=== PATIENT | male | born 1960 | race African-American/Black ===

== ENCOUNTER 2016-11-22 09:42 | Emergency (ER) | payer OTHER ==
[~2016-11-22 09:42] MED LIST: ATOR40TA49 PO; CARV6.25 PO; ECOT81TA2 PO; FURO20 PO; LISI10 PO; SPIR25 PO
[2016-11-22 09:46] VITALS: BP 168/97; PULSE 66; RESP 18; TEMP 98.5; O2SAT 100
[2016-11-22] MEDS ORDERED: CARV6.252 PO (11:33)
--- NOTE | 2016-11-22 12:28 | PD ---
HPI Chief Complaint: GI Complaint Time Seen by Provider: 12:28 Travel History International Travel<30 days: No Contact w/Intl Traveler<30days: No Traveled to known affect area: No History of Present Illness HPI 56-year-old male with a history of CHF presents to the emergency department for evaluation of abdominal pain, back pain and leg pain. The patient states that he has had epigastric abdominal pain for several weeks. States it is constant and describes it as a sharp pain. Aggravated with exertion. Denies any alleviating factors. States that when he exerts himself he also has bilateral lower back pain that radiates to his upper legs. Denies any injury or trauma to his back or legs. States that he has had similar symptoms in the past, does not remember what caused it or what helped the symptoms. Denies any fever , chills, nausea, vomiting, diarrhea, constipation, cough or cold symptoms, chest pain, shortness of breath. States that 2 nights ago he did have shortness of breath when lying flat in bed but otherwise has had no other episodes of shortness of breath or orthopnea. Denies any prior abdominal surgeries. No other complaints. PFSH Past Medical History Heart Rhythm Problems: No Cancer: No Cardiovascular Problems: Yes High Cholesterol: Yes Chemotherapy: No Chest Pain: No Congestive Heart Failure: Yes Cerebrovascular Accident: No Diminished Hearing: No Endocrine: No Gastrointestinal Disorders: No Genitourinary: No Hypertension: Yes Immune Disorder: No Musculoskeletal: No Neurologic: No Psychiatric: No Reproductive: No Respiratory: Yes Migraines: Yes Radiation Therapy: No Seizures: No Tetanus Vaccination: Unknown Influenza Vaccination: No Past Surgical History Abdominal Surgery: No Cardiac Surgery: No Ear Surgery: No Endocrine Surgery: No Eye Surgery: No Genitourinary Surgery: No Gynecologic Surgery: No Oral Surgery: Yes (wisdom teeth removed) Thoracic Surgery: No Other Surgery: Yes (right knee surgery) Social History Alcohol Use: No Tobacco Use: No Substance Use: No Allergies-Medications (Allergen,Severity, Reaction): Coded Allergies: No Known Allergies (Unverified , 11/22/16) Reported Meds & Prescriptions Reported Meds & Active Scripts Active Reported Carvedilol 6.25 Mg Tab 6.25 Mg PO BID Review of Systems Except as stated in HPI: all other systems reviewed are Neg Physical Exam Narrative GENERAL: Well-nourished and well-developed pleasant male patient in no acute distress who is nontoxic appearing. SKIN: Warm and dry. HEAD: Normocephalic and atraumatic. EYES: No injection, drainage, or hyphema noted. PERRLA. EOMI. ENT: No nasal drainage noted. Oropharynx is clear. NECK: Supple and the trachea is midline. CARDIOVASCULAR: Regular rate and rhythm. RESPIRATORY: Breath sounds are equal bilaterally with no accessory muscle use, wheezing, rhonchi, or crackles. GASTROINTESTINAL: Mild epigastric and right upper quadrant tenderness to palpation. Abdomen is soft and nondistended. No rebound tenderness. MUSCULOSKELETAL: No obvious deformities, swelling, cyanosis, or ecchymosis is present throughout the upper and lower extremities. Patient has full range of motion without any signs of neurovascular compromise. Strength 5/5 upper and lower extremities equal bilaterally. BACK: Nontender without any obvious deformities, bony point tenderness, or crepitus noted throughout the thoracic and lumbar vertebrae. NEUROLOGICAL: Awake, alert, and oriented. Normal speech and gait. Cranial nerves are grossly intact. Data Data Last Documented VS Vital Signs Date Time Temp Pulse Resp B/P Pulse Ox O2 Delivery O2 Flow Rate FiO2 11/22/16 14:13 65 18 154/88 99 11/22/16 09:46 98.5 Room Air Orders Complete Blood Count With Diff (11/22/16 12:26) Comprehensive Metabolic Panel (11/22/16 12:26) Lipase (11/22/16 12:26) Urinalysis - C+S If Indicated (11/22/16 12:26) Ct Abd/Pel W Iv Contrast(Rout) (11/22/16 12:26) Iv Access Insert/Monitor (11/22/16 12:26) Ecg Monitoring (11/22/16 12:26) Oximetry (11/22/16 12:26) Sodium Chloride 0.9% Flush (Ns Flush) (11/22/16 12:30) Electrocardiogram (11/22/16 12:26) B-Type Natriuretic Peptide (11/22/16 12:28) Chest, Single Ap (11/22/16 12:36) Us Abdomen Gallbladder (11/22/16 ) Iohexol 350 Inj (Omnipaque 350 Inj) (11/22/16 15:29) Labs Laboratory Tests Test 11/22/16 13:05 White Blood Count 4.2 TH/MM3 Red Blood Count 3.24 MIL/MM3 Hemoglobin 10.5 GM/DL Hematocrit 31.9 % Mean Corpuscular Volume 98.3 FL Mean Corpuscular Hemoglobin 32.5 PG Mean Corpuscular Hemoglobin 33.1 % Concent Red Cell Distribution Width 16.2 % Platelet Count 213 TH/MM3 Mean Platelet Volume 8.4 FL Neutrophils (%) (Auto) 51.3 % Lymphocytes (%) (Auto) 31.7 % Monocytes (%) (Auto) 11.3 % Eosinophils (%) (Auto) 5.2 % Basophils (%) (Auto) 0.5 % Neutrophils # (Auto) 2.2 TH/MM3 Lymphocytes # (Auto) 1.3 TH/MM3 Monocytes # (Auto) 0.5 TH/MM3 Eosinophils # (Auto) 0.2 TH/MM3 Basophils # (Auto) 0.0 TH/MM3 CBC Comment DIFF FINAL Differential Comment Urine Color YELLOW Urine Turbidity CLEAR Urine pH 5.5 Urine Specific Pala 1.025 Urine Protein 30 mg/dL Urine Glucose (UA) NEG mg/dL Urine Ketones NEG mg/dL Urine Occult Blood NEG Urine Nitrite NEG Urine Bilirubin NEG Urine Urobilinogen LESS THAN 2.0 MG/DL Urine Leukocyte Esterase NEG Urine RBC LESS THAN 1 /hpf Urine WBC 2 /hpf Urine Hyaline Casts 3 /lpf Microscopic Urinalysis Comment CULT NOT INDICATED Sodium Level 138 MEQ/L Potassium Level 3.8 MEQ/L Chloride Level 106 MEQ/L Carbon Dioxide Level 25.0 MEQ/L Anion Gap 7 MEQ/L Blood Urea Nitrogen 16 MG/DL Creatinine 1.31 MG/DL Estimat Glomerular Filtration 69 ML/MIN Rate Random Glucose 87 MG/DL Calcium Level 8.3 MG/DL Total Bilirubin 0.9 MG/DL Aspartate Amino Transf 35 U/L (AST/SGOT) Alanine Aminotransferase 37 U/L (ALT/SGPT) Alkaline Phosphatase 56 U/L B-Type Natriuretic Peptide 1681 PG/ML Total Protein 9.7 GM/DL Albumin 2.9 GM/DL Lipase 74 U/L [facility] Medical Decision Making Medical Screen Exam Complete: Yes Emergency Medical Condition: Yes Differential Diagnosis Gastritis versus GERD versus cholecystitis versus cholelithiasis versus anginal equivalent Narrative Course 56-year-old male presents to the emergency department for evaluation of epigastric abdominal pain, bilateral lower back pain radiating to legs. Patient is afebrile, vital signs are stable. The abdominal pain is constant over the back pain and leg pain is exertional. He has a history of CHF with an ejection fraction of 15-20% and was on a life vest, he no longer wears the LifeVest. He is a noncompliant patient, has not seen his primary care Dr. Bailey in almost a year and saw the [facility] for only one follow-up visit 2 weeks after his hospitalization August 2015. The only medication he is currently taking his carvedilol because "the pharmacy won't give me refills on the others until I see my doctor." IV access is obtained, labs have been drawn and sent. Patient is placed on cardiac telemetry and pulse oximetry monitoring. CT of the abdomen and pelvis with IV contrast and ultrasound of the gallbladder has been ordered and is pending. CBC shows mild anemia with hemoglobin of 10.5, hematocrit 31.9. CMP shows renal insufficiency with a creatinine of 1.31, GFR 69. Urinalysis shows 30 protein, otherwise unremarkable. Chest x-ray is negative. Gallbladder ultrasound is negative. CT of the abdomen and pelvis is read by radiology to show appearance of one loop of small bowel in the midportion questionable for partial intussusception and the appearance is nonspecific. Mild right lung base atelectasis and/or infiltrate is seen and tiny right pleural effusion. My attending physician Dr. Powers also reviewed the CT images and evaluated the patient and we agree this is not intussusception. Dr. Powers recommends giving patient refills of medications for CHF and outpatient follow-up with Dr. Bailey in 1 week. Patient verbalizes understanding and agreement with treatment plan. I discussed the case with my attending physician Dr. Powers who is aware of the patients history, physical examination findings, and treatment plan. Diagnosis Primary Impression: Abdominal pain Qualified Code: R10.10 - Pain of upper abdomen Additional Impression: CHF (congestive heart failure) Qualified Code: I50.9 - Chronic congestive heart failure, unspecified congestive heart failure type Referrals: Primary Care Physician 1 week Patient Instructions: General Instructions Additional Instructions: Take medications as prescribed. Follow-up with your Primary Care Physician in 1 week. Return to the ED for any acute worsening of symptoms. Med/Other Pt SpecificInfo: Prescription(s) given Scripts Spironolactone 25 Mg Tab25 Mg PO DAILY #30 TAB Ref 0 Prov:Donovan Powers MD 11/22/16 Lisinopril 10 Mg Tab10 Mg PO DAILY #30 TAB Ref 0 Prov:Donovan Powers MD 11/22/16 Furosemide 20 Mg Tab20 Mg PO BID #60 TAB Ref 0 Prov:Donovan Powers MD 11/22/16 Disposition: 01 DISCHARGE HOME Condition: Stable Opal Coates Nov 22, 2016 12:28
[2016-11-22] MEDS ORDERED: SODIUM CHLORIDE 0.9% FLUSH 10 ML FLUSH IV FLUSH PRN (12:30)
[2016-11-22 13:16] LABS: AUTOMATED NEUTROPHIL # 2.2 TH/MM3 (1.8-7.7); BASOPHIL % 0.5 % (0.0-2.0); EOSINOPHIL # 0.2 TH/MM3 (0-0.4); EOSINOPHIL % 5.2 % (0.0-4.0); HEMATOCRIT 31.9 % (39.0-51.0); HEMO FLAGS DIFF FINAL; LYMPH % 31.7 % (9.0-44.0); LYMPHOCYTE # 1.3 TH/MM3 (1.0-4.8); MEAN CELL VOLUME 98.3 FL (80.0-100.0); MEAN CORPUSCULAR HEMOGLOBIN 32.5 PG (27.0-34.0); MEAN CORPUSCULAR HGB CONC 33.1 % (32.0-36.0); MONO % 11.3 % (0.0-8.0); NEUT % 51.3 % (16.0-70.0); PLATELET COUNT 213 TH/MM3 (150-450); RED BLOOD COUNT 3.24 MIL/MM3 (4.50-5.90); RED CELL DISTRIBUTION WIDTH 16.2 % (11.6-17.2); WHITE BLOOD COUNT 4.2 TH/MM3 (4.0-11.0)
[2016-11-22 13:27] LABS: BLOOD, URINE NEG (NEG); COMMENT (UR) CULT NOT INDICATED; CULTURE IF INDICATED CULT NOT INDICATED; GLUCOSE,URINE NEG (NEG); HYALINE CAST, URINE 3 /lpf (RARE); KETONE, URINE NEG (NEG); NITRITE,URINE NEG (NEG); PH, URINE 5.5 (5.0-8.5); URINE COLOR YELLOW (YELLW/STRAW)
--- NOTE | 2016-11-22 13:33 | RADRPT ---
EXAM DATE/TIME: 11/22/2016 12:43 [facility] COMPARISON: CHEST PA & LAT, August 31, 2015, 12:07. INDICATIONS : Body pain, tightness ins chest. Low abdomen pains radiating into legs. MEDICAL HISTORY : None. SURGICAL HISTORY : None. ENCOUNTER: Initial ACUITY: 3 days PAIN SCORE: 10/10 LOCATION: Bilateral chest FINDINGS: The lungs are clear without infiltrate, nodule, or mass. There is no appreciable pleural effusion fo r technique. Slight cardiomegaly has not changed. CONCLUSION: No acute cardiopulmonary disease. Jose Lombardo MD on November 22, 2016 at 13:30 Board Certified Radiologist. This report was verified electronically.
--- NOTE | 2016-11-22 13:56 | RADRPT ---
EXAM DATE/TIME: 11/22/2016 13:04 [facility] COMPARISON: US LEG RIGHT VENOUS DOPPLER, September 11, 2013, 20:23. INDICATIONS : Right upper quadrant pain. MEDICAL HISTORY : Hypertension. Hypercholesterolemia. Congestive heart failure. Dyspnea. Dizziness. SURGICAL HISTORY : [place] teeth removed. Right knee surgery. ENCOUNTER: Initial ACUITY: 4-6 days PAIN SCORE: 8/10 LOCATION: Right upper quadrant MEASUREMENTS: LIVER: 16.3 cm length COMMON DUCT: 4 mm RIGHT KIDNEY: 9.9 x 5.0 x 4.0 cm FINDINGS: LIVER: Normal echotexture without focal lesion or ductal dilatation. COMMON DUCT: No intraluminal mass or stone visualized. GALLBLADDER: Contains no stones, demonstrates no wall thickening or pericholecystic fluid. PANCREAS: The visualized portions are within normal limits. RIGHT KIDNEY: No evidence of hydronephrosis, stone, or mass. CONCLUSION: 1. Negative examination. Mono Feldman MD on November 22, 2016 at 13:51 Board Certified Radiologist. This report was verified electronically.
[2016-11-22 13:58] LABS: ANION GAP 7 MEQ/L (5-15); BLOOD UREA NITROGEN 16 MG/DL (7-18); CHLORIDE 106 MEQ/L (98-107); GLOMERULAR FILTRATION RATE 69 ML/MIN (>89); POTASSIUM 3.8 MEQ/L (3.5-5.1); SODIUM (NA) 138 MEQ/L (136-145)
[2016-11-22 14:00] LABS: ALT (GPT) 37 U/L (12-78); AST (GOT) 35 U/L (15-37)
[2016-11-22 14:02] LABS: ALKALINE PHOSPHATASE 56 U/L (45-117); TOTAL BILIRUBIN ADULT 0.9 MG/DL (0.2-1.0)
[2016-11-22 14:13] VITALS: BP 154/88; PULSE 65; RESP 18; O2SAT 99
[2016-11-22] MEDS ORDERED: IOHEXOL 350 MG/ML 10 ML VIAL (for RAD DIAG) IV ONE (15:29)
--- NOTE | 2016-11-22 16:14 | RADRPT ---
EXAM DATE/TIME: 11/22/2016 15:20 [facility] COMPARISON: No previous studies available for comparison. INDICATIONS : Abdomen pain. IV CONTRAST: 70 cc Omnipaque 350 (iohexol) IV ORAL CONTRAST: No oral contrast ingested. RADIATION DOSE: 5.71 CTDIvol (mGy) MEDICAL HISTORY : Hypertension. Cardiovascular disease Congestive heart failure. SURGICAL HISTORY : None. ENCOUNTER: Initial ACUITY: 1 day PAIN SCALE: 5/10 LOCATION: Bilateral abdomen. TECHNIQUE: Volumetric scanning of the abdomen and pelvis was performed. Using automated exposure control and ad justment of the mA and/or kV according to patient size, radiation dose was kept as low as reasonably achievable to obtain optimal diagnostic quality images. DICOM format image data is available electro nically for review and comparison. FINDINGS: CT Abdomen: The liver, spleen, pancreas, kidneys, adrenals are unremarkable. There is no evidence for any appreciable pathological adenopathy, free fluid. Mild right lung base atelectasis and/or infilt rate is seen. Slight degree of somewhat linear irregular opacity is seen in the left lung base mostly consistent with scarring. There is one loop of small bowel in the midportion of the abdomen with max imum diameter of 3 cm. It demonstrates thickening of the bowel wall the exact etiology is not certain and could be localized ileus. On some of the coronal and axial projections there may be some fatty m esentery protruding in the middle of this loop and questionable for partial intussusception. There is a tiny right pleural effusion. CT pelvis: There is no evidence for mass, abscess formation, or any significant adenopathy within the pelvis. CONCLUSION: 1. Abdomen appearance to one loop of small bowel in the midportion questionable for partial intussusc eption and the appearance is nonspecific. 2. Mild right lung base atelectasis and/or infiltrate is seen and a tiny right pleural effusion. Jose Lombardo MD on November 22, 2016 at 16:00 Board Certified Radiologist. This report was verified electronically.
[2016-11-22] MEDS ORDERED: LISI10TA3 PO (16:58)
[2016-11-22] MEDS ORDERED: SPIR25TA PO (16:58)
[2016-11-22] MEDS ORDERED: FURO20TA PO (16:58)
[2016-11-22 17:10] VITALS: BP 145/84
== END 2016-11-22 17:11 | disposition home or self-care (01) ==
LOC: NEPD 09:42
DX: R10.13 Epigastric pain (principal); M54.5 Low back pain; M79.604 Pain in right leg; M79.605 Pain in left leg; I11.0 Hypertensive heart disease with heart failure; I50.9 Heart failure, unspecified; D64.9 Anemia, unspecified; N28.9 Disorder of kidney and ureter, unspecified; E78.00 Pure hypercholesterolemia, unspecified
CPT/HCPCS: 71010; 74177; 76705; 80053; 81001; 83690; 83880; 85025; 99285; Q9967

== ENCOUNTER 2017-04-22 15:17 | Inpatient (IN) | payer OTHER ==
[~2017-04-22] VITALS: Ht 172.7 cm; Wt 74.4 kg
[2017-04-22] VITALS (8 sets, daily range): BP systolic 124–142; BP diastolic 67–73; PULSE 53–63; RESP 16–18; TEMP 97.1–97.9; O2SAT 97–100
[~2017-04-22 15:17] MED LIST changes: -ATOR40TA49 PO; -CARV6.25 PO; +CARV6.252 PO; -ECOT81TA2 PO; -FURO20 PO; +FURO20TA PO; -LISI10 PO; +LISI10TA3 PO; -SPIR25 PO; +SPIR25TA PO
--- NOTE | 2017-04-22 15:46 | PD ---
HPI Chief Complaint: CHEST PAIN Time Seen by Provider: 15:46 Travel History International Travel<30 days: No Contact w/Intl Traveler<30days: No Traveled to known affect area: No History of Present Illness HPI 56-year-old male with history of CAD, CHF, hypertension, presents emergency department for evaluation of acute onset right sided chest pain that began approximately 1 hour ago while moving tables. Patient has persisted and is sharp, stabbing. 8 out of 10. It does not radiate anywhere. It has associated brief shortness of breath. Patient has been nauseous. Denies any diaphoresis or lightheadedness sensation. Patient denies any recent fever or chills however states he has been having upper respiratory symptoms of cough and chest congestion for the last month. Denies any abdominal pain. Denies any focal deficits weakness. Patient has no other symptoms to report at this time. PFSH Past Medical History Heart Rhythm Problems: No Cancer: No Cardiovascular Problems: Yes High Cholesterol: Yes Chemotherapy: No Chest Pain: No Congestive Heart Failure: Yes Cerebrovascular Accident: No Diminished Hearing: No Endocrine: No Gastrointestinal Disorders: No Genitourinary: No Hypertension: Yes Immune Disorder: No Musculoskeletal: No Neurologic: No Psychiatric: No Reproductive: No Respiratory: Yes Migraines: Yes Radiation Therapy: No Seizures: No Past Surgical History Abdominal Surgery: No Cardiac Surgery: No Ear Surgery: No Endocrine Surgery: No Eye Surgery: No Genitourinary Surgery: No Gynecologic Surgery: No Oral Surgery: Yes (wisdom teeth removed) Thoracic Surgery: No Other Surgery: Yes (right knee surgery) Social History Alcohol Use: No Tobacco Use: No Substance Use: No Allergies-Medications (Allergen,Severity, Reaction): Coded Allergies: No Known Allergies (Unverified Adverse Reaction, Unknown, 04/22/17) Reported Meds & Prescriptions Reported Meds & Active Scripts Active Spironolactone 25 Mg Tab 25 Mg PO DAILY Lisinopril 10 Mg Tab 10 Mg PO DAILY Furosemide 20 Mg Tab 20 Mg PO BID Reported Aspirin Low Dose (Aspirin) 81 Mg Chew 162 Mg CHEW DAILY Atorvastatin (Atorvastatin Calcium) 40 Mg Tab 40 Mg PO HS Carvedilol 6.25 Mg Tab 6.25 Mg PO BID Review of Systems Except as stated in HPI: all other systems reviewed are Neg Physical Exam Narrative GENERAL: Well-nourished male patient, in no acute distress. SKIN: Focused skin assessment warm/dry. HEAD: Atraumatic. Normocephalic. EYES: Pupils equal and round. No scleral icterus. No injection or drainage. ENT: No nasal bleeding or discharge. Mucous membranes pink and moist. NECK: Trachea midline. No JVD. CARDIOVASCULAR: Regular rate and rhythm. No murmur appreciated. RESPIRATORY: No accessory muscle use. Clear to auscultation. Breath sounds equal bilaterally. No tenderness elicited palpation over the right anterior chest. No crepitus. Even respirations. GASTROINTESTINAL: Abdomen soft, non-tender, nondistended. Hepatic and splenic margins not palpable. MUSCULOSKELETAL: No obvious deformities. No clubbing. No cyanosis. No edema. NEUROLOGICAL: Awake and alert. No obvious cranial nerve deficits. Motor grossly within normal limits. Normal speech. PSYCHIATRIC: Appropriate mood and affect; insight and judgment normal. Data Data Last Documented VS Vital Signs Date Time Temp Pulse Resp B/P (MAP) Pulse Ox O2 Delivery O2 Flow Rate FiO2 04/22/17 19:23 61 18 137/69 (91) 99 Room Air 04/22/17 18:38 97.8 Orders Orders Electrocardiogram (04/22/17 15:46) Basic Metabolic Panel (Bmp) (04/22/17 15:46) Ckmb (Isoenzyme) Profile (04/22/17 15:46) Complete Blood Count With Diff (04/22/17 15:46) Magnesium (Mg) (04/22/17 15:46) Prothrombin Time / Inr (Pt) (04/22/17 15:46) Act Partial Throm Time (Ptt) (04/22/17 15:46) Troponin I (04/22/17 15:46) Lipase (04/22/17 15:46) Chest, Single Ap (04/22/17 15:46) Ecg Monitoring (04/22/17 15:46) Bilateral Bp Monitoring (04/22/17 15:46) Iv Access Insert/Monitor (04/22/17 15:46) Oximetry (04/22/17 15:46) Oxygen Administration (04/22/17 15:46) Aspirin Chew (Aspirin Chew) (04/22/17 16:00) Sodium Chloride 0.9% Flush (Ns Flush) (04/22/17 16:00) Nitroglycerin Sl (Nitrostat Sl) (04/22/17 16:00) Sodium Chlorid 0.9% 500 Ml Inj (Ns 500 M (04/22/17 16:00) Sodium Chlor 0.9% 1000 Ml Inj (Ns 1000 M (04/22/17 17:00) Morphine Inj (Morphine Inj) (04/22/17 17:00) Ondansetron Inj (Zofran Inj) (04/22/17 17:00) Ondansetron Inj (Zofran Inj) (04/22/17 17:30) Chest, Pa & Lat (04/22/17 ) Morphine Inj (Morphine Inj) (04/22/17 18:15) Ketorolac Inj (Toradol Inj) (04/22/17 18:15) Troponin I (04/22/17 18:33) Place In Observation (04/22/17 18:33) Activity Bed Rest With Brp (04/22/17 18:33) Vital Signs (Adult) Q4H (04/22/17 18:33) Cardiac Rhythm .As Directed (04/22/17 18:33) Notify Dr: Other .PRN (04/22/17 18:33) Notify Dr. Parameters (04/22/17 18:33) Resp Oxygen Nasal Cannula (04/22/17 ) Diet Heart Healthy (04/22/17 Dinner) Ckmb (Isoenzyme) Profile (04/22/17 21:33) Electrocardiogram (04/22/17 18:33) Electrocardiogram (04/22/17 21:33) ^ Obtain (04/22/17 18:33) Sodium Chloride 0.9% Flush (Ns Flush) (04/22/17 18:45) Sodium Chloride 0.9% Flush (Ns Flush) (04/22/17 21:00) Acetaminophen (Tylenol) (04/22/17 18:45) Ondansetron Inj (Zofran Inj) (04/22/17 18:45) Nitroglycerin Sl (Nitrostat Sl) (04/22/17 18:45) Program Manager / Telemetry [id number] (04/22/17 18:33) Azithromycin Inj (Zithromax Inj) (04/22/17 19:15) Ceftriaxone Inj (Rocephin Inj) (04/22/17 19:15) Albuterol-Ipratropium Neb (Duoneb Neb) (04/22/17 19:15) Methylprednisolone So Succ Inj (Solumedr (04/22/17 19:15) Ckmb (Isoenzyme) Profile (04/22/17 18:45) Admit Order (Ed Use Only) (04/22/17 20:01) Labs Laboratory Tests Test 04/22/17 15:55 04/22/17 18:45 White Blood Count 9.9 TH/MM3 Red Blood Count 2.34 MIL/MM3 Hemoglobin 7.8 GM/DL Hematocrit 23.2 % Mean Corpuscular Volume 99.0 FL Mean Corpuscular Hemoglobin 33.2 PG Mean Corpuscular Hemoglobin Concent 33.5 % Red Cell Distribution Width 16.0 % Platelet Count 206 TH/MM3 Mean Platelet Volume 8.6 FL Neutrophils (%) (Auto) 72.3 % Lymphocytes (%) (Auto) 10.1 % Monocytes (%) (Auto) 16.6 % Eosinophils (%) (Auto) 0.8 % Basophils (%) (Auto) 0.2 % Neutrophils # (Auto) 7.2 TH/MM3 Lymphocytes # (Auto) 1.0 TH/MM3 Monocytes # (Auto) 1.7 TH/MM3 Eosinophils # (Auto) 0.1 TH/MM3 Basophils # (Auto) 0.0 TH/MM3 CBC Comment DIFF FINAL Differential Comment Prothrombin Time 11.5 SEC Prothromb Time International Ratio 1.1 RATIO Activated Partial Thromboplast Time 30.2 SEC Blood Urea Nitrogen 26 MG/DL Creatinine 1.80 MG/DL Random Glucose 97 MG/DL Calcium Level 7.7 MG/DL Magnesium Level 2.0 MG/DL Sodium Level 134 MEQ/L Potassium Level 3.4 MEQ/L Chloride Level 101 MEQ/L Carbon Dioxide Level 28.5 MEQ/L Anion Gap 5 MEQ/L Estimat Glomerular Filtration Rate 48 ML/MIN Total Creatine Kinase 87 U/L 53 U/L Troponin I LESS THAN 0.02 NG/ML 0.02 NG/ML Lipase 96 U/L [facility] Medical Decision Making Medical Screen Exam Complete: Yes Emergency Medical Condition: Yes Medical Record Reviewed: Yes Differential Diagnosis Chest wall pain versus pleuritic pain versus ACS versus pneumonia versus influenza versus costochondritis Narrative Course 56-year-old male presents to emergency department for evaluation of right-sided chest pain, acute onset while moving tables today. Patient appears without distress. Pain is nonreproducible. Patient is treated for pain. Laboratory Tests Test 04/22/17 15:55 04/22/17 18:45 White Blood Count 9.9 TH/MM3 Red Blood Count 2.34 MIL/MM3 Hemoglobin 7.8 GM/DL Hematocrit 23.2 % Mean Corpuscular Volume 99.0 FL Mean Corpuscular Hemoglobin 33.2 PG Mean Corpuscular Hemoglobin Concent 33.5 % Red Cell Distribution Width 16.0 % Platelet Count 206 TH/MM3 Mean Platelet Volume 8.6 FL Neutrophils (%) (Auto) 72.3 % Lymphocytes (%) (Auto) 10.1 % Monocytes (%) (Auto) 16.6 % Eosinophils (%) (Auto) 0.8 % Basophils (%) (Auto) 0.2 % Neutrophils # (Auto) 7.2 TH/MM3 Lymphocytes # (Auto) 1.0 TH/MM3 Monocytes # (Auto) 1.7 TH/MM3 Eosinophils # (Auto) 0.1 TH/MM3 Basophils # (Auto) 0.0 TH/MM3 CBC Comment DIFF FINAL Differential Comment Prothrombin Time 11.5 SEC Prothromb Time International Ratio 1.1 RATIO Activated Partial Thromboplast Time 30.2 SEC Blood Urea Nitrogen 26 MG/DL Creatinine 1.80 MG/DL Random Glucose 97 MG/DL Calcium Level 7.7 MG/DL Magnesium Level 2.0 MG/DL Sodium Level 134 MEQ/L Potassium Level 3.4 MEQ/L Chloride Level 101 MEQ/L Carbon Dioxide Level 28.5 MEQ/L Anion Gap 5 MEQ/L Estimat Glomerular Filtration Rate 48 ML/MIN Lipase 96 U/L Total Creatine Kinase 53 U/L Troponin I 0.02 NG/ML Last Impressions Chest X-Ray 04/22/17 1546 Signed Impressions: Service Date/Time: Saturday, April 22, 2017 15:58 - CONCLUSION: Density in the right midlung could be related to fluid in the fissure. PA and lateral views recommended. There is cardiomegaly. Raj Winston MD Chest X-Ray 04/22/17 0000 Signed Impressions: Service Date/Time: Saturday, April 22, 2017 18:13 - CONCLUSION: 1. Dense consolidation right middle lobe most characteristic of pneumonia. Trace pleural fluid. Cardiomegaly. Sean Chawla MD Patient continues to have the pain. He states it continues to be sharp and stabbing. He is treated again for this. Patient's hemoglobin is 7.8. This is a significant decrease from our most recent lab work which was in November. After seeInG this result, Hemoccult is positive. He denies any abdominal pain. No known GI bleed. No black tarry stool. Patient also has a decrease in renal function. I discussed the patient with my attending physician who has also reviewed the labs and x-ray findings. Patient continues to be in pain. She recommends admission for further evaluation and serial hemoglobins to ensure the patient is not actively bleeding. Plan as discussed with the patient and his family at bedside. They agree with this plan of care. Diagnosis Primary Impression: Atypical chest pain Additional Impressions: Pneumonia Qualified Codes: J18.1 - Lobar pneumonia, unspecified organism Anemia Qualified Codes: D64.9 - Anemia, unspecified Positive occult stool blood test Admitting Information Admitting Physician Requests: Observation Condition: Stable Wilma Shannon Apr 22, 2017 15:46
[2017-04-22] MEDS ORDERED: ATOR40TA16 PO (15:55)
[2017-04-22] MEDS ORDERED: ASPI81CH6 CHEW (15:55)
[2017-04-22] MEDS ORDERED: ASPIRIN 81 MG CHEW TAB PO ONE (16:00)
[2017-04-22] MEDS ORDERED: SODIUM CHLORID 0.9% 500 ML INJ 500 ML IV ONE (16:00)
[2017-04-22] MEDS ORDERED: SODIUM CHLORIDE 0.9% FLUSH 10 ML FLUSH IVF PRN (16:00)
--- NOTE | 2017-04-22 16:09 | RADRPT ---
EXAM DATE/TIME: 04/22/2017 15:58 [facility] COMPARISON: CHEST SINGLE AP, November 22, 2016, 12:43. INDICATIONS : Chest pain. MEDICAL HISTORY : Congestive heart failure. SURGICAL HISTORY : None. ENCOUNTER: Initial ACUITY: 1 day PAIN SCORE: 10/10 LOCATION: Bilateral chest FINDINGS: A single view of the chest demonstrates density in the right midlung may be related to fluid in the f issure. Left lung clear. Moderate enlargement of the cardiac silhouette. Left lung clear. Pulmonary m ass clarity normal. The cardiomediastinal contours are unremarkable. Osseous structures are intact. CONCLUSION: Density in the right midlung could be related to fluid in the fissure. PA and lateral views recommend ed. There is cardiomegaly. Raj Winston MD on April 22, 2017 at 16:06 Board Certified Radiologist. This report was verified electronically.
[2017-04-22] MEDS: NITROGLYCERIN 0.4 MG SL 25 TABS/BTL SL SCH ×3 (16:10→16:52)
[2017-04-22 16:18] LABS: AUTOMATED NEUTROPHIL # 7.2 TH/MM3 (1.8-7.7); BASOPHIL % 0.2 % (0.0-2.0); EOSINOPHIL # 0.1 TH/MM3 (0-0.4); EOSINOPHIL % 0.8 % (0.0-4.0); HEMATOCRIT 23.2 % (39.0-51.0); HEMO FLAGS DIFF FINAL; LYMPH % 10.1 % (9.0-44.0); MEAN CORPUSCULAR HEMOGLOBIN 33.2 PG (27.0-34.0); MEAN CORPUSCULAR HGB CONC 33.5 % (32.0-36.0); MONO % 16.6 % (0.0-8.0); NEUT % 72.3 % (16.0-70.0); PLATELET COUNT 206 TH/MM3 (150-450); RED BLOOD COUNT 2.34 MIL/MM3 (4.50-5.90); WHITE BLOOD COUNT 9.9 TH/MM3 (4.0-11.0)
[2017-04-22 16:29] LABS: APTT (PATIENT) 30.2 SEC (24.3-30.1); INTERNATIONAL NORMALIZED RATIO 1.1 RATIO; PROTHROMBIN TIME - PATIENT 11.5 SEC (9.8-11.6)
[2017-04-22 16:44] LABS: ANION GAP 5 MEQ/L (5-15); BICARBONATE 28.5 MEQ/L (21.0-32.0); BLOOD UREA NITROGEN 26 MG/DL (7-18); CHLORIDE 101 MEQ/L (98-107); GLOMERULAR FILTRATION RATE 48 ML/MIN (>89); SODIUM (NA) 134 MEQ/L (136-145)
[2017-04-22 16:46] LABS: POTASSIUM 3.4 MEQ/L (3.5-5.1)
[2017-04-22] MEDS ORDERED: MORPHINE SULFATE 2 MG/ML INJ IV PUSH ONE ×2 (17:00→18:15)
[2017-04-22] MEDS ORDERED: SODIUM CHLOR 0.9% 1000 ML INJ 1,000 ML IV ONE (17:00)
[2017-04-22] MEDS ORDERED: ONDANSETRON HCL 4 MG/2 ML VIAL IV PUSH ONE ×2 (17:00→17:30)
[2017-04-22 17:01] LABS: CREATINE KINASE 87 U/L (39-308)
[2017-04-22] MEDS ORDERED: KETOROLAC TROMETHAMINE 30 MG/ML (IVP) VIAL IV PUSH ONE (18:15)
--- NOTE | 2017-04-22 18:35 | RADRPT ---
EXAM DATE/TIME: 04/22/2017 18:13 [place] COMPARISON: No previous studies available for comparison. INDICATIONS : Short of breath and chest pain. MEDICAL HISTORY : Congestive heart failure. SURGICAL HISTORY : None. ENCOUNTER: Initial ACUITY: 1 day PAIN SCORE: 10/10 LOCATION: Right chest FINDINGS: There is dense consolidation in the right middle lobe with some atelectasis as well. Trace pleural fl uid. Cardiomegaly. Minimal left basilar atelectasis. CONCLUSION: 1. Dense consolidation right middle lobe most characteristic of pneumonia. Trace pleural fluid. Cardi omegaly. Sean Chawla MD on April 22, 2017 at 18:32 Board Certified Radiologist. This report was verified electronically.
[2017-04-22] MEDS ORDERED: ACETAMINOPHEN 500 MG CPLT PO PRN (18:45)
[2017-04-22] MEDS ORDERED: SODIUM CHLORIDE 0.9% FLUSH 10 ML FLUSH IV FLUSH PRN ×2 (18:45→20:15)
[2017-04-22] MEDS ORDERED: ONDANSETRON HCL 4 MG/2 ML VIAL IV PUSH PRN (18:45)
[2017-04-22] MEDS ORDERED: NITROGLYCERIN 0.4 MG SL 25 TABS/BTL SL PRN (18:45)
[2017-04-22] MEDS ORDERED: AZITHROMYCIN INJ 500 MG in SODIUM CHLOR 0.9% 250 ML INJ 250 ML IV ONE (19:15)
[2017-04-22] MEDS ORDERED: methylPREDNISolone SOD SUCC 125 MG/2 ML VIAL IV PUSH ONE (19:15)
[2017-04-22] MEDS ORDERED: RESP: ALBUTEROL 2.5 MG/IPRATROPIUM 0.5 MG NEB (SCH) NEB ONE (19:15)
[2017-04-22] MEDS ORDERED: cefTRIAXone INJ 1,000 MG in SODIUM CHLORIDE 0.9% INJ 100 ML IV ONE (19:15)
[2017-04-22] MEDS ORDERED: ACETAMINOPHEN 325 MG TAB PO PRN (20:15)
[2017-04-22] MEDS ORDERED: FUROSEMIDE 20 MG/2 ML VIAL IV PUSH ONE (20:15)
[2017-04-22] MEDS ORDERED: RESP: ALBUTEROL 2.5 MG/IPRATROPIUM 0.5 MG NEB (PRN) NEB (20:15)
[2017-04-22] MEDS ORDERED: ONDANSETRON HCL 4 MG/2 ML VIAL IVP PRN (20:15)
[2017-04-22] MEDS ORDERED: SODIUM CHLOR 0.9% 250 ML INJ 250 ML IV ONE (20:45)
[2017-04-22] MEDS: SODIUM CHLORIDE 0.9% FLUSH 10 ML FLUSH IV FLUSH SCH (21:00)
[2017-04-22] MEDS ORDERED: SODIUM CHLORIDE 0.9% FLUSH 10 ML FLUSH IV FLUSH SCH (21:00)
[2017-04-22] MEDS ORDERED: POTASSIUM CHLORIDE 20 MEQ CONTROLLED RELEASE TAB PO ONE (22:30)
--- NOTE | 2017-04-22 22:32 | HHI.HP ---
[facility] Kevin Shultz M.D. Admission Diagnosis ATYPICAL CHEST PAIN; PNA; ANEMIA; +STOOL HEMOCCULT Diagnoses: Travel History International Travel<30 Days: No Contact w/Intl Traveler <30 Da: No Traveled to Known Affected Are: No History of Present Illness 86-year-old male with a past medical history significant for hypertension and congestive heart failure (last echo 09/01/15 showed an EF of 10-20%) presents to the emergency department with right-sided chest pain. Patient states the pain started when he was lifting a cafeteria table. He describes the pain as sharp and reproducible on the left side of his chest. He denies shortness of breath/ chest pressure. The patient reports multiple episodes of diaphoresis throughout the weekend. Chest x-ray significant for dense consolidation of the right middle lobe. Afebrile, no leukocytosis. Troponin negative 2. EKG shows sinus bradycardia with first-degree AV block. No ST segment elevations or depressions. Inverted T waves in leads V5 and V6. Review of Systems Denies fever or chills Denies blurry vision, otorrhea, rhinorrhea Denies sore throat and cough Positive chest pain, No palpitations, shortness of breath No abdominal pain Denies constipation/diarrhea/nausea/vomiting Denies muscle pain/weakness No rashes Past Family Social History Past Medical History Hypertension CHF (last echo 09/01/15 showed an EF of 10-20%) Past Surgical History Right knee surgery Reported Medications Reported Meds & Active Scripts Active Spironolactone 25 Mg Tab 25 Mg PO DAILY Lisinopril 10 Mg Tab 10 Mg PO DAILY Furosemide 20 Mg Tab 20 Mg PO BID Reported Aspirin Low Dose (Aspirin) 81 Mg Chew 162 Mg CHEW DAILY Atorvastatin (Atorvastatin Calcium) 40 Mg Tab 40 Mg PO HS Carvedilol 6.25 Mg Tab 6.25 Mg PO BID Allergies: Coded Allergies: No Known Allergies (Unverified Allergy, Unknown, 04/22/17) Family History Denies family history of CAD/DM Social History Denies tobacco, alcohol and illicit drugs. Physical Exam Vital Signs Vital Signs Date Time Temp Pulse Resp B/P (MAP) Pulse Ox O2 Delivery O2 Flow Rate FiO2 04/22/17 21:14 04/22/17 19:23 61 18 137/69 (91) 99 Room Air 04/22/17 19:17 99 Room Air 04/22/17 19:17 99 Room Air 04/22/17 18:38 97.8 58 18 142/73 (96) 98 Room Air 04/22/17 16:50 63 18 137/69 (91) 97 Room Air 04/22/17 15:48 58 18 100 Room Air 04/22/17 15:45 97.9 63 18 137/69 (91) 100 Physical Exam GENERAL: Diaphoretic male lying in bed SKIN: No rashes, ecchymoses or lesions. Cool and dry. HEAD: Atraumatic. Normocephalic. No temporal or scalp tenderness. EYES: Pupils equal round and reactive. Extraocular motions intact. No scleral icterus. No injection or drainage. ENT: Nose without bleeding, purulent drainage or septal hematoma. Throat without erythema, tonsillar hypertrophy or exudate. Uvula midline. Airway patent. NECK: Trachea midline. No JVD or lymphadenopathy. Supple, nontender, no meningeal signs. CARDIOVASCULAR: Regular rate and rhythm without murmurs, gallops, or rubs. RESPIRATORY: Clear to auscultation. Breath sounds equal bilaterally. No wheezes , rales, or rhonchi. GASTROINTESTINAL: Abdomen soft, non-tender, nondistended. No hepato-splenomegaly , or palpable masses. No guarding. MUSCULOSKELETAL: Extremities without clubbing, cyanosis, or edema. No joint tenderness, effusion, or edema noted. No calf tenderness. NEUROLOGICAL: Awake and alert. Cranial nerves II through XII intact. Motor and sensory grossly within normal limits. Normal speech. Laboratory Laboratory Tests Test 04/22/17 15:55 04/22/17 18:45 04/22/17 20:50 White Blood Count 9.9 Red Blood Count 2.34 Hemoglobin 7.8 Hematocrit 23.2 Mean Corpuscular Volume 99.0 Mean Corpuscular Hemoglobin 33.2 Mean Corpuscular Hemoglobin Concent 33.5 Red Cell Distribution Width 16.0 Platelet Count 206 Mean Platelet Volume 8.6 Neutrophils (%) (Auto) 72.3 Lymphocytes (%) (Auto) 10.1 Monocytes (%) (Auto) 16.6 Eosinophils (%) (Auto) 0.8 Basophils (%) (Auto) 0.2 Neutrophils # (Auto) 7.2 Lymphocytes # (Auto) 1.0 Monocytes # (Auto) 1.7 Eosinophils # (Auto) 0.1 Basophils # (Auto) 0.0 CBC Comment DIFF FINAL Differential Comment Prothrombin Time 11.5 Prothromb Time International Ratio 1.1 Activated Partial Thromboplast Time 30.2 Blood Urea Nitrogen 26 Creatinine 1.80 Random Glucose 97 Calcium Level 7.7 Magnesium Level 2.0 Sodium Level 134 Potassium Level 3.4 Chloride Level 101 Carbon Dioxide Level 28.5 Anion Gap 5 Estimat Glomerular Filtration Rate 48 Total Creatine Kinase 87 53 Troponin I LESS THAN 0.02 0.02 Lipase 96 Result Diagram: 04/22/17 15504/22/171554 Abiliorinemili VTE Risk Assessment Abiliorinemili VTE Risk Assessment: No/Low Risk (score <= 1) Caprini Risk Assessment Model Point Value = 1 Point Value = 2 Point Value = 3 Point Value = 5 Age 41-60 Minor surgery BMI > 25 kg/m2 Swollen legs Varicose veins or History of unexplained or recurrent spontaneous Oral contraceptives or hormone replacement Sepsis (< 1 month) Serious lung disease, including pneumonia (< 1 month) Abnormal pulmonary function Acute myocardial infarction Congestive heart failure (< 1 month) History of inflammatory bowel disease Medical patient at bed rest Age 61-74 Arthroscopic surgery Major open surgery (> 45 min) Laparoscopic surgery (> 45 min) Malignancy Confined to bed (> 72 hours) Immobilizing plaster cast Central venous access Age >= 75 History of VTE Family history of VTE Factor V Leiden Prothrombin [id number] Lupus anticoagulant Anticardiolipin antibodies Elevated serum homocysteine Heparin-induced thrombocytopenia Other congenital or acquired thrombophilia Stroke (< 1 month) Elective arthroplasty Hip, pelvis, or leg fracture Acute spinal cord injury (< 1 month) Prophylaxis Regimen Total Risk Factor Score Risk Level Prophylaxis Regimen 0-1 Low Early ambulation 2 Moderate Order ONE of the following: *Sequential Compression Device (SCD) *Heparin 5000 units SQ BID 3-4 Higher Order ONE of the following medications: *Heparin 5000 units SQ TID *Enoxaparin/Lovenox 40 mg SQ daily (WT < 150 kg, CrCl > 30 mL/min) *Enoxaparin/Lovenox 30 mg SQ daily (WT < 150 kg, CrCl > 10-29 mL/min) *Enoxaparin/Lovenox 30 mg SQ BID (WT < 150 kg, CrCl > 30 mL/min) AND/OR *Sequential Compression Device (SCD) 5 or more Highest Order ONE of the following medications: *Heparin 5000 units SQ TID (Preferred with Epidurals) *Enoxaparin/Lovenox 40 mg SQ daily (WT < 150 kg, CrCl > 30 mL/min) *Enoxaparin/Lovenox 30 mg SQ daily (WT < 150 kg, CrCl > 10-29 mL/min) *Enoxaparin/Lovenox 30 mg SQ BID (WT < 150 kg, CrCl > 30 mL/min) AND *Sequential Compression Device (SCD) Assessment and Plan Assessment and Plan Assessment/plan: 1. Pneumonia Chest x-ray significant for dense consolidation of the right middle lobe, image is reviewed by me Sander/Steph huang 2. Chest pain Occurred following exertion, suspect musculoskeletal in origin ACS rule out pending, initial troponins negative EKG shows sinus bradycardia with first-degree AV block and T-wave inversion in V5 and V6, reviewed by me Follow up final EKG/troponin 3. CHF Last echo 09/01/15 showed an EF of 10-20% BNP pending Continue home spironolactone, carvedilol 4. Hypertension Continue medications as above 5. Hyperlipidemia Continue home statin 6. PAULINE Cr 1.8, Baseline 1.2 Encourage PO hydration, holding IVFs for low EF Holding home lisinopril Avoid nephrotoxic agents Monitor renal function 7. Hypokalemia Supplemented PO Follow BMP FEN Heart healthy diet Electrolytes: as above SCDs Case discussed with ER physician at length Physician Certification 2 Midnight Certification Type: Admission for Inpatient Services Order for Inpatient Services The services are ordered in accordance with Medicare regulations or non- Medicare payer requirements, as applicable. In the case of services not specified as inpatient-only, they are appropriately provided as inpatient services in accordance with the 2-midnight benchmark. Estimated LOS (days): 2 2 days is the estimated time the patient will need to remain in the hospital, assuming treatment plan goals are met and no additional complications. Post-Hospital Plan: Not yet determined Tara Carmona MD Apr 22, 2017 22:32
[2017-04-22 22:41] LABS: CREATINE KINASE 48 U/L (39-308)
[2017-04-23] VITALS (14 sets, daily range): BP systolic 119–146; BP diastolic 59–84; PULSE 48–67; RESP 16–20; TEMP 95.4–98.1; O2SAT 95–98
[2017-04-23] MEDS: RESP: ALBUTEROL 2.5 MG/IPRATROPIUM 0.5 MG NEB (SCH) NEB ×4 (03:29→22:16)
[2017-04-23 07:07] LABS: AUTOMATED NEUTROPHIL # 6.7 TH/MM3 (1.8-7.7); BASOPHIL % 0.1 % (0.0-2.0); HEMATOCRIT 31.1 % (39.0-51.0); HEMO FLAGS DIFF FINAL; LYMPH % 6.3 % (9.0-44.0); LYMPHOCYTE # 0.5 TH/MM3 (1.0-4.8); MEAN CELL VOLUME 100.5 FL (80.0-100.0); MEAN CORPUSCULAR HEMOGLOBIN 33.2 PG (27.0-34.0); MEAN CORPUSCULAR HGB CONC 33.1 % (32.0-36.0); MONO % 3.8 % (0.0-8.0); NEUT % 89.8 % (16.0-70.0); PLATELET COUNT 223 TH/MM3 (150-450); RED CELL DISTRIBUTION WIDTH 16.3 % (11.6-17.2); WHITE BLOOD COUNT 7.5 TH/MM3 (4.0-11.0)
[2017-04-23 07:32] LABS: ANION GAP 3 MEQ/L (5-15); BICARBONATE 27.2 MEQ/L (21.0-32.0); BLOOD UREA NITROGEN 25 MG/DL (7-18); CHLORIDE 106 MEQ/L (98-107); GLOMERULAR FILTRATION RATE 59 ML/MIN (>89); POTASSIUM 4.8 MEQ/L (3.5-5.1); SODIUM (NA) 136 MEQ/L (136-145)
[2017-04-23 07:34] LABS: CREATINE KINASE 43 U/L (39-308)
[2017-04-23] MEDS: SPIRONOLACTONE 25 MG TAB PO SCH (09:12)
[2017-04-23] MEDS: ASPIRIN 81 MG CHEW TAB CHEW SCH (09:12)
[2017-04-23] MEDS: FUROSEMIDE 20 MG TAB PO SCH ×2 (09:12→21:07)
[2017-04-23] MEDS: CARVEDILOL 6.25 MG TAB PO SCH ×2 (09:12→21:08)
[2017-04-23] MEDS: SODIUM CHLORIDE 0.9% FLUSH 10 ML FLUSH IV FLUSH SCH ×2 (09:15→21:08)
--- NOTE | 2017-04-23 09:28 | HHI.PR ---
Subjective Remarks Follow-up chest pain, pneumonia, GI bleed. The patient states that his chest pain has resolved. Denies shortness of breath or cough. Has noted some blood on the tissue after wiping, but no other bleeding. Objective Vitals Vital Signs Date Time Temp Pulse Resp B/P (MAP) Pulse Ox O2 Delivery O2 Flow Rate FiO2 04/23/17 08:54 95 21 04/23/17 07:15 Room Air 04/23/17 04:17 56 04/23/17 04:00 97.1 49 16 132/76 (94) 96 04/23/17 04:00 Room Air 04/23/17 03:31 97 21 04/23/17 02:48 97.0 49 16 129/69 (89) 98 04/23/17 00:39 97.2 53 18 120/64 96 04/23/17 00:21 97.3 54 18 119/59 96 04/23/17 00:18 52 04/23/17 00:00 Room Air 04/22/17 23:55 97.4 54 18 132/67 98 04/22/17 22:05 62 04/22/17 21:14 04/22/17 21:05 97.1 53 16 124/67 (86) 98 04/22/17 19:23 61 18 137/69 (91) 99 Room Air 04/22/17 19:17 99 Room Air 04/22/17 19:17 99 Room Air 04/22/17 18:38 97.8 58 18 142/73 (96) 98 Room Air 04/22/17 16:50 63 18 137/69 (91) 97 Room Air 04/22/17 15:48 58 18 100 Room Air 04/22/17 15:45 97.9 63 18 137/69 (91) 100 I/O 04/22/17 04/22/17 04/22/17 04/23/17 04/23/17 04/23/17 07:00 15:00 23:00 07:00 15:00 23:00 Intake Total 1970 ml 470 ml Output Total 600 ml Balance 1970 ml -130 ml Intake Oral 120 ml IV Total 1850 ml 60 ml Packed Cells 350 ml Blood Product IV Normal Saline Flush 60 ml Output Urine Total 600 ml # Voids 1 # Bowel Movements 0 Result Diagram: 04/23/17 0644 04/23/17 0644 Imaging Last Impressions Chest X-Ray 04/22/17 1546 Signed Impressions: Service Date/Time: Saturday, April 22, 2017 15:58 - CONCLUSION: Density in the right midlung could be related to fluid in the fissure. PA and lateral views recommended. There is cardiomegaly. Raj Winston MD Objective Remarks General: No acute distress. Heart: Regular rate and rhythm. No murmur. Lungs: Clear to auscultation bilaterally. No wheezes, rales, or rhonchi. Breathing is nonlabored. Abdomen: Soft, nontender, nondistended. Extremities: No lower extremity edema. Psych: Alert and oriented. Procedures None Urinary Catheter: No Vascular Central Line Catheter: No A/P Assessment and Plan 1. Pneumonia: Right middle lobe consolidation on CXR. Continue Rocephin, Azithromycin. Duonebs, oxygen. 2. Chest pain, atypical: Occurred after moving tables. Resolved. Serial cardiac enzymes are negative. 3. Chronic systolic congestive heart failure: Last echocardiogram available in electronic record was done 09/01/15 and showed ejection fraction of 10-20%. Continue spironolactone, carvedilol. DAMIAN inhibitor on hold secondary to acute kidney injury. 4. Hypertension: Continue beta anahi, diuretic. 5. Hyperlipidemia: Continue statin. 6. Acute kidney injury: Improving. IV fluids on hold secondary to CHF. Lisinopril on hold. 7. Hypokalemia: Improved. 8. GI bleed: Stool Hemoccult positive in the ER. Consult gastroenterology. Monitor H&H. 9. DVT prophylaxis: SCDs. Tino De Souza MD Apr 23, 2017 09:28
--- NOTE | 2017-04-23 12:11 | EKG ---
Date Performed: 04/22/2017 Time Performed: 15:41:32 PTAGE: 56 years EKG: Sinus rhythm WITH FIRST DEGREE AV BLOCK LEFT ATRIAL ENLARGEMENT LEFT VENTRICULAR HYPERTROPHY AND ST-T CHANGE ABNO RMAL ECG Since PREVIOUS TRACING , no significant change noted PREVIOUS TRACIN09/03/2015 07.44 DOCTOR: Tito Cervantes Interpretating Date/Time 04/23/2017 12:09:04
--- NOTE | 2017-04-23 12:11 | EKG ---
Date Performed: 04/22/2017 Time Performed: 19:19:32 PTAGE: 56 years EKG: SINUS BRADYCARDIA WITH FIRST DEGREE AV BLOCK POSSIBLE LEFT ATRIAL ENLARGEMENT POSSIBLE ANTE RIOR MYOCARDIAL INFARCTION ABNORMAL ECG Since PREVIOUS TRACING , no significant change noted PREVIOUS TRACIN04/22/2017 15.41 DOCTOR: Tito Cervantes Interpretating Date/Time 04/23/2017 12:09:22
--- NOTE | 2017-04-23 12:11 | EKG ---
Date Performed: 04/22/2017 Time Performed: 22:26:52 PTAGE: 56 years EKG: Sinus rhythm WITH FIRST DEGREE AV BLOCK LEFT ATRIAL ENLARGEMENT LEFT VENTRICULAY HYPERTROPHY WITH ST-T WAVE LUNA ES ABNORMAL ECG Since PREVIOUS TRACING , no significant change noted PREVIOUS TRACIN04/22/2017 19.19 DOCTOR: Tito Cervantes Interpretating Date/Time 04/23/2017 12:10:09
--- NOTE | 2017-04-23 12:11 | EKG ---
Date Performed: 04/23/2017 Time Performed: 03:51:46 PTAGE: 56 years EKG: Sinus bradycardia with 1st degree A-V block Left ventricular hypertrophy with repolarizatio n changes Poor R-wave progression, more prominent than prior tracing, suspect due to lead placment Cl inical correlation is needed. Abnormal ECG PREVIOUS TRACING : 04/22/2017 22.26 DOCTOR: Tito Cervantes Interpretating Date/Time 04/23/2017 12:11:12
--- NOTE | 2017-04-23 15:37 | PD.CONS ---
HPI History of Present Illness This is a 56 year old male with HTN, CHF ef 10-20% who presented with right sdied chest pain that started yesterday after he tried to move a table. THe pain has since resolved. GI has been consulted for poss GIB. He was anemic on admission with hgb 7.8, improved to 10.3 after 1 x PRBC. no prior hx GIB but just yesterday he began noticing scant bright red blood on wipe. he deneis n/v , diarrhea, constipation, weight loss, black tarry stool. Never had colonoscopy or EGD. Takes daily baby ASA, no other blood thinners (Magdalena Ordaz) PFSH Past Medical History Hypertension CHF (last echo 09/01/15 showed an EF of 10-20%) Past Surgical History Right knee surgery (Magdalena Ordaz) Coded Allergies: No Known Allergies (Unverified Allergy, Unknown, 04/22/17) Family History Denies family history of CAD/DM Social History Denies tobacco, alcohol and illicit drugs. (Magdalena Ordaz) Review of Systems Constitutional: DENIES: Fever Eyes: DENIES: Blurred vision Ears, nose, mouth, throat: DENIES: Hearing loss Respiratory: DENIES: Cough Cardiovascular: DENIES: Chest pain Gastrointestinal: COMPLAINS OF: Bloody stools, DENIES: Abdominal pain, Black stools, Constipation, Diarrhea, Nausea, Vomiting, Hematemesis Genitourinary: DENIES: Hematuria Musculoskeletal: DENIES: Joint Swelling Hematologic/lymphatic: DENIES: Bruising Neurologic: DENIES: Abnormal gait Psychiatric: DENIES: Confusion (Magdalena Ordaz) GI Exam Vitals I&O Vital Signs Date Time Temp Pulse Resp B/P (MAP) Pulse Ox O2 Delivery O2 Flow Rate FiO2 04/23/17 12:00 50 04/23/17 12:00 97.4 53 20 130/78 (95) 97 04/23/17 08:54 95 21 04/23/17 08:05 59 04/23/17 08:00 95.4 48 20 139/79 (99) 98 04/23/17 07:15 Room Air 04/23/17 04:17 56 04/23/17 04:00 97.1 49 16 132/76 (94) 96 04/23/17 04:00 Room Air 04/23/17 03:31 97 21 04/23/17 02:48 97.0 49 16 129/69 (89) 98 04/23/17 00:39 97.2 53 18 120/64 96 04/23/17 00:21 97.3 54 18 119/59 96 04/23/17 00:18 52 04/23/17 00:00 Room Air 04/22/17 23:55 97.4 54 18 132/67 98 04/22/17 22:05 62 04/22/17 21:14 04/22/17 21:05 97.1 53 16 124/67 (86) 98 04/22/17 19:23 61 18 137/69 (91) 99 Room Air 04/22/17 19:17 99 Room Air 04/22/17 19:17 99 Room Air 04/22/17 18:38 97.8 58 18 142/73 (96) 98 Room Air 04/22/17 16:50 63 18 137/69 (91) 97 Room Air 04/22/17 15:48 58 18 100 Room Air 04/22/17 15:45 97.9 63 18 137/69 (91) 100 I/O 04/22/17 04/22/17 04/22/17 04/23/17 04/23/17 04/23/17 06:59 14:59 22:59 06:59 14:59 22:59 Intake Total 1970 ml 470 ml Output Total 600 ml Balance 1970 ml -130 ml Intake Oral 120 ml IV Total 1850 ml 60 ml Packed Cells 350 ml Blood Product IV Normal Saline Flush 60 ml Output Urine Total 600 ml # Voids 1 # Bowel Movements 0 Imaging Last Impressions Chest X-Ray 04/22/17 1546 Signed Impressions: Service Date/Time: Saturday, April 22, 2017 15:58 - CONCLUSION: Density in the right midlung could be related to fluid in the fissure. PA and lateral views recommended. There is cardiomegaly. Raj Winston MD Laboratory Test 04/22/17 15:55 04/22/17 18:45 04/22/17 20:50 04/23/17 06:44 White Blood Count 9.9 TH/MM3 7.5 TH/MM3 Red Blood Count 2.34 MIL/MM3 3.10 MIL/MM3 Hemoglobin 7.8 GM/DL 10.3 GM/DL Hematocrit 23.2 % 31.1 % Mean Corpuscular Volume 99.0 FL 100.5 FL Mean Corpuscular Hemoglobin 33.2 PG 33.2 PG Mean Corpuscular Hemoglobin Concent 33.5 % 33.1 % Red Cell Distribution Width 16.0 % 16.3 % Platelet Count 206 TH/MM3 223 TH/MM3 Mean Platelet Volume 8.6 FL 8.7 FL Neutrophils (%) (Auto) 72.3 % 89.8 % Lymphocytes (%) (Auto) 10.1 % 6.3 % Monocytes (%) (Auto) 16.6 % 3.8 % Eosinophils (%) (Auto) 0.8 % 0.0 % Basophils (%) (Auto) 0.2 % 0.1 % Neutrophils # (Auto) 7.2 TH/MM3 6.7 TH/MM3 Lymphocytes # (Auto) 1.0 TH/MM3 0.5 TH/MM3 Monocytes # (Auto) 1.7 TH/MM3 0.3 TH/MM3 Eosinophils # (Auto) 0.1 TH/MM3 0.0 TH/MM3 Basophils # (Auto) 0.0 TH/MM3 0.0 TH/MM3 CBC Comment DIFF FINAL DIFF FINAL Differential Comment Prothrombin Time 11.5 SEC Prothromb Time International Ratio 1.1 RATIO Activated Partial Thromboplast Time 30.2 SEC Blood Urea Nitrogen 26 MG/DL 25 MG/DL Creatinine 1.80 MG/DL 1.51 MG/DL Random Glucose 97 MG/DL 196 MG/DL Calcium Level 7.7 MG/DL 7.8 MG/DL Magnesium Level 2.0 MG/DL Sodium Level 134 MEQ/L 136 MEQ/L Potassium Level 3.4 MEQ/L 4.8 MEQ/L Chloride Level 101 MEQ/L 106 MEQ/L Carbon Dioxide Level 28.5 MEQ/L 27.2 MEQ/L Anion Gap 5 MEQ/L 3 MEQ/L Estimat Glomerular Filtration Rate 48 ML/MIN 59 ML/MIN Total Creatine Kinase 87 U/L 53 U/L 48 U/L 43 U/L Troponin I LESS THAN 0.02 NG/ML 0.02 NG/ML LESS THAN 0.02 NG/ML LESS THAN 0.02 NG/ML Lipase 96 U/L B-Type Natriuretic Peptide 929 PG/ML Physical Examination HEENT: PERRL; normocephalic; atraumatic; no jaundice. CHEST: CTA CARDIAC: RRR ABDOMEN: Soft, nondistended, nontender; no hepatosplenomegaly; bowel sounds are present in all four quadrants. EXTREMITIES: No clubbing, cyanosis, or edema. SKIN: Normal; no rash; no jaundice. INTERVENTIONAL NURSE: No focal deficits; alert and oriented times three. (Magdalena Ordaz) Assessment and Plan Plan ASSESSMENT - anemia - hgb 7.8 on admission, improved after 1 x PRBC. reviewing old labs his baseline hgb is 11-12 and on 11/2016 his hgb was 10.5. - BRBPR, heme pos stool - could be hemorrhoids. Never had before. never had EGD or colonoscopy and refuses them. discussed with him at length concern that he had drop in hgb, recommendation for colorectal ca screening after 50. he had financial concerns and discussed that screening usually covered by insurance if he wants to do outpatient but he does not want to. PLAN - recommended EGD and colonoscopy - pt refused - recommended f/u with GI as outpt - pt says he will probably not do this - monitor HH - transfuse as needed This pt seen by myself and Dr Cr and this note is written on his behalf. (Magdalena Ordaz) Physician Comments Patient seen and examined Agree with above Continue with current supportive care Monitor labs and transfuse if needed Patient declining endoscopy at this point Not much to add from a GI perspective we will sign off Please reconsult as needed (Austin Cr MD) Magdalena Ordaz Apr 23, 2017 15:37 Austin rC MD Apr 23, 2017 23:46
[2017-04-23 16:20] LABS: HEMATOCRIT 30.7 % (39.0-51.0); REVIEW FLAG FINAL
[2017-04-23] MEDS ORDERED: cefTRIAXone INJ 1,000 MG in SODIUM CHLORIDE 0.9% INJ 100 ML IV SCH (20:00)
[2017-04-23] MEDS ORDERED: ATORVASTATIN 40 MG TAB PO SCH (21:00)
[2017-04-23] MEDS ORDERED: AZITHROMYCIN INJ 500 MG in SODIUM CHLOR 0.9% 250 ML INJ 250 ML IV SCH (21:00)
[2017-04-24] VITALS (8 sets, daily range): BP systolic 116–142; BP diastolic 66–77; PULSE 52–64; RESP 16–18; TEMP 97.3–97.5; O2SAT 94–98
[2017-04-24 00:15] LABS: HEMATOCRIT 29.2 % (39.0-51.0); REVIEW FLAG FINAL
[2017-04-24] MEDS: RESP: ALBUTEROL 2.5 MG/IPRATROPIUM 0.5 MG NEB (SCH) NEB ×2 (04:18→09:42)
[2017-04-24] MEDS: CARVEDILOL 6.25 MG TAB PO SCH (09:29)
[2017-04-24] MEDS: SPIRONOLACTONE 25 MG TAB PO SCH (09:29)
[2017-04-24] MEDS: FUROSEMIDE 20 MG TAB PO SCH (09:29)
[2017-04-24] MEDS: ASPIRIN 81 MG CHEW TAB CHEW SCH (09:29)
[2017-04-24] MEDS: SODIUM CHLORIDE 0.9% FLUSH 10 ML FLUSH IV FLUSH SCH (09:30)
[2017-04-24 09:41] LABS: BASOPHIL % 0.1 % (0.0-2.0); EOSINOPHIL % 0.2 % (0.0-4.0); HEMATOCRIT 30.4 % (39.0-51.0); HEMO FLAGS DIFF FINAL; LYMPH % 7.6 % (9.0-44.0); LYMPHOCYTE # 0.9 TH/MM3 (1.0-4.8); MEAN CELL VOLUME 98.2 FL (80.0-100.0); MEAN CORPUSCULAR HEMOGLOBIN 32.5 PG (27.0-34.0); MEAN CORPUSCULAR HGB CONC 33.1 % (32.0-36.0); MONO % 10.8 % (0.0-8.0); NEUT % 81.3 % (16.0-70.0); PLATELET COUNT 241 TH/MM3 (150-450); RED CELL DISTRIBUTION WIDTH 15.9 % (11.6-17.2); WHITE BLOOD COUNT 12.3 TH/MM3 (4.0-11.0)
--- NOTE | 2017-04-24 10:25 | HHI.PR ---
Subjective Remarks Follow-up pneumonia, anemia. The patient states that he feels much better today. He wants to go home. Denies chest pain, dyspnea, cough. No nausea, vomiting, diarrhea, constipation. No bleeding reported. Objective Vitals Vital Signs Date Time Temp Pulse Resp B/P (MAP) Pulse Ox O2 Delivery O2 Flow Rate FiO2 04/24/17 09:43 98 04/24/17 08:11 97.5 64 18 142/66 (91) 97 04/24/17 04:19 95 04/24/17 04:00 97.3 54 18 116/66 (83) 98 04/24/17 00:04 57 04/24/17 00:00 97.4 52 16 124/70 (88) 97 04/23/17 22:18 97 21 04/23/17 20:00 97.6 53 18 146/84 (104) 98 04/23/17 20:00 Room Air 04/23/17 20:00 51 04/23/17 16:00 67 04/23/17 16:00 98.1 60 20 142/81 (101) 98 04/23/17 12:00 50 04/23/17 12:00 97.4 53 20 130/78 (95) 97 I/O 04/23/17 04/23/17 04/23/17 04/24/17 04/24/17 04/24/17 07:00 15:00 23:00 07:00 15:00 23:00 Intake Total 470 ml 100 ml 490 ml Output Total 600 ml Balance -130 ml 100 ml 490 ml Intake Oral 240 ml IV Total 60 ml 100 ml 250 ml Packed Cells 350 ml Blood Product IV Normal Saline Flush 60 ml Output Urine Total 600 ml # Voids 1 3 # Bowel Movements 0 1 Result Diagram: 04/24/17 0850 04/23/17 0644 Imaging Last Impressions Chest X-Ray 04/22/17 1546 Signed Impressions: Service Date/Time: Saturday, April 22, 2017 15:58 - CONCLUSION: Density in the right midlung could be related to fluid in the fissure. PA and lateral views recommended. There is cardiomegaly. Raj Winston MD Objective Remarks General: No acute distress. Sitting up in a chair. Heart: Regular rate and rhythm. No murmur. Lungs: Clear to auscultation bilaterally. No wheezes, rales, or rhonchi. Breathing is nonlabored. Abdomen: Soft, nontender, nondistended. Extremities: No lower extremity edema. Psych: Alert and oriented. Procedures None Urinary Catheter: No Vascular Central Line Catheter: No A/P Assessment and Plan 1. Pneumonia: Right middle lobe consolidation on CXR. Continue antibiotics, Duonebs, oxygen. 2. Chest pain, atypical: Occurred after moving tables. Resolved. Serial cardiac enzymes are negative. 3. Chronic systolic congestive heart failure: Last echocardiogram available in electronic record was done 09/01/15 and showed ejection fraction of 10-20%. Continue spironolactone, carvedilol. DAMIAN inhibitor on hold secondary to acute kidney injury. 4. Hypertension: Continue beta anahi, diuretic. 5. Hyperlipidemia: Continue statin. 6. Acute kidney injury: Improving. IV fluids on hold secondary to CHF. Lisinopril on hold. 7. Hypokalemia: Improved. 8. GI bleed: Stool Hemoccult positive in the ER. Repeat stool Hemoccult negative. Appreciate GI recommendations. Patient refusing endoscopy. 9. Anemia: Possibly GI source. Patient refusing endoscopy. Hemoglobin improved following transfusion of 1 unit PRBCs. 10. DVT prophylaxis: SCDs. Discharge Planning Plan for discharge home today pending lab results. Tino De Souza MD Apr 24, 2017 10:25
[2017-04-24] MEDS ORDERED: AZIT500T2 PO (10:27)
[2017-04-24] MEDS ORDERED: CEFU1TAB18 PO (10:27)
--- NOTE | 2017-04-24 10:29 | HHI.DCPOC ---
Discharge Care Plan Diagnosis: (1) Atypical chest pain (2) Positive occult stool blood test (3) Pneumonia (4) Anemia (5) Acute kidney injury Goals to Promote Your Health * To prevent worsening of your condition and complications * To maintain your health at the optimal level Directions to Meet Your Goals Take your medications as prescribed Follow your dietary instruction Follow activity as directed Keep your appointments as scheduled Take your immunizations and boosters as scheduled If your symptoms worsen call your PCP, if no PCP go to Urgent Care Center or Emergency Room Smoking is Dangerous to Your Health. Avoid second hand smoke Call the 24-hour hour crisis hotline for domestic abuse at Tino De Souza MD Apr 24, 2017 10:29
[2017-04-24 10:42] LABS: BICARBONATE 26.2 MEQ/L (21.0-32.0); POTASSIUM 3.7 MEQ/L (3.5-5.1)
== END 2017-04-24 13:42 | disposition home or self-care (01) | DRG 194 ==
LOC: NEPE 15:17 → NEDA 20:03 → OBSVTOIN 20:13 → N04A 21:06
PROVIDERS: ADMIT Family Medicine; ATTEND Family Medicine
PROC: 30233N1 Transfusion of Nonautologous Red Blood Cells into Peripheral Vein, Percutaneous Approach (ICD-10-PCS; principal; 2017-04-22)
DX: J18.9 Pneumonia, unspecified organism (principal); I50.22 Chronic systolic (congestive) heart failure; N17.9 Acute kidney failure, unspecified; I11.0 Hypertensive heart disease with heart failure; K92.1 Melena; D64.9 Anemia, unspecified; R07.89 Other chest pain; E78.5 Hyperlipidemia, unspecified; E87.6 Hypokalemia
CPT/HCPCS: 36430; 71010; 71020; 80048; 82272; 82550; 83690; 83735; 83880; 84484; 85014; 85018; 85025; 85610; 85730; 86850; 86900; 86901; 86920; 93005; 94150; 94640; 94664; J0456; J0696; J1885; J1940; J2270; J2405; J2930; J7030; J7040; J7050; P9016

== ENCOUNTER 2017-05-25 22:36 | Emergency (ER) | payer OTHER ==
[~2017-05-25] VITALS: Ht 172.7 cm; Wt 80.0 kg
[~2017-05-25 22:36] MED LIST changes: +ASPI81CH6 CHEW; +ATOR40TA16 PO; +AZIT500T2 PO; +CEFU1TAB18 PO
[2017-05-25 22:38] VITALS: BP 173/82; PULSE 73; RESP 16; TEMP 97.9; O2SAT 99
--- NOTE | 2017-05-25 23:57 | RADRPT ---
EXAM DATE/TIME: 05/25/2017 23:35 [facility] COMPARISON: No previous studies available for comparison. INDICATIONS : Nontraumatic right buttock pain. MEDICAL HISTORY : Congestive heart failure. SURGICAL HISTORY : None. ENCOUNTER: Initial ACUITY: 1 day PAIN SCORE: 9/10 LOCATION: Right buttock FINDINGS: Two view examination was performed. There are five non-rib bearing vertebral bodies. The vertebral bodies are in normal alignment without evidence of subluxation or scoliosis. The disc spaces are shiela ntained. The pedicles are intact. Bony mineralization is normal. No fracture is identified. CONCLUSION: Normal examination for a patient of this age. Van Wilkins MD on May 25, 2017 at 23:54 Board Certified Radiologist. This report was verified electronically.
[2017-05-26] MEDS ORDERED: predniSONE 50 MG TAB PO ONE (00:30)
[2017-05-26] MEDS ORDERED: ORPHENADRINE INJ 60 MG/2 ML AMP IM ONE (00:30)
[2017-05-26] MEDS ORDERED: ROBA750T PO (00:35)
[2017-05-26] MEDS ORDERED: MEDR4PAK PO (00:35)
--- NOTE | 2017-05-26 00:35 | PD ---
HPI Chief Complaint: Pain: Acute or Chronic Time Seen by Provider: 23:23 Travel History International Travel<30 days: No Contact w/Intl Traveler<30days: No Traveled to known affect area: No History of Present Illness HPI 56-year-old male presents to the emergency department for complaint of right buttock and lower extremity pain since March earlier. Patient denies any known injury or fall. Patient denies any heavy lifting or twisting. Patient denies any previous imaging of his lumbar spine. Patient denies any lower extremity numbness tingling or weakness. Patient denies any saddle anesthesia. Patient denies any bladder or bowel dysfunction. Patient's had no abdominal pain flank pain dysuria frequency urgency hematuria or penile discharge. Patient was recently hospitalized in April for GI bleed and hypertension and CHF. Patient only takes a low-dose aspirin and is not able to take nonsteroidal anti-inflammatory medications. Patient states symptoms are present during his hospitalization but he did not mention them. Patient's noted some mild increase in symptomatology. Patient states periodically pain as 10 over 10 in intensity. Patient is unable to identify exacerbating or alleviating factors. Tylenol provides relief. PFSH Past Medical History Narrative Medical Hypertension CHF EF 10-20% migraine anemia GI bleed;04/28 refused endoscopy; nursing notes reviewed Hx Anticoagulant Therapy: Yes (ASA) Heart Rhythm Problems: No Cancer: No Cardiovascular Problems: Yes High Cholesterol: Yes Chemotherapy: No Chest Pain: No Congestive Heart Failure: Yes Cerebrovascular Accident: No Diabetes: No Diminished Hearing: No Endocrine: No Gastrointestinal Disorders: No Genitourinary: No Hypertension: Yes Immune Disorder: No Musculoskeletal: No Neurologic: No Psychiatric: No Reproductive: No Respiratory: Yes Migraines: Yes Radiation Therapy: No Seizures: No Tetanus Vaccination: Unknown Influenza Vaccination: No Past Surgical History Abdominal Surgery: No Cardiac Surgery: No Ear Surgery: No Endocrine Surgery: No Eye Surgery: No Genitourinary Surgery: No Gynecologic Surgery: No Oral Surgery: Yes (wisdom teeth removed) Thoracic Surgery: No Other Surgery: Yes (right knee surgery) Social History Alcohol Use: No Tobacco Use: No Substance Use: No Allergies-Medications (Allergen,Severity, Reaction): Coded Allergies: No Known Allergies (Unverified Allergy, Unknown, 05/25/17) Reported Meds & Prescriptions Reported Meds & Active Scripts Active Medrol Dosepak (Methylprednisolone) 4 Mg Dspk 4 Mg PO DIRECTED Per Pharmacist direction Robaxin (Methocarbamol) 750 Mg Tab 750 Mg PO Q6HR Ceftin (Cefuroxime Axetil) 250 Mg Tab 250 Mg PO BID Azithromycin 500 Mg Tab 500 Mg PO DAILY Spironolactone 25 Mg Tab 25 Mg PO DAILY Lisinopril 10 Mg Tab 10 Mg PO DAILY Furosemide 20 Mg Tab 20 Mg PO BID Reported Aspirin Low Dose (Aspirin) 81 Mg Chew 162 Mg CHEW DAILY Atorvastatin (Atorvastatin Calcium) 40 Mg Tab 40 Mg PO HS Carvedilol 6.25 Mg Tab 6.25 Mg PO BID Review of Systems Except as stated in HPI: all other systems reviewed are Neg General / Constitutional: No: Fever, Chills HENT: No: Congestion Cardiovascular: No: Chest Pain or Discomfort Respiratory: No: Shortness of Breath Gastrointestinal: No: Nausea, Vomiting, Abdominal Pain, Hematochezia, Constipation Genitourinary: No: Flank Pain Musculoskeletal: Positive: Myalgias, Arthralgias, Pain, No: Limited ROM Skin: No Rash Neurologic: No: Weakness (right buttock pain), Dizziness Psychiatric: No: Anxiety Hematologic/Lymphatic: No: Lymph Node Enlargement Physical Exam Narrative GENERAL: Well-developed well-nourished male in no acute distress no respiratory distress SKIN: Warm and dry. HEAD: Normocephalic. EYES: No scleral icterus. No injection or drainage. NECK: Supple, trachea midline. No JVD or lymphadenopathy. CARDIOVASCULAR: Regular rate and rhythm without murmurs, gallops, or rubs. RESPIRATORY: Breath sounds equal bilaterally. No accessory muscle use. GASTROINTESTINAL: Abdomen soft, non-tender, nondistended. MUSCULOSKELETAL: No cyanosis, or edema. BACK: Nontender without obvious deformity except for mild tenderness along the lower lumbar spine to direct palpation without bony step-off tenderness over the SI joints and buttock to direct palpation; no soft tissue swelling redness no induration intact flexion extension and internal/external rotation abduction and abduction range of motion of the right hip distally extremity is neurovascular tendon intact without edema. Negative straight-leg raising. No CVA tenderness. Data Data Last Documented VS Orders Orders Spine, Lumbar - Ltd (Ap & Lat) (05/25/17 ) Orphenadrine Inj (Norflex Inj) (05/26/17 00:30) Prednisone (Deltasone) (05/26/17 00:30) Ed Discharge Order (05/26/17 00:49) [facility] Medical Decision Making Medical Screen Exam Complete: Yes Emergency Medical Condition: Yes Medical Record Reviewed: Yes Interpretation(s) Vital Signs Date Time Temp Pulse Resp B/P (MAP) Pulse Ox O2 Delivery O2 Flow Rate FiO2 05/25/17 22:38 97.9 73 16 173/82 (112) 99 Room Air L/S spine: CONCLUSION: 1. Diffuse primary bony degenerative changes, disc degeneration and disc space narrowing involving the mid to lower cervical spine. Van Wilkins MD on May 25, 2017 at 23:27 Board Certified Radiologist. This report was verified electronically. Differential Diagnosis Sciatica, lumbar radiculopathy, piriformis syndrome, degenerative disc disease, malignancy Narrative Course Imaging study ordered Patient given injection of Norflex for muscle spasm and oral dose of prednisone as recently hospitalized and had anemia of unclear etiology and encouraged not to take NSAIDs Imaging study reveals no acute abnormality Patient stable for outpatient management. Diagnosis Primary Impression: Lumbar radiculopathy, right Referrals: Primary Care Physician 3 days Patient Instructions: General Instructions Additional Instructions: Take medications as prescribed Follow-up with your primary care provider May apply moist heat to low back and buttock area for comfort as needed intermittently Return to the emergency for free concerns or change in condition Avoid use of nonsteroidal anti-inflammatory medications Med/Other Pt SpecificInfo: Prescription(s) given Scripts Methylprednisolone Dosepak (Medrol Dosepak) 4 Mg Dspk 4 MG PO DIRECTED, #1 DSPK 0 Refills Per Pharmacist direction Prov: Moraima Jang MD 05/26/17 Methocarbamol (Robaxin) 750 Mg Tab 750 MG PO Q6HR for Muscle Spasm, #15 TAB 0 Refills Prov: Moraima Jang MD 05/26/17 Disposition: 01 DISCHARGE HOME Condition: Stable Moraima Jang MD May 26, 2017 00:35
== END 2017-05-26 01:02 | disposition home or self-care (01) ==
LOC: NEPC 22:36
DX: M54.10 Radiculopathy, site unspecified (principal); M50.30 Other cervical disc degeneration, unspecified cervical region; I11.0 Hypertensive heart disease with heart failure; I50.9 Heart failure, unspecified; D63.8 Anemia in other chronic diseases classified elsewhere; E78.00 Pure hypercholesterolemia, unspecified; Z79.82 Long term (current) use of aspirin; Z79.899 Other long term (current) drug therapy
CPT/HCPCS: 72100; 96372; 99284; J2360; J7512

== ENCOUNTER 2017-07-09 16:09 | Inpatient (IN) | payer OTHER ==
[~2017-07-09 16:09] MED LIST changes: +MEDR4PAK PO; +ROBA750T PO
[2017-07-09 16:11] VITALS: BP 161/83; PULSE 77; RESP 14; TEMP 97.4; O2SAT 100
--- NOTE | 2017-07-09 16:54 | RADRPT ---
EXAM DATE/TIME: 07/09/2017 16:37 [facility] COMPARISON: CHEST PA & LAT, April 22, 2017, 18:13. INDICATIONS : Chest pain. MEDICAL HISTORY : Congestive heart failure. SURGICAL HISTORY : None. ENCOUNTER: Initial ACUITY: 4 - 6 days PAIN SCORE: 4/10 LOCATION: Bilateral chest FINDINGS: Frontal and lateral views of the chest demonstrate stable enlargement of the cardiac silhouette with enlarged pulmonary artery contour. There is a linear opacity in the right middle lobe. No pleural eff usion, airspace consolidation, or pneumothorax is identified. Bones and soft tissues demonstrate no a cute finding. CONCLUSION: 1. There is now a linear opacity in the right middle lobe which may represent parenchymal scar follow ing resolution of the previously documented right middle lobe pneumonia. Suggest a longer term follow up chest x-ray to confirm stability. 3-6 month followup chest x-ray would be reasonable. 2. Stable enlargement of the cardiac silhouette. Bharath Head MD on July 09, 2017 at 16:51 Board Certified Radiologist. This report was verified electronically.
[2017-07-09] MEDS ORDERED: PANTOPRAZOLE SODIUM 40 MG VIAL IVP ONE (17:30)
[2017-07-09] MEDS ORDERED: LIDOCAINE VISCOUS 2% SOLN 15 ML UDC PO ONE (17:30)
[2017-07-09] MEDS ORDERED: ONDANSETRON HCL 4 MG/2 ML VIAL IVP ONE (17:30)
[2017-07-09] MEDS ORDERED: ALUMINUM/MAGNESIUM/SIMETH 30 ML CUP PO ONE (17:30)
--- NOTE | 2017-07-09 17:34 | PD ---
HPI Chief Complaint: Abdominal Pain Time Seen by Provider: 17:23 Travel History International Travel<30 days: No Contact w/Intl Traveler<30days: No Traveled to known affect area: No History of Present Illness HPI 56-year-old male with history of CHF, hypertension, presents for evaluation of abdominal pain. Symptoms started 1 week ago. He describes it as a sharp pain in the periumbilical region which is constant and radiates into the back. Pain is worse when walking or lifting. He reports that he has had similar pain in the past with no specific diagnosis. He denies chest pain, shortness of breath , cough or congestion. He reports that he had some nausea earlier today. Denies vomiting, diarrhea, constipation, dysuria, hematuria. He has no other complaints at this time. PFSH Past Medical History Hx Anticoagulant Therapy: Yes (ASA) Heart Rhythm Problems: No Cancer: No Cardiovascular Problems: Yes High Cholesterol: Yes Chemotherapy: No Chest Pain: No Congestive Heart Failure: Yes Cerebrovascular Accident: No Diabetes: No Diminished Hearing: No Endocrine: No Gastrointestinal Disorders: No Genitourinary: No Hypertension: Yes Immune Disorder: No Musculoskeletal: No Neurologic: No Psychiatric: No Reproductive: No Respiratory: Yes Migraines: Yes Radiation Therapy: No Seizures: No Past Surgical History Abdominal Surgery: No Cardiac Surgery: No Ear Surgery: No Endocrine Surgery: No Eye Surgery: No Genitourinary Surgery: No Gynecologic Surgery: No Oral Surgery: Yes (wisdom teeth removed) Thoracic Surgery: No Other Surgery: Yes (right knee surgery) Social History Alcohol Use: No Tobacco Use: No Substance Use: No Allergies-Medications (Allergen,Severity, Reaction): Coded Allergies: No Known Allergies (Unverified Allergy, Unknown, 07/09/17) Reported Meds & Prescriptions Reported Meds & Active Scripts Active Spironolactone 25 Mg Tab 25 Mg PO DAILY Lisinopril 10 Mg Tab 10 Mg PO DAILY Furosemide 20 Mg Tab 20 Mg PO BID Reported Aspirin Low Dose (Aspirin) 81 Mg Chew 162 Mg CHEW DAILY Atorvastatin (Atorvastatin Calcium) 40 Mg Tab 40 Mg PO HS Carvedilol 6.25 Mg Tab 6.25 Mg PO BID Review of Systems Except as stated in HPI: all other systems reviewed are Neg Physical Exam Narrative GENERAL: Well-developed well-nourished male in no acute distress SKIN: Warm and dry. HEAD: Atraumatic. Normocephalic. EYES: Pupils equal and round. No scleral icterus. No injection or drainage. ENT: No nasal bleeding or discharge. Mucous membranes pink and moist. NECK: Trachea midline. No JVD. CARDIOVASCULAR: Regular rate and rhythm. No murmur appreciated. RESPIRATORY: No accessory muscle use. Clear to auscultation. Breath sounds equal bilaterally. GASTROINTESTINAL: Abdomen soft, tender to palpation in the periumbilical, epigastric and right upper quadrant region without guarding. No CVA tenderness. MUSCULOSKELETAL: No obvious deformities. No clubbing. No cyanosis. No edema. NEUROLOGICAL: Awake and alert. No obvious cranial nerve deficits. Motor grossly within normal limits. Normal speech. PSYCHIATRIC: Appropriate mood and affect; insight and judgment normal. Data Data Last Documented VS Vital Signs Date Time Temp Pulse Resp B/P (MAP) Pulse Ox O2 Delivery O2 Flow Rate FiO2 07/09/17 19:08 72 15 163/90 (114) 96 Room Air 07/09/17 16:11 97.4 Orders Orders Complete Blood Count With Diff (07/09/17 16:14) Comprehensive Metabolic Panel (07/09/17 16:14) Lipase (07/09/17 16:14) Prothrombin Time / Inr (Pt) (07/09/17 16:14) Act Partial Throm Time (Ptt) (07/09/17 16:14) Urinalysis - C+S If Indicated (07/09/17 16:14) Electrocardiogram (07/09/17 16:14) Chest, Pa & Lat (07/09/17 ) Ct Abd/Pel W Iv Contrast(Rout) (07/09/17 17:30) Ondansetron Inj (Zofran Inj) (07/09/17 17:30) Pantoprazole Inj (Protonix Inj) (07/09/17 17:30) Al-Mag Hy-Si 40-40-4 Mg/Ml Liq (Mag-Al P (07/09/17 17:30) Lidocaine 2% Viscous (Xylocaine 2% Visco (07/09/17 17:30) Type And Screen (07/09/17 18:18) Iohexol 350 Inj (Omnipaque 350 Inj) (07/09/17 19:20) Us Abdomen Gallbladder (07/09/17 ) Piperacil-Tazo 3.375 Gm Premix (Zosyn 3. (07/09/17 20:00) Admit Order (Ed Use Only) (07/09/17 19:59) Labs Laboratory Tests Test 07/09/17 17:16 07/09/17 18:30 White Blood Count 4.5 TH/MM3 Red Blood Count 2.63 MIL/MM3 Hemoglobin 8.8 GM/DL Hematocrit 26.2 % Mean Corpuscular Volume 99.8 FL Mean Corpuscular Hemoglobin 33.5 PG Mean Corpuscular Hemoglobin Concent 33.6 % Red Cell Distribution Width 16.3 % Platelet Count 286 TH/MM3 Mean Platelet Volume 7.7 FL Neutrophils (%) (Auto) 57.2 % Lymphocytes (%) (Auto) 26.6 % Monocytes (%) (Auto) 11.8 % Eosinophils (%) (Auto) 3.8 % Basophils (%) (Auto) 0.6 % Neutrophils # (Auto) 2.6 TH/MM3 Lymphocytes # (Auto) 1.2 TH/MM3 Monocytes # (Auto) 0.5 TH/MM3 Eosinophils # (Auto) 0.2 TH/MM3 Basophils # (Auto) 0.0 TH/MM3 CBC Comment DIFF FINAL Differential Comment Prothrombin Time 14.5 SEC Prothromb Time International Ratio 1.4 RATIO Activated Partial Thromboplast Time 30.3 SEC Blood Urea Nitrogen 25 MG/DL Creatinine 1.54 MG/DL Random Glucose 80 MG/DL Total Protein 11.2 GM/DL Albumin 2.4 GM/DL Calcium Level 7.7 MG/DL Alkaline Phosphatase 76 U/L Aspartate Amino Transf (AST/SGOT) 53 U/L Alanine Aminotransferase (ALT/SGPT) 52 U/L Total Bilirubin 0.6 MG/DL Sodium Level 135 MEQ/L Potassium Level 3.8 MEQ/L Chloride Level 104 MEQ/L Carbon Dioxide Level 27.9 MEQ/L Anion Gap 3 MEQ/L Estimat Glomerular Filtration Rate 57 ML/MIN Lipase 49 U/L Urine Color YELLOW Urine Turbidity CLEAR Urine pH 5.5 Urine Specific [place] 1.021 Urine Protein 30 mg/dL Urine Glucose (UA) NEG mg/dL Urine Ketones NEG mg/dL Urine Occult Blood NEG Urine Nitrite NEG Urine Bilirubin NEG Urine Urobilinogen LESS THAN 2.0 MG/DL Urine Leukocyte Esterase NEG Urine RBC 1 /hpf Microscopic Urinalysis Comment CULT NOT INDICATED MDM Medical Decision Making Medical Screen Exam Complete: Yes Emergency Medical Condition: Yes Medical Record Reviewed: Yes Interpretation(s) Chest x-ray CONCLUSION: 1. There is now a linear opacity in the right middle lobe which may represent parenchymal scar following resolution of the previously documented right middle lobe pneumonia. Suggest a longer term followup chest x-ray to confirm stability. 3-6 month followup chest x-ray would be reasonable. 2. Stable enlargement of the cardiac silhouette. Differential Diagnosis Pancreatitis, colitis, diverticulitis, gastritis, gastroenteritis Narrative Course The patient's hemoglobin is 8.8 which is decreased from his baseline. He has Hemoccult positive brown stool. It appears that the patient was admitted in April 2017 with anemia. At that time according to GI notes he was refusing endoscopy and colonoscopy. The patient's CT abdomen and pelvis reveals pericholecystic fluid with no evidence of gallstones. IV Zosyn has been ordered. Right upper quadrant Quadrant ultrasound has been ordered. This will be discussed with the on-call general surgeon. Discussed with Dr. Archer who will see the patient in consultation. The patient will be admitted to the hospitalist team. [facility] Point of Care Internal Pos. & Neg. Controls: Passed Fecal Specimen Occult Blood: Positive Diagnosis Primary Impression: GI bleed Additional Impression: Cholecystitis Admitting Information Admitting Physician Requests: Admit Alex Soto Jul 09, 2017 17:34
[2017-07-09 17:50] LABS: AUTOMATED NEUTROPHIL # 2.6 TH/MM3 (1.8-7.7); BASOPHIL % 0.6 % (0.0-2.0); EOSINOPHIL # 0.2 TH/MM3 (0-0.4); EOSINOPHIL % 3.8 % (0.0-4.0); HEMATOCRIT 26.2 % (39.0-51.0); HEMOGLOBIN 8.8 GM/DL (13.0-17.0); LYMPH % 26.6 % (9.0-44.0); LYMPHOCYTE # 1.2 TH/MM3 (1.0-4.8); MEAN CELL VOLUME 99.8 FL (80.0-100.0); MEAN CORPUSCULAR HEMOGLOBIN 33.5 PG (27.0-34.0); MEAN CORPUSCULAR HGB CONC 33.6 % (32.0-36.0); MEAN PLATELET VOLUME 7.7 FL (7.0-11.0); MONO % 11.8 % (0.0-8.0); MONOCYTE # 0.5 TH/MM3 (0-0.9); NEUT % 57.2 % (16.0-70.0); PLATELET COUNT 286 TH/MM3 (150-450); RED BLOOD COUNT 2.63 MIL/MM3 (4.50-5.90); RED CELL DISTRIBUTION WIDTH 16.3 % (11.6-17.2); WHITE BLOOD COUNT 4.5 TH/MM3 (4.0-11.0)
[2017-07-09 18:05] LABS: INTERNATIONAL NORMALIZED RATIO 1.4 RATIO; PROTHROMBIN TIME - PATIENT 14.5 SEC (9.8-11.6)
[2017-07-09 18:06] LABS: ALBUMIN 2.4 GM/DL (3.4-5.0); ALT (GPT) 52 U/L (12-78); AST (GOT) 53 U/L (15-37); BICARBONATE 27.9 MEQ/L (21.0-32.0); BLOOD UREA NITROGEN 25 MG/DL (7-18); CALCIUM 7.7 MG/DL (8.5-10.1); CHLORIDE 104 MEQ/L (98-107); CREATININE 1.54 MG/DL (0.60-1.30); GLOMERULAR FILTRATION RATE 57 ML/MIN (>89); GLUCOSE,RANDOM 80 MG/DL (74-106); SODIUM (NA) 135 MEQ/L (136-145)
[2017-07-09 18:08] LABS: ALKALINE PHOSPHATASE 76 U/L (45-117); TOTAL BILIRUBIN ADULT 0.6 MG/DL (0.2-1.0); TOTAL PROTEIN 11.2 GM/DL (6.4-8.2)
[2017-07-09 19:08] VITALS: BP 163/90; PULSE 72; RESP 15; O2SAT 96
[2017-07-09 19:16] LABS: BILIRUBIN, URINE NEG (NEG); BLOOD, URINE NEG (NEG); GLUCOSE,URINE NEG (NEG); KETONE, URINE NEG (NEG); NITRITE,URINE NEG (NEG); PH, URINE 5.5 (5.0-8.5); URINE COLOR YELLOW (YELLW/STRAW); URINE LEUKOCYTE ESTERASE NEG (NEG)
[2017-07-09] MEDS ORDERED: IOHEXOL 350 MG/ML 10 ML VIAL (for RAD DIAG) IVCONTRAST ONE (19:20)
--- NOTE | 2017-07-09 19:44 | RADRPT ---
EXAM DATE/TIME: 07/09/2017 19:14 [facility] COMPARISON: CT ABDOMEN & PELVIS W CONTRAST, November 22, 2016, 15:20. INDICATIONS : Bilateral upper quadrant pain with nausea. IV CONTRAST: 100 cc Omnipaque 350 (iohexol) IV ORAL CONTRAST: No oral contrast ingested. RADIATION DOSE: 6.64 CTDIvol (mGy) MEDICAL HISTORY : Hypertension. Congestive heart failure. SURGICAL HISTORY : None. ENCOUNTER: Initial ACUITY: 1 week PAIN SCALE: 8/10 LOCATION: Bilateral upper quadrant TECHNIQUE: Volumetric scanning of the abdomen and pelvis was performed. Using automated exposure control and ad justment of the mA and/or kV according to patient size, radiation dose was kept as low as reasonably achievable to obtain optimal diagnostic quality images. DICOM format image data is available electro nically for review and comparison. FINDINGS: There is stable pleural thickening posterior to the descending aorta in the left lung sulcus unchange d from the prior study. There is atelectasis in the right middle lobe. No pleural effusions are ident ified. The gallbladder is surrounded by fluid but no stones are seen. Cholecystitis is not excluded. The pancreas demonstrates no evidence of mass and there is no dilatation of the pancreatic duct. The adrenal glands and kidneys appear normal bilaterally. No hydronephrosis or mass lesions are identifie d. Examination of the pelvis demonstrates no evidence of free fluid or pelvic mass. No abnormally enlarg ed inguinal or retroperitoneal lymph nodes are present. The bladder is unremarkable. Bone [place] is u nchanged the left iliac wing. CONCLUSION: 1. Pericholecystic fluid without evidence of stones. Cholecystitis is not excluded. Radionuclide imag ing is recommended for further evaluation if clinically indicated. Yovany Ruano MD on July 09, 2017 at 19:38 Board Certified Radiologist. This report was verified electronically.
[2017-07-09] MEDS ORDERED: PIPERACIL-TAZO 3.375 GM PREMIX 50 ML IV ONE (20:00)
--- NOTE | 2017-07-09 20:29 | RADRPT ---
EXAM DATE/TIME: 07/09/2017 19:59 [facility] COMPARISON: US ABDOMEN - GALLBLADDER, November 22, 2016, 13:04. INDICATIONS : Right upper quadrant pain. MEDICAL HISTORY : Hypertension. Hypercholesterolemia. Congestive heart failure. Dyspnea. Dizziness. SURGICAL HISTORY : [place] teeth removed. Right knee surgery. ENCOUNTER: Initial ACUITY: 1 week PAIN SCORE: 3/10 LOCATION: Right upper quadrant MEASUREMENTS: LIVER: 17.1 cm length COMMON DUCT: 5 mm RIGHT KIDNEY: 9.7 x 4.9 x 3.9 cm FINDINGS: Ultrasound of the upper abdomen demonstrates normal echogenicity of the liver. No intrahepatic or ext ra hepatic ductal dilatation is seen. There is hepatopedal flow through the portal vein. The gallbla dder wall is thickened to 5 mm without fluid. Cholecystitis is not excluded. Radionuclide imaging is recommended for further evaluation if clinically indicated. The right kidney is unremarkable. No free fluid is identified. Common duct is normal in size. CONCLUSION: Gall bladder wall thickening without stones. Cholecystitis is not excluded. Radionuclide imaging is r ecommended for further evaluation if clinically indicated. Yovany Ruano MD on July 09, 2017 at 20:26 Board Certified Radiologist. This report was verified electronically.
[2017-07-09] MEDS: FUROSEMIDE 20 MG TAB PO SCH (21:00)
[2017-07-09] MEDS: CARVEDILOL 6.25 MG TAB PO SCH (21:00)
[2017-07-09] MEDS ORDERED: SODIUM CHLOR 0.45% 1000 ML INJ 1,000 ML IV SCH (21:24)
[2017-07-09] MEDS ORDERED: ACETAMINOPHEN 325 MG TAB PO PRN (21:30)
[2017-07-09] MEDS ORDERED: SODIUM CHLORIDE 0.9% FLUSH 10 ML FLUSH IV FLUSH PRN (21:30)
[2017-07-09] MEDS ORDERED: ONDANSETRON HCL 4 MG/2 ML VIAL IVP PRN (21:30)
[2017-07-09] MEDS ORDERED: MAGNESIUM HYDROXIDE SUSP 30 ML CUP PO PRN (21:30)
[2017-07-09] MEDS ORDERED: SENNOSIDES 8.6 MG TAB PO PRN (21:30)
[2017-07-09] MEDS ORDERED: NALOXONE HCL 0.4 MG/ML AMP IV PUSH PRN (21:30)
[2017-07-09] MEDS ORDERED: BISACODYL 10 MG SUPP RECTAL PRN (21:30)
[2017-07-09] MEDS ORDERED: LACTULOSE SYRUP 20 GM/30 ML CUP PO PRN (21:30)
--- NOTE | 2017-07-09 21:34 | HHI.HP ---
[facility] Kevin Shultz M.D. Admission Diagnosis GI bleed, abdominal pain, possible cholecystitis Diagnoses: Chief Complaint: abdominal pain Travel History International Travel<30 Days: No Contact w/Intl Traveler <30 Da: No Traveled to Known Affected Are: No History of Present Illness 56 year old male with a history of CHF (EF 10-20% in 2016), HTN, and HLD presented to the ED with complaints of abdominal pain for 1 week. He states the pain is a stabbing 10/10 mid abdominal, intermittent with radiation to his back and worse with movement with associated nausea, better with rest. He denies any chest pain, sob, fever or chills. He was admitted one month ago and found to have anemia at this time, he refused endoscopy at this time. At discharge hgb 10.1, today is 8.8. He states he does not want a colonoscopy or endoscopy. He denies any blood in his stool. Review of Systems Except as stated in HPI: all other systems reviewed are Neg Past Family Social History Past Medical History CHF (last echo 09/01/15 showed an EF of 10-20%) HTN HLD Past Surgical History Right knee surgery Reported Medications Reported Meds & Active Scripts Active Spironolactone 25 Mg Tab 25 Mg PO DAILY Lisinopril 10 Mg Tab 10 Mg PO DAILY Furosemide 20 Mg Tab 20 Mg PO BID Reported Aspirin Low Dose (Aspirin) 81 Mg Chew 162 Mg CHEW DAILY Atorvastatin (Atorvastatin Calcium) 40 Mg Tab 40 Mg PO HS Carvedilol 6.25 Mg Tab 6.25 Mg PO BID Allergies: Coded Allergies: No Known Allergies (Unverified Allergy, Unknown, 07/09/17) Active Ordered Medications Current Medications Medications (Trade) Dose Ordered Sig/Padma Route Start Time Stop Time Status Last Admin (Lipitor) 40 mg HS PO 07/09/17 21:00 (Coreg) 6.25 mg BID PO 07/09/17 21:00 (Lasix) 20 mg BID PO 07/09/17 21:00 (Prinivil) 10 mg DAILY PO 07/10/17 09:00 (Aldactone) 25 mg DAILY PO 07/10/17 09:00 Piperacillin Sod/ Tazobactam Sod 50 ml @ 100 mls/hr Q6H IV 07/10/17 02:00 Family History Denies family history, no CAD or DM Social History Patient denies any tobacco, alcohol or illicit drug use. Physical Exam Vital Signs Vital Signs Date Time Temp Pulse Resp B/P (MAP) Pulse Ox O2 Delivery O2 Flow Rate FiO2 07/09/17 19:08 72 15 163/90 (114) 96 Room Air 07/09/17 16:11 97.4 77 14 161/83 (109) 100 Physical Exam GENERAL: This is a well-nourished, well-developed patient, in no apparent distress. SKIN: No rashes, ecchymoses or lesions. Cool and dry. HEAD: Atraumatic. Normocephalic. EYES: Pupils equal round and reactive. ENT: Nose without bleeding, purulent drainage or septal hematoma. NECK: Trachea midline. No JVD or lymphadenopathy. CARDIOVASCULAR: Regular rate and rhythm without murmurs, gallops, or rubs. RESPIRATORY: Clear to auscultation. Breath sounds equal bilaterally. No wheezes , rales, or rhonchi. GASTROINTESTINAL: Abdomen soft, mid abdominal tenderness, nondistended. No hepato-splenomegaly, or palpable masses. No guarding. MUSCULOSKELETAL: Extremities without clubbing, cyanosis, or edema. No calf tenderness. NEUROLOGICAL: Awake and alert. Motor and sensory grossly within normal limits. Normal speech. Laboratory Laboratory Tests Test 07/09/17 17:16 07/09/17 18:30 White Blood Count 4.5 Red Blood Count 2.63 Hemoglobin 8.8 Hematocrit 26.2 Mean Corpuscular Volume 99.8 Mean Corpuscular Hemoglobin 33.5 Mean Corpuscular Hemoglobin Concent 33.6 Red Cell Distribution Width 16.3 Platelet Count 286 Mean Platelet Volume 7.7 Neutrophils (%) (Auto) 57.2 Lymphocytes (%) (Auto) 26.6 Monocytes (%) (Auto) 11.8 Eosinophils (%) (Auto) 3.8 Basophils (%) (Auto) 0.6 Neutrophils # (Auto) 2.6 Lymphocytes # (Auto) 1.2 Monocytes # (Auto) 0.5 Eosinophils # (Auto) 0.2 Basophils # (Auto) 0.0 CBC Comment DIFF FINAL Differential Comment Prothrombin Time 14.5 Prothromb Time International Ratio 1.4 Activated Partial Thromboplast Time 30.3 Blood Urea Nitrogen 25 Creatinine 1.54 Random Glucose 80 Total Protein 11.2 Albumin 2.4 Calcium Level 7.7 Alkaline Phosphatase 76 Aspartate Amino Transf (AST/SGOT) 53 Alanine Aminotransferase (ALT/SGPT) 52 Total Bilirubin 0.6 Sodium Level 135 Potassium Level 3.8 Chloride Level 104 Carbon Dioxide Level 27.9 Anion Gap 3 Estimat Glomerular Filtration Rate 57 Lipase 49 Urine Color YELLOW Urine Turbidity CLEAR Urine pH 5.5 Urine Specific [place] 1.021 Urine Protein 30 Urine Glucose (UA) NEG Urine Ketones NEG Urine Occult Blood NEG Urine Nitrite NEG Urine Bilirubin NEG Urine Urobilinogen LESS THAN 2.0 Urine Leukocyte Esterase NEG Urine RBC 1 Microscopic Urinalysis Comment CULT NOT INDICATED Result Diagram: 07/09/17 1716 07/09/17 1716 Imaging Last Impressions Chest X-Ray 07/09/17 0000 Signed Impressions: Service Date/Time: Sunday, July 09, 2017 16:37 - CONCLUSION: 1. There is now a linear opacity in the right middle lobe which may represent parenchymal scar following resolution of the previously documented right middle lobe pneumonia. Suggest a longer term followup chest x-ray to confirm stability. 3- 6 month followup chest x-ray would be reasonable. 2. Stable enlargement of the cardiac silhouette. MD Riley Gironi VTE Risk Assessment Caprini VTE Risk Assessment: No/Low Risk (score <= 1) Caprini Risk Assessment Model Point Value = 1 Point Value = 2 Point Value = 3 Point Value = 5 Age 41-60 Minor surgery BMI > 25 kg/m2 Swollen legs Varicose veins or History of unexplained or recurrent spontaneous Oral contraceptives or hormone replacement Sepsis (< 1 month) Serious lung disease, including pneumonia (< 1 month) Abnormal pulmonary function Acute myocardial infarction Congestive heart failure (< 1 month) History of inflammatory bowel disease Medical patient at bed rest Age 61-74 Arthroscopic surgery Major open surgery (> 45 min) Laparoscopic surgery (> 45 min) Malignancy Confined to bed (> 72 hours) Immobilizing plaster cast Central venous access Age >= 75 History of VTE Family history of VTE Factor V Leiden Prothrombin [id number] Lupus anticoagulant Anticardiolipin antibodies Elevated serum homocysteine Heparin-induced thrombocytopenia Other congenital or acquired thrombophilia Stroke (< 1 month) Elective arthroplasty Hip, pelvis, or leg fracture Acute spinal cord injury (< 1 month) Prophylaxis Regimen Total Risk Factor Score Risk Level Prophylaxis Regimen 0-1 Low Early ambulation 2 Moderate Order ONE of the following: *Sequential Compression Device (SCD) *Heparin 5000 units SQ BID 3-4 Higher Order ONE of the following medications: *Heparin 5000 units SQ TID *Enoxaparin/Lovenox 40 mg SQ daily (WT < 150 kg, CrCl > 30 mL/min) *Enoxaparin/Lovenox 30 mg SQ daily (WT < 150 kg, CrCl > 10-29 mL/min) *Enoxaparin/Lovenox 30 mg SQ BID (WT < 150 kg, CrCl > 30 mL/min) AND/OR *Sequential Compression Device (SCD) 5 or more Highest Order ONE of the following medications: *Heparin 5000 units SQ TID (Preferred with Epidurals) *Enoxaparin/Lovenox 40 mg SQ daily (WT < 150 kg, CrCl > 30 mL/min) *Enoxaparin/Lovenox 30 mg SQ daily (WT < 150 kg, CrCl > 10-29 mL/min) *Enoxaparin/Lovenox 30 mg SQ BID (WT < 150 kg, CrCl > 30 mL/min) AND *Sequential Compression Device (SCD) Assessment and Plan Problem List: (1) Cholecystitis ICD Code: K81.9 - Cholecystitis, unspecified Status: Acute (2) CHF (congestive heart failure), NYHA class II ICD Code: I50.9 - Heart failure, unspecified Status: Chronic (3) Abdominal pain ICD Code: R10.9 - Unspecified abdominal pain Status: Acute (4) Hypertension, benign ICD Code: I10 - Hypertension, benign Status: Chronic Assessment and Plan Abdominal pain, possible cholecystitis Gallbladder US reveiwed and shows pericholecystic fluid without evidence of stones. Cholecystitis is not excluded. Radionuclide imaging is recommended for further evaluation if clinically indicated. 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 In the case of services not specified as inpatient-only, they are appropriately provided as inpatient services in accordance with the 2-midnight benchmark. Estimated LOS (days): 2 days is the estimated time the patient will need to remain in the hospital, assuming treatment plan goals are met and no additional complications. Post-Hospital Plan: Not yet determined Problem Qualifiers (1) CHF (congestive heart failure), NYHA class II: Qualified Codes: I50.22 - Chronic systolic (congestive) heart failure (2) Abdominal pain: Qualified Codes: R10.13 - Epigastric pain Xochilt Coats Jul 09, 2017 21:34
[2017-07-09] MEDS: ATORVASTATIN 40 MG TAB PO SCH (21:37)
[2017-07-09 22:16] LABS: % SATURATION IRON PROFILE 23.6 % (20-50); IRON (FE) 46 MCG/DL (65-175); TOTAL IRON BINDING CAPACITY 195 MCG/DL (250-450)
[2017-07-09] MEDS ORDERED: SINCALIDE 5 MCG/5 ML VIAL IV ONE (23:54)
--- NOTE | 2017-07-10 00:51 | RADRPT ---
EXAM DATE/TIME: 07/09/2017 22:18 [place] COMPARISON: No previous studies available for comparison. INDICATIONS : Abdomen pain for 1 week. Cholecystitis. DOSE: 4.2 mCi Tc99m Mebrofenin IV MEDICATION: 1.39 mcg Cholecystokinin IV; No symptomatic response. Cholecystokinin was administered by slow infusion over 8 minutes beginning at 68 minutes. MEDICAL HISTORY : Hypertension. Congestive heart failure. SURGICAL HISTORY : Total knee replacement, right. ENCOUNTER: Subsequent ACUITY: 1 week PAIN SCALE: 5/10 LOCATION: Bilateral upper quadrant TECHNIQUE: Following the intravenous administration of radiotracer, dynamic sequential image were performed with continuous acquisition. Time-activity curves were generated. FINDINGS: HEPATIC KINETICS: There is prompt uptake of radiotracer in the liver. No focal defects are seen. There is normal rate of washout from the hepatic parenchyma. BILIARY CLEARANCE: Activity is first seen in the extrahepatic biliary system at the 5 minutes. There is normal excretio n into the small bowel. GALLBLADDER: Activity is first seen in the gallbladder at 20 minutes. POST CHOLECYSTOKININ: After Cholecystokinin administration, there is prompt emptying of the gallbladder with a 52% ejection fraction. Common bile duct kinetics are normal and there is no evidence of biliary obstruction. BILIARY ENTERIC REFLUX: None observed. CLINICAL: The patient was asymptomatic after Cholecystokinin administration. CONCLUSION: 1. Activity demonstrated in the gallbladder verifying cystic duct patency. This makes diagnosis of ac guanaco cholecystitis highly unlikely. 2. Normal range gallbladder EF of 52%. Patient was asymptomatic during the CCK administration. Christo Mcallister MD on July 10, 2017 at 0:47 Board Certified Radiologist. This report was verified electronically.
[2017-07-10 00:57] VITALS: BP 132/75; PULSE 61; RESP 16; TEMP 97.6; O2SAT 97
[2017-07-10 02:15] LABS: AUTOMATED NEUTROPHIL # 2.2 TH/MM3 (1.8-7.7); BASOPHIL % 0.6 % (0.0-2.0); EOSINOPHIL # 0.2 TH/MM3 (0-0.4); EOSINOPHIL % 4.3 % (0.0-4.0); HEMATOCRIT 25.2 % (39.0-51.0); HEMOGLOBIN 8.7 GM/DL (13.0-17.0); LYMPH % 27.9 % (9.0-44.0); LYMPHOCYTE # 1.2 TH/MM3 (1.0-4.8); MEAN CELL VOLUME 98.9 FL (80.0-100.0); MEAN CORPUSCULAR HGB CONC 34.4 % (32.0-36.0); MONO % 14.7 % (0.0-8.0); MONOCYTE # 0.6 TH/MM3 (0-0.9); NEUT % 52.5 % (16.0-70.0); PLATELET COUNT 257 TH/MM3 (150-450); RED BLOOD COUNT 2.54 MIL/MM3 (4.50-5.90); RED CELL DISTRIBUTION WIDTH 16.4 % (11.6-17.2); WHITE BLOOD COUNT 4.2 TH/MM3 (4.0-11.0)
[2017-07-10 02:37] LABS: BICARBONATE 27.5 MEQ/L (21.0-32.0); CALCIUM 7.5 MG/DL (8.5-10.1); CREATININE 1.34 MG/DL (0.60-1.30)
[2017-07-10] MEDS: PIPERACIL-TAZO 3.375 GM PREMIX 50 ML IV SCH ×4 (03:41→20:00)
[2017-07-10 03:45] VITALS: BP 136/94; PULSE 60; RESP 18; TEMP 98.3; O2SAT 93
[2017-07-10 07:37] VITALS: BP 147/79; PULSE 57; RESP 20; TEMP 97.6; O2SAT 99
[2017-07-10] MEDS ORDERED: POTASSIUM CHLORIDE 20 MEQ CONTROLLED RELEASE TAB PO ONE (08:00)
[2017-07-10] MEDS: SODIUM CHLORIDE 0.9% FLUSH 10 ML FLUSH IV FLUSH SCH ×2 (09:00→21:00)
--- NOTE | 2017-07-10 09:32 | HHI.PR ---
Subjective Remarks 56 year old male with a history of CHF (EF 10-20% in 2016), HTN, and HLD presented to the ED with complaints of abdominal pain for 1 week. He states the pain is a stabbing 10/10 mid abdominal, intermittent with radiation to his back and worse with movement with associated nausea, better with rest. He denies any chest pain, sob, fever or chills. He was admitted one month ago and found to have anemia at this time, he refused endoscopy at this time. At discharge hgb 10.1, today is 8.8. He states he does not want a colonoscopy or endoscopy. He denies any blood in his stool. 07-10 PATIENT HAD HIDA SCAN AWAIT SURGERY INPUT DW RN AND PT STATES LESS ABDOMINAL PAIN HAS NOT HAD BM YESTERDAY OR TODAY YET AKIL RN AND PT FOR EGD AND COLONOSCOPY TOMORROW Objective Vitals Vital Signs Date Time Temp Pulse Resp B/P (MAP) Pulse Ox O2 Delivery O2 Flow Rate FiO2 07/10/17 07:37 97.6 57 20 147/79 (101) 99 07/10/17 03:45 98.3 60 18 136/94 (108) 93 07/10/17 00:57 97.6 61 16 132/75 (94) 97 07/09/17 22:24 07/09/17 19:08 72 15 163/90 (114) 96 Room Air 07/09/17 16:11 97.4 77 14 161/83 (109) 100 I/O 07/09/17 07/09/17 07/09/17 07/10/17 07/10/17 07/10/17 07:00 15:00 23:00 07:00 15:00 23:00 Intake Total 50 ml Balance 50 ml Intake IV Total 50 ml Result Diagram: 07/10/17 0207 07/10/17 020 Other Results Laboratory Tests Test 07/09/17 17:16 07/09/17 18:30 07/10/17 02:07 White Blood Count 4.5 TH/MM3 4.2 TH/MM3 Red Blood Count 2.63 MIL/MM3 2.54 MIL/MM3 Hemoglobin 8.8 GM/DL 8.7 GM/DL Hematocrit 26.2 % 25.2 % Mean Corpuscular Volume 99.8 FL 98.9 FL Mean Corpuscular Hemoglobin 33.5 PG 34.0 PG Mean Corpuscular Hemoglobin Concent 33.6 % 34.4 % Red Cell Distribution Width 16.3 % 16.4 % Platelet Count 286 TH/MM3 257 TH/MM3 Mean Platelet Volume 7.7 FL 7.0 FL Neutrophils (%) (Auto) 57.2 % 52.5 % Lymphocytes (%) (Auto) 26.6 % 27.9 % Monocytes (%) (Auto) 11.8 % 14.7 % Eosinophils (%) (Auto) 3.8 % 4.3 % Basophils (%) (Auto) 0.6 % 0.6 % Neutrophils # (Auto) 2.6 TH/MM3 2.2 TH/MM3 Lymphocytes # (Auto) 1.2 TH/MM3 1.2 TH/MM3 Monocytes # (Auto) 0.5 TH/MM3 0.6 TH/MM3 Eosinophils # (Auto) 0.2 TH/MM3 0.2 TH/MM3 Basophils # (Auto) 0.0 TH/MM3 0.0 TH/MM3 CBC Comment DIFF FINAL DIFF FINAL Differential Comment Prothrombin Time 14.5 SEC Prothromb Time International Ratio 1.4 RATIO Activated Partial Thromboplast Time 30.3 SEC Blood Urea Nitrogen 25 MG/DL 24 MG/DL Creatinine 1.54 MG/DL 1.34 MG/DL Random Glucose 80 MG/DL 71 MG/DL Total Protein 11.2 GM/DL Albumin 2.4 GM/DL Calcium Level 7.7 MG/DL 7.5 MG/DL Alkaline Phosphatase 76 U/L Aspartate Amino Transf (AST/SGOT) 53 U/L Alanine Aminotransferase (ALT/SGPT) 52 U/L Total Bilirubin 0.6 MG/DL Sodium Level 135 MEQ/L 138 MEQ/L Potassium Level 3.8 MEQ/L 3.3 MEQ/L Chloride Level 104 MEQ/L 105 MEQ/L Carbon Dioxide Level 27.9 MEQ/L 27.5 MEQ/L Anion Gap 3 MEQ/L 6 MEQ/L Estimat Glomerular Filtration Rate 57 ML/MIN 67 ML/MIN Iron Level 46 MCG/DL Total Iron Binding Capacity 195 MCG/DL Percent Iron Saturation 23.6 % Lipase 49 U/L Urine Color YELLOW Urine Turbidity CLEAR Urine pH 5.5 Urine Specific [place] 1.021 Urine Protein 30 mg/dL Urine Glucose (UA) NEG mg/dL Urine Ketones NEG mg/dL Urine Occult Blood NEG Urine Nitrite NEG Urine Bilirubin NEG Urine Urobilinogen LESS THAN 2.0 MG/DL Urine Leukocyte Esterase NEG Urine RBC 1 /hpf Microscopic Urinalysis Comment CULT NOT INDICATED Magnesium Level 1.8 MG/DL Ferritin 263 NG/ML Imaging Last Impressions Abdomen/Pelvis CT 07/09/17 1730 Signed Impressions: Service Date/Time: Sunday, July 09, 2017 19:14 - CONCLUSION: 1. Pericholecystic fluid without evidence of stones. Cholecystitis is not excluded. Radionuclide imaging is recommended for further evaluation if clinically indicated. Yovany Ruano MD Hepatobiliary Scan Nuclear Medicine 07/09/17 0000 Signed Impressions: Service Date/Time: Sunday, July 09, 2017 22:18 - CONCLUSION: 1. Activity demonstrated in the gallbladder verifying cystic duct patency. This makes diagnosis of acute cholecystitis highly unlikely. 2. Normal range gallbladder EF of 52%%. Patient was asymptomatic during the CCK administration. Christo Mcallister MD Gall Bladder Ultrasound 07/09/17 0000 Signed Impressions: Service Date/Time: Sunday, July 09, 2017 19:59 - CONCLUSION: Gall bladder wall thickening without stones. Cholecystitis is not excluded. Radionuclide imaging is recommended for further evaluation if clinically indicated. Yovany Ruano MD Chest X-Ray 07/09/17 0000 Signed Impressions: Service Date/Time: Sunday, July 09, 2017 16:37 - CONCLUSION: 1. There is now a linear opacity in the right middle lobe which may represent parenchymal scar following resolution of the previously documented right middle lobe pneumonia. Suggest a longer term followup chest x-ray to confirm stability. 3- 6 month followup chest x-ray would be reasonable. 2. Stable enlargement of the cardiac silhouette. Bharath Head MD Objective Remarks GENERAL: AWAKE alert and oriented 3 talkative and cooperative does not appear to be in any major distress SKIN: Warm and dry. HEAD: Atraumatic. Normocephalic. EYES: Pupils equal and round. No scleral icterus. No injection or drainage. Extraocular muscles intact wearing glasses ENT: No nasal bleeding or discharge. Mucous membranes pink and moist. Tongue is midline NECK: Trachea midline. No JVD. Supple CARDIOVASCULAR: Regular rate and rhythm. S1 and S2 no S3 or S4 RESPIRATORY: No accessory muscle use. Clear to auscultation. Breath sounds equal bilaterally. GASTROINTESTINAL: Abdomen soft, non-tender, nondistended. Hepatic and splenic margins not palpable. MUSCULOSKELETAL: Extremities without clubbing, cyanosis, or edema. No obvious deformities. NEUROLOGICAL: Awake and alert. No obvious cranial nerve deficits. Motor grossly within normal limits. Five out of 5 muscle strength in the arms and legs. Normal speech. PSYCHIATRIC: Appropriate mood and affect; insight and judgment normal. Medications and IVs Current Medications Ondansetron HCl (Zofran Inj) 4 mg ONCE ONCE IVP Last administered on 18:22; Start 07/09/17 at 17:30; Stop 07/09/17 at 17:31; Status DC Pantoprazole Sodium (Protonix Inj) 40 mg ONCE ONCE IVP Last administered on 18:22; Start 07/09/17 at 17:30; Stop 07/09/17 at 17:31; Status DC Al Hydrox/Mg Hydrox/Simethicone (Mag-Al Plus Susp Liq) 30 ml ONCE ONCE PO Last administered on 07/09/17at 18:23; Start 07/09/17 at 17:30; Stop 07/09/17 at 17:31; Status DC Lidocaine HCl (Xylocaine 2% Viscous) 15 ml ONCE ONCE PO Last administered on at 18:23; Start 07/09/17 at 17:30; Stop 07/09/17 at 17:31; Status DC Iohexol (Omnipaque 350 Inj) 100 ml STK-MED ONCE IVCONTRAST Last administered on 07/09/17at 19:20; Start 07/09/17 at 19:20; Stop 07/09/17 at 19:25; Status DC Piperacillin Sod/ Tazobactam Sod 50 ml @ 100 mls/hr ONCE ONCE IV Last administered on 07/09/17at 20:03; Start 07/09/17 at 20:00; Stop 07/09/17 at 20:29 ; Status DC Atorvastatin Calcium (Lipitor) 40 mg HS PO Last administered on 07/09/17at 21:37 ; Start 07/09/17 at 21:00 Carvedilol (Coreg) 6.25 mg BID PO ; Start 07/09/17 at 21:00 Furosemide (Lasix) 20 mg BID PO ; Start 07/09/17 at 21:00 Lisinopril (Prinivil) 10 mg DAILY PO ; Start 07/10/17 at 09:00 Spironolactone (Aldactone) 25 mg DAILY PO ; Start 07/10/17 at 09:00 Piperacillin Sod/ Tazobactam Sod 50 ml @ 100 mls/hr Q6H IV Last administered on 07/10/17at 03:41; Start 07/10/17 at 02:00 Sodium Chloride 1,000 ml @ 75 mls/hr [id number] IV Last administered on at 21:53; Start 07/09/17 at 21:24; Stop 07/10/17 at 10:43 Sodium Chloride (NS Flush) 2 ml UNSCH PRN IV FLUSH FLUSH AFTER USING IV ACCESS ; Start 07/09/17 at 21:30 Sodium Chloride (NS Flush) 2 ml BID IV FLUSH ; Start 07/10/17 at 09:00 Acetaminophen (Tylenol) 650 mg Q4H PRN PO TEMP > 100.4; Start 07/09/17 at 21:30 Ondansetron HCl (Zofran Inj) 4 mg Q6H PRN IVP NAUSEA OR VOMITING; Start at 21:30 Naloxone HCl (Narcan Inj) 0.4 mg UNSCH PRN IV PUSH SEE LABEL COMMENTS; Start at 21:30 Magnesium Hydroxide (Milk Of Magnesia Liq) 30 ml Q12H PRN PO Mild constipation ; Start 07/09/17 at 21:30 Sennosides (Senokot) 17.2 mg Q12H PRN PO Moderate constipation; Start 07/09/17 at 21:30 Bisacodyl (Dulcolax Supp) 10 mg DAILY PRN RECTAL SEVERE CONSITIPATION; Start at 21:30 Lactulose (Lactulose Liq) 30 ml DAILY PRN PO SEVERE CONSITIPATION; Start at 21:30 Sincalide (Kinevac Inj) 1.39 mcg STK-MED ONCE IV Last administered on at 23:54; Start 07/09/17 at 23:54; Stop 07/09/17 at 23:55; Status DC Potassium Chloride (KCl) 20 meq ONCE ONCE PO ; Start 07/10/17 at 08:00; Stop at 08:01; Status DC A/P Problem List: (1) Cholecystitis ICD Code: K81.9 - Cholecystitis, unspecified Status: Acute (2) CHF (congestive heart failure), NYHA class II ICD Code: I50.9 - Heart failure, unspecified Status: Chronic (3) Abdominal pain ICD Code: R10.9 - Unspecified abdominal pain Status: Acute (4) Hypertension, benign ICD Code: I10 - Hypertension, benign Status: Chronic Assessment and Plan Abdominal pain, possible cholecystitis Gallbladder US reveiwed and shows pericholecystic fluid without evidence of stones. Cholecystitis is not excluded. Radionuclide imaging is recommended for further evaluation if clinically indicated. 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
--- NOTE | 2017-07-10 10:28 | MB ---
cc: Sky Ramos MD, Evan DATE OF CONSULT: 07/10/2017 The patient is a 56-year-old black gentleman I was asked to see for further evaluation and management of abdominal pain and anemia. He is admitted with his third episode of abdominal pain in 3 years. Episodes tend to come on with no particular pattern. He describes as sharp epigastric pain with radiation to the back and to the legs when he walks or works. There is no relation to eating. Food intake does not increase or worsen the discomfort. No early satiety or reflux symptoms or dysphagia. He had refused endoscopic evaluations previously but agrees to endoscopic studies now. In addition to this, he has had anemia with Hemoccult-positive stool found on several occasions. Again, he agrees to proceed with endoscopic studies this admission. He has been taking baby aspirin daily and over the past month, has been taking other non-steroidal antiinflammatory drugs because of sciatic pain, which has now improved. MEDICAL HISTORY: Significant for heart disease with a 10% to 20% ejection fraction about a year to two ago. He has hypertension, hyperlipidemia, congestive heart failure. SURGICAL HISTORY: Only knee surgery for an insect bite and infection. MEDICATIONS ON ADMISSION: Spironolactone 25 mg daily, lisinopril 10 mg daily, furosemide 20 mg b.i.d., baby aspirin daily, atorvastatin 40 mg at bedtime and carvedilol 6.25 mg b.i.d. ALLERGIES: NONE KNOWN TO MEDICATIONS. TOBACCO USE: None. ALCOHOL USE: None. FAMILY HISTORY: His mother only has 1 kidney. A sister of heart disease. He does not know about his father or brother. He knows of no family history of gastrointestinal disorders. REVIEW OF SYSTEMS: He has had no headaches, no vision difficulties, no history of seizure or strokes. No dysphagia or odynophagia and no chest pains, no palpitations, no respiratory difficulties, no urinary symptoms, no unexplained weight loss, no melena or hematochezia. He has had no unexplained weight loss. He denies dermatologic problems and had sciatic nerve problem about a month ago. PHYSICAL EXAMINATION: His weight is 69.55 kg. Temperature 97.4, pulse 77, respiratory rate 14, blood pressure 161/83. He is alert. He is oriented x 3. He is anicteric. Extraocular motions are intact. I appreciate no submandibular, cervical, supraclavicular, axillary or epitrochlear adenopathy. LUNGS: Clear to auscultation. HEART: Regular rate and rhythm with a II/ murmur. ABDOMEN: With good bowel sounds and suggestion of a bruit, though this could be a transmitted heart sound. The abdomen is soft. There is no tenderness, no masses or hepatosplenomegaly noted. There is no chest wall tenderness. No rashes are appreciated on the abdominal wall. No pedal edema, Dupuytren's contractures or palmar erythema. LABORATORY STUDIES: Yesterday, white count 4.5, hemoglobin 8.8, platelets 286, MCV 99.8. Today, white count 4.2, hemoglobin 8.7, MCV 98.9 and platelets 257. INR was 1.4 yesterday with a sodium of 135, potassium 3.8, iron 46, TIBC 195, saturation 23%. AST 53, ALT 52, alkaline phosphatase 76. Total protein elevated at 11.2, albumin low at 2.4, lipase 49. Today's BUN is 24 with a creatinine of 1.34. I reviewed the CT scan that was performed yesterday with Dr. Azam Feldman this morning. There is pericholecystic fluid with no gallstones. Atelectasis is noted in the right middle lobe. Pleural thickening noted in the posterior descending aorta, unchanged from prior study. No pleural effusions. Pancreas appeared unremarkable. The adrenal glands and kidneys appeared normal, no hydronephrosis noted. No free fluid in the abdomen or pelvis. No abnormally enlarged lymphadenopathy. Bladder appeared unremarkable. Hepatobiliary scan revealed normal gallbladder ejection fraction of 57%. IMPRESSION: Abdominal pain of unclear etiology. He has been taking baby aspirin and other NSAIDs, though his description is not typical of peptic ulcer disease. There is no tenderness today, or at least at this moment, on exam. He says exertion brings on the discomfort within 2 steps of walking. This suggests the possibility of a musculoskeletal process. Given the anemia with Hemoccult-positive stool, plus the long-term aspirin use and the fact that he has never undergone colonoscopy, I do recommend panendoscopy and colonoscopy. We discussed the procedures, including potential risks of medication reaction, bleeding, perforation and the small chance of missing a lesion. He agrees to proceed with this plan. Separately, his elevated total protein level is of concern, especially with the elevated creatinine. This needs to be further evaluated. The mild liver enzyme elevation may be related to just passive congestion of the liver. MD GIN Puckett/PARAG , 09:57 AM , 10:27 AM
--- NOTE | 2017-07-10 10:36 | PD.CONS ---
cc: Sean Archer MD [facility] Service CONSULTATION NOTE FOR SURGICAL ATTENDING, DR. SEAN ARCHER General Surgery Consult Requested By Xochilt KIRBY Reason for Consult Cholecystitis Primary Care Physician Kevin Shultz M.D. History of Present Illness This is a 56 year old male with a past medical history of CHF, hypertension, EF of 10-20% and dyslipidemia who comes in to the ED with complaints of mid- abdomen pain that radiates to his back. He was admitted last month with anemia but refused EGD and colonoscopy at that time. He is agreeable to having EGD and colonoscopy on this admission. A CT abdomen and pelvis was obtained which shows pericholecystic fluid without evidence of stones. A gallbladder ultrasound was obtained which shows gallbladder wall thickening without stones. And HIDA scan was obtained which shows activity demonstrated a gallbladder verifying cystic duct patency and a diagnosis of acute cholecystitis is highly unlikely. His hemoglobin is 8.7. He also has complaints of a large mass on the superior portion of his scalp. A General Surgery consultation was requested for cholecystitis. Review of Systems Constitutional: DENIES: Fatigue, Change in appetite Endocrine: DENIES: Polydipsia, Polyuria Eyes: DENIES: Diplopia, Eye inflammation Ears, nose, mouth, throat: DENIES: Hearing loss Respiratory: DENIES: Apneas, Cough Cardiovascular: DENIES: Chest pain Gastrointestinal: COMPLAINS OF: Abdominal pain, DENIES: Bloody stools, Nausea, Vomiting Genitourinary: DENIES: Urinary frequency Musculoskeletal: DENIES: Joint pain Integumentary: DENIES: Abnormal pigmentation Hematologic/lymphatic: DENIES: Bruising Immunologic/allergic: DENIES: Eczema Neurologic: DENIES: Abnormal gait, Headache Psychiatric: DENIES: Confusion, Mood changes, Depression Other Patient complains of a mass on the top of his scalp that has been growing and becoming more tender Past Family Social History Past Medical History CHF EF of 10-20% Hypertension Dyslipidemia Past Surgical History Right knee surgery Reported Medications Spironolactone Lisinopril Furosemide Aspirin Atorvastatin Carvedilol Allergies: Coded Allergies: No Known Allergies (Unverified Allergy, Unknown, 07/09/17) Active Ordered Medications Current Medications Medications (Trade) Dose Ordered Sig/Padma Route Start Time Stop Time Status Last Admin (Lipitor) 40 mg HS PO 07/09/17 21:00 07/09/17 21:37 (Coreg) 6.25 mg BID PO 07/09/17 21:00 (Lasix) 20 mg BID PO 07/09/17 21:00 (Prinivil) 10 mg DAILY PO 07/10/17 09:00 (Aldactone) 25 mg DAILY PO 07/10/17 09:00 Piperacillin Sod/ Tazobactam Sod 50 ml @ 100 mls/hr Q6H IV 07/10/17 02:00 07/10/17 03:41 Sodium Chloride 1,000 ml @ 75 mls/hr [id number] IV 07/09/17 21:24 07/10/17 10:43 07/09/17 21:53 (NS Flush) 2 ml UNSCH PRN IV FLUSH 07/09/17 21:30 (NS Flush) 2 ml BID IV FLUSH 07/10/17 09:00 (Tylenol) 650 mg Q4H PRN PO 07/09/17 21:30 (Zofran Inj) 4 mg Q6H PRN IVP 07/09/17 21:30 (Narcan Inj) 0.4 mg UNSCH PRN IV PUSH 07/09/17 21:30 (Milk Of Magnesia Liq) 30 ml Q12H PRN PO 07/09/17 21:30 (Senokot) 17.2 mg Q12H PRN PO 07/09/17 21:30 (Dulcolax Supp) 10 mg DAILY PRN RECTAL 07/09/17 21:30 (Lactulose Liq) 30 ml DAILY PRN PO 07/09/17 21:30 Potassium Chloride 100 ml @ 50 mls/hr Q2H IV 07/10/17 10:00 07/10/17 13:59 Family History Noncontributory Social History Denies tobacco use Denies EtOH use Denies illicit drug use Physical Exam Vital Signs Vital Signs Date Time Temp Pulse Resp B/P (MAP) Pulse Ox O2 Delivery O2 Flow Rate FiO2 07/10/17 07:37 97.6 57 20 147/79 (101) 99 07/10/17 03:45 98.3 60 18 136/94 (108) 93 07/10/17 00:57 97.6 61 16 132/75 (94) 97 07/09/17 22:24 07/09/17 19:08 72 15 163/90 (114) 96 Room Air 07/09/17 16:11 97.4 77 14 161/83 (109) 100 Physical Exam GENERAL: Very pleasant 56-year-old male resting in bed in no acute distress. SKIN: Warm and dry. HEAD: Atraumatic. Normocephalic. EYES: Pupils equal and round. No scleral icterus. No injection or drainage. ENT: No nasal bleeding or discharge. Mucous membranes pink and moist. NECK: Trachea midline. CARDIOVASCULAR: Regular rate and rhythm. RESPIRATORY: No accessory muscle use. Clear to auscultation. Breath sounds equal bilaterally. GASTROINTESTINAL: Abdomen soft, nondistended. Epigastric tenderness with palpation. No visible scars of hernias. MUSCULOSKELETAL: Extremities without clubbing, cyanosis, or edema. No obvious deformities. NEUROLOGICAL: Awake and alert. No obvious cranial nerve deficits. Motor grossly within normal limits. Five out of 5 muscle strength in the arms and legs. Normal speech. PSYCHIATRIC: Appropriate mood and affect; insight and judgment normal. Laboratory Laboratory Tests Test 07/09/17 17:16 07/09/17 18:30 07/10/17 02:07 White Blood Count 4.5 4.2 Red Blood Count 2.63 2.54 Hemoglobin 8.8 8.7 Hematocrit 26.2 25.2 Mean Corpuscular Volume 99.8 98.9 Mean Corpuscular Hemoglobin 33.5 34.0 Mean Corpuscular Hemoglobin Concent 33.6 34.4 Red Cell Distribution Width 16.3 16.4 Platelet Count 286 257 Mean Platelet Volume 7.7 7.0 Neutrophils (%) (Auto) 57.2 52.5 Lymphocytes (%) (Auto) 26.6 27.9 Monocytes (%) (Auto) 11.8 14.7 Eosinophils (%) (Auto) 3.8 4.3 Basophils (%) (Auto) 0.6 0.6 Neutrophils # (Auto) 2.6 2.2 Lymphocytes # (Auto) 1.2 1.2 Monocytes # (Auto) 0.5 0.6 Eosinophils # (Auto) 0.2 0.2 Basophils # (Auto) 0.0 0.0 CBC Comment DIFF FINAL DIFF FINAL Differential Comment Prothrombin Time 14.5 Prothromb Time International Ratio 1.4 Activated Partial Thromboplast Time 30.3 Blood Urea Nitrogen 25 24 Creatinine 1.54 1.34 Random Glucose 80 71 Total Protein 11.2 Albumin 2.4 Calcium Level 7.7 7.5 Alkaline Phosphatase 76 Aspartate Amino Transf (AST/SGOT) 53 Alanine Aminotransferase (ALT/SGPT) 52 Total Bilirubin 0.6 Sodium Level 135 138 Potassium Level 3.8 3.3 Chloride Level 104 105 Carbon Dioxide Level 27.9 27.5 Anion Gap 3 6 Estimat Glomerular Filtration Rate 57 67 Iron Level 46 Total Iron Binding Capacity 195 Percent Iron Saturation 23.6 Lipase 49 Urine Color YELLOW Urine Turbidity CLEAR Urine pH 5.5 Urine Specific Katy 1.021 Urine Protein 30 Urine Glucose (UA) NEG Urine Ketones NEG Urine Occult Blood NEG Urine Nitrite NEG Urine Bilirubin NEG Urine Urobilinogen LESS THAN 2.0 Urine Leukocyte Esterase NEG Urine RBC 1 Microscopic Urinalysis Comment CULT NOT INDICATED Magnesium Level 1.8 Ferritin 263 Result Diagram: 2/28/18 0207 2/28/18 0207 Imaging Last 48 hours Impressions Abdomen/Pelvis CT 07/09/17 1730 Signed Impressions: Service Date/Time: Sunday, July 09, 2017 19:14 - CONCLUSION: 1. Pericholecystic fluid without evidence of stones. Cholecystitis is not excluded. Radionuclide imaging is recommended for further evaluation if clinically indicated. Yovany Ruano MD Hepatobiliary Scan Nuclear Medicine 07/09/17 0000 Signed Impressions: Service Date/Time: Sunday, July 09, 2017 22:18 - CONCLUSION: 1. Activity demonstrated in the gallbladder verifying cystic duct patency. This makes diagnosis of acute cholecystitis highly unlikely. 2. Normal range gallbladder EF of 52%%. Patient was asymptomatic during the CCK administration. Christo Mcallister MD Gall Bladder Ultrasound 07/09/17 0000 Signed Impressions: Service Date/Time: Sunday, July 09, 2017 19:59 - CONCLUSION: Gall bladder wall thickening without stones. Cholecystitis is not excluded. Radionuclide imaging is recommended for further evaluation if clinically indicated. Yovany Ruano MD Chest X-Ray 07/09/17 0000 Signed Impressions: Service Date/Time: Sunday, July 09, 2017 16:37 - CONCLUSION: 1. There is now a linear opacity in the right middle lobe which may represent parenchymal scar following resolution of the previously documented right middle lobe pneumonia. Suggest a longer term followup chest x-ray to confirm stability. 3- 6 month followup chest x-ray would be reasonable. 2. Stable enlargement of the cardiac silhouette. Bharath Head MD Assessment and Plan Problem List: (1) Chronic anemia ICD Codes: D64.9 - Anemia, unspecified Status: Chronic (2) Dilated cardiomyopathy ICD Codes: I42.0 - Dilated cardiomyopathy Status: Chronic (3) Paroxysmal VT ICD Codes: I47.2 - Ventricular tachycardia Status: Chronic (4) CHF (congestive heart failure) ICD Codes: I50.9 - Heart failure, unspecified Status: Chronic (5) Acute kidney injury ICD Codes: N17.9 - Acute kidney failure, unspecified Status: Chronic (6) GI bleed ICD Codes: K92.2 - Gastrointestinal hemorrhage, unspecified Status: Chronic (7) Abdominal pain ICD Codes: R10.9 - Unspecified abdominal pain Status: Acute (8) CHF (congestive heart failure), NYHA class II ICD Codes: I50.9 - Heart failure, unspecified Status: Chronic Assessment and Plan 56 year old male with abdominal pain -Unlikely cholecystitis and recommended GI workup -Recommend EGD/Colonoscopy---patient agrees--Consult Dr. Ramos -NPO; Diet per GI -Thank you for this consult Discussed Condition With Dr. Suzi Charles Attending Statement NOTE FOR SURGICAL ATTENDING, DR. SEAN ARCHER Patient seen and examined I had a long discussion with the patient about what exactly an EGD and colonoscopy would provide. He has some questions about exactly what it EGD and colonoscopy is. After I explained to him the technical aspects in very simple language, he felt that it was a good idea for him to get an EGD and colonoscopy. His other major complaint is this lesion on the top of his head will evaluate with CT scan We'll follow closely along I agree with above assessment and plan. The exam, history, and the medical decision-making described in the above note were completed with the assistance of the mid-level provider. I reviewed and agree with the findings presented. I attest that I had a [id number] encounter with the patient on the same day, and personally performed and documented my assessment and findings in the medical record. The following services were provided during this hospital visit: Chart data review, vital sign assessments/reviewing monitor data Review of consultations notes if present. Medication orders/review and/or management Ordering and/or reviewing lab tests Ordering and/or interpreting/reviewing x-rays and/or diagnostic studies Care of the patient and discussion of the patient with the care team Documentation time To help prompt me to consider important information that might be impacting today's encounter and assessment, information from prior notes written by myself or my colleagues may have been "brought forward/copy and pasted" into today's note. Problem Qualifiers (1) GI bleed: Qualified Codes: K92.2 - Gastrointestinal hemorrhage, unspecified (2) Abdominal pain: Qualified Codes: R10.13 - Epigastric pain (3) CHF (congestive heart failure), NYHA class II: Qualified Codes: I50.22 - Chronic systolic (congestive) heart failure Helen Valentine/New Accounts Representative MIRTA Jul 10, 2017 10:36 Sean Archer MD Jul 10, 2017 18:15
[2017-07-10] MEDS: FUROSEMIDE 20 MG TAB PO SCH ×2 (10:48→22:25)
[2017-07-10] MEDS: CARVEDILOL 6.25 MG TAB PO SCH ×2 (10:48→22:26)
[2017-07-10] MEDS: SPIRONOLACTONE 25 MG TAB PO SCH (10:48)
[2017-07-10] MEDS: LISINOPRIL 10 MG TAB PO SCH (10:48)
[2017-07-10] MEDS: POTASSIUM CHLOR 20 MEQ PREMIX 100 ML IV SCH ×2 (11:39→13:22)
[2017-07-10 12:06] VITALS: BP 142/83; PULSE 57; RESP 20; TEMP 97.4; O2SAT 98
--- NOTE | 2017-07-10 12:31 | EKG ---
Date Performed: 07/09/2017 Time Performed: 18:03:44 PTAGE: 56 years EKG: Sinus rhythm WITH FIRST DEGREE AV BLOCK LEFT ATRIAL ENLARGEMENT MODERATE INTRAVENTRICULAR CONDUCTION DELAY NONSPE CIFIC T-WAVE ABNORMALITY PROLONGED QT INTERVAL ABNORMAL ECG PREVIOUS TRACING : 04/23/2017 03.51 Since the prior tracing, there has been no significant ross DOCTOR: Yovany Toro Interpretating Date/Time 07/10/2017 12:29:34
[2017-07-10 15:59] VITALS: BP 146/78; PULSE 54; RESP 20; TEMP 98.2; O2SAT 98
[2017-07-10 19:11] VITALS: BP 158/68; PULSE 53; RESP 16; TEMP 98.3; O2SAT 99
--- NOTE | 2017-07-10 20:06 | RADRPT ---
EXAM DATE/TIME: 07/10/2017 19:14 [facility] COMPARISON: No previous studies available for comparison. INDICATIONS : Evaluate growth on skull RADIATION DOSE: 66.34 CTDIvol (mGy) MEDICAL HISTORY : Congestive heart failure. Hypertension. SURGICAL HISTORY : None. ENCOUNTER: Initial ACUITY: 1 day PAIN SCALE: 0/10 LOCATION: cranial TECHNIQUE: Multiple contiguous axial images were obtained of the head. Using automated exposure control and adj ustment of the mA and/or kV according to patient size, radiation dose was kept as low as reasonably a chievable to obtain optimal diagnostic quality images. DICOM format image data is available electro nically for review and comparison. FINDINGS: CEREBRUM: The ventricles are normal for age. No evidence of midline shift, mass lesion, hemorrhage or acute in farction. No extra-axial fluid collections are seen. POSTERIOR FOSSA: The cerebellum and brainstem are intact. The 4th ventricle is midline. The cerebellopontine angle i s unremarkable. EXTRACRANIAL: The visualized portion of the orbits is intact. Mucous retention cyst is noted within the right sphen oid sinus. Mild mucosal thickening is noted within the maxillary sinuses bilaterally. 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 This raises the possibility of primary or metastatic neoplasm until proven otherwise . CONCLUSION: 1. 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 This raises the possibility of primary or metastatic neoplasm until proven otherwise. 2. No acute intracranial abnormality. 3. Mucous retention cyst within the right sphenoid sinus and mild mucosal thickening involving the ma xillary sinuses bilaterally. Skyler Dubois MD on July 10, 2017 at 20:00 Board Certified Radiologist. This report was verified electronically.
[2017-07-10] MEDS: ATORVASTATIN 40 MG TAB PO SCH (22:25)
[2017-07-11] VITALS (9 sets, daily range): BP systolic 128–154; BP diastolic 72–94; PULSE 50–61; RESP 14–18; TEMP 96.5–97.9; O2SAT 96–100
[2017-07-11] MEDS: PIPERACIL-TAZO 3.375 GM PREMIX 50 ML IV SCH ×4 (02:13→20:13)
[2017-07-11 05:51] LABS: AUTOMATED NEUTROPHIL # 2.1 TH/MM3 (1.8-7.7); BASOPHIL % 0.5 % (0.0-2.0); EOSINOPHIL # 0.2 TH/MM3 (0-0.4); EOSINOPHIL % 5.7 % (0.0-4.0); HEMATOCRIT 28.1 % (39.0-51.0); HEMOGLOBIN 9.5 GM/DL (13.0-17.0); LYMPH % 24.5 % (9.0-44.0); MEAN CELL VOLUME 98.4 FL (80.0-100.0); MEAN CORPUSCULAR HEMOGLOBIN 33.4 PG (27.0-34.0); MEAN CORPUSCULAR HGB CONC 33.9 % (32.0-36.0); MEAN PLATELET VOLUME 7.1 FL (7.0-11.0); MONO % 19.9 % (0.0-8.0); MONOCYTE # 0.8 TH/MM3 (0-0.9); NEUT % 49.4 % (16.0-70.0); PLATELET COUNT 271 TH/MM3 (150-450); RED BLOOD COUNT 2.86 MIL/MM3 (4.50-5.90); RED CELL DISTRIBUTION WIDTH 16.4 % (11.6-17.2); WHITE BLOOD COUNT 4.2 TH/MM3 (4.0-11.0)
[2017-07-11 06:08] LABS: ALBUMIN 1.8 GM/DL (3.4-5.0); ALT (GPT) 35 U/L (12-78); AST (GOT) 28 U/L (15-37); BICARBONATE 28.3 MEQ/L (21.0-32.0); BLOOD UREA NITROGEN 20 MG/DL (7-18); CALCIUM 7.6 MG/DL (8.5-10.1); CHLORIDE 104 MEQ/L (98-107); CREATININE 1.49 MG/DL (0.60-1.30); GLOMERULAR FILTRATION RATE 60 ML/MIN (>89); GLUCOSE,RANDOM 79 MG/DL (74-106); PHOSPHORUS 4.1 MG/DL (2.5-4.9); SODIUM (NA) 137 MEQ/L (136-145)
[2017-07-11 06:16] LABS: ALKALINE PHOSPHATASE 48 U/L (45-117); FREE T4 1.27 NG/DL (0.76-1.46); TOTAL BILIRUBIN ADULT 0.8 MG/DL (0.2-1.0); TOTAL PROTEIN 9.6 GM/DL (6.4-8.2)
--- NOTE | 2017-07-11 06:41 | HHI.GIFU ---
GI Follow-up Note Consult Follow-up Subjective: Patient laying in bed comfortably, no new complaints except back pain with getting out of bed. Objective: PHYSICAL EXAMINATION: Vitals signs stable No fever HEENT: EOMI ABDOMEN: Soft, nondistended, nontender SKIN: no jaundice. [employer]: alert and oriented times three. Available Data (labs, X- Rays, Procedues) : Labs reviewed: Hgb up a little. CT head reviewed: suspected lytic lesion ASSESSMENT/PLAN:Anemia with Hemoccult positive stool; schedled for EGD and colonoscopy tomorrow am. Abd/back pain with walking. I don't believe this is related to the GI bleeding. With the lytic cranial lesion, we need to consider a lesion of the spine, especially with the hyperproteinemia; I've ordered a serum SPEP. It was a pleasure seeing Pradeep Charles. Entered by: Sky Kim MD Jul 11, 2017 06:41
[2017-07-11] MEDS ORDERED: PEG (High)/E-LYTE SOLN 4000 ML BTL PO ONE ×2 (06:45→16:00)
[2017-07-11] MEDS ORDERED: MORPHINE SULFATE 4 MG/ML INJ SQ ONE (08:45)
[2017-07-11] MEDS ORDERED: LORazepam 1 MG TAB PO ONE (08:45)
[2017-07-11] MEDS: FUROSEMIDE 20 MG TAB PO SCH ×2 (09:14→20:13)
[2017-07-11] MEDS: SPIRONOLACTONE 25 MG TAB PO SCH (09:14)
[2017-07-11] MEDS: LISINOPRIL 10 MG TAB PO SCH (09:14)
[2017-07-11] MEDS: SODIUM CHLORIDE 0.9% FLUSH 10 ML FLUSH IV FLUSH SCH ×2 (09:14→20:13)
--- NOTE | 2017-07-11 09:33 | HHI.PR ---
Subjective Remarks 56 year old male with a history of CHF (EF 10-20% in 2016), HTN, and HLD presented to the ED with complaints of abdominal pain for 1 week. He states the pain is a stabbing 10/10 mid abdominal, intermittent with radiation to his back and worse with movement with associated nausea, better with rest. He denies any chest pain, sob, fever or chills. He was admitted one month ago and found to have anemia at this time, he refused endoscopy at this time. At discharge hgb 10.1, today is 8.8. He states he does not want a colonoscopy or endoscopy. He denies any blood in his stool. 07-10 PATIENT HAD HIDA SCAN AWAIT SURGERY INPUT DW RN AND PT STATES LESS ABDOMINAL PAIN HAS NOT HAD BM YESTERDAY OR TODAY YET DW RN AND PT 3-1 has lesion on skull scalp. Will undergo biopsy of this area as well as bone marrow biopsy today with interventional radiology Have discussed with GI Dr. Ulloa will undergo EGD and colonoscopy tomorrow We will consult hematology oncology regarding his lytic lesions. Objective Vitals Vital Signs Date Time Temp Pulse Resp B/P (MAP) Pulse Ox O2 Delivery O2 Flow Rate FiO2 07/11/17 07:15 97.5 54 18 138/76 (96) 98 07/11/17 01:47 97.9 55 14 128/72 (90) 96 07/10/17 19:11 98.3 53 16 158/68 (98) 99 07/10/17 15:59 98.2 54 20 146/78 (100) 98 07/10/17 12:06 97.4 57 20 142/83 (102) 98 I/O 07/10/17 07/10/17 07/10/17 07/11/17 07/11/17 07/11/17 07:00 15:00 23:00 07:00 15:00 23:00 Intake Total 200 ml Balance 200 ml Intake Oral 200 ml Result Diagram: 07/11/17 0525 07/11/17 0525 Other Results Laboratory Tests Test 07/09/17 17:16 07/09/17 18:30 07/10/17 02:07 07/11/17 05:25 White Blood Count 4.5 TH/MM3 4.2 TH/MM3 4.2 TH/MM3 Red Blood Count 2.63 MIL/MM3 2.54 MIL/MM3 2.86 MIL/MM3 Hemoglobin 8.8 GM/DL 8.7 GM/DL 9.5 GM/DL Hematocrit 26.2 % 25.2 % 28.1 % Mean Corpuscular Volume 99.8 FL 98.9 FL 98.4 FL Mean Corpuscular Hemoglobin 33.5 PG 34.0 PG 33.4 PG Mean Corpuscular Hemoglobin Concent 33.6 % 34.4 % 33.9 % Red Cell Distribution Width 16.3 % 16.4 % 16.4 % Platelet Count 286 TH/MM3 257 TH/MM3 271 TH/MM3 Mean Platelet Volume 7.7 FL 7.0 FL 7.1 FL Neutrophils (%) (Auto) 57.2 % 52.5 % 49.4 % Lymphocytes (%) (Auto) 26.6 % 27.9 % 24.5 % Monocytes (%) (Auto) 11.8 % 14.7 % 19.9 % Eosinophils (%) (Auto) 3.8 % 4.3 % 5.7 % Basophils (%) (Auto) 0.6 % 0.6 % 0.5 % Neutrophils # (Auto) 2.6 TH/MM3 2.2 TH/MM3 2.1 TH/MM3 Lymphocytes # (Auto) 1.2 TH/MM3 1.2 TH/MM3 1.0 TH/MM3 Monocytes # (Auto) 0.5 TH/MM3 0.6 TH/MM3 0.8 TH/MM3 Eosinophils # (Auto) 0.2 TH/MM3 0.2 TH/MM3 0.2 TH/MM3 Basophils # (Auto) 0.0 TH/MM3 0.0 TH/MM3 0.0 TH/MM3 CBC Comment DIFF FINAL DIFF FINAL DIFF FINAL Differential Comment Prothrombin Time 14.5 SEC Prothromb Time International Ratio 1.4 RATIO Activated Partial Thromboplast Time 30.3 SEC Blood Urea Nitrogen 25 MG/DL 24 MG/DL 20 MG/DL Creatinine 1.54 MG/DL 1.34 MG/DL 1.49 MG/DL Random Glucose 80 MG/DL 71 MG/DL 79 MG/DL Total Protein 11.2 GM/DL 9.6 GM/DL Albumin 2.4 GM/DL 1.8 GM/DL Calcium Level 7.7 MG/DL 7.5 MG/DL 7.6 MG/DL Alkaline Phosphatase 76 U/L 48 U/L Aspartate Amino Transf (AST/SGOT) 53 U/L 28 U/L Alanine Aminotransferase (ALT/SGPT) 52 U/L 35 U/L Total Bilirubin 0.6 MG/DL 0.8 MG/DL Sodium Level 135 MEQ/L 138 MEQ/L 137 MEQ/L Potassium Level 3.8 MEQ/L 3.3 MEQ/L 3.6 MEQ/L Chloride Level 104 MEQ/L 105 MEQ/L 104 MEQ/L Carbon Dioxide Level 27.9 MEQ/L 27.5 MEQ/L 28.3 MEQ/L Anion Gap 3 MEQ/L 6 MEQ/L 5 MEQ/L Estimat Glomerular Filtration Rate 57 ML/MIN 67 ML/MIN 60 ML/MIN Iron Level 46 MCG/DL Total Iron Binding Capacity 195 MCG/DL Percent Iron Saturation 23.6 % Lipase 49 U/L Urine Color YELLOW Urine Turbidity CLEAR Urine pH 5.5 Urine Specific [place] 1.021 Urine Protein 30 mg/dL Urine Glucose (UA) NEG mg/dL Urine Ketones NEG mg/dL Urine Occult Blood NEG Urine Nitrite NEG Urine Bilirubin NEG Urine Urobilinogen LESS THAN 2.0 MG/DL Urine Leukocyte Esterase NEG Urine RBC 1 /hpf Microscopic Urinalysis Comment CULT NOT INDICATED Magnesium Level 1.8 MG/DL 2.0 MG/DL Ferritin 263 NG/ML Phosphorus Level 4.1 MG/DL Free Thyroxine 1.27 NG/DL Thyroid Stimulating Hormone 3rd Gen 0.540 uIU/ML Test 07/11/17 07:35 Total Protein 10.9 GM/DL Imaging Last Impressions Head CT 07/10/17 0000 Signed Impressions: Service Date/Time: Monday, July 10, 2017 19:14 - CONCLUSION: 1. 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 This raises the possibility of primary or metastatic neoplasm until proven otherwise. 2. No acute intracranial abnormality. 3. Mucous retention cyst within the right sphenoid sinus and mild mucosal thickening involving the maxillary sinuses bilaterally. Skyler Dubois MD Abdomen/Pelvis CT 07/09/17 1730 Signed Impressions: Service Date/Time: Sunday, July 09, 2017 19:14 - CONCLUSION: 1. Pericholecystic fluid without evidence of stones. Cholecystitis is not excluded. Radionuclide imaging is recommended for further evaluation if clinically indicated. Yovany Ruano MD Hepatobiliary Scan Nuclear Medicine 07/09/17 0000 Signed Impressions: Service Date/Time: Sunday, July 09, 2017 22:18 - CONCLUSION: 1. Activity demonstrated in the gallbladder verifying cystic duct patency. This makes diagnosis of acute cholecystitis highly unlikely. 2. Normal range gallbladder EF of 52%%. Patient was asymptomatic during the CCK administration. Christo Mcallister MD Gall Bladder Ultrasound 07/09/17 0000 Signed Impressions: Service Date/Time: Sunday, July 09, 2017 19:59 - CONCLUSION: Gall bladder wall thickening without stones. Cholecystitis is not excluded. Radionuclide imaging is recommended for further evaluation if clinically indicated. Yovany Ruano MD Chest X-Ray 07/09/17 0000 Signed Impressions: Service Date/Time: Sunday, July 09, 2017 16:37 - CONCLUSION: 1. There is now a linear opacity in the right middle lobe which may represent parenchymal scar following resolution of the previously documented right middle lobe pneumonia. Suggest a longer term followup chest x-ray to confirm stability. 3- 6 month followup chest x-ray would be reasonable. 2. Stable enlargement of the cardiac silhouette. Bharath Head MD Objective Remarks GENERAL: AWAKE alert and oriented 3 talkative and cooperative does not appear to be in any major distress SKIN: Warm and dry. HEAD: Atraumatic. Normocephalic. EYES: Pupils equal and round. No scleral icterus. No injection or drainage. Extraocular muscles intact wearing glasses ENT: No nasal bleeding or discharge. Mucous membranes pink and moist. Tongue is midline NECK: Trachea midline. No JVD. Supple CARDIOVASCULAR: Regular rate and rhythm. S1 and S2 no S3 or S4 RESPIRATORY: No accessory muscle use. Clear to auscultation. Breath sounds equal bilaterally. GASTROINTESTINAL: Abdomen soft, non-tender, nondistended. Hepatic and splenic margins not palpable. MUSCULOSKELETAL: Extremities without clubbing, cyanosis, or edema. No obvious deformities. NEUROLOGICAL: Awake and alert. No obvious cranial nerve deficits. Motor grossly within normal limits. Five out of 5 muscle strength in the arms and legs. Normal speech. PSYCHIATRIC: Appropriate mood and affect; insight and judgment normal. Medications and IVs Current Medications Ondansetron HCl (Zofran Inj) 4 mg ONCE ONCE IVP Last administered on at 18:22; Start 07/09/17 at 17:30; Stop 07/09/17 at 17:31; Status DC Pantoprazole Sodium (Protonix Inj) 40 mg ONCE ONCE IVP Last administered on at 18:22; Start 07/09/17 at 17:30; Stop 07/09/17 at 17:31; Status DC Al Hydrox/Mg Hydrox/Simethicone (Mag-Al Plus Susp Liq) 30 ml ONCE ONCE PO Last administered on 07/09/17at 18:23; Start 07/09/17 at 17:30; Stop 07/09/17 at 17:31; Status DC Lidocaine HCl (Xylocaine 2% Viscous) 15 ml ONCE ONCE PO Last administered on at 18:23; Start 07/09/17 at 17:30; Stop 07/09/17 at 17:31; Status DC Iohexol (Omnipaque 350 Inj) 100 ml STK-MED ONCE IVCONTRAST Last administered on 07/09/17at 19:20; Start 07/09/17 at 19:20; Stop 07/09/17 at 19:25; Status DC Piperacillin Sod/ Tazobactam Sod 50 ml @ 100 mls/hr ONCE ONCE IV Last administered on 07/09/17at 20:03; Start 07/09/17 at 20:00; Stop 07/09/17 at 20:29 ; Status DC Atorvastatin Calcium (Lipitor) 40 mg HS PO Last administered on 07/10/17at 22:25 ; Start 07/09/17 at 21:00 Carvedilol (Coreg) 6.25 mg BID PO Last administered on 07/10/17at 22:26; Start 07/09/17 at 21:00 Furosemide (Lasix) 20 mg BID PO Last administered on 07/11/17 09:14; Start at 21:00 Lisinopril (Prinivil) 10 mg DAILY PO Last administered on 07/11/17 09:14; Start 07/10/17 at 09:00 Spironolactone (Aldactone) 25 mg DAILY PO Last administered on 07/11/17 09:14; Start 07/10/17 at 09:00 Piperacillin Sod/ Tazobactam Sod 50 ml @ 100 mls/hr Q6H IV Last administered on 3/1/18at 09:15; Start 07/10/17 at 02:00 Sodium Chloride 1,000 ml @ 75 mls/hr [id number] IV Last administered on at 21:53; Start 07/09/17 at 21:24; Stop 07/10/17 at 10:43; Status DC Sodium Chloride (NS Flush) 2 ml UNSCH PRN IV FLUSH FLUSH AFTER USING IV ACCESS ; Start 07/09/17 at 21:30 Sodium Chloride (NS Flush) 2 ml BID IV FLUSH Last administered on 07/11/17at 09: 14; Start 07/10/17 at 09:00 Acetaminophen (Tylenol) 650 mg Q4H PRN PO TEMP > 100.4; Start 07/09/17 at 21:30 Ondansetron HCl (Zofran Inj) 4 mg Q6H PRN IVP NAUSEA OR VOMITING; Start at 21:30 Naloxone HCl (Narcan Inj) 0.4 mg UNSCH PRN IV PUSH SEE LABEL COMMENTS; Start at 21:30 Magnesium Hydroxide (Milk Of Magnesia Liq) 30 ml Q12H PRN PO Mild constipation ; Start 07/09/17 at 21:30 Sennosides (Senokot) 17.2 mg Q12H PRN PO Moderate constipation; Start 07/09/17 at 21:30 Bisacodyl (Dulcolax Supp) 10 mg DAILY PRN RECTAL SEVERE CONSITIPATION; Start at 21:30 Lactulose (Lactulose Liq) 30 ml DAILY PRN PO SEVERE CONSITIPATION; Start at 21:30 Sincalide (Kinevac Inj) 1.39 mcg STK-MED ONCE IV Last administered on at 23:54; Start 07/09/17 at 23:54; Stop 07/09/17 at 23:55; Status DC Potassium Chloride (KCl) 20 meq ONCE ONCE PO Last administered on 07/10/17at 10 :48; Start 07/10/17 at 08:00; Stop 07/10/17 at 08:01; Status DC Potassium Chloride 100 ml @ 50 mls/hr Q2H IV Last administered on 07/10/17at 13 :22; Start 07/10/17 at 10:00; Stop 07/10/17 at 13:59; Status DC Polyethylene Glycol/ Electrolytes (Colyte Liq) 4,000 ml ONCE ONCE PO ; Start at 06:45; Stop 07/11/17 at 06:59; Status DC Polyethylene Glycol/ Electrolytes (Colyte Liq) 4,000 ml ONCE ONCE PO ; Start at 16:00; Stop 07/11/17 at 16:01 Lorazepam (Ativan) 1 mg ONCE ONCE PO ; Start 07/11/17 at 08:45; Stop 07/11/17 at 08:48; Status DC Morphine Sulfate (Morphine Inj) 2 mg ONCE ONCE SQ ; Start 07/11/17 at 08:45; Stop 07/11/17 at 08:48; Status DC A/P Problem List: (1) Cholecystitis ICD Code: K81.9 - Cholecystitis, unspecified Status: Acute (2) CHF (congestive heart failure), NYHA class II ICD Code: I50.9 - Heart failure, unspecified Status: Chronic (3) Abdominal pain ICD Code: R10.9 - Unspecified abdominal pain Status: Acute (4) Hypertension, benign ICD Code: I10 - Hypertension, benign Status: Chronic Assessment and Plan Abdominal pain, possible cholecystitis Gallbladder US reveiwed and shows pericholecystic fluid without evidence of stones. Cholecystitis is not excluded. Radionuclide imaging is recommended for further evaluation if clinically indicated. 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 -Resume home medications spironolactone, and carvedilol, watch for fluid overload Lytic lesions on spine and skull We will get biopsies of the area on the skull as well as a bone marrow biopsy We will consult oncology DVT prophylaxis: SCDs Discharge Planning EGD AND COLONOSCOPY TOMORROW Bone marrow biopsy and skull biopsy today by interventional radiology if able to be done Problem Qualifiers (1) CHF (congestive heart failure), NYHA class II: Qualified Codes: I50.22 - Chronic systolic (congestive) heart failure (2) Abdominal pain: Qualified Codes: R10.13 - Epigastric pain Azam Angeles DO Jul 11, 2017 09:33
[2017-07-11 10:38] LABS: HEMOGLOBIN A1C 5.7 % (4.3-6.0)
[2017-07-11] MEDS ORDERED: LIDOCAINE HCL 1% 20 ML VIAL ONE (11:24)
[2017-07-11] MEDS ORDERED: fentaNYL CITRATE 250 MCG/5 ML AMP ONE (11:44)
[2017-07-11] MEDS ORDERED: MIDAZOLAM HCL 5 MG/5 ML VIAL ONE (11:44)
--- NOTE | 2017-07-11 12:39 | PD.RAD ---
Post CT Procedure Prog Note Pre Procedure Diagnosis: (1) lytic calvarial lesion Post Procedure Diagnosis: (1) lytic calvarial lesion Procedure Date: Jul 11, 2017 Supervising Radiologist: Raj Winston Proceduralist/Assist: gaby lay Estimated blood loss: none Anesthesia: Conscious Sedation Plan of Activity Patient to Unit: ROP[facility] Patient Condition: Good See PACS Report for procedural detail/treatment Raj Winston MD Jul 11, 2017 12:39
--- NOTE | 2017-07-11 13:16 | HHI.PR ---
cc: Sean Archer MD Subjective Subjective Notes Resting in bed States he is getting biopsy of scalp today Objective Vitals/I&O Vital Signs Date Time Temp Pulse Resp B/P (MAP) Pulse Ox O2 Delivery O2 Flow Rate FiO2 07/11/17 11:08 97.7 53 18 149/76 (100) 96 07/09/17 19:08 Room Air Labs Laboratory Tests Test 07/11/17 05:25 07/11/17 07:35 White Blood Count 4.2 Red Blood Count 2.86 Hemoglobin 9.5 Hematocrit 28.1 Mean Corpuscular Volume 98.4 Mean Corpuscular Hemoglobin 33.4 Mean Corpuscular Hemoglobin Concent 33.9 Red Cell Distribution Width 16.4 Platelet Count 271 Mean Platelet Volume 7.1 Neutrophils (%) (Auto) 49.4 Lymphocytes (%) (Auto) 24.5 Monocytes (%) (Auto) 19.9 Eosinophils (%) (Auto) 5.7 Basophils (%) (Auto) 0.5 Neutrophils # (Auto) 2.1 Lymphocytes # (Auto) 1.0 Monocytes # (Auto) 0.8 Eosinophils # (Auto) 0.2 Basophils # (Auto) 0.0 CBC Comment DIFF FINAL Differential Comment Blood Urea Nitrogen 20 Creatinine 1.49 Random Glucose 79 Total Protein 9.6 10.9 Albumin 1.8 Calcium Level 7.6 Phosphorus Level 4.1 Magnesium Level 2.0 Alkaline Phosphatase 48 Aspartate Amino Transf (AST/SGOT) 28 Alanine Aminotransferase (ALT/SGPT) 35 Total Bilirubin 0.8 Sodium Level 137 Potassium Level 3.6 Chloride Level 104 Carbon Dioxide Level 28.3 Anion Gap 5 Estimat Glomerular Filtration Rate 60 Hemoglobin A1c 5.7 Free Thyroxine 1.27 Thyroid Stimulating Hormone 3rd Gen 0.540 Radiology Last 48 hours Impressions Abdomen/Pelvis CT 07/09/17 1730 Signed Impressions: Service Date/Time: Sunday, July 09, 2017 19:14 - CONCLUSION: 1. Pericholecystic fluid without evidence of stones. Cholecystitis is not excluded. Radionuclide imaging is recommended for further evaluation if clinically indicated. Yovany Ruano MD Hepatobiliary Scan Nuclear Medicine 07/09/17 Signed Impressions: Service Date/Time: Sunday, July 09, 2017 22:18 - CONCLUSION: 1. Activity demonstrated in the gallbladder verifying cystic duct patency. This makes diagnosis of acute cholecystitis highly unlikely. 2. Normal range gallbladder EF of 52%%. Patient was asymptomatic during the CCK administration. Christo Mcallister MD Gall Bladder Ultrasound 07/09/17 Signed Impressions: Service Date/Time: Sunday, July 09, 2017 19:59 - CONCLUSION: Gall bladder wall thickening without stones. Cholecystitis is not excluded. Radionuclide imaging is recommended for further evaluation if clinically indicated. Yovany Ruano MD Chest X-Ray 07/09/17 Signed Impressions: Service Date/Time: Sunday, July 09, 2017 16:37 - CONCLUSION: 1. There is now a linear opacity in the right middle lobe which may represent parenchymal scar following resolution of the previously documented right middle lobe pneumonia. Suggest a longer term followup chest x-ray to confirm stability. 3- 6 month followup chest x-ray would be reasonable. 2. Stable enlargement of the cardiac silhouette. Bharath Head MD Cardiovascular: Regular Lungs: Clear Abdomen: Non-distended, Non-tender Extremities: No edema A/P Problem List: (1) Chronic anemia ICD Codes: D64.9 - Anemia, unspecified Status: Chronic (2) Dilated cardiomyopathy ICD Codes: I42.0 - Dilated cardiomyopathy Status: Chronic (3) Paroxysmal VT ICD Codes: I47.2 - Ventricular tachycardia Status: Chronic (4) CHF (congestive heart failure) ICD Codes: I50.9 - Heart failure, unspecified Status: Chronic (5) Acute kidney injury ICD Codes: N17.9 - Acute kidney failure, unspecified Status: Chronic (6) GI bleed ICD Codes: K92.2 - Gastrointestinal hemorrhage, unspecified Status: Chronic (7) Abdominal pain ICD Codes: R10.9 - Unspecified abdominal pain Status: Acute (8) CHF (congestive heart failure), NYHA class II ICD Codes: I50.9 - Heart failure, unspecified Status: Chronic Assessment and Plan 56 year old male with abdominal pain; rule out cholecystitis -NPO for scalp biopsy -Plan for EGD/colonoscopy tomorrow -Low suspicion for acute cholecystitis Problem Qualifiers (1) GI bleed: Qualified Codes: K92.2 - Gastrointestinal hemorrhage, unspecified (2) Abdominal pain: Qualified Codes: R10.13 - Epigastric pain (3) CHF (congestive heart failure), NYHA class II: Qualified Codes: I50.22 - Chronic systolic (congestive) heart failure Helen Valentine/First Stephanie KIRBY Jul 11, 2017 13:16
--- NOTE | 2017-07-11 15:59 | MB ---
cc: Carlene Alston MD, Steven M DO DATE OF CONSULT: 07/11/2017 REFERRING PHYSICIAN: Dr. Azam Angeles CHIEF COMPLAINT: Dr. Angeles requested consultation for Mr. Charles with suspected multiple myeloma. HISTORY OF PRESENT ILLNESS: Mr. Charles is a 56-year-old man with history of hypercholesterolemia, congestive heart failure, hypertension, migraines. He describes sharp pain in the periumbilical region, constant, radiates to the back. Because of his abdominal pain, GI was evaluated. Workup revealed a heme-positive stool. He had evidence of normocytic anemia. His hemoglobin was 8.8 on admission. Chemistry significant for renal insufficiency with a creatinine of 1.5. His comprehensive metabolic panel is concerning for total protein 11.2 on admission. This caught the attention of Dr. Ramos and sent off a serum protein electrophoresis. He had other symptoms including a painful growth on his scalp. He had noticed it 2 months ago. During this admission, he made sure that he let someone know about it. A CT scan of the head was performed. There is a large lytic expansile mass involving the high parietal skull measuring 5.5 x 5.2 cm. It was raises the possibility of primary or metastatic neoplasm. A CT-guided biopsy was performed of this. A CT-guided bone marrow biopsy was also performed. Hematology/oncology is consulted for the suspicion of multiple myeloma. Biopsy results are still pending. Mr. Charles's main complaint is his abdominal pain. Radiates from his back. Denies any urinary complaints. No changes in bowel habits. 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 He is , but lives with his ex-. They have a good relationship. He names her as his healthcare surrogate. He denies any fevers, chills, or night sweats. He has had no problems with blood previously. PAST MEDICAL HISTORY: Congestive heart failure, hypertension, EF 10-20%, dyslipidemia, chronic anemia, chronic renal insufficiency. PAST SURGICAL HISTORY: CT-guided scalp biopsy, CT-guided bone marrow biopsy, right knee surgery. FAMILY HISTORY: No family history of cancer. Mother has 1 kidney. Father in his 60s of unknown cause. He denies any family history of cancer. SOCIAL HISTORY: He denies any tobacco, alcohol, or illicit drug use. 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 ALLERGIES: NO KNOWN DRUG ALLERGIES. CURRENT MEDICATIONS: Lisinopril, Aldactone, piperacillin/tazobactam, Lipitor, Coreg, Lasix. PHYSICAL EXAMINATION: VITAL SIGNS: Temperature 96.5, heart rate 52, respiratory rate 18, blood pressure 149/94. GENERAL: Mr. Charles is a well-developed, well-nourished man who looks his stated age. HEENT: There is a protruding cranial mass that is evident on the top of his head. His pupils are round, reactive to light and accommodation. Oropharynx is clear. NECK: Supple. LUNGS: Clear to auscultation. CARDIOVASCULAR: Reveals normal rate, rhythm. ABDOMEN: Benign. EXTREMITIES: Lower extremity with dry skin, good pulses, no edema. LABORATORIES: Hemoglobin 9.5. BUN 25, creatinine 1.54. Total protein 11.2 from 07/09. ASSESSMENT AND PLAN: Mr. Charles is a 56-year-old man with multiple medical problems described above. He came in actually for abdominal pain radiating to his back. He pointed out that he had a scalp lesion growing over the last 2 months. He has elevated total protein. His scalp biopsy and bone marrow biopsy is pending. A lengthy discussion with Mr. Charles a suspicion for plasma cell dyscrasia or multiple myeloma. It appears he may have a plasma cytoma at the top of his head. He has abdominal pain periumbilically, but may be coming from the back. In light of his multiple myeloma, I recommend imaging his back to rule out any other lesions. He has no neurologic deficits. We discuss diagnosis of multiple myeloma. He has evidence of total protein and renal insufficiency. I await serum protein electrophoresis to identify the type of myeloma and the bone marrow biopsy to confirm. Radiation oncology is consulted to treat the scalp lesion. CT scan of the thoracic and lumbar spine will be coordinated because of the back pain. He is pending endoscopy and colonoscopy tomorrow because of heme-positive stools. This is good to exclude the etiology of anemia. I recommend followup as an outpatient. I expect that his bone marrow biopsy and scalp biopsy will be available next week. We can meet at [facility] to go over these results. His questions were answered to his satisfaction. Further recommendation pending on the results of the biopsy and confirmation of diagnosis of a plasma cell disorder plus or minus a plasma cytoma of the scalp. MD Alee Chandler , 03:26 PM , 03:58 PM
--- NOTE | 2017-07-11 16:32 | RADRPT ---
EXAM DATE/TIME: 07/11/2017 12:01 [facility] COMPARISON: No previous studies available for comparison. INDICATIONS : Anemia,multiple myloma SEDATION TIME: 30 minutes BIOPSY SITE: Left ilium MEDICATION(S): 1.) 2.5 midazolam (Versed) IV 2.) 125 fentanyl (Sublimaze) IV DEVICE(S): 1.) 11 gauge On-Control needle MEDICAL HISTORY : Congestive heart failure. Hypertension. Cardiovascular disease. SURGICAL HISTORY : Orthopedic ENCOUNTER: Initial ACUITY: 1 day PAIN SCORE: 0/10 LOCATION: Left Ilium A total of one core specimen(s) were obtained and sent to the laboratory for pathologic evaluation. PROCEDURE: 1. CT guided Left ilium biopsy. 2. Conscious sedation with continuous EKG and oximetry monitoring. Prior to the procedure informed consent was obtained. Any appropriate prior imaging studies were rev iewed. Using automated exposure control and adjustment of the mA and/or kV according to patient size , radiation dose was kept as low as reasonably achievable to obtain optimal diagnostic quality images . DICOM format image data is available electronically for review and comparison. The site was prepped in a sterile fashion. Full sterile technique was used, including cap, mask, chet rile gloves and gown and a large sterile sheet. Hand hygiene and 2% chlorhexidine and/or betadine/al cohol prep was utilized per protocol for cutaneous antisepsis. The skin and subcutaneous tissues wer e infiltrated with local anesthetic solution. With CT guidance the previously identified target was localized. Biopsy was performed using the presc ribed needle as above. Following biopsy marrow aspiration was performed with repeat puncture. Adequa te hemostasis was obtained with compression at the puncture site. Follow-up CT scan reveals no hemorrhage. Conscious sedation was performed with the prescribed dosages and duration as above in the presence of an independent trained radiology nurse to assist in the monitoring of the patient. EKG and oximetry remained stable throughout the procedure. The patient tolerated the procedure well and there were no complications. The patient was sent to Radiology Outpatient Unit in stable condition. CONCLUSION: 1. Uncomplicated CT guided bone marrow aspirate. 2. Uncomplicated CT guided bone marrow biopsy. Raj Winston MD on July 11, 2017 at 16:31 Board Certified Radiologist. This report was verified electronically.
--- NOTE | 2017-07-11 16:33 | RADRPT ---
EXAM DATE/TIME: 07/11/2017 12:01 [facility] COMPARISON: No previous studies available for comparison. INDICATIONS : Calvarium lesion SEDATION TIME: 30 minutes BIOPSY SITE: calvarium,scalp MEDICATION(S): 1.) 2.5 mg midazolam (Versed) IV 2.) 125 mcg fentanyl (Sublimaze) IV DEVICE(S): 1.) 18 gauge Temno core biopsy needle MEDICAL HISTORY : Congestive heart failure. Hypertension. Cardiovascular disease. SURGICAL HISTORY : Orthopedic ENCOUNTER: Initial ACUITY: 1 day PAIN SCORE: 0/10 LOCATION: calvarium A total of two core specimen(s) were obtained and sent to the laboratory for pathologic evaluation. PROCEDURE: 1. CT guided Calvarium biopsy. Prior to the procedure informed consent was obtained. Any appropriate prior imaging studies were rev iewed. Using automated exposure control and adjustment of the mA and/or kV according to patient size, radiat ion dose was kept as low as reasonably achievable to obtain optimal diagnostic quality images. DICOM format image data is available electronically for review and comparison. The site was prepped in a sterile fashion. Full sterile technique was used, including cap, mask, chet rile gloves and gown and a large sterile sheet. Hand hygiene and 2% chlorhexidine and/or betadine/al cohol prep was utilized per protocol for cutaneous antisepsis. The skin and subcutaneous tissues wer e infiltrated with local anesthetic solution. With CT guidance the previously identified target was localized. Biopsy was performed using the presc ribed needle as above. Adequate hemostasis was obtained with compression at the puncture site. Follow-up CT scan reveals no hemorrhage. The patient tolerated the procedure well and there were no complications. The patient was returned to the Radiology Outpatient Unit in stable condition. CONCLUSION: Uncomplicated CT guided biopsy of the lytic lesion along the frontal calvarium. Raj Winston MD on July 11, 2017 at 16:31 Board Certified Radiologist. This report was verified electronically.
[2017-07-11] MEDS: CARVEDILOL 6.25 MG TAB PO SCH ×2 (16:50→20:14)
[2017-07-11] MEDS: ATORVASTATIN 40 MG TAB PO SCH (20:14)
--- NOTE | 2017-07-11 23:03 | RADRPT ---
EXAM DATE/TIME: 07/11/2017 18:24 [facility] COMPARISON: No previous studies available for comparison. INDICATIONS : Back pain radiating periumbical. Suspect multiple myeloma. RADIATION DOSE: 20.55 CTDIvol (mGy) MEDICAL HISTORY : Cardiovascular disease. Hypertension. SURGICAL HISTORY : None. ENCOUNTER: Initial ACUITY: 1 day PAIN SCALE: 8/10 LOCATION: [facility] TECHNIQUE: Volumetric scanning of the thoracic spine was performed. Multiplanar reconstructions in the sagittal , coronal and oblique axial planes were performed. Using automated exposure control and adjustment o f the mA and/or kV according to patient size, radiation dose was kept as low as reasonably achievable to obtain optimal diagnostic quality images. DICOM format image data is available electronically f or review and comparison. FINDINGS: There is evidence of lytic lesions involving the left posterior aspect of the T9 vertebral body and t he left posterior elements of T9 consistent with multiple myeloma or metastatic disease. The vertebra l bodies of the thoracic spine are in normal alignment without evidence of subluxation. Vertebral brenda dy height is maintained. No fractures are seen. T1-T2: Normal. T2-T3: The thecal sac has a normal diameter. No evidence of disc bulge or protrusion. T3-T4: The thecal sac has a normal diameter. No evidence of disc bulge or protrusion. T4-T5: The thecal sac has a normal diameter. No evidence of disc bulge or protrusion. T5-T6: The thecal sac has a normal diameter. No evidence of disc bulge or protrusion. T6-T7: The thecal sac has a normal diameter. No evidence of disc bulge or protrusion. T7-T8: The thecal sac has a normal diameter. No evidence of disc bulge or protrusion. T8-T9: The thecal sac has a normal diameter. No evidence of disc bulge or protrusion. T9-T10: The thecal sac has a normal diameter. No evidence of disc bulge or protrusion. T10-T11: The thecal sac has a normal diameter. No evidence of disc bulge or protrusion. T11-T12: The thecal sac has a normal diameter. No evidence of disc bulge or protrusion. T12-L1: The thecal sac has a normal diameter. No evidence of disc bulge or protrusion. CONCLUSION: Evidence of lytic lesions involving the left posterior aspect of the T9 vertebral body and the left p osterior elements of T9 consistent with multiple myeloma or metastatic disease. Skyler Dubois MD on July 11, 2017 at 22:57 Board Certified Radiologist. This report was verified electronically.
[2017-07-12] MEDS: PIPERACIL-TAZO 3.375 GM PREMIX 50 ML IV SCH ×2 (02:00→12:07)
[2017-07-12 03:06] VITALS: BP 126/74; PULSE 81; RESP 17; TEMP 98.3; O2SAT 97
[2017-07-12] MEDS ORDERED: SODIUM CHLORID 0.9% 500 ML IV PRN (03:15)
[2017-07-12] MEDS ORDERED: POVIDONE IODINE 5% (ANTISEPSIS KIT) 4 APPLICATIONS EACH NARE PRN (03:15)
[2017-07-12] MEDS ORDERED: LACTATED RINGER'S 1000 ML IV PRN (03:15)
[2017-07-12] MEDS ORDERED: CHLORHEXIDINE GLUCONATE 2 % 1 PACK (2 CLOTHS) TOPICAL PRN (03:15)
[2017-07-12 04:17] VITALS: BP 135/78; PULSE 56; RESP 16; TEMP 98.1; O2SAT 99
[2017-07-12 07:46] LABS: RETIC # 64.1 MIL/L (20.0-150.0); RETIC % 2.4 % (0.4-3.0)
[2017-07-12 07:48] LABS: AUTOMATED NEUTROPHIL # 2.3 TH/MM3 (1.8-7.7); BASOPHIL % 0.5 % (0.0-2.0); EOSINOPHIL # 0.3 TH/MM3 (0-0.4); EOSINOPHIL % 5.2 % (0.0-4.0); HEMATOCRIT 27.3 % (39.0-51.0); HEMOGLOBIN 9.3 GM/DL (13.0-17.0); LYMPH % 26.9 % (9.0-44.0); LYMPHOCYTE # 1.3 TH/MM3 (1.0-4.8); MEAN CELL VOLUME 99.5 FL (80.0-100.0); MEAN CORPUSCULAR HEMOGLOBIN 33.9 PG (27.0-34.0); MEAN CORPUSCULAR HGB CONC 34.1 % (32.0-36.0); MEAN PLATELET VOLUME 7.7 FL (7.0-11.0); MONO % 19.9 % (0.0-8.0); NEUT % 47.5 % (16.0-70.0); PLATELET COUNT 300 TH/MM3 (150-450); RED BLOOD COUNT 2.74 MIL/MM3 (4.50-5.90); RED CELL DISTRIBUTION WIDTH 16.8 % (11.6-17.2); WHITE BLOOD COUNT 4.8 TH/MM3 (4.0-11.0)
[2017-07-12 08:00] VITALS: BP 135/81; PULSE 58; RESP 16; TEMP 98.7; O2SAT 99
[2017-07-12 08:06] LABS: AST (GOT) 17 U/L (15-37); BICARBONATE 27.4 MEQ/L (21.0-32.0); BLOOD UREA NITROGEN 16 MG/DL (7-18); CALCIUM 7.8 MG/DL (8.5-10.1); CHLORIDE 101 MEQ/L (98-107); CREATININE 1.37 MG/DL (0.60-1.30); GLOMERULAR FILTRATION RATE 66 ML/MIN (>89); GLUCOSE,RANDOM 118 MG/DL (74-106); SODIUM (NA) 134 MEQ/L (136-145)
[2017-07-12 08:08] LABS: ALT (GPT) 31 U/L (12-78); PHOSPHORUS 3.1 MG/DL (2.5-4.9)
[2017-07-12 08:10] LABS: ALKALINE PHOSPHATASE 59 U/L (45-117); TOTAL BILIRUBIN ADULT 0.5 MG/DL (0.2-1.0); TOTAL PROTEIN 10.6 GM/DL (6.4-8.2)
--- NOTE | 2017-07-12 10:20 | GIPROC ---
[facility] [address] [facility]. [facility], [id number] EGD PROCEDURE REPORT EXAM DATE: 07/12/2017 PATIENT NAME: Pradeep Charles MR #: [id number] BIRTHDATE: 1960 ATTENDING: Sky Ramos MD ORDER #: [id number] [facility] OPERATOR: Alyssa Jimenez and Brenda Bergman STATUS: inpatient INDICATIONS: The patient is a 56 yr old male here for an EGD due to anemia with hemoccult positive stool; he's been taking aspirin and other NSAIDs. PROCEDURE PERFORMED: EGD, diagnostic MEDICATIONS: Per Anesthesia and None. TOPICAL ANESTHETIC: CONSENT: The patient understands the risks and benefits of the procedure and understands that these risks include, but are not limited to: sedation, allergic reaction, infection, perforation and/or bleeding. Alternative means of evaluation and treatment include, among others: physical exam, x-rays, and/or surgical intervention. The patient elects to proceed with this endoscopic procedure. medical equipment was checked for proper function. Hand hygiene and appropriate measures for infection prevention was taken. After the risks, benefits and alternatives of the procedure were thoroughly explained, Informed consent was verified, confirmed and timeout was successfully executed by the treatment team. The patient was anesthetized with topical anesthesia and the Pentax EG-[id number] endoscope was introduced through the mouth and advanced to the . Retroflexion was performed and was normal The gastroscope was then slowly withdrawn and removed. The endoscopy was normal. ADVERSE EVENTS: There were no complications. IMPRESSIONS: 1. Normal endoscopy otherwise 2. Retroflexion was performed and was normal RECOMMENDATIONS: His colonoscopy prep was incomplete: thick, muddy fecal matter was present in the rectal vault; I did not attempt performance of the colonoscopy. We can schedule this as an out patient after the neoplastic process is addressed. PATIENT CONDITION: DISPOSITION: REPEAT EXAM: Sky Ramos MD eSigned: Sky Ramos MD 07/12/2017 10:20 AM cc: Carlene Alston M.D. PATIENT NAME: Pradeep Charles MR#: [id number]
[2017-07-12 12:00] VITALS: BP 139/86; PULSE 69; RESP 16; TEMP 97.6; O2SAT 99
[2017-07-12] MEDS ORDERED: PROPOFOL 200 MG/20 ML AMP IV ONE (12:00)
[2017-07-12] MEDS ORDERED: LIDOCAINE HCL 1% PF 5 ML SYRINGE OTHER ONE (12:00)
[2017-07-12] MEDS: CARVEDILOL 6.25 MG TAB PO SCH (12:06)
[2017-07-12] MEDS: SPIRONOLACTONE 25 MG TAB PO SCH (12:06)
[2017-07-12] MEDS: LISINOPRIL 10 MG TAB PO SCH (12:06)
[2017-07-12] MEDS: FUROSEMIDE 20 MG TAB PO SCH (12:06)
[2017-07-12] MEDS: SODIUM CHLORIDE 0.9% FLUSH 10 ML FLUSH IV FLUSH SCH (12:07)
--- NOTE | 2017-07-12 12:23 | HHI.PR ---
Subjective Remarks 56 year old male with a history of CHF (EF 10-20% in 2016), HTN, and HLD presented to the ED with complaints of abdominal pain for 1 week. He states the pain is a stabbing 10/10 mid abdominal, intermittent with radiation to his back and worse with movement with associated nausea, better with rest. He denies any chest pain, sob, fever or chills. He was admitted one month ago and found to have anemia at this time, he refused endoscopy at this time. At discharge hgb 10.1, today is 8.8. He states he does not want a colonoscopy or endoscopy. He denies any blood in his stool. 07-10 PATIENT HAD HIDA SCAN AWAIT SURGERY INPUT DW RN AND PT STATES LESS ABDOMINAL PAIN HAS NOT HAD BM YESTERDAY OR TODAY YET DW RN AND PT 3-1 has lesion on skull scalp. Will undergo biopsy of this area as well as bone marrow biopsy today with interventional radiology Have discussed with GI Dr. Ulloa will undergo EGD and colonoscopy tomorrow We will consult hematology oncology regarding his lytic lesions. 3-2 HAD EGD TODAY- DID NOT PREP WELL FOR COLONOSCOPY NOT DONE FOLLOW UP WITH GI, FOLLOW UP WITH ONCOLOGY, FOLLOW UP WITH PCP HAD BONE MARROW BIOPSY AND HEAD BIOPSY YESTERDAY WITH INTERVENTIONAL RADIOLOGY SEEN BY ONCOLOGY BIOPSY RESULTS PENDING WANTS TO GO HOME AND RETURN TO WORK ON SATURDAY Objective Vitals Vital Signs Date Time Temp Pulse Resp B/P (MAP) Pulse Ox O2 Delivery O2 Flow Rate FiO2 07/12/17 12:00 97.6 69 16 139/86 (103) 99 07/12/17 10:33 97.2 63 18 126/84 (98) 98 07/12/17 08:00 98.7 58 16 135/81 (99) 99 07/12/17 04:17 98.1 56 16 135/78 (97) 99 07/12/17 03:06 98.3 81 17 126/74 (91) 97 07/11/17 23:56 97.8 55 16 128/81 (97) 99 07/11/17 20:19 97.7 61 15 154/84 (107) 97 07/11/17 16:21 97.6 58 18 133/74 (93) 97 07/11/17 13:40 52 18 149/94 (112) 98 07/11/17 13:10 50 16 152/86 (108) 100 07/11/17 12:55 96.5 52 18 142/88 (106) 96 I/O 07/11/17 07/11/17 07/11/17 07/12/17 07/12/17 07/12/17 06:59 14:59 22:59 06:59 14:59 22:59 Intake Total 200 ml 500 ml 400 ml Balance 200 ml 500 ml 400 ml Intake Oral 200 ml 500 ml Other 400 ml Result Diagram: 07/12/17 0720 07/12/17 0720 Other Results Laboratory Tests Test 07/09/17 17:16 07/09/17 18:30 07/10/17 02:07 07/11/17 05:25 White Blood Count 4.5 TH/MM3 4.2 TH/MM3 4.2 TH/MM3 Red Blood Count 2.63 MIL/MM3 2.54 MIL/MM3 2.86 MIL/MM3 Hemoglobin 8.8 GM/DL 8.7 GM/DL 9.5 GM/DL Hematocrit 26.2 % 25.2 % 28.1 % Mean Corpuscular Volume 99.8 FL 98.9 FL 98.4 FL Mean Corpuscular Hemoglobin 33.5 PG 34.0 PG 33.4 PG Mean Corpuscular Hemoglobin Concent 33.6 % 34.4 % 33.9 % Red Cell Distribution Width 16.3 % 16.4 % 16.4 % Platelet Count 286 TH/MM3 257 TH/MM3 271 TH/MM3 Mean Platelet Volume 7.7 FL 7.0 FL 7.1 FL Neutrophils (%) (Auto) 57.2 % 52.5 % 49.4 % Lymphocytes (%) (Auto) 26.6 % 27.9 % 24.5 % Monocytes (%) (Auto) 11.8 % 14.7 % 19.9 % Eosinophils (%) (Auto) 3.8 % 4.3 % 5.7 % Basophils (%) (Auto) 0.6 % 0.6 % 0.5 % Neutrophils # (Auto) 2.6 TH/MM3 2.2 TH/MM3 2.1 TH/MM3 Lymphocytes # (Auto) 1.2 TH/MM3 1.2 TH/MM3 1.0 TH/MM3 Monocytes # (Auto) 0.5 TH/MM3 0.6 TH/MM3 0.8 TH/MM3 Eosinophils # (Auto) 0.2 TH/MM3 0.2 TH/MM3 0.2 TH/MM3 Basophils # (Auto) 0.0 TH/MM3 0.0 TH/MM3 0.0 TH/MM3 CBC Comment DIFF FINAL DIFF FINAL DIFF FINAL Differential Comment Prothrombin Time 14.5 SEC Prothromb Time International Ratio 1.4 RATIO Activated Partial Thromboplast Time 30.3 SEC Blood Urea Nitrogen 25 MG/DL 24 MG/DL 20 MG/DL Creatinine 1.54 MG/DL 1.34 MG/DL 1.49 MG/DL Random Glucose 80 MG/DL 71 MG/DL 79 MG/DL Total Protein 11.2 GM/DL 9.6 GM/DL Albumin 2.4 GM/DL 1.8 GM/DL Calcium Level 7.7 MG/DL 7.5 MG/DL 7.6 MG/DL Alkaline Phosphatase 76 U/L 48 U/L Aspartate Amino Transf (AST/SGOT) 53 U/L 28 U/L Alanine Aminotransferase (ALT/SGPT) 52 U/L 35 U/L Total Bilirubin 0.6 MG/DL 0.8 MG/DL Sodium Level 135 MEQ/L 138 MEQ/L 137 MEQ/L Potassium Level 3.8 MEQ/L 3.3 MEQ/L 3.6 MEQ/L Chloride Level 104 MEQ/L 105 MEQ/L 104 MEQ/L Carbon Dioxide Level 27.9 MEQ/L 27.5 MEQ/L 28.3 MEQ/L Anion Gap 3 MEQ/L 6 MEQ/L 5 MEQ/L Estimat Glomerular Filtration Rate 57 ML/MIN 67 ML/MIN 60 ML/MIN Iron Level 46 MCG/DL Total Iron Binding Capacity 195 MCG/DL Percent Iron Saturation 23.6 % Lipase 49 U/L Urine Color YELLOW Urine Turbidity CLEAR Urine pH 5.5 Urine Specific [place] 1.021 Urine Protein 30 mg/dL Urine Glucose (UA) NEG mg/dL Urine Ketones NEG mg/dL Urine Occult Blood NEG Urine Nitrite NEG Urine Bilirubin NEG Urine Urobilinogen LESS THAN 2.0 MG/DL Urine Leukocyte Esterase NEG Urine RBC 1 /hpf Microscopic Urinalysis Comment CULT NOT INDICATED Magnesium Level 1.8 MG/DL 2.0 MG/DL Ferritin 263 NG/ML Phosphorus Level 4.1 MG/DL Hemoglobin A1c 5.7 % Free Thyroxine 1.27 NG/DL Thyroid Stimulating Hormone 3rd Gen 0.540 uIU/ML Test 07/11/17 07:35 07/11/17 12:00 07/12/17 07:20 Total Protein 10.9 GM/DL 10.6 GM/DL White Blood Count 4.8 TH/MM3 Red Blood Count 2.74 MIL/MM3 Hemoglobin 9.3 GM/DL Hematocrit 27.3 % Mean Corpuscular Volume 99.5 FL Mean Corpuscular Hemoglobin 33.9 PG Mean Corpuscular Hemoglobin Concent 34.1 % Red Cell Distribution Width 16.8 % Platelet Count 300 TH/MM3 Mean Platelet Volume 7.7 FL Neutrophils (%) (Auto) 47.5 % Lymphocytes (%) (Auto) 26.9 % Monocytes (%) (Auto) 19.9 % Eosinophils (%) (Auto) 5.2 % Basophils (%) (Auto) 0.5 % Neutrophils # (Auto) 2.3 TH/MM3 Lymphocytes # (Auto) 1.3 TH/MM3 Monocytes # (Auto) 1.0 TH/MM3 Eosinophils # (Auto) 0.3 TH/MM3 Basophils # (Auto) 0.0 TH/MM3 CBC Comment DIFF FINAL Differential Comment Reticulocyte Count 2.4 % Absolute Reticulocyte Count 64.1 MIL/L Blood Urea Nitrogen 16 MG/DL Creatinine 1.37 MG/DL Random Glucose 118 MG/DL Albumin 2.0 GM/DL Calcium Level 7.8 MG/DL Phosphorus Level 3.1 MG/DL Magnesium Level 2.0 MG/DL Alkaline Phosphatase 59 U/L Aspartate Amino Transf (AST/SGOT) 17 U/L Alanine Aminotransferase (ALT/SGPT) 31 U/L Lactate Dehydrogenase 161 U/L Total Bilirubin 0.5 MG/DL Sodium Level 134 MEQ/L Potassium Level 3.4 MEQ/L Chloride Level 101 MEQ/L Carbon Dioxide Level 27.4 MEQ/L Anion Gap 6 MEQ/L Estimat Glomerular Filtration Rate 66 ML/MIN Imaging Last Impressions Thoracic Spine CT 07/11/17 0000 Signed Impressions: Service Date/Time: July 18:24 - CONCLUSION: Evidence of lytic lesions involving the left posterior aspect of the T9 vertebral body and the left posterior elements of T9 consistent with multiple myeloma or metastatic disease. Skyler Dubois MD Bone Biopsy CT 07/11/17 0000 Signed Impressions: Service Date/Time: July 12:01 - CONCLUSION: Uncomplicated CT guided biopsy of the lytic lesion along the frontal calvarium. Raj Winston MD Head CT 07/10/17 0000 Signed Impressions: Service Date/Time: Monday, July 10, 2017 19:14 - CONCLUSION: 1. 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 This raises the possibility of primary or metastatic neoplasm until proven otherwise. 2. No acute intracranial abnormality. 3. Mucous retention cyst within the right sphenoid sinus and mild mucosal thickening involving the maxillary sinuses bilaterally. Skyler Dubois MD Abdomen/Pelvis CT 07/09/170 Signed Impressions: Service Date/Time: Sunday, July 09, 2017 19:14 - CONCLUSION: 1. Pericholecystic fluid without evidence of stones. Cholecystitis is not excluded. Radionuclide imaging is recommended for further evaluation if clinically indicated. Yovany Ruano MD Hepatobiliary Scan Nuclear Medicine 07/09/17 0000 Signed Impressions: Service Date/Time: Sunday, July 09, 2017 22:18 - CONCLUSION: 1. Activity demonstrated in the gallbladder verifying cystic duct patency. This makes diagnosis of acute cholecystitis highly unlikely. 2. Normal range gallbladder EF of 52%%. Patient was asymptomatic during the CCK administration. Christo Mcallister MD Gall Bladder Ultrasound 07/09/17 0000 Signed Impressions: Service Date/Time: Sunday, July 09, 2017 19:59 - CONCLUSION: Gall bladder wall thickening without stones. Cholecystitis is not excluded. Radionuclide imaging is recommended for further evaluation if clinically indicated. Yovany Ruano MD Chest X-Ray 07/09/17 0000 Signed Impressions: Service Date/Time: Sunday, July 09, 2017 16:37 - CONCLUSION: 1. There is now a linear opacity in the right middle lobe which may represent parenchymal scar following resolution of the previously documented right middle lobe pneumonia. Suggest a longer term followup chest x-ray to confirm stability. 3- 6 month followup chest x-ray would be reasonable. 2. Stable enlargement of the cardiac silhouette. Bharath Head MD Objective Remarks GENERAL: AWAKE alert and oriented 3 talkative and cooperative does not appear to be in any major distress SKIN: Warm and dry. HEAD DRESSED FROM BIOPSY HEAD: Atraumatic. Normocephalic. EYES: Pupils equal and round. No scleral icterus. No injection or drainage. Extraocular muscles intact wearing glasses ENT: No nasal bleeding or discharge. Mucous membranes pink and moist. Tongue is midline NECK: Trachea midline. No JVD. Supple CARDIOVASCULAR: Regular rate and rhythm. S1 and S2 no S3 or S4 RESPIRATORY: No accessory muscle use. Clear to auscultation. Breath sounds equal bilaterally. GASTROINTESTINAL: Abdomen soft, non-tender, nondistended. Hepatic and splenic margins not palpable. MUSCULOSKELETAL: Extremities without clubbing, cyanosis, or edema. No obvious deformities. NEUROLOGICAL: Awake and alert. No obvious cranial nerve deficits. Motor grossly within normal limits. Five out of 5 muscle strength in the arms and legs. Normal speech. PSYCHIATRIC: Appropriate mood and affect; insight and judgment normal. Procedures Pre Procedure Diagnosis: (1) lytic calvarial lesion Post Procedure Diagnosis: (1) lytic calvarial lesion Procedure Date: Jul 11, 2017 Supervising Radiologist: Raj Winston Proceduralist/Assist: gaby lay Estimated blood loss: none Anesthesia: Conscious Sedation Plan of Activity Patient to Unit: ROPU Patient Condition: Good See PACS Report for procedural detail/treatment INDICATIONS: The patient is a 56 yr old male here for an EGD due to anemia with hemoccult positive stool; he's been taking aspirin and other NSAIDs. PROCEDURE PERFORMED: EGD, diagnostic MEDICATIONS: Per Anesthesia and None. TOPICAL ANESTHETIC: CONSENT: The patient understands the risks and benefits of the procedure and understands that these risks include, but are not limited to: sedation, allergic reaction, infection, perforation and/or bleeding. Alternative means of evaluation and treatment include, among others: physical exam, x-rays, and/or surgical intervention. The patient elects to proceed with this endoscopic procedure. medical equipment was checked for proper function. Hand hygiene and appropriate measures for infection prevention was taken. After the risks, benefits and alternatives of the procedure were thoroughly explained, Informed consent was verified, confirmed and timeout was successfully executed by the treatment team. The patient was anesthetized with topical anesthesia and the Pentax [id number] endoscope was introduced through the mouth and advanced to the . Retroflexion was performed and was normal The gastroscope was then slowly withdrawn and removed. The endoscopy was normal. ADVERSE EVENTS: There were no complications. IMPRESSIONS: 1. Normal endoscopy otherwise 2. Retroflexion was performed and was normal RECOMMENDATIONS: His colonoscopy prep was incomplete: thick, muddy fecal matter was present in the rectal vault; I did not attempt performance of the colonoscopy. We can schedule this as an out patient after the neoplastic process is addressed. PATIENT CONDITION: DISPOSITION: REPEAT EXAM: Sky Ramos MD eSigned: Sky Ramos MD 07/12/2017 10:20 AM Medications and IVs Current Medications Ondansetron HCl (Zofran Inj) 4 mg ONCE ONCE IVP Last administered on 18:22; Start 07/09/17 at 17:30; Stop 07/09/17 at 17:31; Status DC Pantoprazole Sodium (Protonix Inj) 40 mg ONCE ONCE IVP Last administered on 18:22; Start 07/09/17 at 17:30; Stop 07/09/17 at 17:31; Status DC Al Hydrox/Mg Hydrox/Simethicone (Mag-Al Plus Susp Liq) 30 ml ONCE ONCE PO Last administered on 07/09/17at 18:23; Start 07/09/17 at 17:30; Stop 07/09/17 at 17:31; Status DC Lidocaine HCl (Xylocaine 2% Viscous) 15 ml ONCE ONCE PO Last administered on 18:23; Start 07/09/17 at 17:30; Stop 07/09/17 at 17:31; Status DC Iohexol (Omnipaque 350 Inj) 100 ml STK-MED ONCE IVCONTRAST Last administered on 07/09/17at 19:20; Start 07/09/17 at 19:20; Stop 07/09/17 at 19:25; Status DC Piperacillin Sod/ Tazobactam Sod 50 ml @ 100 mls/hr ONCE ONCE IV Last administered on 07/09/17 20:03; Start 07/09/17 at 20:00; Stop 07/09/17 at 20:29 ; Status DC Atorvastatin Calcium (Lipitor) 40 mg HS PO Last administered on 07/11/17at 20:14 ; Start 07/09/17 at 21:00 Carvedilol (Coreg) 6.25 mg BID PO Last administered on 07/12/17 12:06; Start at 21:00 Furosemide (Lasix) 20 mg BID PO Last administered on 07/12/17 12:06; Start at 21:00 Lisinopril (Prinivil) 10 mg DAILY PO Last administered on 07/12/17 12:06; Start 07/10/17 at 09:00 Spironolactone (Aldactone) 25 mg DAILY PO Last administered on 07/12/17 12:06; Start 07/10/17 at 09:00 Piperacillin Sod/ Tazobactam Sod 50 ml @ 100 mls/hr Q6H IV Last administered on 07/12/17 02:00; Start 07/10/17 at 02:00 Sodium Chloride 1,000 ml @ 75 mls/hr [id number] IV Last administered on at 21:53; Start 07/09/17 at 21:24; Stop 07/10/17 at 10:43; Status DC Sodium Chloride (NS Flush) 2 ml UNSCH PRN IV FLUSH FLUSH AFTER USING IV ACCESS ; Start 07/09/17 at 21:30 Sodium Chloride (NS Flush) 2 ml BID IV FLUSH Last administered on 07/12/17at 12: 07; Start 07/10/17 at 09:00 Acetaminophen (Tylenol) 650 mg Q4H PRN PO TEMP > 100.4; Start 07/09/17 at 21:30 Ondansetron HCl (Zofran Inj) 4 mg Q6H PRN IVP NAUSEA OR VOMITING; Start at 21:30 Naloxone HCl (Narcan Inj) 0.4 mg UNSCH PRN IV PUSH SEE LABEL COMMENTS; Start at 21:30 Magnesium Hydroxide (Milk Of Magnesia Liq) 30 ml Q12H PRN PO Mild constipation ; Start 07/09/17 at 21:30 Sennosides (Senokot) 17.2 mg Q12H PRN PO Moderate constipation; Start 07/09/17 at 21:30 Bisacodyl (Dulcolax Supp) 10 mg DAILY PRN RECTAL SEVERE CONSITIPATION; Start at 21:30 Lactulose (Lactulose Liq) 30 ml DAILY PRN PO SEVERE CONSITIPATION; Start at 21:30 Sincalide (Kinevac Inj) 1.39 mcg STK-MED ONCE IV Last administered on at 23:54; Start 07/09/17 at 23:54; Stop 07/09/17 at 23:55; Status DC Potassium Chloride (KCl) 20 meq ONCE ONCE PO Last administered on 07/10/17at 10 :48; Start 07/10/17 at 08:00; Stop 07/10/17 at 08:01; Status DC Potassium Chloride 100 ml @ 50 mls/hr Q2H IV Last administered on 07/10/17at 13 :22; Start 07/10/17 at 10:00; Stop 07/10/17 at 13:59; Status DC Polyethylene Glycol/ Electrolytes (Colyte Liq) 4,000 ml ONCE ONCE PO ; Start at 06:45; Stop 07/11/17 at 06:59; Status DC Polyethylene Glycol/ Electrolytes (Colyte Liq) 4,000 ml ONCE ONCE PO Last administered on 07/11/17at 16:45; Start 07/11/17 at 16:00; Stop 07/11/17 at 16:01; Status DC Lorazepam (Ativan) 1 mg ONCE ONCE PO ; Start 07/11/17 at 08:45; Stop 07/11/17 at 08:48; Status DC Morphine Sulfate (Morphine Inj) 2 mg ONCE ONCE SQ ; Start 07/11/17 at 08:45; Stop 07/11/17 at 08:48; Status DC Lidocaine HCl (Xylocaine 1% Inj) 20 ml STK-MED ONCE .ROUTE Last administered on 07/11/17at 11:24; Start 07/11/17 at 11:24; Stop 07/11/17 at 11:25; Status DC Midazolam HCl (Versed Inj) 5 mg STK-MED ONCE .ROUTE Last administered on at 11:44; Start 07/11/17 at 11:44; Stop 07/11/17 at 11:45; Status DC Fentanyl Citrate (fentaNYL INJ) 250 mcg STK-MED ONCE .ROUTE Last administered on 07/11/17at 11:44; Start 07/11/17 at 11:44; Stop 07/11/17 at 11:45; Status DC Lactated Ringer's 1,000 ml @ 30 mls/hr Q24H PRN IV SEE LABEL COMMENTS; Start at 03:15; Stop 07/15/17 at 03:14 Sodium Chloride 500 ml @ 30 mls/hr [id number] PRN IV SEE LABEL COMMENTS; Start 07/12/17 at 03:15; Stop 07/15/17 at 03:14 Povidone Iodine (Betadine 5% Antisepsis Kit) 1 applic [employer] PRN EACH NARE SEE LABEL COMMENTS; Start 07/12/17 at 03:15; Stop 07/15/17 at 03:14 Chlorhexidine Gluconate (Chlorhexidine 2% Cloth) 3 pack [employer] PRN TOPICAL SEE LABEL COMMENTS; Start 07/12/17 at 03:15; Stop 07/15/17 at 03:14 A/P Problem List: (1) Cholecystitis ICD Code: K81.9 - Cholecystitis, unspecified Status: Acute (2) CHF (congestive heart failure), NYHA class II ICD Code: I50.9 - Heart failure, unspecified Status: Chronic (3) Abdominal pain ICD Code: R10.9 - Unspecified abdominal pain Status: Acute (4) Hypertension, benign ICD Code: I10 - Hypertension, benign Status: Chronic Assessment and Plan Abdominal pain, possible cholecystitis Gallbladder US reveiwed and shows pericholecystic fluid without evidence of stones. Cholecystitis is not excluded. Radionuclide imaging is recommended for further evaluation if clinically indicated. -HIDA scan ordered-reviewed -Consult general surgery for recommendations-await their input -IV antibiotics: Zosyn FOR EGD AND COLONOSCOPY on July 11 Anemia, likely gi bleed, AGREES TO EGD FOR 3-1--COLONOSCOPY NOT ABLE TO BE DONE DUE TO REFUSING TO PREP HGB 8.8, 04/2017 10.1 -Iron studies ordered -Monitor H&H HTN, chronic -Resume home medications, and monitor vitals Hyperlipidemia, chronic -Continue home statin Hypokalemia we'll replace potassium Renal insufficiency suspect secondary to chronic diuretic CHF, chronic 2016 EF 10-20%, patient does not follow with a visualization developer -Resume home medications spironolactone, and carvedilol, watch for fluid overload Lytic lesions on spine and skull We will get biopsies of the area on the skull as well as a bone marrow biopsy SUSPECTED PLASMACYTOMA VS MULTIPLE MYELOMA- TO FOLLOW WITH ONCOLOGY FOR PATHOLOGY FOLLOW UPS We will consult oncology DVT prophylaxis: SCDs DC TO HOME TODAY FOLLOW UP WITH PCP, GI AND ONCOLOGY Discharge Planning EGD DONE--COLONOSCOPY NOT DONE DID NOT PREP Bone marrow biopsy and skull biopsy DONE BY interventional radiology Problem Qualifiers (1) CHF (congestive heart failure), NYHA class II: Qualified Codes: I50.22 - Chronic systolic (congestive) heart failure (2) Abdominal pain: Qualified Codes: R10.13 - Epigastric pain Azam Angeles DO Jul 12, 2017 12:22
[2017-07-12] MEDS ORDERED: LISI10TA3 PO (12:32)
[2017-07-12] MEDS ORDERED: CARV6.252 PO (12:32)
[2017-07-12] MEDS ORDERED: FURO20TA PO (12:32)
[2017-07-12] MEDS ORDERED: SPIR25TA PO (12:33)
[2017-07-12] MEDS ORDERED: ATOR40TA16 PO (12:33)
[2017-07-12] MEDS ORDERED: ASPI81CH6 CHEW (12:33)
[2017-07-12] MEDS ORDERED: [UNRECOGNIZED DRUG - CODE] PO (12:33)
[2017-07-12] MEDS ORDERED: COLA100C5 PO (12:33)
--- NOTE | 2017-07-12 12:35 | HHI.DS ---
Discharge Summary Admission Date Jul 09, 2017 at 20:01 Discharge Date: Jul 12, 2017 Admitting Diagnosis GI bleed, abdominal pain, possible cholecystitis (1) Cholecystitis ICD Code: K81.9 - Cholecystitis, unspecified Diagnosis: Secondary Status: Acute (2) CHF (congestive heart failure), NYHA class II ICD Code: I50.9 - Heart failure, unspecified Diagnosis: Secondary Status: Chronic (3) Abdominal pain ICD Code: R10.9 - Unspecified abdominal pain Diagnosis: Secondary Status: Acute (4) Hypertension, benign ICD Code: I10 - Hypertension, benign Diagnosis: Secondary Status: Chronic (5) lytic calvarial lesion Diagnosis: Principal (6) Acute kidney injury ICD Code: N17.9 - Acute kidney failure, unspecified Diagnosis: Secondary Status: Chronic (7) Chronic anemia ICD Code: D64.9 - Anemia, unspecified Diagnosis: Secondary Status: Chronic (8) GI bleed ICD Code: K92.2 - Gastrointestinal hemorrhage, unspecified Diagnosis: Secondary Status: Chronic (9) Dilated cardiomyopathy ICD Code: I42.0 - Dilated cardiomyopathy Diagnosis: Secondary Status: Chronic Procedures Pre Procedure Diagnosis: (1) lytic calvarial lesion Post Procedure Diagnosis: (1) lytic calvarial lesion Procedure Date: Jul 11, 2017 Supervising Radiologist: Raj Winston Proceduralist/Assist: gaby lay Estimated blood loss: none Anesthesia: Conscious Sedation Plan of Activity Patient to Unit: [facility] Patient Condition: Good See PACS Report for procedural detail/treatment INDICATIONS: The patient is a 56 yr old male here for an EGD due to anemia with hemoccult positive stool; he's been taking aspirin and other NSAIDs. PROCEDURE PERFORMED: EGD, diagnostic MEDICATIONS: Per Anesthesia and None. TOPICAL ANESTHETIC: CONSENT: The patient understands the risks and benefits of the procedure and understands that these risks include, but are not limited to: sedation, allergic reaction, infection, perforation and/or bleeding. Alternative means of evaluation and treatment include, among others: physical exam, x-rays, and/or surgical intervention. The patient elects to proceed with this endoscopic procedure. medical equipment was checked for proper function. Hand hygiene and appropriate measures for infection prevention was taken. After the risks, benefits and alternatives of the procedure were thoroughly explained, Informed consent was verified, confirmed and timeout was successfully executed by the treatment team. The patient was anesthetized with topical anesthesia and the Pentax [id number] endoscope was introduced through the mouth and advanced to the . Retroflexion was performed and was normal The gastroscope was then slowly withdrawn and removed. The endoscopy was normal. ADVERSE EVENTS: There were no complications. IMPRESSIONS: 1. Normal endoscopy otherwise 2. Retroflexion was performed and was normal RECOMMENDATIONS: His colonoscopy prep was incomplete: thick, muddy fecal matter was present in the rectal vault; I did not attempt performance of the colonoscopy. We can schedule this as an out patient after the neoplastic process is addressed. PATIENT CONDITION: DISPOSITION: REPEAT EXAM: Sky Ramos MD eSigned: Sky Ramos MD 07/12/2017 10:20 AM Brief History - From Admission 56 year old male with a history of CHF (EF 10-20% in 2016), HTN, and HLD presented to the ED with complaints of abdominal pain for 1 week. He states the pain is a stabbing 10/10 mid abdominal, intermittent with radiation to his back and worse with movement with associated nausea, better with rest. He denies any chest pain, sob, fever or chills. He was admitted one month ago and found to have anemia at this time, he refused endoscopy at this time. At discharge hgb 10.1, today is 8.8. He states he does not want a colonoscopy or endoscopy. He denies any blood in his stool. CBC/BMP: 07/12/17 0720 07/12/17 0720 Significant Findings Laboratory Tests Test 07/09/17 17:16 07/09/17 18:30 07/10/17 02:07 07/11/17 05:25 Red Blood Count 2.63 MIL/MM3 (4.50-5.90) 2.54 MIL/MM3 (4.50-5.90) 2.86 MIL/MM3 (4.50-5.90) Hemoglobin 8.8 GM/DL (13.0-17.0) 8.7 GM/DL (13.0-17.0) 9.5 GM/DL (13.0-17.0) Hematocrit 26.2 % (39.0-51.0) 25.2 % (39.0-51.0) 28.1 % (39.0-51.0) Monocytes (%) (Auto) 11.8 % (0.0-8.0) 14.7 % (0.0-8.0) 19.9 % (0.0-8.0) Prothrombin Time 14.5 SEC (9.8-11.6) Activated Partial Thromboplast Time 30.3 SEC (24.3-30.1) Blood Urea Nitrogen 25 MG/DL (7-18) 24 MG/DL (7-18) 20 MG/DL (7-18) Creatinine 1.54 MG/DL (0.60-1.30) 1.34 MG/DL (0.60-1.30) 1.49 MG/DL (0.60-1.30) Total Protein 11.2 GM/DL (6.4-8.2) 9.6 GM/DL (6.4-8.2) Albumin 2.4 GM/DL (3.4-5.0) 1.8 GM/DL (3.4-5.0) Calcium Level 7.7 MG/DL (8.5-10.1) 7.5 MG/DL (8.5-10.1) 7.6 MG/DL (8.5-10.1) Aspartate Amino Transf (AST/SGOT) 53 U/L (15-37) Sodium Level 135 MEQ/L (136-145) Anion Gap 3 MEQ/L (5-15) Estimat Glomerular Filtration Rate 57 ML/MIN (>89) 67 ML/MIN (>89) 60 ML/MIN (>89) Iron Level 46 MCG/DL (65-175) Total Iron Binding Capacity 195 MCG/DL (250-450) Lipase 49 U/L (73-393) Urine Protein 30 mg/dL (NEG-TRACE) Eosinophils (%) (Auto) 4.3 % (0.0-4.0) 5.7 % (0.0-4.0) Random Glucose 71 MG/DL (74-106) Potassium Level 3.3 MEQ/L (3.5-5.1) Test 07/11/17 07:35 07/11/17 12:00 07/12/17 07:20 Total Protein 10.9 GM/DL (6.0-7.6) 10.6 GM/DL (6.4-8.2) Red Blood Count 2.74 MIL/MM3 (4.50-5.90) Hemoglobin 9.3 GM/DL (13.0-17.0) Hematocrit 27.3 % (39.0-51.0) Monocytes (%) (Auto) 19.9 % (0.0-8.0) Eosinophils (%) (Auto) 5.2 % (0.0-4.0) Monocytes # (Auto) 1.0 TH/MM3 (0-0.9) Creatinine 1.37 MG/DL (0.60-1.30) Random Glucose 118 MG/DL (74-106) Albumin 2.0 GM/DL (3.4-5.0) Calcium Level 7.8 MG/DL (8.5-10.1) Sodium Level 134 MEQ/L (136-145) Potassium Level 3.4 MEQ/L (3.5-5.1) Estimat Glomerular Filtration Rate 66 ML/MIN (>89) Imaging Last Impressions Thoracic Spine CT 07/11/17 0000 Signed Impressions: Service Date/Time: July 18:24 - CONCLUSION: Evidence of lytic lesions involving the left posterior aspect of the T9 vertebral body and the left posterior elements of T9 consistent with multiple myeloma or metastatic disease. Skyler Dubois MD Bone Biopsy CT 07/11/17 0000 Signed Impressions: Service Date/Time: July 12:01 - CONCLUSION: Uncomplicated CT guided biopsy of the lytic lesion along the frontal calvarium. Raj Winston MD Head CT 07/10/17 0000 Signed Impressions: Service Date/Time: Monday, July 10, 2017 19:14 - CONCLUSION: 1. 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 This raises the possibility of primary or metastatic neoplasm until proven otherwise. 2. No acute intracranial abnormality. 3. Mucous retention cyst within the right sphenoid sinus and mild mucosal thickening involving the maxillary sinuses bilaterally. Skyler Dubois MD Abdomen/Pelvis CT 07/09/17 1730 Signed Impressions: Service Date/Time: Sunday, July 09, 2017 19:14 - CONCLUSION: 1. Pericholecystic fluid without evidence of stones. Cholecystitis is not excluded. Radionuclide imaging is recommended for further evaluation if clinically indicated. Yovany Ruano MD Hepatobiliary Scan Nuclear Medicine 07/09/17 0000 Signed Impressions: Service Date/Time: Sunday, July 09, 2017 22:18 - CONCLUSION: 1. Activity demonstrated in the gallbladder verifying cystic duct patency. This makes diagnosis of acute cholecystitis highly unlikely. 2. Normal range gallbladder EF of 52%%. Patient was asymptomatic during the CCK administration. Christo Mcallister MD Gall Bladder Ultrasound 07/09/17 0000 Signed Impressions: Service Date/Time: Sunday, July 09, 2017 19:59 - CONCLUSION: Gall bladder wall thickening without stones. Cholecystitis is not excluded. Radionuclide imaging is recommended for further evaluation if clinically indicated. Yovany Ruano MD Chest X-Ray 07/09/17 0000 Signed Impressions: Service Date/Time: Sunday, July 09, 2017 16:37 - CONCLUSION: 1. There is now a linear opacity in the right middle lobe which may represent parenchymal scar following resolution of the previously documented right middle lobe pneumonia. Suggest a longer term followup chest x-ray to confirm stability. 3- 6 month followup chest x-ray would be reasonable. 2. Stable enlargement of the cardiac silhouette. Bharath Head MD PE at Discharge GENERAL: AWAKE alert and oriented 3 talkative and cooperative does not appear to be in any major distress SKIN: Warm and dry. HEAD DRESSED FROM BIOPSY HEAD: Atraumatic. Normocephalic. EYES: Pupils equal and round. No scleral icterus. No injection or drainage. Extraocular muscles intact wearing glasses ENT: No nasal bleeding or discharge. Mucous membranes pink and moist. Tongue is midline NECK: Trachea midline. No JVD. Supple CARDIOVASCULAR: Regular rate and rhythm. S1 and S2 no S3 or S4 RESPIRATORY: No accessory muscle use. Clear to auscultation. Breath sounds equal bilaterally. GASTROINTESTINAL: Abdomen soft, non-tender, nondistended. Hepatic and splenic margins not palpable. MUSCULOSKELETAL: Extremities without clubbing, cyanosis, or edema. No obvious deformities. NEUROLOGICAL: Awake and alert. No obvious cranial nerve deficits. Motor grossly within normal limits. Five out of 5 muscle strength in the arms and legs. Normal speech. PSYCHIATRIC: Appropriate mood and affect; insight and judgment normal. Hospital Course 56 year old male with a history of CHF (EF 10-20% in 2016), HTN, and HLD presented to the ED with complaints of abdominal pain for 1 week. He states the pain is a stabbing 10/10 mid abdominal, intermittent with radiation to his back and worse with movement with associated nausea, better with rest. He denies any chest pain, sob, fever or chills. He was admitted one month ago and found to have anemia at this time, he refused endoscopy at this time. At discharge hgb 10.1, today is 8.8. He states he does not want a colonoscopy or endoscopy. He denies any blood in his stool. 07-10 PATIENT HAD HIDA SCAN AWAIT SURGERY INPUT AKIL RN AND PT STATES LESS ABDOMINAL PAIN HAS NOT HAD BM YESTERDAY OR TODAY YET DW RN AND PT 3-1 has lesion on skull scalp. Will undergo biopsy of this area as well as bone marrow biopsy today with interventional radiology Have discussed with GI Dr. Ulloa will undergo EGD and colonoscopy tomorrow We will consult hematology oncology regarding his lytic lesions. 3-2 HAD EGD TODAY- DID NOT PREP WELL FOR COLONOSCOPY NOT DONE FOLLOW UP WITH GI, FOLLOW UP WITH ONCOLOGY, FOLLOW UP WITH PCP HAD BONE MARROW BIOPSY AND HEAD BIOPSY YESTERDAY WITH INTERVENTIONAL RADIOLOGY SEEN BY ONCOLOGY BIOPSY RESULTS PENDING WANTS TO GO HOME AND RETURN TO WORK ON SATURDAY Abdominal pain, possible cholecystitis Gallbladder US reveiwed and shows pericholecystic fluid without evidence of stones. Cholecystitis is not excluded. Radionuclide imaging is recommended for further evaluation if clinically indicated. 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 -Resume home medications spironolactone, and carvedilol, watch for fluid overload Lytic lesions on spine and skull We will get biopsies of the area on the skull as well as a bone marrow biopsy SUSPECTED PLASMACYTOMA VS MULTIPLE MYELOMA- TO FOLLOW WITH ONCOLOGY FOR PATHOLOGY FOLLOW UPS We will consult oncology DVT prophylaxis: SCDs DC TO HOME TODAY FOLLOW UP WITH PCP, GI AND ONCOLOGY Pt Condition on Discharge: Good Discharge Disposition: Discharge Home Discharge Time: > 30 minutes Discharge Instructions DIET: Follow Instructions for: Heart Healthy Diet, Diabetic Diet Speech Therapy-Diet Recommends: Regular Activities you can perform: Regular-No Restrictions Follow up Referrals: Gastroenterology - 2 Weeks with Sky Ramos MD Oncology - 1 Week with Carlene Alston MD PCP Follow-up - 1 Week with Kevin Shultz M.d. New Medications: Docusate Sodium (Colace) 100 Mg Capsule 100 MG PO BID for Prevent Constipation, #60 CAP 0 Refills Hydrocodone-Acetaminophen (Verdrocet 2.5-325 mg) 2.5 Mg-325 Mg Tab 1 TAB PO Q6HR for Pain Management, #20 TAB Continued Medications: Aspirin (Aspirin Low Dose) 81 Mg Chew 162 MG CHEW DAILY for Blood Clot Prevention, #30 TAB 0 Refills (This prescription has been renewed) Atorvastatin (Atorvastatin) 40 Mg Tab 40 MG PO HS for Cholesterol Management, #30 TAB 0 Refills (This prescription has been renewed) Carvedilol (Carvedilol) 6.25 Mg Tab 6.25 MG PO BID for Blood Pressure Management, #60 TAB 0 Refills (This prescription has been renewed) Furosemide (Furosemide) 20 Mg Tab 20 MG PO BID for Blood Pressure Management, #60 TAB 0 Refills (This prescription has been renewed) Lisinopril (Lisinopril) 10 Mg Tab 10 MG PO DAILY for Blood Pressure Management, #30 TAB 0 Refills (This prescription has been renewed) Spironolactone (Spironolactone) 25 Mg Tab 25 MG PO DAILY for Blood Pressure Management, #30 TAB 0 Refills (This prescription has been renewed) Azam Angeles DO Jul 12, 2017 12:35
[2017-07-12 13:56] LABS: IMMUNOGLOBULIN A 55 MG/DL (93-514)
[2017-07-12 14:25] LABS: IMMUNOGLOBULIN G 7580 MG/DL (660-1640); IMMUNOGLOBULIN M 16 MG/DL (40-247)
[2017-07-12 19:33] LABS: ALB/GLOB RATIO (SPE) 0.35 (1.39-2.23)
[2017-07-13] MEDS ORDERED: PERC5TAB12 PO (10:17)
[2017-07-14 03:51] LABS: KAPPA/LAMBDA FREE 2.95 (0.26-1.65)
[2017-07-14 14:20] LABS: BETA-2-MICROGLOBULIN 4.53 mcg/mL (1.21 - 2.70)
--- NOTE | 2017-07-16 14:55 | RC ---
cc: Ramon Cuadra MD,Sean Ramos,Sky Lamas MD DATE OF SERVICE: 07/12/2017 REFERRING PHYSICIAN: Carlene Alston MD DIAGNOSIS: Possible multiple myeloma versus plasmacytoma. CHIEF COMPLAINT: Abdominal pain, mass on the right frontal scalp. REASON FOR VISIT: Patient being evaluated for radiotherapy options. HISTORY OF PRESENT ILLNESS: A 56-year-old male who came into the hospital for the complaints of abdominal pain and discomfort. During the workup, the patient stated that he had a mass on his right frontal scalp. He had a CT scan, which detected a bony invasion lesion. Due to the race of the patient as well as elevated protein felt out of proportion, the patient probably had a multiple myeloma versus plasmacytoma, and Dr. Alston was consulted, and she evaluated the patient and requested a consult for radiation therapy for possible radiotherapy treatment options upon diagnosis. PAST MEDICAL HISTORY: As above, also history of CHF, hypertension, hyperlipidemia, right knee surgery. MEDICATIONS: Acetaminophen, Lipitor, Dulcolax, Coreg, Lasix, prinivil , milk of magnesia, Narcan, Zofran, Senokot, Aldactone. ALLERGIES: NO KNOWN DRUG ALLERGIES. FAMILY HISTORY: No history of carcinoma in the family. SOCIAL HISTORY: Patient denies any smoking history or major ETOH intake. REVIEW OF SYSTEMS: CONSTITUTIONAL: Patient denies any decrease or loss of weight in the recent months. ALLERGIES: Has not had an allergic rash recently. EYES: Wears glasses. ENT: Unremarkable. NECK: Unremarkable. INTEGUMENTARY: Unremarkable. CARDIOVASCULAR: Denies any chest pain. No clinical signs of CO. RESPIRATORY: Unremarkable. INTESTINAL: Abdominal pain. No rectal bleeding, hematuria. GENITOURINARY: Unremarkable. MUSCULOSKELETAL: Admits to a lesion on the right frontal scalp which causes discomfort but no actual pain. NEUROLOGIC: Denies any neurological deficits, no decrease in cognitive functions. PSYCHIATRIC: Unremarkable. ENDOCRINE: Unremarkable. HEMATOLOGIC: Unremarkable. DERMATOLOGIC: Unremarkable. PHYSICAL EXAMINATION: Patient oriented x 3, in no acute distress, is calm at the present time. Pain rating scale 1/10. VITAL SIGNS: Temp 97.6, pulse 69, respiratory rate 16, blood pressure 139/86, pulse 99% on room air. BACK: To deep palpation and percussion of posterior back, no pain was elicited within the joints or muscles. LUNGS: Clear to auscultation with appropriate ventilatory and respiratory effort. HEART: Regular in rate and rhythm without murmurs. NECK: Palpation of the neck and bilateral supraclavicular areas without lymph nodes. SCALP: Palpation and examination of scalp area has mass within the right frontal scalp measuring about 5.5 x 4.5 cm in diameter. It is not tender to palpation, regular in consistency and appears to be fixed. There are no skin reactions noted on top of the lesion. No other scalp lesions detected. ABDOMEN: Palpation to abdominal cavity reveals no hepatosplenomegaly, no pain elicited, no periumbilical lymph nodes. EXTREMITIES: No lower extremity edema detected. NEUROLOGIC: No neurological deficit detected. Cognitive function preserved. Motor function preserved. SKIN: No rash. SURGICAL PATHOLOGY: Pending. RADIOLOGY: Abdominal pelvic CT scan, 07/09/2017: Reviewed. Head CT, 07/10/2017: Impression: Large lytic explansile mass involving the high parietal skull, which measures at least 5.5 x 5.2 cm in size. It raises the possibility of primary or metastatic neoplasm until proven otherwise. No acute intracranial abnormality. Mucuos retention cyst in the right sphenoid sinus and mild mucosal thickening involving the maxillary sinus bilaterally. This CT of the head has been independently reviewed by me. CT of thoracic spine, 07/11/2017: Conclusion: There is a lytic lesion involving the left posterior aspect of T9 vertebral body and the left posterior elements of T9 consistent with multiple myeloma or metastatic disease. ASSESSMENT: A 56-year-old male with diagnosis of possible multiple myeloma. Patient being evaluated for possible radiotherapy treatment options. PLAN: Extensive discussion with the patient in regards to his present state and condition. I discussed the fact that he may need some radiation therapy after looking at the CT scan. He has a large lesion, which is impressive in the way that it looks in the brain area as opposed to the surface. He appears also to have lesions within the T-spine, which will merit further workup. Patient advised of the merits of radiation therapy, as well as side effects and complications of treatment to include but not limited to weakness and fatigue, decreased blood counts, erythema of the skin, necrosis of the skin, loss of hair which could be permanent, bone damage, brain damage, brain encephalopath, ____ short-term or long-term memory, headache, nausea and vomiting, decreased hearing, loss of hearing, decreased vision, loss of vision. Patient advised ____ sites that I need to treat, that should be known with the workup. I am going to have the patient come back in about 10 days for discussion of treatment options. He was advised if I could be of any further assistance, to please let me know. I have also contacted child protective services social worker to help him with transportation. Dr. Alston, thank you very much for requesting this consult and allowing me to participate in the care of your patient. Should you have any further questions or concerns, please do not hesitate to contact me. MD SUNSHINE Solorzano/PARAG , 12:18 PM , 03:12 PM
== END 2017-07-12 14:09 | disposition home or self-care (01) | DRG 824 ==
LOC: NEPE 16:09 → NEDA 20:01 → NEPFCDU 22:18
PROVIDERS: ADMIT Hospitalist; ATTEND Hospitalist
PROC: 0NB Head and Facial Bones, Excision (ICD-10-PCS; principal; 2017-07-11)
PROC: 07DR3ZX Extraction of Iliac Bone Marrow, Percutaneous Approach, Diagnostic (ICD-10-PCS; 2017-07-11)
PROC: 0DJ08ZZ Inspection of Upper Intestinal Tract, Via Natural or Artificial Opening Endoscopic (ICD-10-PCS; 2017-07-12 09:50)
DX: C90.00 Multiple myeloma not having achieved remission (principal); K92.2 Gastrointestinal hemorrhage, unspecified; I47.2 Ventricular tachycardia; N17.9 Acute kidney failure, unspecified; I42.0 Dilated cardiomyopathy; I13.0 Hypertensive heart and chronic kidney disease with heart failure and stage 1 through stage 4 chronic kidney disease, or unspecified chronic kidney disease; I50.22 Chronic systolic (congestive) heart failure; E88.09 Other disorders of plasma-protein metabolism, not elsewhere classified; D63.1 Anemia in chronic kidney disease; D63.0 Anemia in neoplastic disease; N18.9 Chronic kidney disease, unspecified; E78.5 Hyperlipidemia, unspecified; E87.6 Hypokalemia
CPT/HCPCS: 20220; 38222; 70450; 71046; 72128; 74177; 76705; 77012; 78227; 80048; 80053; 81001; 82232; 82728; 82784; 83036; 83540; 83550; 83615; 83690; 83735; 83883; 84100; 84165; 84439; 84443; 85025; 85044; 85097; 85610; 85730; 86850; 86900; 86901; 88305; 88311; 88313; 88341; 88342; 93005; 96374; 96375; 99152; 99153; A9537; C1830; C9113; J2250; J2405; J2543; J2805; J3010; J3480; Q9967

== ENCOUNTER 2017-08-16 12:34 | Inpatient (IN) | payer OTHER ==
[2017-08-16] VITALS (8 sets, daily range): BP systolic 125–157; BP diastolic 66–97; PULSE 65–76; RESP 16–18; TEMP 98–98.3; O2SAT 98–100
[~2017-08-16] VITALS: Ht 172.7 cm; Wt 73.9 kg
[~2017-08-16 12:34] MED LIST changes: -AZIT500T2 PO; -CEFU1TAB18 PO; +COLA100C5 PO; -MEDR4PAK PO; +PERC5TAB12 PO; -ROBA750T PO; +[UNRECOGNIZED DRUG - CODE] PO
[2017-08-16] MEDS ORDERED: ONDANSETRON HCL 4 MG/2 ML VIAL IV PUSH ONE ×2 (13:30→15:45)
[2017-08-16] MEDS ORDERED: HYDROmorphone HCL PF 1 MG/ML VIAL IV PUSH ONE (13:30)
[2017-08-16] MEDS ORDERED: HYDROmorphone HCL PF 2 MG/ML VIAL IV PUSH ONE (13:30)
[2017-08-16 13:47] LABS: AUTOMATED NEUTROPHIL # 1.7 TH/MM3 (1.8-7.7); BASOPHIL % 0.7 % (0.0-2.0); EOSINOPHIL # 0.1 TH/MM3 (0-0.4); EOSINOPHIL % 3.9 % (0.0-4.0); HEMATOCRIT 23.5 % (39.0-51.0); HEMOGLOBIN 8.1 GM/DL (13.0-17.0); LYMPH % 32.1 % (9.0-44.0); LYMPHOCYTE # 1.1 TH/MM3 (1.0-4.8); MEAN CELL VOLUME 99.4 FL (80.0-100.0); MEAN CORPUSCULAR HGB CONC 34.2 % (32.0-36.0); MEAN PLATELET VOLUME 7.5 FL (7.0-11.0); MONO % 14.2 % (0.0-8.0); MONOCYTE # 0.5 TH/MM3 (0-0.9); NEUT % 49.1 % (16.0-70.0); PLATELET COUNT 223 TH/MM3 (150-450); RED BLOOD COUNT 2.37 MIL/MM3 (4.50-5.90); RED CELL DISTRIBUTION WIDTH 16.1 % (11.6-17.2); WHITE BLOOD COUNT 3.5 TH/MM3 (4.0-11.0)
[2017-08-16 13:54] LABS: INTERNATIONAL NORMALIZED RATIO 1.4 RATIO
[2017-08-16 14:08] LABS: ALBUMIN 2.3 GM/DL (3.4-5.0); AST (GOT) 36 U/L (15-37); BICARBONATE 26.6 MEQ/L (21.0-32.0); BLOOD UREA NITROGEN 21 MG/DL (7-18); CALCIUM 7.8 MG/DL (8.5-10.1); CHLORIDE 101 MEQ/L (98-107); CREATININE 1.48 MG/DL (0.60-1.30); GLOMERULAR FILTRATION RATE 60 ML/MIN (>89); GLUCOSE,RANDOM 85 MG/DL (74-106); MAGNESIUM 1.9 MG/DL (1.5-2.5); SODIUM (NA) 132 MEQ/L (136-145)
[2017-08-16 14:09] LABS: ALT (GPT) 42 U/L (12-78)
--- NOTE | 2017-08-16 14:14 | PD ---
HPI Chief Complaint: Abdominal Pain Time Seen by Provider: 13:07 Travel History International Travel<30 days: No Contact w/Intl Traveler<30days: No Traveled to known affect area: No History of Present Illness HPI 56-year-old male that presents to the ED for evaluation of abdominal pain and back pain. Patient has a significant history of multiple myeloma that was recently diagnosed. He follows with Dr. Alston as well as Dr. Verdin for this and is currently not undergoing any chemotherapy or radiation but is in the process of starting this next week. Per patient he has been having some back and abdominal pain before and this is how they found that he had the multiple myeloma. Per patient he has multiple lesions on his skull as well as on his spine. Patient had recent MRIs last week for evaluation of the lesions to see how to treat the patient. Per patient he already chronically takes pain medication but this is not helping. Per patient the pain is actually not bad if he is laying. Per patient only if he walks or moves that she get the pain. Per patient he starts on his abdomen and goes to his back and then goes down the legs. Per patient he feels like a sharp pain that is 8 out of 10. He denies any bowel movement or urinary issues. Patient last time he was admitted that he thought that it may be his gallbladder but they found that he had the bone lesions. He still has his gallbladder. He denies any other medical issues. No fevers chills or sweats. He states feeling nauseous but not vomiting. No allergies to medication. No other medical issues at this time. PFSH Past Medical History Hx Anticoagulant Therapy: Yes (ASA) Blood Disorders: No Heart Rhythm Problems: No Cancer: Yes (multiple myeloma havent started tx yet) Cardiovascular Problems: Yes High Cholesterol: Yes Chemotherapy: No Chest Pain: No Congestive Heart Failure: Yes Cerebrovascular Accident: No Diabetes: No Diminished Hearing: No Endocrine: No Gastrointestinal Disorders: No Genitourinary: No Headaches: No Hypertension: Yes Immune Disorder: No Implanted Vascular Access Dvce: No Musculoskeletal: No Neurologic: No Psychiatric: No Reproductive: No Respiratory: Yes Migraines: Yes Radiation Therapy: No Seizures: No Past Surgical History Abdominal Surgery: No Cardiac Surgery: No Ear Surgery: No Endocrine Surgery: No Eye Surgery: No Genitourinary Surgery: No Gynecologic Surgery: No Joint Replacement: Yes (R KNEE SURGERY ) Neurologic Surgery: No Oral Surgery: Yes (wisdom teeth removed) Thoracic Surgery: No Other Surgery: Yes (right knee surgery) Social History Alcohol Use: No Tobacco Use: No Substance Use: No Allergies-Medications (Allergen,Severity, Reaction): Coded Allergies: No Known Allergies (Unverified Allergy, Unknown, 07/09/17) Reported Meds & Prescriptions Reported Meds & Active Scripts Active Zofran Odt (Ondansetron Odt) 4 Mg Tab 4 Mg SL Q6HR PRN Bentyl (Dicyclomine HCl) 10 Mg Cap 10 Mg PO QID Percocet (Oxycodone-Acetaminophen) 5-325 mg Tab 1 Tab PO Q4H PRN Verdrocet 2.5-325 mg (Hydrocodone-Acetaminophen) 2.5 Mg-325 Mg Tab 1 Tab PO Q6HR Aspirin Low Dose (Aspirin) 81 Mg Chew 162 Mg CHEW DAILY Atorvastatin (Atorvastatin Calcium) 40 Mg Tab 40 Mg PO HS Spironolactone 25 Mg Tab 25 Mg PO DAILY Lisinopril 10 Mg Tab 10 Mg PO DAILY Furosemide 20 Mg Tab 20 Mg PO BID Carvedilol 6.25 Mg Tab 6.25 Mg PO BID Review of Systems Except as stated in HPI: all other systems reviewed are Neg Physical Exam Narrative GENERAL: SKIN: Warm and dry. HEAD: Atraumatic. Normocephalic. EYES: Pupils equal and round. No scleral icterus. No injection or drainage. ENT: No nasal bleeding or discharge. Mucous membranes pink and moist. Tongue is midline. No uvula deviation. NECK: Trachea midline. No JVD. CARDIOVASCULAR: Regular rate and rhythm. No murmurs, S3, S4. RESPIRATORY: No accessory muscle use. Clear to auscultation. Breath sounds equal bilaterally. GASTROINTESTINAL: Abdomen soft, tender to palpation in the right upper quadrant , nondistended. Hepatic and splenic margins not palpable. MUSCULOSKELETAL: Extremities without clubbing, cyanosis, or edema. No obvious deformities. Full range of motion of the upper and lower extremities bilaterally. 2+ pulses bilaterally. Pain with range of motion of the back. NEUROLOGICAL: Awake and alert. No obvious cranial nerve deficits. Motor grossly within normal limits. Five out of 5 muscle strength in the arms and legs. Normal speech. PSYCHIATRIC: Appropriate mood and affect; insight and judgment normal. Data Data Last Documented VS Vital Signs Date Time Temp Pulse Resp B/P (MAP) Pulse Ox O2 Delivery O2 Flow Rate FiO2 08/16/17 13:13 18 08/16/17 13:09 76 147/90 (109) 100 Room Air 08/16/17 12:48 98.3 Orders Orders Complete Blood Count With Diff (08/16/17 13:14) Comprehensive Metabolic Panel (08/16/17 13:14) Prothrombin Time / Inr (Pt) (08/16/17 13:14) Act Partial Throm Time (Ptt) (08/16/17 13:14) Urinalysis - C+S If Indicated (08/16/17 13:14) Magnesium (Mg) (08/16/17 13:14) Thyroid Stimulating Hormone (08/16/17 13:14) Ct Abd/Pel W Iv Contrast(Rout) (08/16/17 ) Hydromorphone Pf Inj (Dilaudid Pf Inj) (08/16/17 13:30) Ondansetron Inj (Zofran Inj) (08/16/17 13:30) Hydromorphone Pf Inj (Dilaudid Pf Inj) (08/16/17 13:30) Iohexol 350 Inj (Omnipaque 350 Inj) (08/16/17 14:46) Sodium Chlor 0.9% 1000 Ml Inj (Ns 1000 M (08/16/17 15:00) Ondansetron Inj (Zofran Inj) (08/16/17 15:45) Ed Discharge Order (08/16/17 15:57) Metoclopramide Inj (Reglan Inj) (08/16/17 16:15) Diphenhydramine Inj (Benadryl Inj) (08/16/17 16:15) Morphine Inj (Morphine Inj) (08/16/17 16:15) Sodium Chlor 0.9% 1000 Ml Inj (Ns 1000 M (08/16/17 16:30) Dexamethasone Inj (Decadron Inj) (08/16/17 16:30) Admit Order (Ed Use Only) (08/16/17 16:50) Labs Laboratory Tests Test 08/16/17 13:25 08/16/17 16:05 White Blood Count 3.5 TH/MM3 Red Blood Count 2.37 MIL/MM3 Hemoglobin 8.1 GM/DL Hematocrit 23.5 % Mean Corpuscular Volume 99.4 FL Mean Corpuscular Hemoglobin 34.0 PG Mean Corpuscular Hemoglobin Concent 34.2 % Red Cell Distribution Width 16.1 % Platelet Count 223 TH/MM3 Mean Platelet Volume 7.5 FL Neutrophils (%) (Auto) 49.1 % Lymphocytes (%) (Auto) 32.1 % Monocytes (%) (Auto) 14.2 % Eosinophils (%) (Auto) 3.9 % Basophils (%) (Auto) 0.7 % Neutrophils # (Auto) 1.7 TH/MM3 Lymphocytes # (Auto) 1.1 TH/MM3 Monocytes # (Auto) 0.5 TH/MM3 Eosinophils # (Auto) 0.1 TH/MM3 Basophils # (Auto) 0.0 TH/MM3 CBC Comment DIFF FINAL Differential Comment Prothrombin Time 14.0 SEC Prothromb Time International Ratio 1.4 RATIO Activated Partial Thromboplast Time 30.8 SEC Blood Urea Nitrogen 21 MG/DL Creatinine 1.48 MG/DL Random Glucose 85 MG/DL Total Protein 12.6 GM/DL Albumin 2.3 GM/DL Calcium Level 7.8 MG/DL Magnesium Level 1.9 MG/DL Alkaline Phosphatase 74 U/L Aspartate Amino Transf (AST/SGOT) 36 U/L Alanine Aminotransferase (ALT/SGPT) 42 U/L Total Bilirubin 0.6 MG/DL Sodium Level 132 MEQ/L Potassium Level 4.0 MEQ/L Chloride Level 101 MEQ/L Carbon Dioxide Level 26.6 MEQ/L Anion Gap 4 MEQ/L Estimat Glomerular Filtration Rate 60 ML/MIN Thyroid Stimulating Hormone 3rd Gen 2.020 uIU/ML Urine Color LIGHT-YELLOW Urine Turbidity CLEAR Urine pH 6.5 Urine Specific [place] 1.039 Urine Protein TRACE mg/dL Urine Glucose (UA) NEG mg/dL Urine Ketones NEG mg/dL Urine Occult Blood NEG Urine Nitrite NEG Urine Bilirubin NEG Urine Urobilinogen LESS THAN 2.0 MG/DL Urine Leukocyte Esterase NEG Urine RBC LESS THAN 1 /hpf Microscopic Urinalysis Comment CULT NOT INDICATED MDM Medical Decision Making Medical Screen Exam Complete: Yes Emergency Medical Condition: Yes Medical Record Reviewed: Yes Interpretation(s) CBC & BMP Diagram 08/16/17 13:25 Total Protein 12.6 H, Albumin 2.3 L, Calcium Level 7.8 L, Magnesium Level 1.9, Alkaline Phosphatase 74, Aspartate Amino Transf (AST/SGOT) 36, Alanine Aminotransferase (ALT/SGPT) 42, Total Bilirubin 0.6 Last Impressions Abdomen/Pelvis CT 08/16/17 0000 Signed Impressions: Service Date/Time: Wednesday, August 16, 2017 14:37 - CONCLUSION: 1. Mild pericholecystic fluid or mural thickening. This actually show some interval improvement compared to prior. 2. A few low density para-aortic lymph nodes are identified just below the takeoff of the renal vessels. These are not abnormal by size criteria. 3. Stable bone island in the left ilium. Bridging spur anteriorly in the right SI joint. 4. Mild atelectasis or scarring in the right middle and left lower lobes Husam Mccurdy MD Differential Diagnosis Gallbladder disease versus abdominal pain versus back pain versus cancer pain versus obstruction versus acute on chronic pain Narrative Course 56-year-old male presents to the ED for evaluation of abdominal pain and back pain. Patient was properly examined and was found to have signs and symptoms consistent appears to be likely cancer pain. Was able to get the reports from his MRIs done last week. MRI of the lumbar, thoracic and cervical spine show multiple infiltrates consistent with metastatic disease or multiple myeloma. Some of the lesions appear to be also on his ribs. The largest tumor in the thoracic area is 4.3 x 2.8 x 5.6 cm on the left posterior eighth rib, patient has extensive marrow infiltration noted through the entire lumbar spine per the report as well as in the sacrum and iliac bones. Lastly CT of the cervical spine show similar to thoracic and lumbar but also showed a large mass of 2.5 x 5.3 cm involving the clivus. This was discussed with my attending Dr. Powers who recommends labs and imaging and pain management Labs and imaging order. Patient was given IV pain medications. Labs and imaging WNL. Patients pain improved with pain meds given. Nausea improved. My attending Dr. Powers went into the room with me and talked with patient. He recommends at this time trial of bentyl and zofran to help the patient. He recommends that patient contact his doctor for further pain management. Before patient was given another dose of antiemetics. Patient started having more nausea and more pain. At this time patient is not really improved. Recommend admission for intractable pain. Case discussed with Dr. Alston who recommended that we start dexamethasone to help with the symptoms. Case discussed with Dr. Yusuf who agrees to admission. Diagnosis Primary Impression: Intractable abdominal pain Additional Impressions: Intractable nausea and vomiting Qualified Codes: R11.2 - Nausea with vomiting, unspecified Multiple myeloma Qualified Codes: C90.00 - Multiple myeloma not having achieved remission Admitting Information Admitting Physician Requests: Observation Scripts Ondansetron Odt (Zofran Odt) 4 Mg Tab 4 MG SL Q6HR Y for Nausea/Vomiting, #30 TAB 0 Refills Prov: Donovan Powers MD 08/16/17 Dicyclomine (Bentyl) 10 Mg Cap 10 MG PO QID for Bowel Management, #20 CAP 0 Refills Prov: Donovan Powers MD 08/16/17 Bruno Spivey Aug 16, 2017 14:14
[2017-08-16 14:20] LABS: ALKALINE PHOSPHATASE 74 U/L (45-117); TOTAL BILIRUBIN ADULT 0.6 MG/DL (0.2-1.0); TOTAL PROTEIN 12.6 GM/DL (6.4-8.2)
[2017-08-16] MEDS ORDERED: IOHEXOL 350 MG/ML 10 ML VIAL (for RAD DIAG) IVCONTRAST ONE (14:46)
[2017-08-16] MEDS ORDERED: SODIUM CHLOR 0.9% 1000 ML INJ 1,000 ML IV ONE ×2 (15:00→16:30)
--- NOTE | 2017-08-16 15:31 | RADRPT ---
EXAM DATE/TIME: 08/16/2017 14:37 [facility] COMPARISON: CT ABDOMEN & PELVIS W CONTRAST, July 09, 2017, 19:14. INDICATIONS : Abdominal pain with history of multiple myeloma with spine lesions. IV CONTRAST: 91 cc Omnipaque 350 (iohexol) IV ORAL CONTRAST: No oral contrast ingested. RADIATION DOSE: 6.64 CTDIvol (mGy) MEDICAL HISTORY : Cardiovascular disease. Congestive heart failure. Hypertension.Multiple myeloma SURGICAL HISTORY : None. ENCOUNTER: Initial ACUITY: 1 day PAIN SCALE: 4/10 LOCATION: Bilateral anterior TECHNIQUE: Volumetric scanning of the abdomen and pelvis was performed. Using automated exposure control and ad justment of the mA and/or kV according to patient size, radiation dose was kept as low as reasonably achievable to obtain optimal diagnostic quality images. DICOM format image data is available electro nically for review and comparison. FINDINGS: LOWER LUNGS: Mild atelectasis/scarring in the right middle lobe and left lower. LIVER: Homogeneous density without lesion. There is no dilation of the biliary tree. No calcified gallston es. There is some pericholecystic fluid or gallbladder wall thickening which actually looks somewhat improved when compared to the prior. SPLEEN: Normal size without lesion. PANCREAS: Within normal limits. KIDNEYS: Normal in size and shape. There is no mass, stone or hydronephrosis. ADRENAL GLANDS: Within normal limits. VASCULAR: There is no aortic aneurysm. BOWEL/MESENTERY: The stomach, small bowel, and colon demonstrate no acute abnormality. There is no free intraperitone al air or fluid. ABDOMINAL WALL: Within normal limits. RETROPERITONEUM: A few small, hypodense para-aortic lymph nodes are identified just below the takeoff of the renal ves sels. These are not abnormal by size criteria, however. BLADDER: No wall thickening or mass. REPRODUCTIVE: Within normal limits. INGUINAL: There is no lymphadenopathy or hernia. MUSCULOSKELETAL: Within normal limits for patient age. Small bone island in the left ilium CONCLUSION: 1. Mild pericholecystic fluid or mural thickening. This actually show some interval improvement shamar red to prior. 2. A few low density para-aortic lymph nodes are identified just below the takeoff of the renal vesse ls. These are not abnormal by size criteria. 3. Stable bone island in the left ilium. Bridging spur anteriorly in the right SI joint. 4. Mild atelectasis or scarring in the right middle and left lower lobes Husam D. Klioze, MD on August 16, 2017 at 15:18 Board Certified Radiologist. This report was verified electronically.
[2017-08-16] MEDS ORDERED: DICY10 PO (15:52)
[2017-08-16] MEDS ORDERED: ZOFR4TAB3 SL (15:52)
[2017-08-16] MEDS ORDERED: MORPHINE SULFATE 2 MG/ML SYRINGE IV PUSH ONE (16:15)
[2017-08-16] MEDS ORDERED: diphenhydrAMINE HCL 50 MG/ML VIAL IV PUSH ONE (16:15)
[2017-08-16] MEDS ORDERED: METOCLOPRAMIDE HCL 10 MG/2 ML VIAL IV PUSH ONE (16:15)
[2017-08-16] MEDS ORDERED: DEXAMETHASONE SOD PHOS 20 MG/5 ML VIAL IV PUSH ONE (16:30)
[2017-08-16 16:40] LABS: BILIRUBIN, URINE NEG (NEG); BLOOD, URINE NEG (NEG); GLUCOSE,URINE NEG (NEG); KETONE, URINE NEG (NEG); NITRITE,URINE NEG (NEG); PH, URINE 6.5 (5.0-8.5); URINE COLOR LIGHT-YELLOW (YELLW/STRAW); URINE LEUKOCYTE ESTERASE NEG (NEG)
[2017-08-16] MEDS ORDERED: SODIUM CHLOR 0.9% 1000 ML INJ 1,000 ML IV SCH (16:46)
--- NOTE | 2017-08-16 16:53 | HHI.HP ---
HPI Service [facility] Physician Kevin Shultz M.D. Admission Diagnosis Diagnoses: Chief Complaint: Abdominal pain Travel History International Travel<30 Days: No Contact w/Intl Traveler <30 Da: No Traveled to Known Affected Are: No History of Present Illness This is a pleasant 56 y/o male who came to Emergency Room secondary to abdominal pain and back pain, multiple Myeloma recently diagnosed He follows with Dr. Alston as well as Dr. Verdin for this and is currently not undergoing any chemotherapy or radiation but is in the process of starting this next week. Per patient he has been having some back and abdominal pain before and this is how they found that he had the multiple myeloma. Per patient he has multiple lesions on his skull as well as on his spine. Patient had recent MRIs last week for evaluation of the lesions to see how to treat the patient. Per patient he already chronically takes pain medication but this is not helping. Per patient the pain is actually not bad if he is laying. Per patient only if he walks or moves that she get the pain. Per patient he starts on his abdomen and goes to his back and then goes down the legs. Per patient he feels like a sharp pain that is 8 out of 10. He denies any bowel movement or urinary issues. Patient last time he was admitted that he thought that it may be his gallbladder but they found that he had the bone lesions. He still has his gallbladder. He denies any other medical issues. No fevers chills or sweats. He states feeling nauseous but not vomiting.He was just recently discharged from this hospital with diagnosis of Cholecystitis, CHF II, Abdominal pain, Hypertension, PAULINE, GI bleed, Dilated Cardiomyopathy, EGD on this admission he left July 12 2017, Normal endoscopy, His Primary park services specialist doctor Carlene Alston, Seen in Emergency room he feels exhausted. does not want to eat. but no nausea or vomit at this time. Review of Systems Constitutional: DENIES: Fever, Chills, Change in appetite Endocrine: DENIES: Heat/cold intolerance Eyes: DENIES: Blurred vision, Eye pain Except as stated in HPI: all other systems reviewed are Neg Past Family Social History Past Medical History Multiple Myeloma CAD Hyperlipidemia CHF Hypertension Past Surgical History right knee surgery Reported Medications Reported Meds & Active Scripts Active Zofran Odt (Ondansetron Odt) 4 Mg Tab 4 Mg SL Q6HR PRN Bentyl (Dicyclomine HCl) 10 Mg Cap 10 Mg PO QID Percocet (Oxycodone-Acetaminophen) 5-325 mg Tab 1 Tab PO Q4H PRN Verdrocet 2.5-325 mg (Hydrocodone-Acetaminophen) 2.5 Mg-325 Mg Tab 1 Tab PO Q6HR Aspirin Low Dose (Aspirin) 81 Mg Chew 162 Mg CHEW DAILY Atorvastatin (Atorvastatin Calcium) 40 Mg Tab 40 Mg PO HS Spironolactone 25 Mg Tab 25 Mg PO DAILY Lisinopril 10 Mg Tab 10 Mg PO DAILY Furosemide 20 Mg Tab 20 Mg PO BID Carvedilol 6.25 Mg Tab 6.25 Mg PO BID Allergies: Coded Allergies: No Known Allergies (Unverified Allergy, Unknown, 07/09/17) Active Ordered Medications Current Medications Medications (Trade) Dose Ordered Sig/Padma Route Start Time Stop Time Status Last Admin Sodium Chloride 1,000 ml @ 999 mls/hr BOLUS ONCE IV 08/16/17 16:30 08/16/17 17:30 08/16/17 16:55 Sodium Chloride 1,000 ml @ 100 mls/hr Q10H IV 08/16/17 16:46 08/16/17 16:56 (NS Flush) 2 ml UNSCH PRN IV FLUSH 08/16/17 17:00 (NS Flush) 2 ml BID IV FLUSH 08/16/17 21:00 (Tylenol) 650 mg Q4H PRN PO 08/16/17 17:00 (Zofran Inj) 4 mg Q6H PRN IVP 08/16/17 17:00 (Narcan Inj) 0.4 mg UNSCH PRN IV PUSH 08/16/17 17:00 (Senokot) 17.2 mg Q12H PRN PO 08/16/17 17:00 (Dulcolax Supp) 10 mg DAILY PRN RECTAL 08/16/17 17:00 (Lactulose Liq) 30 ml DAILY PRN PO 08/16/17 17:00 Family History Asked and denied. Social History Denies any toxic habits. Physical Exam Vital Signs Vital Signs Date Time Temp Pulse Resp B/P (MAP) Pulse Ox O2 Delivery O2 Flow Rate FiO2 08/16/17 13:13 18 08/16/17 13:09 76 18 147/90 (109) 100 Room Air 08/16/17 12:48 98.3 65 18 125/66 (85) 100 Physical Exam GENERAL: No acute distress SKIN: Warm and dry. HEAD: Atraumatic. Normocephalic. EYES: Pupils equal and round. No scleral icterus. No injection or drainage. ENT: No nasal bleeding or discharge. Mucous membranes pink and moist. Tongue is midline. No uvula deviation. NECK: Trachea midline. No JVD. CARDIOVASCULAR: Regular rate and rhythm. No murmurs, S3, S4. RESPIRATORY: No accessory muscle use. Clear to auscultation. Breath sounds equal bilaterally. GASTROINTESTINAL: Abdomen soft, tender to palpation in the right upper quadrant , nondistended. Hepatic and splenic margins not palpable. MUSCULOSKELETAL: Extremities without clubbing, cyanosis, or edema. No obvious deformities. NEUROLOGICAL: Awake and alert. No obvious cranial nerve deficits. PSYCHIATRIC: Appropriate mood and affect; insight and judgment normal. Laboratory Laboratory Tests Test 08/16/17 13:25 08/16/17 16:05 White Blood Count 3.5 Red Blood Count 2.37 Hemoglobin 8.1 Hematocrit 23.5 Mean Corpuscular Volume 99.4 Mean Corpuscular Hemoglobin 34.0 Mean Corpuscular Hemoglobin Concent 34.2 Red Cell Distribution Width 16.1 Platelet Count 223 Mean Platelet Volume 7.5 Neutrophils (%) (Auto) 49.1 Lymphocytes (%) (Auto) 32.1 Monocytes (%) (Auto) 14.2 Eosinophils (%) (Auto) 3.9 Basophils (%) (Auto) 0.7 Neutrophils # (Auto) 1.7 Lymphocytes # (Auto) 1.1 Monocytes # (Auto) 0.5 Eosinophils # (Auto) 0.1 Basophils # (Auto) 0.0 CBC Comment DIFF FINAL Differential Comment Prothrombin Time 14.0 Prothromb Time International Ratio 1.4 Activated Partial Thromboplast Time 30.8 Blood Urea Nitrogen 21 Creatinine 1.48 Random Glucose 85 Total Protein 12.6 Albumin 2.3 Calcium Level 7.8 Magnesium Level 1.9 Alkaline Phosphatase 74 Aspartate Amino Transf (AST/SGOT) 36 Alanine Aminotransferase (ALT/SGPT) 42 Total Bilirubin 0.6 Sodium Level 132 Potassium Level 4.0 Chloride Level 101 Carbon Dioxide Level 26.6 Anion Gap 4 Estimat Glomerular Filtration Rate 60 Thyroid Stimulating Hormone 3rd Gen 2.020 Result Diagram: 08/16/17 1325 08/16/17 1325 Imaging Last Impressions Abdomen/Pelvis CT 08/16/17 0000 Signed Impressions: Service Date/Time: Wednesday, August 16, 2017 14:37 - CONCLUSION: 1. Mild pericholecystic fluid or mural thickening. This actually show some interval improvement compared to prior. 2. A few low density para-aortic lymph nodes are identified just below the takeoff of the renal vessels. These are not abnormal by size criteria. 3. Stable bone island in the left ilium. Bridging spur anteriorly in the right SI joint. 4. Mild atelectasis or scarring in the right middle and left lower lobes MD Moon Dunne VTE Risk Assessment Caprini VTE Risk Assessment: Mod/High Risk (score >= 2) Caprini Risk Assessment Model Point Value = 1 Point Value = 2 Point Value = 3 Point Value = 5 Age 41-60 Minor surgery BMI > 25 kg/m2 Swollen legs Varicose veins or History of unexplained or recurrent spontaneous Oral contraceptives or hormone replacement Sepsis (< 1 month) Serious lung disease, including pneumonia (< 1 month) Abnormal pulmonary function Acute myocardial infarction Congestive heart failure (< 1 month) History of inflammatory bowel disease Medical patient at bed rest Age 61-74 Arthroscopic surgery Major open surgery (> 45 min) Laparoscopic surgery (> 45 min) Malignancy Confined to bed (> 72 hours) Immobilizing plaster cast Central venous access Age >= 75 History of VTE Family history of VTE Factor V Leiden Prothrombin [id number] Lupus anticoagulant Anticardiolipin antibodies Elevated serum homocysteine Heparin-induced thrombocytopenia Other congenital or acquired thrombophilia Stroke (< 1 month) Elective arthroplasty Hip, pelvis, or leg fracture Acute spinal cord injury (< 1 month) Prophylaxis Regimen Total Risk Factor Score Risk Level Prophylaxis Regimen 0-1 Low Early ambulation 2 Moderate Order ONE of the following: *Sequential Compression Device (SCD) *Heparin 5000 units SQ BID 3-4 Higher Order ONE of the following medications: *Heparin 5000 units SQ TID *Enoxaparin/Lovenox 40 mg SQ daily (WT < 150 kg, CrCl > 30 mL/min) *Enoxaparin/Lovenox 30 mg SQ daily (WT < 150 kg, CrCl > 10-29 mL/min) *Enoxaparin/Lovenox 30 mg SQ BID (WT < 150 kg, CrCl > 30 mL/min) AND/OR *Sequential Compression Device (SCD) 5 or more Highest Order ONE of the following medications: *Heparin 5000 units SQ TID (Preferred with Epidurals) *Enoxaparin/Lovenox 40 mg SQ daily (WT < 150 kg, CrCl > 30 mL/min) *Enoxaparin/Lovenox 30 mg SQ daily (WT < 150 kg, CrCl > 10-29 mL/min) *Enoxaparin/Lovenox 30 mg SQ BID (WT < 150 kg, CrCl > 30 mL/min) AND *Sequential Compression Device (SCD) Assessment and Plan Assessment and Plan 1. Multiple Myeloma with secondary abdominal pain, he had some MRI performed MRI of the lumbar, thoracic and cervical spine show multiple infiltrates consistent with metastatic disease or multiple myeloma. Some of the lesions appear to be also on his ribs. The largest tumor in the thoracic area is 4.3 x 2.8 x 5.6 cm on the left posterior eighth rib, patient has extensive marrow infiltration noted through the entire lumbar spine per the report as well as in the sacrum and iliac bones. Lastly CT of the cervical spine show similar to thoracic and lumbar but also showed a large mass of 2.5 x 5.3 cm involving the clivus. patient was discussed by ER physician with park services specialist doctor Gamaliel recommended for admission and pain medication. 2. Cardiomyopathy/CHF II at this time non exacerbated, giving gentle hydration and following for sings of overload 3. Hypertension controlled continue Home medicines 4. Dilated Cardiomyopathy by history. 5. CKD III at baseline 6. Hyperlipidemia continue Home medicines. DVT prophylaxis with Heparin . Quality Assurance for discharge Code Status Full Code. Discussed Condition With Bruno Spivey Physician Certification 2 Midnight Certification Type: Admission for Inpatient Services Order for Inpatient Services The services are ordered in accordance with Medicare regulations or non- Medicare payer requirements, as applicable. In the case of services not specified as inpatient-only, they are appropriately provided as inpatient services in accordance with the 2-midnight benchmark. Estimated LOS (days): 3 days is the estimated time the patient will need to remain in the hospital, assuming treatment plan goals are met and no additional complications. Post-Hospital Plan: Not yet determined Cachorro Elam MD Aug 16, 2017 16:53
[2017-08-16] MEDS ORDERED: ACETAMINOPHEN 325 MG TAB PO PRN (17:00)
[2017-08-16] MEDS ORDERED: LACTULOSE SYRUP 20 GM/30 ML CUP PO PRN (17:00)
[2017-08-16] MEDS ORDERED: NALOXONE HCL 0.4 MG/ML AMP IV PUSH PRN (17:00)
[2017-08-16] MEDS ORDERED: SENNOSIDES 8.6 MG TAB PO PRN (17:00)
[2017-08-16] MEDS ORDERED: ONDANSETRON HCL 4 MG/2 ML VIAL IVP PRN (17:00)
[2017-08-16] MEDS ORDERED: BISACODYL 10 MG SUPP RECTAL PRN (17:00)
[2017-08-16] MEDS ORDERED: SODIUM CHLORIDE 0.9% FLUSH 10 ML FLUSH IV FLUSH PRN (17:00)
[2017-08-16] MEDS ORDERED: oxyCODONE/ACETAMINOPHEN 5 MG/325 MG TAB PO PRN (17:30)
[2017-08-16] MEDS: DICYCLOMINE HCL 10 MG CAP PO SCH ×2 (18:25→22:56)
[2017-08-16] MEDS: SODIUM CHLORIDE 0.9% FLUSH 10 ML FLUSH IV FLUSH SCH (20:12)
[2017-08-16] MEDS: CARVEDILOL 6.25 MG TAB PO SCH (21:00)
[2017-08-16] MEDS ORDERED: ATORVASTATIN 40 MG TAB PO SCH (21:00)
[2017-08-16 21:03] LABS: TROPONIN I LESS THAN 0.02 NG/ML (0.02-0.05)
[2017-08-16 21:29] LABS: TROPONIN I LESS THAN 0.02 NG/ML (0.02-0.05)
[2017-08-16] MEDS: FUROSEMIDE 20 MG TAB PO SCH (21:42)
[2017-08-16] MEDS: HEPARIN SODIUM - SQ 10,000 UNITS/ML VIAL SQ SCH (21:43)
[2017-08-16] MEDS: PANTOPRAZOLE SOD 20 MG DELAYED RELEASE TAB PO SCH (21:46)
--- NOTE | 2017-08-16 21:49 | MB ---
cc: Carlene Alston MD, Ricardo PA DATE: 08/16/2017 REFERRING PROVIDER: EULALIA Hernandez CHIEF COMPLAINT: Bruno Spivey requested consultation for Mr. Charles with diagnosed multiple myeloma presenting with abdominal pain. HISTORY OF PRESENT ILLNESS: Mr. Charles is a 56-year-old man well known patient from a previous hospitalization in consultation back 07/11/2017. He has a history of hypercholesterolemia, congestive heart failure, hypertension and migraines. He had presentation of periumbilical pain that radiates to the back. 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 He has a bone marrow biopsy consistent with multiple myeloma. It appears to be an IgG kappa myeloma. After his discharge, Mr. Charles was offered a prompt appointment at a hematology/oncology clinic which he canceled. He canceled due to insurance reasons, mainly his deductible has not been met. This has been remedied by our financial services assistant. For this reason, he was able to keep an appointment with Dr. Verdin. He was seen by Dr. Verdin. The case was discussed with Dr. Verdin. 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 Because of his cancellation it was not clear that Mr. Charles was interested in treatment for his multiple myeloma. He admits to being torn about his job, what to do in terms of needing to follow up with workup and treatment for his multiple myeloma. He presented to the emergency room with complaints of nausea, vomiting, abdominal pain. He denies any changes in bowel habits or urinary complaints. He was nauseous and had questions about acute cholecystitis. He was leukopenic with hemoglobin 8.1. He had elevated BUN and creatinine. The case was discussed with Bruno Spivey. Ultimately, he was admitted to the hospital for supportive treatment. Hematology/oncology is consulted for the diagnosis of multiple myeloma. REVIEW OF SYSTEMS: He denies any fevers, chills or night sweats. He has had progressive symptoms of nausea. He has eaten while in the emergency room. His symptoms resolved with antiemetic therapy. He was treated with a pulse dose of Decadron of 10 mg. We discussed this treatment. The rest of his review of systems is negative. PAST MEDICAL HISTORY: Congestive heart failure, hypertension, cardiomyopathy, ejection fraction of 10% to 20%, dyslipidemia, chronic anemia, chronic renal insufficiency. PAST SURGICAL HISTORY: CT-guided scalp biopsy, CT-guided bone marrow biopsy, right knee surgery. FAMILY HISTORY: No family history of cancer. Father of unknown cause in his 60s. 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 He denies any tobacco, alcohol or illicit drug use. ALLERGIES: NO KNOWN DRUG ALLERGIES. CURRENT MEDICATIONS: 1. Aspirin. 2. Lisinopril. 3. Aldactone. 4. Lipitor. 5. Coreg. 6. Lasix. 7. Unfractionated heparin. 8. Bentyl. 9. Oxycodone/acetaminophen p.r.n. 10. Narcan. 11. Senokot. 12. Lactulose p.r.n. PHYSICAL EXAMINATION: VITAL SIGNS: Temperature 98.3, heart rate 74, respiratory rate 18, blood pressure 151/96, saturation 100%. GENERAL: Mr. Charles is a well-developed, well-nourished man. HEENT: His pupils are round, reactive to light and accommodation. Oropharynx is clear. NECK: Supple. LUNGS: Clear anteriorly. CARDIOVASCULAR: Reveals a normal rate and rhythm. ABDOMEN: Benign. MUSCULOSKELETAL: Lower extremities with no edema. NEUROLOGIC: Nonfocal. SKIN: He has a large mass at the top of the scalp, which looks more prominent than previous consultation a month ago. LABORATORY DATA: White blood cell count 3.5, hemoglobin 8.1, platelet count is normal. BUN of 21, creatinine 1.4, total protein 12.6, which is higher than on 07/11. Bone marrow biopsy consistent with plasma cell neoplasm. Quantitative immunoglobulin shows an elevated IgG. IgA, and IgM are suppressed. Free light chain analysis shows elevation in free kappa lambda ratio. Lambda is normal. [place] light chains are elevated. Initial serum protein electrophoresis could not detect a monoclonal protein. ASSESSMENT AND PLAN: Mr. Charles is a 56-year-old man with multiple myeloma. He has symptoms associated with multiple myeloma. He has a 20% to 30% plasma cells in the bone marrow. A serum protein electrophoresis was not conclusive, but appears to have an IgG kappa multiple myeloma from quantitative immunoglobulin free light chain analysis. He has a FISH analysis. His cytogenetics were normal; however, he was positive for a 4;14 fusion. This translocation is found in plasma cell myeloma and it is associated with shorter survival rates and aggressive disease. A lengthy discussion with Mr. Charles. Decision to proceed with definitive treatment for his multiple myeloma. Typical therapy would include a triple regimen of Velcade, Revlimid and Decadron. We discussed that these regimens are available oral for the Revlimid and subcutaneously for the Velcade. We would need to be able to administer this in our outpatient clinic and thus the reason for the appointment in hematology. It is not clear if Mr. Charles would be ultimately a transplant candidate. If indeed considered a transplant candidate, we would avoid radiation to his spine. It was discussed earlier with Dr. Vedrin about radiation of some lesions in his spine that appeared to be critical. We hope that in starting his triple regimen for multiple myeloma, we may be able to avoid the radiation and keep the option of transplant available. I concur with Dr. Verdin for treatment of the scalp lesion for which Mr. Charles is undergoing evaluation. Supportive treatment for his nausea continues. Recommend a pulse dose of Decadron with help in terms of his treatment for now. In the meantime, he will need followup in the hematology clinic after discharge, hopefully this week. His questions were answered to his satisfaction. MD LESTER Chandler/rt , 08:55 PM , 09:48 PM [email or web address]
[2017-08-16] MEDS: DEXAMETHASONE 4 MG TAB PO SCH (22:56)
[2017-08-17] VITALS (12 sets, daily range): BP systolic 129–135; BP diastolic 78–85; PULSE 60–65; RESP 16–18; TEMP 97.9–98.3; O2SAT 94–100
[2017-08-17 06:51] LABS: AUTOMATED NEUTROPHIL # 2.8 TH/MM3 (1.8-7.7); BASOPHIL % 0.1 % (0.0-2.0); HEMATOCRIT 25.3 % (39.0-51.0); HEMOGLOBIN 8.4 GM/DL (13.0-17.0); LYMPH % 16.3 % (9.0-44.0); LYMPHOCYTE # 0.6 TH/MM3 (1.0-4.8); MEAN CELL VOLUME 100.1 FL (80.0-100.0); MEAN CORPUSCULAR HEMOGLOBIN 33.3 PG (27.0-34.0); MEAN CORPUSCULAR HGB CONC 33.2 % (32.0-36.0); MEAN PLATELET VOLUME 7.5 FL (7.0-11.0); MONO % 2.5 % (0.0-8.0); MONOCYTE # 0.1 TH/MM3 (0-0.9); NEUT % 81.1 % (16.0-70.0); PLATELET COUNT 193 TH/MM3 (150-450); RED BLOOD COUNT 2.53 MIL/MM3 (4.50-5.90); RED CELL DISTRIBUTION WIDTH 15.8 % (11.6-17.2); WHITE BLOOD COUNT 3.4 TH/MM3 (4.0-11.0)
[2017-08-17 07:10] LABS: BICARBONATE 24.2 MEQ/L (21.0-32.0); CALCIUM 7.3 MG/DL (8.5-10.1); CREATININE 1.53 MG/DL (0.60-1.30)
[2017-08-17 07:19] LABS: TOTAL PROTEIN 10.8 GM/DL (6.4-8.2)
[2017-08-17 08:18] LABS: CALCIUM 7.3 MG/DL (8.5-10.1)
[2017-08-17] MEDS ORDERED: ASPIRIN 81 MG CHEW TAB CHEW SCH (09:00)
[2017-08-17] MEDS ORDERED: LISINOPRIL 10 MG TAB PO SCH (09:00)
[2017-08-17] MEDS ORDERED: SPIRONOLACTONE 25 MG TAB PO SCH (09:00)
[2017-08-17] MEDS: DEXAMETHASONE 4 MG TAB PO SCH (09:27)
[2017-08-17] MEDS: PANTOPRAZOLE SOD 20 MG DELAYED RELEASE TAB PO SCH (09:27)
[2017-08-17] MEDS: SODIUM CHLORIDE 0.9% FLUSH 10 ML FLUSH IV FLUSH SCH (09:28)
[2017-08-17] MEDS: FUROSEMIDE 20 MG TAB PO SCH (09:28)
[2017-08-17] MEDS: CARVEDILOL 6.25 MG TAB PO SCH (09:28)
[2017-08-17] MEDS: DICYCLOMINE HCL 10 MG CAP PO SCH ×2 (09:28→13:41)
[2017-08-17] MEDS: HEPARIN SODIUM - SQ 10,000 UNITS/ML VIAL SQ SCH (09:28)
--- NOTE | 2017-08-17 10:28 | PD.ONC.PN ---
Subjective Subjective Remarks Afebrile overnight Patient reports he is feeling much improved-no more pain or nausea Looking forward to see how his symptoms do outside the hospital Objective Data Date Time Temp Pulse Resp B/P (MAP) Pulse Ox O2 Delivery O2 Flow Rate FiO2 08/17/17 08:01 97.9 62 16 133/85 (101) 100 08/17/17 06:00 64 08/17/17 05:03 98.2 62 16 129/83 (98) 97 08/17/17 05:00 64 08/17/17 04:00 65 08/17/17 03:00 62 08/17/17 02:00 64 08/17/17 01:00 60 08/17/17 00:44 97.9 61 16 135/85 (102) 94 08/17/17 00:11 63 08/16/17 23:00 66 08/16/17 22:00 68 08/16/17 21:50 98.0 65 16 135/84 (101) 98 08/16/17 21:46 71 08/16/17 20:32 72 18 157/97 (117) 98 Room Air 08/16/17 16:56 74 18 151/96 (114) 100 Room Air 08/16/17 13:13 18 08/16/17 13:09 76 18 147/90 (109) 100 Room Air 08/16/17 12:48 98.3 65 18 125/66 (85) 100 08/17/17 08/17/17 08/17/17 07:00 15:00 23:00 Intake Total 480 ml Balance 480 ml Result Diagram: 08/17/1760908/17/17 06 Laboratory Results Laboratory Tests Test 08/16/17 13:25 08/16/17 16:05 08/16/17 20:44 08/17/17 06:10 White Blood Count 3.5 TH/MM3 3.4 TH/MM3 Red Blood Count 2.37 MIL/MM3 2.53 MIL/MM3 Hemoglobin 8.1 GM/DL 8.4 GM/DL Hematocrit 23.5 % 25.3 % Mean Corpuscular Volume 99.4 FL 100.1 FL Mean Corpuscular Hemoglobin 34.0 PG 33.3 PG Mean Corpuscular Hemoglobin Concent 34.2 % 33.2 % Red Cell Distribution Width 16.1 % 15.8 % Platelet Count 223 TH/MM3 193 TH/MM3 Mean Platelet Volume 7.5 FL 7.5 FL Neutrophils (%) (Auto) 49.1 % 81.1 % Lymphocytes (%) (Auto) 32.1 % 16.3 % Monocytes (%) (Auto) 14.2 % 2.5 % Eosinophils (%) (Auto) 3.9 % 0.0 % Basophils (%) (Auto) 0.7 % 0.1 % Neutrophils # (Auto) 1.7 TH/MM3 2.8 TH/MM3 Lymphocytes # (Auto) 1.1 TH/MM3 0.6 TH/MM3 Monocytes # (Auto) 0.5 TH/MM3 0.1 TH/MM3 Eosinophils # (Auto) 0.1 TH/MM3 0.0 TH/MM3 Basophils # (Auto) 0.0 TH/MM3 0.0 TH/MM3 CBC Comment DIFF FINAL DIFF FINAL Differential Comment Prothrombin Time 14.0 SEC Prothromb Time International Ratio 1.4 RATIO Activated Partial Thromboplast Time 30.8 SEC Blood Urea Nitrogen 21 MG/DL 23 MG/DL Creatinine 1.48 MG/DL 1.53 MG/DL Random Glucose 85 MG/DL 124 MG/DL Total Protein 12.6 GM/DL 10.8 GM/DL Albumin 2.3 GM/DL Calcium Level 7.8 MG/DL 7.3 MG/DL Magnesium Level 1.9 MG/DL Alkaline Phosphatase 74 U/L Aspartate Amino Transf (AST/SGOT) 36 U/L Alanine Aminotransferase (ALT/SGPT) 42 U/L Total Bilirubin 0.6 MG/DL Sodium Level 132 MEQ/L 135 MEQ/L Potassium Level 4.0 MEQ/L 4.1 MEQ/L Chloride Level 101 MEQ/L 105 MEQ/L Carbon Dioxide Level 26.6 MEQ/L 24.2 MEQ/L Anion Gap 4 MEQ/L 6 MEQ/L Estimat Glomerular Filtration Rate 60 ML/MIN 58 ML/MIN Total Creatine Kinase 95 U/L 73 U/L Troponin I LESS THAN 0.02 NG/ML LESS THAN 0.02 NG/ML Thyroid Stimulating Hormone 3rd Gen 2.020 uIU/ML Urine Color LIGHT-YELLOW Urine Turbidity CLEAR Urine pH 6.5 Urine Specific [place] 1.039 Urine Protein TRACE mg/dL Urine Glucose (UA) NEG mg/dL Urine Ketones NEG mg/dL Urine Occult Blood NEG Urine Nitrite NEG Urine Bilirubin NEG Urine Urobilinogen LESS THAN 2.0 MG/DL Urine Leukocyte Esterase NEG Urine RBC LESS THAN 1 /hpf Microscopic Urinalysis Comment CULT NOT INDICATED Protein Corrected Calcium MG/DL Administered Medications Medications (Trade) Dose Ordered Sig/Padma Route PRN Reason Start Time Stop Time Status Last Admin Dose Admin Sodium Chloride 1,000 ml @ 83 mls/hr Q12H3M IV 08/16/17 16:46 08/16/17 16:56 Sodium Chloride (NS Flush) 2 ml BID IV FLUSH 08/16/17 21:00 08/17/17 09:28 Aspirin (Aspirin Chew) 162 mg DAILY CHEW 08/17/17 09:00 08/17/17 09:27 Atorvastatin Calcium (Lipitor) 40 mg HS PO 08/16/17 21:00 08/16/17 21:42 Carvedilol (Coreg) 6.25 mg BID PO 08/16/17 21:00 08/17/17 09:28 Dicyclomine HCl (Bentyl) 10 mg QID PO 08/16/17 18:00 08/17/17 09:28 Furosemide (Lasix) 20 mg BID PO 08/16/17 21:00 08/17/17 09:28 Lisinopril (Prinivil) 10 mg DAILY PO 08/17/17 09:00 08/17/17 09:28 Spironolactone (Aldactone) 25 mg DAILY PO 08/17/17 09:00 08/17/17 09:28 Heparin Sodium (Porcine) (Heparin Inj) 5,000 units Q12HR SQ 08/16/17 21:00 08/17/17 09:28 Pantoprazole Sodium (Protonix) 20 mg DAILY PO 08/16/17 21:00 08/17/17 09:27 Dexamethasone (Decadron) 4 mg Q12HR PO 08/16/17 21:00 08/20/17 20:59 08/17/17 09:27 Objective Remarks GENERAL: Older gentleman sitting up in bed in no obvious distress SKIN: Warm and dry. HEAD: Normocephalic. Patient has a painless protrusion on the top of the scalp EYES:. No injection or drainage. NECK: Supple, trachea midline. CARDIOVASCULAR: Regular rate and rhythm without murmurs. RESPIRATORY: Breath sounds equal bilaterally. No accessory muscle use. GASTROINTESTINAL: Abdomen soft, non-tender, nondistended. EXTREMITIES: No cyanosis, or edema. MUSCULOSKELETAL: Adequate muscle tone. NEUROLOGICAL: No obvious focal deficit. Awake, alert, and oriented x3. Assessment/Plan Problem List: (1) Multiple myeloma ICD Codes: C90.00 - Multiple myeloma not having achieved remission Status: Acute Plan: -- Plan for therapy as outpatient with Velcade, Revlimid and Decadron. Hx/Workup: The patient has a newer diagnosis of multiple myeloma that appears to be IgG kappa myeloma. He appears to have 20-30% plasma cells in the bone marrow. FISH analysis showed a 4; 14 translocation that is associated with shorter survival rates and aggressive disease. Unfortunately the patient was lost to follow-up after he was discharged at the beginning of July of this year due to insurance reasons. He was able to see Dr. 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 (2) Intractable nausea and vomiting ICD Codes: R11.2 - Nausea with vomiting, unspecified Status: Acute Plan: --Much better controlled --Has as needed p.o. antiemetics (3) lytic calvarial lesion Plan: --Lytic lesions seen on scalp and spine --Patient has been evaluated by Dr. Verdin Assessment 56-year-old male with a newer diagnosis of multiple myeloma admitted with abdominal pain and vomiting Plan 1. Chemotherapy outpatient with Velcade, Revlimid and Decadron 2. Continue pulse Decadron dosing. 3. Supportive care Attending Statement The exam, history, and the medical decision-making described in the above note were completed with the assistance of the mid-level provider. I reviewed and agree with the findings presented. I attest that I had a [id number] encounter with the patient on the same day, and personally performed and documented my assessment and findings in the medical record. Continue Decadron x 4 days. FU in [facility] on , we made arrangement to fu after his work. He will need to meet with financial retirement plan specialist. Eating well, ordering lunch. Feels good. OK for DC from heme/onc standpoint. Problem Qualifiers (1) Multiple myeloma: Qualified Codes: C90.00 - Multiple myeloma not having achieved remission (2) Intractable nausea and vomiting: Qualified Codes: R11.2 - Nausea with vomiting, unspecified Coleen Randolph [facility] Aug 17, 2017 10:28 Carlene Alston MD Aug 17, 2017 11:33
[2017-08-17] MEDS ORDERED: CALCIUM GLUCONATE INJ 1 GM in SODIUM CHLORIDE 0.9% INJ 100 ML IV ONE (12:00)
--- NOTE | 2017-08-17 12:56 | HHI.PR ---
Subjective Remarks History of Present Illness This is a pleasant 56 y/o male who came to Emergency Room secondary to abdominal pain and back pain, multiple Myeloma recently diagnosed He follows with Dr. Alston as well as Dr. Verdin for this and is currently not undergoing any chemotherapy or radiation but is in the process of starting this next week. Per patient he has been having some back and abdominal pain before and this is how they found that he had the multiple myeloma. Per patient he has multiple lesions on his skull as well as on his spine. Patient had recent MRIs last week for evaluation of the lesions to see how to treat the patient. Per patient he already chronically takes pain medication but this is not helping. Per patient the pain is actually not bad if he is laying. Per patient only if he walks or moves that she get the pain. Per patient he starts on his abdomen and goes to his back and then goes down the legs. Per patient he feels like a sharp pain that is 8 out of 10. He denies any bowel movement or urinary issues. Patient last time he was admitted that he thought that it may be his gallbladder but they found that he had the bone lesions. He still has his gallbladder. He denies any other medical issues. No fevers chills or sweats. He states feeling nauseous but not vomiting.He was just recently discharged from this hospital with diagnosis of Cholecystitis, CHF II, Abdominal pain, Hypertension, PAULINE, GI bleed, Dilated Cardiomyopathy, EGD on this admission he left July 12 2017, Normal endoscopy, His Primary lactation specialist doctor Carlene Alston, Seen in Emergency room he feels exhausted. does not want to eat. but no nausea or vomit at this time. 08/17: Seen by his Primary lactation specialist Doctor Gamaliel, recommended Velcade, Revlimid and Decadron as outpatient, IgG kappa myeloma He appears to have 20-30% plasma cells in the bone marrow. FISH analysis showed a 4; 14 translocation that is associated with shorter survival rates and aggressive disease, continue management for nausea and vomit, to continue Decadron x 4 days, follow up as outpatient for 08/22/17 on [facility] ([facility] seen in his bedroom, no complaint. Objective Vital Signs Date Time Temp Pulse Resp B/P (MAP) Pulse Ox O2 Delivery O2 Flow Rate FiO2 08/17/17 08:01 97.9 62 16 133/85 (101) 100 08/17/17 06:00 64 08/17/17 05:03 98.2 62 16 129/83 (98) 97 08/17/17 05:00 64 08/17/17 04:00 65 08/17/17 03:00 62 08/17/17 02:00 64 08/17/17 01:00 60 08/17/17 00:44 97.9 61 16 135/85 (102) 94 08/17/17 00:11 63 08/16/17 23:00 66 08/16/17 22:00 68 08/16/17 21:50 98.0 65 16 135/84 (101) 98 08/16/17 21:46 71 08/16/17 20:32 72 18 157/97 (117) 98 Room Air 08/16/17 16:56 74 18 151/96 (114) 100 Room Air 08/16/17 13:13 18 08/16/17 13:09 76 18 147/90 (109) 100 Room Air I/O 08/16/17 08/16/17 08/16/17 08/17/17 08/17/17 08/17/17 07:00 15:00 23:00 07:00 15:00 23:00 Intake Total 3000 ml 480 ml Balance 3000 ml 480 ml Intake Oral 480 ml IV Total 3000 ml # Voids 1 # Bowel Movements 1 Result Diagram: 08/17/17 0610 08/17/17 0610 Imaging Last Impressions Abdomen/Pelvis CT 08/16/17 0000 Signed Impressions: Service Date/Time: Wednesday, August 16, 2017 14:37 - CONCLUSION: 1. Mild pericholecystic fluid or mural thickening. This actually show some interval improvement compared to prior. 2. A few low density para-aortic lymph nodes are identified just below the takeoff of the renal vessels. These are not abnormal by size criteria. 3. Stable bone island in the left ilium. Bridging spur anteriorly in the right SI joint. 4. Mild atelectasis or scarring in the right middle and left lower lobes Husam Mccurdy MD Procedures None Other Results Laboratory Tests Test 08/16/17 13:25 08/16/17 16:05 08/16/17 20:44 08/17/17 06:10 Prothrombin Time 14.0 SEC Prothromb Time International Ratio 1.4 RATIO Activated Partial Thromboplast Time 30.8 SEC Blood Urea Nitrogen 21 MG/DL 23 MG/DL Creatinine 1.48 MG/DL 1.53 MG/DL Random Glucose 85 MG/DL 124 MG/DL Total Protein 12.6 GM/DL 10.8 GM/DL Albumin 2.3 GM/DL Calcium Level 7.8 MG/DL 7.3 MG/DL Magnesium Level 1.9 MG/DL Alkaline Phosphatase 74 U/L Aspartate Amino Transf (AST/SGOT) 36 U/L Alanine Aminotransferase (ALT/SGPT) 42 U/L Total Bilirubin 0.6 MG/DL Sodium Level 132 MEQ/L 135 MEQ/L Potassium Level 4.0 MEQ/L 4.1 MEQ/L Chloride Level 101 MEQ/L 105 MEQ/L Carbon Dioxide Level 26.6 MEQ/L 24.2 MEQ/L Thyroid Stimulating Hormone 3rd Gen 2.020 uIU/ML Urine Color LIGHT-YELLOW Urine Turbidity CLEAR Urine pH 6.5 Urine Specific [place] 1.039 Urine Protein TRACE mg/dL Urine Glucose (UA) NEG mg/dL Urine Ketones NEG mg/dL Urine Occult Blood NEG Urine Nitrite NEG Urine Bilirubin NEG Urine Urobilinogen LESS THAN 2.0 MG/DL Urine Leukocyte Esterase NEG Urine RBC LESS THAN 1 /hpf Microscopic Urinalysis Comment CULT NOT INDICATED Total Creatine Kinase 73 U/L Troponin I LESS THAN 0.02 NG/ML White Blood Count 3.4 TH/MM3 Red Blood Count 2.53 MIL/MM3 Hemoglobin 8.4 GM/DL Hematocrit 25.3 % Mean Corpuscular Volume 100.1 FL Mean Corpuscular Hemoglobin 33.3 PG Mean Corpuscular Hemoglobin Concent 33.2 % Red Cell Distribution Width 15.8 % Platelet Count 193 TH/MM3 Mean Platelet Volume 7.5 FL Neutrophils (%) (Auto) 81.1 % Lymphocytes (%) (Auto) 16.3 % Monocytes (%) (Auto) 2.5 % Eosinophils (%) (Auto) 0.0 % Basophils (%) (Auto) 0.1 % Neutrophils # (Auto) 2.8 TH/MM3 Lymphocytes # (Auto) 0.6 TH/MM3 Monocytes # (Auto) 0.1 TH/MM3 Eosinophils # (Auto) 0.0 TH/MM3 Basophils # (Auto) 0.0 TH/MM3 CBC Comment DIFF FINAL Differential Comment Anion Gap 6 MEQ/L Estimat Glomerular Filtration Rate 58 ML/MIN Protein Corrected Calcium MG/DL Objective Remarks GENERAL: No acute distress SKIN: Warm and dry. HEAD: Atraumatic. Normocephalic. EYES: Pupils equal and round. No scleral icterus. No injection or drainage. ENT: No nasal bleeding or discharge. Mucous membranes pink and moist. Tongue is midline. No uvula deviation. NECK: Trachea midline. No JVD. CARDIOVASCULAR: Regular rate and rhythm. No murmurs, S3, S4. RESPIRATORY: No accessory muscle use. Clear to auscultation. Breath sounds equal bilaterally. GASTROINTESTINAL: Abdomen soft, tender to palpation in the right upper quadrant , nondistended. Hepatic and splenic margins not palpable. MUSCULOSKELETAL: Extremities without clubbing, cyanosis, or edema. No obvious deformities. NEUROLOGICAL: Awake and alert. No obvious cranial nerve deficits. PSYCHIATRIC: Appropriate mood and affect; insight and judgment normal. Medications and IVs Current Medications Medications (Trade) Dose Ordered Sig/Padma Route Start Time Stop Time Status Last Admin Sodium Chloride 1,000 ml @ 83 mls/hr Q12H3M IV 08/16/17 16:46 08/16/17 16:56 (NS Flush) 2 ml UNSCH PRN IV FLUSH 08/16/17 17:00 (NS Flush) 2 ml BID IV FLUSH 08/16/17 21:00 08/17/17 09:28 (Tylenol) 650 mg Q4H PRN PO 08/16/17 17:00 (Zofran Inj) 4 mg Q6H PRN IVP 08/16/17 17:00 (Narcan Inj) 0.4 mg UNSCH PRN IV PUSH 08/16/17 17:00 (Senokot) 17.2 mg Q12H PRN PO 08/16/17 17:00 (Dulcolax Supp) 10 mg DAILY PRN RECTAL 08/16/17 17:00 (Lactulose Liq) 30 ml DAILY PRN PO 08/16/17 17:00 (Aspirin Chew) 162 mg DAILY CHEW 08/17/17 09:00 08/17/17 09:27 (Lipitor) 40 mg HS PO 08/16/17 21:00 08/16/17 21:42 (Coreg) 6.25 mg BID PO 08/16/17 21:00 4/7/18 09:28 (Bentyl) 10 mg QID PO 08/16/17 18:00 08/17/17 09:28 (Lasix) 20 mg BID PO 08/16/17 21:00 08/17/17 09:28 (Prinivil) 10 mg DAILY PO 08/17/17 09:00 08/17/17 09:28 (Percocet 5-325 Mg) 1 tab Q4H PRN PO 08/16/17 17:30 (Aldactone) 25 mg DAILY PO 08/17/17 09:00 08/17/17 09:28 (Heparin Inj) 5,000 units Q12HR SQ 08/16/17 21:00 08/17/17 09:28 (Protonix) 20 mg DAILY PO 08/16/17 21:00 08/17/17 09:27 (Decadron) 4 mg Q12HR PO 08/16/17 21:00 08/20/17 20:59 08/17/17 09:27 Calcium Gluconate 1 gm/Sodium Chloride 110 ml @ 110 mls/hr ONCE ONCE IV 08/17/17 12:00 08/17/17 12:59 A/P Assessment and Plan 1. Multiple Myeloma with secondary abdominal pain, he had some MRI performed MRI of the lumbar, thoracic and cervical spine show multiple infiltrates consistent with metastatic disease or multiple myeloma. Some of the lesions appear to be also on his ribs. The largest tumor in the thoracic area is 4.3 x 2.8 x 5.6 cm on the left posterior eighth rib, patient has extensive marrow infiltration noted through the entire lumbar spine per the report as well as in the sacrum and iliac bones. Lastly CT of the cervical spine show similar to thoracic and lumbar but also showed a large mass of 2.5 x 5.3 cm involving the clivus. patient was discussed by ER physician with lactation specialist doctor Gamaliel recommended for admission and pain medication. Seen by his Primary lactation specialist Doctor Gamaliel, recommended Velcade , Revlimid and Decadron as outpatient, IgG kappa myeloma He appears to have 20-30% plasma cells in the bone marrow. FISH analysis showed a 4; 14 translocation that is associated with shorter survival rates and aggressive disease, continue management for nausea and vomit, to continue Decadron x 4 days, follow up as outpatient for 08/22/17 on [facility] ([facility]). seen in his bedroom , no complaint. 2. Cardiomyopathy/CHF II at this time non exacerbated. 3. Hypertension controlled continue Home medicines 4. Dilated Cardiomyopathy by history. 5. CKD III at baseline 6. Hyperlipidemia continue Home medicines. 7. Hypocalcemia replaced. DVT prophylaxis with Heparin . Irrigation System Operator for discharge Code Status Full Code. Discussed Condition With Patient and Oncology's CLIMATOLOGY PROFESSOR Discharge Planning Discharge Home now. Cachorro Elam MD Aug 17, 2017 12:56
[2017-08-17] MEDS ORDERED: DEXA4TAB PO (13:13)
--- NOTE | 2017-08-17 13:16 | HHI.DS ---
Discharge Summary Admission Date Aug 16, 2017 at 16:52 Discharge Date: Aug 17, 2017 Admitting Diagnosis (1) Multiple myeloma ICD Code: C90.00 - Multiple myeloma not having achieved remission Diagnosis: Principal Status: Acute (2) Intractable nausea and vomiting ICD Code: R11.2 - Nausea with vomiting, unspecified Diagnosis: Principal Status: Acute Procedures None Brief History - From Admission This is a pleasant 56 y/o male who came to Emergency Room secondary to abdominal pain and back pain, multiple Myeloma recently diagnosed He follows with Dr. Alston as well as Dr. Verdin for this and is currently not undergoing any chemotherapy or radiation but is in the process of starting this next week. Per patient he has been having some back and abdominal pain before and this is how they found that he had the multiple myeloma. Per patient he has multiple lesions on his skull as well as on his spine. Patient had recent MRIs last week for evaluation of the lesions to see how to treat the patient. Per patient he already chronically takes pain medication but this is not helping. Per patient the pain is actually not bad if he is laying. Per patient only if he walks or moves that she get the pain. Per patient he starts on his abdomen and goes to his back and then goes down the legs. Per patient he feels like a sharp pain that is 8 out of 10. He denies any bowel movement or urinary issues. Patient last time he was admitted that he thought that it may be his gallbladder but they found that he had the bone lesions. He still has his gallbladder. He denies any other medical issues. No fevers chills or sweats. He states feeling nauseous but not vomiting.He was just recently discharged from this hospital with diagnosis of Cholecystitis, CHF II, Abdominal pain, Hypertension, PAULINE, GI bleed, Dilated Cardiomyopathy, EGD on this admission he left July 12 2017, Normal endoscopy, His Primary access specialist doctor Carlene Alston, Seen in Emergency room he feels exhausted. does not want to eat. but no nausea or vomit at this time. CBC/BMP: 08/17/17 0610 08/17/17 0610 Significant Findings Laboratory Tests Test 08/16/17 13:25 08/16/17 16:05 08/16/17 20:44 08/17/17 06:10 White Blood Count 3.5 TH/MM3 (4.0-11.0) 3.4 TH/MM3 (4.0-11.0) Red Blood Count 2.37 MIL/MM3 (4.50-5.90) 2.53 MIL/MM3 (4.50-5.90) Hemoglobin 8.1 GM/DL (13.0-17.0) 8.4 GM/DL (13.0-17.0) Hematocrit 23.5 % (39.0-51.0) 25.3 % (39.0-51.0) Monocytes (%) (Auto) 14.2 % (0.0-8.0) Neutrophils # (Auto) 1.7 TH/MM3 (1.8-7.7) Prothrombin Time 14.0 SEC (9.8-11.6) Activated Partial Thromboplast Time 30.8 SEC (24.3-30.1) Blood Urea Nitrogen 21 MG/DL (7-18) 23 MG/DL (7-18) Creatinine 1.48 MG/DL (0.60-1.30) 1.53 MG/DL (0.60-1.30) Total Protein 12.6 GM/DL (6.4-8.2) 10.8 GM/DL (6.4-8.2) Albumin 2.3 GM/DL (3.4-5.0) Calcium Level 7.8 MG/DL (8.5-10.1) 7.3 MG/DL (8.5-10.1) Sodium Level 132 MEQ/L (136-145) 135 MEQ/L (136-145) Anion Gap 4 MEQ/L (5-15) Estimat Glomerular Filtration Rate 60 ML/MIN (>89) 58 ML/MIN (>89) Troponin I LESS THAN 0.02 NG/ML LESS THAN 0.02 NG/ML Urine Specific [place] 1.039 (1.002-1.035) Mean Corpuscular Volume 100.1 FL (80.0-100.0) Neutrophils (%) (Auto) 81.1 % (16.0-70.0) Lymphocytes # (Auto) 0.6 TH/MM3 (1.0-4.8) Random Glucose 124 MG/DL (74-106) Imaging Last Impressions Abdomen/Pelvis CT 08/16/17 0000 Signed Impressions: Service Date/Time: Wednesday, August 16, 2017 14:37 - CONCLUSION: 1. Mild pericholecystic fluid or mural thickening. This actually show some interval improvement compared to prior. 2. A few low density para-aortic lymph nodes are identified just below the takeoff of the renal vessels. These are not abnormal by size criteria. 3. Stable bone island in the left ilium. Bridging spur anteriorly in the right SI joint. 4. Mild atelectasis or scarring in the right middle and left lower lobes Husam Mccurdy MD PE at Discharge GENERAL: No acute distress SKIN: Warm and dry. HEAD: Atraumatic. Normocephalic. EYES: Pupils equal and round. No scleral icterus. No injection or drainage. ENT: No nasal bleeding or discharge. Mucous membranes pink and moist. Tongue is midline. No uvula deviation. NECK: Trachea midline. No JVD. CARDIOVASCULAR: Regular rate and rhythm. No murmurs, S3, S4. RESPIRATORY: No accessory muscle use. Clear to auscultation. Breath sounds equal bilaterally. GASTROINTESTINAL: Abdomen soft, tender to palpation in the right upper quadrant , nondistended. Hepatic and splenic margins not palpable. MUSCULOSKELETAL: Extremities without clubbing, cyanosis, or edema. No obvious deformities. NEUROLOGICAL: Awake and alert. No obvious cranial nerve deficits. PSYCHIATRIC: Appropriate mood and affect; insight and judgment normal. Hospital Course This is a pleasant 56 y/o male who came to Emergency Room secondary to abdominal pain and back pain, multiple Myeloma recently diagnosed He follows with Dr. Alston as well as Dr. Verdin for this and is currently not undergoing any chemotherapy or radiation but is in the process of starting this next week. Per patient he has been having some back and abdominal pain before and this is how they found that he had the multiple myeloma. Per patient he has multiple lesions on his skull as well as on his spine. Patient had recent MRIs last week for evaluation of the lesions to see how to treat the patient. Per patient he already chronically takes pain medication but this is not helping. Per patient the pain is actually not bad if he is laying. Per patient only if he walks or moves that she get the pain. Per patient he starts on his abdomen and goes to his back and then goes down the legs. Per patient he feels like a sharp pain that is 8 out of 10. He denies any bowel movement or urinary issues. Patient last time he was admitted that he thought that it may be his gallbladder but they found that he had the bone lesions. He still has his gallbladder. He denies any other medical issues. No fevers chills or sweats. He states feeling nauseous but not vomiting.He was just recently discharged from this hospital with diagnosis of Cholecystitis, CHF II, Abdominal pain, Hypertension, PAULINE, GI bleed, Dilated Cardiomyopathy, EGD on this admission he left July 12 2017, Normal endoscopy, His Primary access specialist doctor Carlene Alston, Seen in Emergency room he feels exhausted. does not want to eat. but no nausea or vomit at this time. 08/17: Seen by his Primary access specialist Doctor Gamaliel, recommended Velcade, Revlimid and Decadron as outpatient, IgG kappa myeloma He appears to have 20-30% plasma cells in the bone marrow. FISH analysis showed a 4; 14 translocation that is associated with shorter survival rates and aggressive disease, continue management for nausea and vomit, to continue Decadron x 4 days, follow up as outpatient for 08/22/17 on [facility] ([facility] seen in his bedroom, no complaint. Assessment and Plan 1. Multiple Myeloma with secondary abdominal pain, he had some MRI performed MRI of the lumbar, thoracic and cervical spine show multiple infiltrates consistent with metastatic disease or multiple myeloma. Some of the lesions appear to be also on his ribs. The largest tumor in the thoracic area is 4.3 x 2.8 x 5.6 cm on the left posterior eighth rib, patient has extensive marrow infiltration noted through the entire lumbar spine per the report as well as in the sacrum and iliac bones. Lastly CT of the cervical spine show similar to thoracic and lumbar but also showed a large mass of 2.5 x 5.3 cm involving the clivus. patient was discussed by ER physician with access specialist doctor Gamaliel recommended for admission and pain medication. Seen by his Primary access specialist Doctor Gamaliel, recommended Velcade , Revlimid and Decadron as outpatient, IgG kappa myeloma He appears to have 20-30% plasma cells in the bone marrow. FISH analysis showed a 4; 14 translocation that is associated with shorter survival rates and aggressive disease, continue management for nausea and vomit, to continue Decadron x 4 days, follow up as outpatient for 08/22/17 on [facility] ([facility]). seen in his bedroom , no complaint. 2. Cardiomyopathy/CHF II at this time non exacerbated. 3. Hypertension controlled continue Home medicines 4. Dilated Cardiomyopathy by history. 5. CKD III at baseline 6. Hyperlipidemia continue Home medicines. 7. Hypocalcemia replaced. DVT prophylaxis with Heparin . 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 Discussed Condition With Patient and Oncology's PROJECTION PRINTER Discharge Planning Discharge Home now. Pt Condition on Discharge: Good Discharge Disposition: Discharge Home Discharge Time: <= 30 minutes Discharge Instructions DIET: Follow Instructions for: As Tolerated, No Restrictions Activities you can perform: Regular-No Restrictions Cachorro Elam MD Aug 17, 2017 13:16
[2017-08-20 22:01] LABS: ALB/GLOB RATIO (SPE) 0.31 (1.39-2.23)
== END 2017-08-17 15:19 | disposition home or self-care (01) | DRG 948 ==
LOC: NEPE 12:34 → NEDA 16:51 → UNDOADMOB 16:52 → NEDA 16:52 → OBSVTOIN 16:53 → HCIN 21:21 → NEDA 21:21 → UNDODISOB 08-17 15:19
PROVIDERS: ADMIT Internal Medicine; ATTEND Internal Medicine
DX: G89.3 Neoplasm related pain (acute) (chronic) (principal); C90.00 Multiple myeloma not having achieved remission; I42.0 Dilated cardiomyopathy; I13.0 Hypertensive heart and chronic kidney disease with heart failure and stage 1 through stage 4 chronic kidney disease, or unspecified chronic kidney disease; I50.9 Heart failure, unspecified; E83.51 Hypocalcemia; R11.2 Nausea with vomiting, unspecified; I25.10 Atherosclerotic heart disease of native coronary artery without angina pectoris; E78.5 Hyperlipidemia, unspecified; N18.3 Chronic kidney disease, stage 3 (moderate); D72.819 Decreased white blood cell count, unspecified; K81.9 Cholecystitis, unspecified
CPT/HCPCS: 74177; 80048; 80053; 81001; 82550; 83735; 83883; 84155; 84165; 84443; 84484; 85025; 85610; 85730; 96374; 96375; 96376; J0610; J1100; J1170; J1200; J1644; J2270; J2405; J2765; J7030; J8540; Q9967

== ENCOUNTER 2017-09-06 15:28 | Emergency (ER) | payer OTHER ==
[~2017-09-06] VITALS: Ht 172.7 cm; Wt 75.0 kg
[~2017-09-06 15:28] MED LIST changes: -COLA100C5 PO; +DEXA4TAB PO; +DICY10 PO; +ZOFR4TAB3 SL
[2017-09-06 15:33] VITALS: BP 127/61; PULSE 71; RESP 16; TEMP 98.6; O2SAT 99
[2017-09-06] MEDS ORDERED: ACETAMINOPHEN 325 MG TAB PO ONE (16:00)
[2017-09-06 16:08] VITALS: O2SAT 99
--- NOTE | 2017-09-06 16:28 | RADRPT ---
EXAM DATE/TIME: 09/06/2017 16:11 [place] COMPARISON: No previous studies available for comparison. INDICATIONS : Shortness of breath and fever. MEDICAL HISTORY : Hypertension. SURGICAL HISTORY : None. ENCOUNTER: Initial ACUITY: 2 days PAIN SCORE: 0/10 LOCATION: Bilateral chest FINDINGS: A single view of the chest demonstrates a faint nodular density in the right upper lobe directly michi cent to the EKG lead which may be related. Outpatient chest x-ray, PA and lateral should be performed in one week. The cardiomediastinal contours are unremarkable. Osseous structures are intact. CONCLUSION: Borderline cardiomegaly. Faint density overlies right upper lobe should be investigated with an outp atient chest x-ray in one week. Charli Giron MD on September 06, 2017 at 16:23 Board Certified Radiologist. This report was verified electronically.
--- NOTE | 2017-09-06 16:51 | PD ---
HPI Chief Complaint: Fever Time Seen by Provider: 15:38 Travel History International Travel<30 days: No Contact w/Intl Traveler<30days: No Traveled to known affect area: No History of Present Illness HPI 56-year-old male with a history of multiple myeloma, cardiomyopathy, congestive heart failure, hypertension, hyperlipidemia presents emergency department at the request of his oncologist office, Dr. Alston for evaluation of a fever, weakness and fatigue that started this morning. Patient states that he woke up feeling feverish and noticed he had swelling of his right hand and bilateral legs that started this morning at 8 AM. Says that the swelling has reduced but still claims that his right hand is swollen more than normal. Patient also states his head has been throbbing from a headache. He denies chest pain, shortness of breath, cough, congestion, abdominal pain, back pain. He denies leg pain. Says that he was diagnosed with multiple myeloma in June of this year and is on his fourth week of radiation and this was his third or fourth week of chemotherapy. Patient states he receives radiation Saturday through Saturday and chemotherapy every Saturday. He did not have any treatment today. PFSH Past Medical History Hx Anticoagulant Therapy: Yes (ASA) Blood Disorders: No Heart Rhythm Problems: No Cancer: Yes (multiple myeloma ) Cardiovascular Problems: Yes High Cholesterol: Yes Chemotherapy: Yes (FRIDAYS) Chest Pain: Yes (X1 MONTH AGO) Congestive Heart Failure: Yes Cerebrovascular Accident: No Diabetes: No Diminished Hearing: No Endocrine: No Gastrointestinal Disorders: No Genitourinary: No Headaches: No Hypertension: Yes Immune Disorder: No Implanted Vascular Access Dvce: No Musculoskeletal: No Neurologic: No Psychiatric: No Reproductive: No Respiratory: Yes Migraines: Yes Radiation Therapy: Yes (SATURDAY-SATURDAY @ [facility]) Seizures: No Past Surgical History Abdominal Surgery: No Cardiac Surgery: No Ear Surgery: No Endocrine Surgery: No Eye Surgery: No Genitourinary Surgery: No Gynecologic Surgery: No Joint Replacement: Yes (R KNEE SURGERY ) Neurologic Surgery: No Oral Surgery: Yes (wisdom teeth removed) Thoracic Surgery: No Other Surgery: Yes (right knee surgery) Social History Alcohol Use: No Tobacco Use: No Substance Use: No Allergies-Medications (Allergen,Severity, Reaction): Coded Allergies: No Known Allergies (Unverified Allergy, Unknown, 07/09/17) Reported Meds & Prescriptions Reported Meds & Active Scripts Active Dexamethasone 4 Mg Tab 4 Mg PO Q12HR Zofran Odt (Ondansetron Odt) 4 Mg Tab 4 Mg SL Q6HR PRN Bentyl (Dicyclomine HCl) 10 Mg Cap 10 Mg PO QID Percocet (Oxycodone-Acetaminophen) 5-325 mg Tab 1 Tab PO Q4H PRN Verdrocet 2.5-325 mg (Hydrocodone-Acetaminophen) 2.5 Mg-325 Mg Tab 1 Tab PO Q6HR Aspirin Low Dose (Aspirin) 81 Mg Chew 162 Mg CHEW DAILY Atorvastatin (Atorvastatin Calcium) 40 Mg Tab 40 Mg PO HS Spironolactone 25 Mg Tab 25 Mg PO DAILY Lisinopril 10 Mg Tab 10 Mg PO DAILY Furosemide 20 Mg Tab 20 Mg PO BID Carvedilol 6.25 Mg Tab 6.25 Mg PO BID Review of Systems Except as stated in HPI: all other systems reviewed are Neg Physical Exam Narrative GENERAL: WD,WN SKIN: Focused skin assessment warm/dry. HEAD: Atraumatic. Normocephalic. EYES: Pupils equal and round. No scleral icterus. No injection or drainage. ENT: No nasal bleeding or discharge. Mucous membranes pink and moist. NECK: Trachea midline. No JVD. CARDIOVASCULAR: Regular rate and rhythm. No murmur appreciated. RESPIRATORY: No accessory muscle use. Clear to auscultation. Breath sounds equal bilaterally. GASTROINTESTINAL: Abdomen soft, non-tender, nondistended. Hepatic and splenic margins not palpable. MUSCULOSKELETAL: No obvious deformities. No clubbing. No cyanosis. No edema. NEUROLOGICAL: Awake and alert. No obvious cranial nerve deficits. Motor grossly within normal limits. Normal speech. PSYCHIATRIC: Appropriate mood and affect; insight and judgment normal. Data Data Last Documented VS Vital Signs Date Time Temp Pulse Resp B/P (MAP) Pulse Ox O2 Delivery O2 Flow Rate FiO2 09/06/17 18:59 09/06/17 18:11 65 18 99 Room Air 09/06/17 17:10 98.4 Orders Orders Sepsis Workup Initiated (09/06/17 ) Complete Blood Count With Diff (09/06/17 15:53) Comprehensive Metabolic Panel (09/06/17 15:53) Prothrombin Time / Inr (Pt) (09/06/17 15:53) Act Partial Throm Time (Ptt) (09/06/17 15:53) Lactic Acid Sepsis Protocol (09/06/17 15:53) Phosphorus (Po4) (09/06/17 15:53) Urinalysis - C+S If Indicated (09/06/17 15:53) Blood Culture (09/06/17 15:53) Chest, Single Ap (09/06/17 15:53) Ecg Monitoring (09/06/17 15:53) Iv Access Insert/Monitor (09/06/17 15:53) Oximetry (09/06/17 15:53) Oxygen Administration (09/06/17 15:53) Acetaminophen (Tylenol) (09/06/17 16:00) Electrocardiogram (09/06/17 ) Uric Acid (09/06/17 16:20) Ed Discharge Order (09/06/17 18:47) Labs Laboratory Tests Test 09/06/17 16:20 09/06/17 16:35 White Blood Count 6.3 TH/MM3 Red Blood Count 2.92 MIL/MM3 Hemoglobin 9.9 GM/DL Hematocrit 29.7 % Mean Corpuscular Volume 101.9 FL Mean Corpuscular Hemoglobin 33.8 PG Mean Corpuscular Hemoglobin Concent 33.1 % Red Cell Distribution Width 17.2 % Platelet Count 164 TH/MM3 Mean Platelet Volume 9.0 FL Neutrophils (%) (Auto) 79.8 % Lymphocytes (%) (Auto) 8.9 % Monocytes (%) (Auto) 5.2 % Eosinophils (%) (Auto) 5.6 % Basophils (%) (Auto) 0.5 % Neutrophils # (Auto) 5.1 TH/MM3 Lymphocytes # (Auto) 0.6 TH/MM3 Monocytes # (Auto) 0.3 TH/MM3 Eosinophils # (Auto) 0.4 TH/MM3 Basophils # (Auto) 0.0 TH/MM3 CBC Comment AUTO DIFF Differential Comment AUTO DIFF CONFIRMED Prothrombin Time 11.0 SEC Prothromb Time International Ratio 1.1 RATIO Activated Partial Thromboplast Time 20.3 SEC Blood Urea Nitrogen 22 MG/DL Creatinine 1.25 MG/DL Random Glucose 77 MG/DL Total Protein 9.0 GM/DL Albumin 2.1 GM/DL Calcium Level 7.6 MG/DL Phosphorus Level 3.4 MG/DL Uric Acid 5.5 MG/DL Alkaline Phosphatase 112 U/L Aspartate Amino Transf (AST/SGOT) 58 U/L Alanine Aminotransferase (ALT/SGPT) 36 U/L Total Bilirubin 0.5 MG/DL Sodium Level 135 MEQ/L Potassium Level 4.7 MEQ/L Chloride Level 101 MEQ/L Carbon Dioxide Level 30.5 MEQ/L Anion Gap 4 MEQ/L Estimat Glomerular Filtration Rate 73 ML/MIN Lactic Acid Level 0.8 mmol/L Urine Color LIGHT-YELLOW Urine Turbidity CLEAR Urine pH 5.5 Urine Specific [place] 1.018 Urine Protein 30 mg/dL Urine Glucose (UA) NEG mg/dL Urine Ketones NEG mg/dL Urine Occult Blood TRACE Urine Nitrite NEG Urine Bilirubin NEG Urine Urobilinogen LESS THAN 2.0 MG/DL Urine Leukocyte Esterase NEG Urine RBC 2 /hpf Microscopic Urinalysis Comment CATH-CULT NOT IND MDM Medical Decision Making Medical Screen Exam Complete: Yes Emergency Medical Condition: Yes Differential Diagnosis Tumor lysis syndrome, upper respiratory infection, urinary tract infection, pneumonia Narrative Course 56-year-old male with a history of multiple myeloma, cardiomyopathy, congestive heart failure, hypertension, hyperlipidemia presents emergency department at the request of his oncologist office, Dr. Alston for evaluation of a fever, weakness and fatigue that started this morning. Patient states that he woke up feeling feverish and noticed he had swelling of his right hand and bilateral legs that started this morning at 8 AM. Says that the swelling has reduced but still claims that his right hand is swollen more than normal. Patient also states his head has been throbbing from a headache. He denies chest pain, shortness of breath, cough, congestion, abdominal pain, back pain. He denies leg pain. Says that he was diagnosed with multiple myeloma in June of this year and is on his fourth week of radiation and this was his third or fourth week of chemotherapy. Patient states he receives radiation Saturday through Saturday and chemotherapy every Saturday. He did not have any treatment today. Vital signs are stable in the emergency department today. No evidence of fever. Labs and imaging studies ordered. EKG shows sinus rhythm rate 70, with nonspecific t wave abnormalities, no STEMI pattern. Tylenol administered for fever. CBC & BMP Diagram 09/06/17 16:20 Total Protein 9.0 H, Albumin 2.1 L, Calcium Level 7.6 L, Phosphorus Level 3.4, Uric Acid 5.5, Alkaline Phosphatase 112, Aspartate Amino Transf (AST/SGOT) 58 H , Alanine Aminotransferase (ALT/SGPT) 36, Total Bilirubin 0.5 Urinalysis noncontributory. Lactic 0.8. Uric acid 5.5. CBC stable from August 17. Kidney function actually improved. After discussion of the labs and imaging studies, patient states that she feels fine and is happy go home. He is relieved that his labs are stable and that he does not actually have a fever currently. It is possible that patient had a spiking fever and his oncologist office however, he demonstrated no fever while in the emergency department today. Patient be discharged advised to follow-up with his oncologist and primary care physician. He should have adequate fluid intake and proper nutrition to avoid complications. Advised to return for worsening or persistent symptoms. Diagnosis Primary Impression: Abnormal chest xray Additional Impression: Fatigue Qualified Codes: R53.82 - Chronic fatigue, unspecified Referrals: Oncologist Primary Care Physician Additional Instructions: Recommend follow up with a chest xray in 1 week as you had an abnormal finding on chest xray. Follow-up with your oncologist and your primary care physician within 2-3 days. Ensure you have adequate fluid intake and proper nutrition to avoid dehydration. Disposition: 01 DISCHARGE HOME Condition: Stable Merna Griffiths Sep 06, 2017 16:51
[2017-09-06 17:03] LABS: BILIRUBIN, URINE NEG (NEG); BLOOD, URINE TRACE (NEG); GLUCOSE,URINE NEG (NEG); KETONE, URINE NEG (NEG); NITRITE,URINE NEG (NEG); PH, URINE 5.5 (5.0-8.5); URINE COLOR LIGHT-YELLOW (YELLW/STRAW); URINE LEUKOCYTE ESTERASE NEG (NEG)
[2017-09-06 17:10] VITALS: BP 129/79; PULSE 67; RESP 18; TEMP 98.4; O2SAT 99
[2017-09-06 17:20] LABS: ALKALINE PHOSPHATASE 112 U/L (45-117); TOTAL BILIRUBIN ADULT 0.5 MG/DL (0.2-1.0)
[2017-09-06 17:24] LABS: ALBUMIN 2.1 GM/DL (3.4-5.0); ALT (GPT) 36 U/L (12-78); AST (GOT) 58 U/L (15-37); AUTOMATED NEUTROPHIL # 5.1 TH/MM3 (1.8-7.7); BASOPHIL % 0.5 % (0.0-2.0); BICARBONATE 30.5 MEQ/L (21.0-32.0); BLOOD UREA NITROGEN 22 MG/DL (7-18); CALCIUM 7.6 MG/DL (8.5-10.1); CHLORIDE 101 MEQ/L (98-107); CREATININE 1.25 MG/DL (0.60-1.30); EOSINOPHIL # 0.4 TH/MM3 (0-0.4); EOSINOPHIL % 5.6 % (0.0-4.0); GLOMERULAR FILTRATION RATE 73 ML/MIN (>89); GLUCOSE,RANDOM 77 MG/DL (74-106); HEMATOCRIT 29.7 % (39.0-51.0); HEMOGLOBIN 9.9 GM/DL (13.0-17.0); LYMPH % 8.9 % (9.0-44.0); LYMPHOCYTE # 0.6 TH/MM3 (1.0-4.8); MEAN CELL VOLUME 101.9 FL (80.0-100.0); MEAN CORPUSCULAR HEMOGLOBIN 33.8 PG (27.0-34.0); MEAN CORPUSCULAR HGB CONC 33.1 % (32.0-36.0); MONO % 5.2 % (0.0-8.0); MONOCYTE # 0.3 TH/MM3 (0-0.9); NEUT % 79.8 % (16.0-70.0); PHOSPHORUS 3.4 MG/DL (2.5-4.9); PLATELET COUNT 164 TH/MM3 (150-450); RED BLOOD COUNT 2.92 MIL/MM3 (4.50-5.90); RED CELL DISTRIBUTION WIDTH 17.2 % (11.6-17.2); SODIUM (NA) 135 MEQ/L (136-145); WHITE BLOOD COUNT 6.3 TH/MM3 (4.0-11.0)
[2017-09-06 17:25] LABS: INTERNATIONAL NORMALIZED RATIO 1.1 RATIO
[2017-09-06 18:11] VITALS: BP 141/70; PULSE 65; RESP 18; O2SAT 99
--- NOTE | 2017-09-06 18:45 | PD ---
Data Data Last Documented VS Vital Signs Date Time Temp Pulse Resp B/P (MAP) Pulse Ox O2 Delivery O2 Flow Rate FiO2 09/06/17 18:11 65 18 141/70 (93) 99 Room Air 09/06/17 17:10 98.4 Orders Orders Sepsis Workup Initiated (09/06/17 ) Complete Blood Count With Diff (09/06/17 15:53) Comprehensive Metabolic Panel (09/06/17 15:53) Prothrombin Time / Inr (Pt) (09/06/17 15:53) Act Partial Throm Time (Ptt) (09/06/17 15:53) Lactic Acid Sepsis Protocol (09/06/17 15:53) Phosphorus (Po4) (09/06/17 15:53) Urinalysis - C+S If Indicated (09/06/17 15:53) Blood Culture (09/06/17 15:53) Chest, Single Ap (09/06/17 15:53) Ecg Monitoring (09/06/17 15:53) Iv Access Insert/Monitor (09/06/17 15:53) Oximetry (09/06/17 15:53) Oxygen Administration (09/06/17 15:53) Acetaminophen (Tylenol) (09/06/17 16:00) Electrocardiogram (09/06/17 ) Uric Acid (09/06/17 16:20) Labs Laboratory Tests Test 09/06/17 16:20 09/06/17 16:35 White Blood Count 6.3 TH/MM3 Red Blood Count 2.92 MIL/MM3 Hemoglobin 9.9 GM/DL Hematocrit 29.7 % Mean Corpuscular Volume 101.9 FL Mean Corpuscular Hemoglobin 33.8 PG Mean Corpuscular Hemoglobin Concent 33.1 % Red Cell Distribution Width 17.2 % Platelet Count 164 TH/MM3 Mean Platelet Volume 9.0 FL Neutrophils (%) (Auto) 79.8 % Lymphocytes (%) (Auto) 8.9 % Monocytes (%) (Auto) 5.2 % Eosinophils (%) (Auto) 5.6 % Basophils (%) (Auto) 0.5 % Neutrophils # (Auto) 5.1 TH/MM3 Lymphocytes # (Auto) 0.6 TH/MM3 Monocytes # (Auto) 0.3 TH/MM3 Eosinophils # (Auto) 0.4 TH/MM3 Basophils # (Auto) 0.0 TH/MM3 CBC Comment AUTO DIFF Differential Comment AUTO DIFF CONFIRMED Prothrombin Time 11.0 SEC Prothromb Time International Ratio 1.1 RATIO Activated Partial Thromboplast Time 20.3 SEC Blood Urea Nitrogen 22 MG/DL Creatinine 1.25 MG/DL Random Glucose 77 MG/DL Total Protein 9.0 GM/DL Albumin 2.1 GM/DL Calcium Level 7.6 MG/DL Phosphorus Level 3.4 MG/DL Uric Acid 5.5 MG/DL Alkaline Phosphatase 112 U/L Aspartate Amino Transf (AST/SGOT) 58 U/L Alanine Aminotransferase (ALT/SGPT) 36 U/L Total Bilirubin 0.5 MG/DL Sodium Level 135 MEQ/L Potassium Level 4.7 MEQ/L Chloride Level 101 MEQ/L Carbon Dioxide Level 30.5 MEQ/L Anion Gap 4 MEQ/L Estimat Glomerular Filtration Rate 73 ML/MIN Lactic Acid Level 0.8 mmol/L Urine Color LIGHT-YELLOW Urine Turbidity CLEAR Urine pH 5.5 Urine Specific [place] 1.018 Urine Protein 30 mg/dL Urine Glucose (UA) NEG mg/dL Urine Ketones NEG mg/dL Urine Occult Blood TRACE Urine Nitrite NEG Urine Bilirubin NEG Urine Urobilinogen LESS THAN 2.0 MG/DL Urine Leukocyte Esterase NEG Urine RBC 2 /hpf Microscopic Urinalysis Comment CATH-CULT NOT IND MDM Supervised Visit with JASSI: Yes Narrative Course I, Dr. Brink, have reviewed the advance practice practitioner's documentation and am in agreement, met with the patient face to face, made the diagnosis, and the medical decision making was done by me. *My assessment and Findings: This patient had a temp of 101 today. He is a chemotherapy patient so was sent to the ER. However he feels well. He has no idea where the headache might come from. He denies respiratory or GI symptoms. Full workup was done here. He does not look septic nor toxic. He did not have a fever here. His white count is not elevated and he has a normal lactate and clean urine and normal chest x-ray. I think he is stable for outpatient follow-up. He will monitor his temps and if they remain elevated will get a recheck. Diagnosis Primary Impression: Fever Qualified Codes: R50.9 - Fever, unspecified Additional Impressions: History of chemotherapy Abnormal chest xray Referrals: Oncologist Primary Care Physician Additional Instruction: Recommend follow up with a chest xray in 1 week as you had an abnormal finding on chest xray. Condition: Stable Tino Brink MD Sep 06, 2017 18:45
--- NOTE | 2017-09-06 23:30 | EKG ---
Date Performed: 09/06/2017 Time Performed: 16:11:38 PTAGE: 56 years EKG: Sinus rhythm WITH FIRST DEGREE AV BLOCK POSSIBLE LEFT ATRIAL ENLARGEMENT MODERATE T-WAVE ABNORMALITY, CONSIDER LA TERAL ISCHEMIA ABNORMAL ECG PREVIOUS TRACING : 07/09/2017 18.03 Compared to previous tracing, QTc now normal DOCTOR: Santiago Vargas Interpretating Date/Time 09/06/2017 23:30:20
== END 2017-09-06 19:04 | disposition home or self-care (01) ==
LOC: NEPC 15:28
DX: C90.00 Multiple myeloma not having achieved remission (principal); R91.8 Other nonspecific abnormal finding of lung field; R53.1 Weakness; E78.00 Pure hypercholesterolemia, unspecified; I11.0 Hypertensive heart disease with heart failure; I50.9 Heart failure, unspecified
CPT/HCPCS: 71045; 80053; 81001; 83605; 84100; 84550; 85025; 85610; 85730; 87040; 93005

== ENCOUNTER 2017-09-24 07:31 | Emergency (ER) | payer OTHER ==
[~2017-09-24] VITALS: Ht 162.6 cm; Wt 75.0 kg
[2017-09-24 07:37] VITALS: BP 105/58; PULSE 67; RESP 14; TEMP 99.5; O2SAT 96
[2017-09-24] MEDS ORDERED: SODIUM CHLORID 0.9% 500 ML INJ 500 ML IV ONE ×2 (08:00→09:45)
[2017-09-24] MEDS ORDERED: ACETAMINOPHEN 325 MG TAB PO ONE (08:00)
--- NOTE | 2017-09-24 08:08 | PD ---
HPI Chief Complaint: Fever Time Seen by Provider: 07:43 Travel History International Travel<30 days: No Contact w/Intl Traveler<30days: No Traveled to known affect area: No History of Present Illness HPI The patient is a 56-year-old -[place] male who presents to the emergency department for fever. The patient has a history of multiple myeloma and recently finished radiation therapy for the school on Saturday, is also on oral chemotherapy, he thinks his last dose was . The patient is followed by his oncologist, Dr. Alston. The patient states he developed fatigue yesterday with a fever as high as 101.6. He did not take any over-the- counter medications for the fever, does note it has waxed and waned since yesterday. He does complain of generalized lethargy with decreased energy and difficulty ambulating secondary to decrease in energy. The patient denies any cough, headache, sore throat, nausea, vomiting, diarrhea, abdominal pain, or dysuria. He does complain of diffuse body aches with lethargy. The patient states he had a similar fever approximately 1 month ago was diagnosed with pneumonia. He also has a history of possible chemotherapy-induced fever. He does note intermittent neck spasms and mid thoracic spasms which are intermittent. Symptoms are moderate. The patient's primary physician is Dr. Kevin Joe. PFSH Past Medical History Hx Anticoagulant Therapy: Yes (ASA) Blood Disorders: No Heart Rhythm Problems: No Cancer: Yes (multiple myeloma ) Cardiovascular Problems: Yes High Cholesterol: Yes Chemotherapy: Yes (FRIDAYS) Chest Pain: Yes (X1 MONTH AGO) Congestive Heart Failure: Yes Cerebrovascular Accident: No Diabetes: No Diminished Hearing: No Endocrine: No Gastrointestinal Disorders: No Genitourinary: No Headaches: No Hypertension: Yes Immune Disorder: No Implanted Vascular Access Dvce: No Medical other: Yes ([place]) Musculoskeletal: No Neurologic: No Psychiatric: No Reproductive: No Respiratory: Yes Migraines: Yes Radiation Therapy: Yes (just finished) Seizures: No Past Surgical History Abdominal Surgery: No Cardiac Surgery: No Ear Surgery: No Endocrine Surgery: No Eye Surgery: No Genitourinary Surgery: No Gynecologic Surgery: No Joint Replacement: Yes (R KNEE SURGERY ) Neurologic Surgery: No Oral Surgery: Yes (wisdom teeth removed) Thoracic Surgery: No Other Surgery: Yes (right knee surgery) Social History Alcohol Use: No Tobacco Use: No Substance Use: No Allergies-Medications (Allergen,Severity, Reaction): Coded Allergies: No Known Allergies (Unverified Allergy, Unknown, 07/09/17) Reported Meds & Prescriptions Reported Meds & Active Scripts Active Dexamethasone 4 Mg Tab 4 Mg PO Q12HR Zofran Odt (Ondansetron Odt) 4 Mg Tab 4 Mg SL Q6HR PRN Bentyl (Dicyclomine HCl) 10 Mg Cap 10 Mg PO QID Percocet (Oxycodone-Acetaminophen) 5-325 mg Tab 1 Tab PO Q4H PRN Verdrocet 2.5-325 mg (Hydrocodone-Acetaminophen) 2.5 Mg-325 Mg Tab 1 Tab PO Q6HR Aspirin Low Dose (Aspirin) 81 Mg Chew 162 Mg CHEW DAILY Atorvastatin (Atorvastatin Calcium) 40 Mg Tab 40 Mg PO HS Spironolactone 25 Mg Tab 25 Mg PO DAILY Lisinopril 10 Mg Tab 10 Mg PO DAILY Furosemide 20 Mg Tab 20 Mg PO BID Carvedilol 6.25 Mg Tab 6.25 Mg PO BID Reported Revlimid (Lenalidomide) 2.5 Mg Capsule Review of Systems Except as stated in HPI: all other systems reviewed are Neg General / Constitutional: Positive: Fever HENT: Positive: Neck Pain, No: Headaches Cardiovascular: No: Chest Pain or Discomfort Respiratory: No: Cough, Shortness of Breath Gastrointestinal: No: Nausea, Vomiting, Diarrhea, Abdominal Pain Genitourinary: No: Dysuria Musculoskeletal: Positive: Myalgias, Weakness, Pain Skin: Positive Other (Chronic skin changes to the head secondary to radiation as well as the right elbow, right hand, and knees which are chronic) Neurologic: No: Dizziness Physical Exam Narrative GENERAL: Awake, alert, nontoxic-appearing 56-year-old male who appears his stated age and is in no acute respiratory distress. SKIN: Focused skin assessment warm/dry. Skin changes noted on the head and circumferential fashion. Thickened skin noted over the right elbow, right hand , as well as anterior aspect of the knees bilaterally. HEAD: Atraumatic. Normocephalic. EYES: Pupils equal and round. No scleral icterus. No injection or drainage. ENT: No nasal bleeding or discharge. Mucous membranes pink and moist. NECK: Trachea midline. No JVD. CARDIOVASCULAR: Regular rate and rhythm. No murmur appreciated. RESPIRATORY: No accessory muscle use. Clear to auscultation. Breath sounds equal bilaterally. GASTROINTESTINAL: Abdomen soft, non-tender, nondistended. No rebound tenderness. MUSCULOSKELETAL: No obvious deformities. No clubbing. No cyanosis. No edema. No visible ulcerations or sores on the bottom of the feet or between the toes. Back: No tenderness over the thoracic or lumbar vertebrae. NEUROLOGICAL: Awake and alert. No obvious cranial nerve deficits. Motor grossly within normal limits. Normal speech. PSYCHIATRIC: Appropriate mood and affect; insight and judgment normal. Data Data Last Documented VS Vital Signs Date Time Temp Pulse Resp B/P (MAP) Pulse Ox O2 Delivery O2 Flow Rate FiO2 09/24/17 08:16 16 97 Room Air 09/24/17 07:37 99.5 67 105/58 (74) Orders Orders Complete Blood Count With Diff (09/24/17 07:59) Comprehensive Metabolic Panel (09/24/17 07:59) Urinalysis - C+S If Indicated (09/24/17 07:59) Influenzae A/B Antigen (09/24/17 07:59) Blood Culture (09/24/17 07:59) Chest, Single Ap (09/24/17 07:59) Blood Glucose (09/24/17 07:59) Ecg Monitoring (09/24/17 07:59) Iv Access Insert/Monitor (09/24/17 07:59) Oximetry (09/24/17 07:59) Oxygen Administration (09/24/17 07:59) Acetaminophen (Tylenol) (09/24/17 08:00) Sodium Chlorid 0.9% 500 Ml Inj (Ns 500 M (09/24/17 08:00) Lactic Acid (09/24/17 07:59) Levofloxacin 500 Mg Premix Inj (Levaquin (09/24/17 09:30) Sodium Chlorid 0.9% 500 Ml Inj (Ns 500 M (09/24/17 09:45) Ed Discharge Order (09/24/17 09:56) Labs Laboratory Tests Test 09/24/17 08:10 09/24/17 08:20 White Blood Count 7.7 TH/MM3 Red Blood Count 3.13 MIL/MM3 Hemoglobin 10.8 GM/DL Hematocrit 31.0 % Mean Corpuscular Volume 98.9 FL Mean Corpuscular Hemoglobin 34.4 PG Mean Corpuscular Hemoglobin Concent 34.8 % Red Cell Distribution Width 16.9 % Platelet Count 235 TH/MM3 Mean Platelet Volume 7.6 FL Neutrophils (%) (Auto) 69.5 % Lymphocytes (%) (Auto) 12.3 % Monocytes (%) (Auto) 13.6 % Eosinophils (%) (Auto) 3.8 % Basophils (%) (Auto) 0.8 % Neutrophils # (Auto) 5.3 TH/MM3 Lymphocytes # (Auto) 0.9 TH/MM3 Monocytes # (Auto) 1.0 TH/MM3 Eosinophils # (Auto) 0.3 TH/MM3 Basophils # (Auto) 0.1 TH/MM3 CBC Comment DIFF FINAL Differential Comment Blood Urea Nitrogen 27 MG/DL Creatinine 1.67 MG/DL Random Glucose 75 MG/DL Total Protein 7.4 GM/DL Albumin 2.3 GM/DL Calcium Level 7.6 MG/DL Alkaline Phosphatase 75 U/L Aspartate Amino Transf (AST/SGOT) 16 U/L Alanine Aminotransferase (ALT/SGPT) 19 U/L Total Bilirubin 1.0 MG/DL Sodium Level 135 MEQ/L Potassium Level 3.9 MEQ/L Chloride Level 97 MEQ/L Carbon Dioxide Level 32.6 MEQ/L Anion Gap 5 MEQ/L Estimat Glomerular Filtration Rate 52 ML/MIN Lactic Acid Level 1.3 mmol/L Urine Color YELLOW Urine Turbidity CLEAR Urine pH 7.0 Urine Specific [place] 1.015 Urine Protein 30 mg/dL Urine Glucose (UA) NEG mg/dL Urine Ketones NEG mg/dL Urine Occult Blood TRACE Urine Nitrite NEG Urine Bilirubin NEG Urine Urobilinogen 2.0 MG/DL Urine Leukocyte Esterase NEG Urine RBC 2 /hpf Urine WBC LESS THAN 1 /hpf Microscopic Urinalysis Comment CATH-CULT NOT IND MDM Medical Decision Making Medical Screen Exam Complete: Yes Emergency Medical Condition: Yes Medical Record Reviewed: Yes Interpretation(s) Last Impressions Chest X-Ray 09/24/17 0759 Signed Impressions: Service Date/Time: Sunday, September 24, 2017 08:11 - CONCLUSION: Patchy basilar airspace disease. Aidan Luevano MD Laboratory Tests Test 09/24/17 08:10 09/24/17 08:20 White Blood Count 7.7 TH/MM3 Red Blood Count 3.13 MIL/MM3 Hemoglobin 10.8 GM/DL Hematocrit 31.0 % Mean Corpuscular Volume 98.9 FL Mean Corpuscular Hemoglobin 34.4 PG Mean Corpuscular Hemoglobin Concent 34.8 % Red Cell Distribution Width 16.9 % Platelet Count 235 TH/MM3 Mean Platelet Volume 7.6 FL Neutrophils (%) (Auto) 69.5 % Lymphocytes (%) (Auto) 12.3 % Monocytes (%) (Auto) 13.6 % Eosinophils (%) (Auto) 3.8 % Basophils (%) (Auto) 0.8 % Neutrophils # (Auto) 5.3 TH/MM3 Lymphocytes # (Auto) 0.9 TH/MM3 Monocytes # (Auto) 1.0 TH/MM3 Eosinophils # (Auto) 0.3 TH/MM3 Basophils # (Auto) 0.1 TH/MM3 CBC Comment DIFF FINAL Differential Comment Blood Urea Nitrogen 27 MG/DL Creatinine 1.67 MG/DL Random Glucose 75 MG/DL Total Protein 7.4 GM/DL Albumin 2.3 GM/DL Calcium Level 7.6 MG/DL Alkaline Phosphatase 75 U/L Aspartate Amino Transf (AST/SGOT) 16 U/L Alanine Aminotransferase (ALT/SGPT) 19 U/L Total Bilirubin 1.0 MG/DL Sodium Level 135 MEQ/L Potassium Level 3.9 MEQ/L Chloride Level 97 MEQ/L Carbon Dioxide Level 32.6 MEQ/L Anion Gap 5 MEQ/L Estimat Glomerular Filtration Rate 52 ML/MIN Lactic Acid Level 1.3 mmol/L Urine Color YELLOW Urine Turbidity CLEAR Urine pH 7.0 Urine Specific [place] 1.015 Urine Protein 30 mg/dL Urine Glucose (UA) NEG mg/dL Urine Ketones NEG mg/dL Urine Occult Blood TRACE Urine Nitrite NEG Urine Bilirubin NEG Urine Urobilinogen 2.0 MG/DL Urine Leukocyte Esterase NEG Urine RBC 2 /hpf Urine WBC LESS THAN 1 /hpf Microscopic Urinalysis Comment CATH-CULT NOT IND Date/Time Source Procedure Growth Status 09/24/17 08:15 Blood Peripheral Aerobic Blood Culture Pending Received 09/24/17 08:15 Blood Peripheral Anaerobic Blood Culture Pending Received 09/24/17 08:10 Blood Peripheral Aerobic Blood Culture Pending Received 09/24/17 08:10 Blood Peripheral Anaerobic Blood Culture Pending Received 09/24/17 08:45 Nasal Aspirate Influenza Types A,B Antigen (JENNA) - Final NEGATIVE FOR FLU A AND B ANTIGEN.... Complete Differential Diagnosis Differential diagnosis includes neutropenic fever, chemotherapy-induced fever, pneumonia, UTI, influenza, symptomatic anemia, bacteremia, septicemia, sepsis. Narrative Course IV was established, labs are drawn and sent, and the patient was placed on cardiac telemetry monitoring and continuous pulse oximetry monitoring. Lactic acid and blood culture were sent to lab. The patient received Tylenol 650 mg orally and normal saline 500 cc bolus. UA was sent to lab. Chest x-ray was obtained. UA is unremarkable. White count is normal. Lactic acid is normal. BUN and creatinine are slightly elevated, patient was administered another 500 cc bolus. I discussed the patient with Dr. Alston regarding questionable pneumonia on x-ray, however, x-ray does appear to be similar to previous x-ray which was abnormal 1 month ago. After discussion with Dr. Alston it was agreed the patient would be placed on Levaquin and he would hold his Revlimid. Influenza screen is negative. Patient stable for outpatient follow-up. He is advised to call his oncologist today for follow-up appointment. Diagnosis Primary Impression: Fever Qualified Codes: R50.9 - Fever, unspecified Additional Impression: Multiple myeloma Qualified Codes: C90.00 - Multiple myeloma not having achieved remission Patient Instructions: General Instructions Additional Instructions: Hold Revlimid per Dr. Alston orders. Levaquin as directed. Please provide the patient a copy of his x-ray results, lab results, and fluid results at discharge. Call your oncologist today for follow-up appointment. Return if symptoms worsen or progress. Med/Other Pt SpecificInfo: Prescription(s) given, Med Stopped (Hold Revlimid ) Scripts Levofloxacin (Levaquin) 500 Mg Tablet 500 MG PO DAILY for Infection for 7 Days, #7 TAB 0 Refills Prov: Jordan Gonzales MD 09/24/17 Disposition: DISCHARGE HOME Condition: Stable Jordan Gonzales MD September 24, 2017 08:08
[2017-09-24 08:16] VITALS: RESP 16; O2SAT 97
[2017-09-24 08:25] LABS: AUTOMATED NEUTROPHIL # 5.3 TH/MM3 (1.8-7.7); BASOPHIL # 0.1 TH/MM3 (0-0.2); BASOPHIL % 0.8 % (0.0-2.0); EOSINOPHIL # 0.3 TH/MM3 (0-0.4); EOSINOPHIL % 3.8 % (0.0-4.0); HEMOGLOBIN 10.8 GM/DL (13.0-17.0); LYMPH % 12.3 % (9.0-44.0); LYMPHOCYTE # 0.9 TH/MM3 (1.0-4.8); MEAN CELL VOLUME 98.9 FL (80.0-100.0); MEAN CORPUSCULAR HEMOGLOBIN 34.4 PG (27.0-34.0); MEAN CORPUSCULAR HGB CONC 34.8 % (32.0-36.0); MEAN PLATELET VOLUME 7.6 FL (7.0-11.0); MONO % 13.6 % (0.0-8.0); NEUT % 69.5 % (16.0-70.0); PLATELET COUNT 235 TH/MM3 (150-450); RED BLOOD COUNT 3.13 MIL/MM3 (4.50-5.90); RED CELL DISTRIBUTION WIDTH 16.9 % (11.6-17.2); WHITE BLOOD COUNT 7.7 TH/MM3 (4.0-11.0)
[2017-09-24 08:40] LABS: ALBUMIN 2.3 GM/DL (3.4-5.0); ALT (GPT) 19 U/L (12-78); AST (GOT) 16 U/L (15-37); BICARBONATE 32.6 MEQ/L (21.0-32.0); BLOOD UREA NITROGEN 27 MG/DL (7-18); CALCIUM 7.6 MG/DL (8.5-10.1); CHLORIDE 97 MEQ/L (98-107); CREATININE 1.67 MG/DL (0.60-1.30); GLOMERULAR FILTRATION RATE 52 ML/MIN (>89); GLUCOSE,RANDOM 75 MG/DL (74-106); SODIUM (NA) 135 MEQ/L (136-145)
[2017-09-24 08:42] LABS: ALKALINE PHOSPHATASE 75 U/L (45-117); TOTAL PROTEIN 7.4 GM/DL (6.4-8.2)
[2017-09-24 09:03] LABS: BILIRUBIN, URINE NEG (NEG); BLOOD, URINE TRACE (NEG); GLUCOSE,URINE NEG (NEG); KETONE, URINE NEG (NEG); NITRITE,URINE NEG (NEG); URINE COLOR YELLOW (YELLW/STRAW); URINE LEUKOCYTE ESTERASE NEG (NEG)
--- NOTE | 2017-09-24 09:04 | RADRPT ---
EXAM DATE/TIME: 09/24/2017 08:11 [facility] COMPARISON: CHEST SINGLE AP, September 06, 2017, 16:11. INDICATIONS : Fever and chest pain. MEDICAL HISTORY : Hypertension. Carcinoma, bone. SURGICAL HISTORY : None. ENCOUNTER: Initial ACUITY: 3 days PAIN SCORE: 4/10 LOCATION: Bilateral chest FINDINGS: There is patchy right middle lobe airspace disease silhouetting the right heart border and minimal pa tchy left basilar airspace disease suspected. The right upper lung opacity seen previously is no long er visualized. The osseous structures are intact. CONCLUSION: Patchy basilar airspace disease. Aidan Luevano MD on September 24, 2017 at 9:01 Board Certified Radiologist. This report was verified electronically.
[2017-09-24] MEDS ORDERED: LENA2.5C PO ×2 (09:30)
[2017-09-24] MEDS ORDERED: LEVOFLOXACIN 500 MG PREMIX INJ 100 ML IV ONE (09:30)
[2017-09-24] MEDS ORDERED: LEVA500T33 PO (10:01)
[2017-09-25] MEDS ORDERED: RANI300T PO ×2 (09:01)
== END 2017-09-24 10:56 | disposition home or self-care (01) ==
LOC: NEPC 07:31
DX: C90.00 Multiple myeloma not having achieved remission (principal); R50.9 Fever, unspecified; I11.0 Hypertensive heart disease with heart failure; I50.9 Heart failure, unspecified; E78.00 Pure hypercholesterolemia, unspecified
CPT/HCPCS: 71045; 80053; 81001; 83605; 85025; 87040; 87804; 96361; 96365; 99284; J1956; J7040

== ENCOUNTER 2017-09-25 07:44 | Inpatient (IN) | payer OTHER ==
[2017-09-25] VITALS (10 sets, daily range): BP systolic 96–127; BP diastolic 55–77; PULSE 46–72; RESP 15–22; TEMP 97.5–99.3; O2SAT 93–99
[~2017-09-25] VITALS: Ht 162.6 cm; Wt 72.1 kg
[~2017-09-25 07:44] MED LIST changes: +LENA2.5C PO; +LEVA500T33 PO
[2017-09-25] MEDS ORDERED: oxyCODONE/ACETAMINOPHEN 5 MG/325 MG TAB PO ONE (08:30)
--- NOTE | 2017-09-25 08:44 | RADRPT ---
EXAM DATE/TIME: 09/25/2017 08:37 [facility] COMPARISON: CHEST PA & LAT, July 09, 2017, 16:37. INDICATIONS : Short of breath with fatigue, right side chest pains.. MEDICAL HISTORY : Congestive heart failure. SURGICAL HISTORY : None. ENCOUNTER: Initial ACUITY: 2 days PAIN SCORE: 0/10 LOCATION: Right chest FINDINGS: The heart is enlarged. Minimal parenchymal changes right base new from the comparison study. Possib le early infiltrate. No failure. No effusion. CONCLUSION: Peribronchial thickening, possible early infiltrate right base. Azam Feldman MD FACR on September 25, 2017 at 8:40 Board Certified Radiologist. This report was verified electronically.
[2017-09-25 08:47] LABS: HEMATOCRIT 30.3 % (39.0-51.0); HEMOGLOBIN 10.3 GM/DL (13.0-17.0); MEAN CELL VOLUME 98.6 FL (80.0-100.0); MEAN CORPUSCULAR HEMOGLOBIN 33.4 PG (27.0-34.0); MEAN CORPUSCULAR HGB CONC 33.9 % (32.0-36.0); MEAN PLATELET VOLUME 7.5 FL (7.0-11.0); PLATELET COUNT 239 TH/MM3 (150-450); RED BLOOD COUNT 3.07 MIL/MM3 (4.50-5.90); RED CELL DISTRIBUTION WIDTH 16.6 % (11.6-17.2); WHITE BLOOD COUNT 6.6 TH/MM3 (4.0-11.0)
[2017-09-25 08:55] LABS: INTERNATIONAL NORMALIZED RATIO 1.3 RATIO; PROTHROMBIN TIME - PATIENT 12.9 SEC (9.8-11.6)
[2017-09-25] MEDS ORDERED: RANI300T PO ×2 (09:01)
[2017-09-25 09:03] LABS: ALBUMIN 2.1 GM/DL (3.4-5.0); ALT (GPT) 19 U/L (12-78); AST (GOT) 19 U/L (15-37); BICARBONATE 25.2 MEQ/L (21.0-32.0); BLOOD UREA NITROGEN 21 MG/DL (7-18); CALCIUM 7.6 MG/DL (8.5-10.1); CHLORIDE 100 MEQ/L (98-107); CREATININE 1.66 MG/DL (0.60-1.30); GLOMERULAR FILTRATION RATE 53 ML/MIN (>89); GLUCOSE,RANDOM 91 MG/DL (74-106); MAGNESIUM 2.3 MG/DL (1.5-2.5); SODIUM (NA) 135 MEQ/L (136-145)
[2017-09-25 09:08] LABS: ALKALINE PHOSPHATASE 66 U/L (45-117); TOTAL BILIRUBIN ADULT 0.9 MG/DL (0.2-1.0); TOTAL PROTEIN 7.1 GM/DL (6.4-8.2); TROPONIN I 0.02 NG/ML (0.02-0.05)
[2017-09-25 09:30] LABS: BANDS 6 % (0-6); BASOPHILS 1 % (0-2); LYMPHOCYTES 13 % (9-44); MONOCYTES 14 % (0-8); NEUTROPHIL # MANUAL DIFF 4.6 TH/MM3 (1.8-7.7); POLYS (SEG NEUTROPHILS) 63 % (16-70)
[2017-09-25 09:31] LABS: OVALOCYTES 1+ (NORMAL)
--- NOTE | 2017-09-25 10:42 | PD ---
HPI Chief Complaint: Chest Pain Time Seen by Provider: 07:52 Travel History International Travel<30 days: No Contact w/Intl Traveler<30days: No Traveled to known affect area: No History of Present Illness HPI Is a 56-year-old man presents emerged from complaining of chest pain upper back pain and lower back pain, ongoing for the past couple days. He has had fevers up to 102.6 as well. Is a history of multiple myeloma, is on a combination of Decadron, and injection, as well as oral chemotherapy. He was seen in the emergency department in the past 24-48 hours with fever, was started on antibiotics, and was instructed to hold his oral chemotherapy which is done. Came back in today because he is having worsening pain. Still having fevers. No real cough. Otherwise had been feeling generally well. Symptoms been constant, persistent since onset. No radiation of the pain. 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 Alston, on chemotherapy, radiation to the scalp, known T9 vertebral body metastatic disease Social History Alcohol Use: No Tobacco Use: No Allergies-Medications (Allergen,Severity, Reaction): Coded Allergies: No Known Allergies (Unverified Allergy, Unknown, 07/09/17) Reported Meds & Prescriptions Reported Meds & Active Scripts Active Levaquin (Levofloxacin) 500 Mg Tablet 500 Mg PO DAILY 7 Days Dexamethasone 4 Mg Tab 4 Mg PO Q12HR Zofran Odt (Ondansetron Odt) 4 Mg Tab 4 Mg SL Q6HR PRN Bentyl (Dicyclomine HCl) 10 Mg Cap 10 Mg PO QID Percocet (Oxycodone-Acetaminophen) 5-325 mg Tab 1 Tab PO Q4H PRN Verdrocet 2.5-325 mg (Hydrocodone-Acetaminophen) 2.5 Mg-325 Mg Tab 1 Tab PO Q6HR Aspirin Low Dose (Aspirin) 81 Mg Chew 162 Mg CHEW DAILY Atorvastatin (Atorvastatin Calcium) 40 Mg Tab 40 Mg PO HS Spironolactone 25 Mg Tab 25 Mg PO DAILY Lisinopril 10 Mg Tab 10 Mg PO DAILY Furosemide 20 Mg Tab 20 Mg PO BID Carvedilol 6.25 Mg Tab 6.25 Mg PO BID Reported Ranitidine (Ranitidine HCl) 300 Mg Tab 300 Mg PO HS Revlimid (Lenalidomide) 2.5 Mg Capsule 15 Mg PO DAILY Review of Systems Except as stated in HPI: all other systems reviewed are Neg Physical Exam Narrative GENERAL: Well-appearing 56-year-old man, generally nontoxic, no acute distress. SKIN: Focused skin assessment warm/dry. HEAD: Atraumatic. Normocephalic. Dark discoloration to the scalp. EYES: Pupils equal and round. No scleral icterus. No injection or drainage. ENT: No nasal bleeding or discharge. Mucous membranes pink and moist. NECK: Trachea midline. No JVD. CARDIOVASCULAR: Regular rate and rhythm. No murmur appreciated. RESPIRATORY: No accessory muscle use. Clear to auscultation. Breath sounds equal bilaterally. GASTROINTESTINAL: Abdomen soft, non-tender, nondistended. Hepatic and splenic margins not palpable. MUSCULOSKELETAL: No obvious deformities. No edema. Back exam is unremarkable. No rashes or lesions. NEUROLOGICAL: Awake and alert. No obvious cranial nerve deficits. Motor grossly within normal limits. Normal speech. PSYCHIATRIC: Appropriate mood and affect; insight and judgment normal. Data Data Last Documented VS Vital Signs Date Time Temp Pulse Resp B/P (MAP) Pulse Ox O2 Delivery O2 Flow Rate FiO2 09/25/17 08:21 96 Nasal Cannula 2.00 09/25/17 08:00 62 22 96/55 (69) 09/25/17 07:46 99.3 Orders Orders Electrocardiogram (09/25/17 08:11) B-Type Natriuretic Peptide (09/25/17 08:11) Complete Blood Count With Diff (09/25/17 08:11) Comprehensive Metabolic Panel (09/25/17 08:11) Magnesium (Mg) (09/25/17 08:11) Prothrombin Time / Inr (Pt) (09/25/17 08:11) Act Partial Throm Time (Ptt) (09/25/17 08:11) Troponin I (09/25/17 08:11) Ecg Monitoring (09/25/17 08:11) Iv Access Insert/Monitor (09/25/17 08:11) Oximetry (09/25/17 08:11) Oxygen Administration (09/25/17 08:11) Sodium Chloride 0.9% Flush (Ns Flush) (09/25/17 08:15) Chest, Pa & Lat (09/25/17 08:11) Oxycodone-Acetamin 5-325 Mg (Percocet (09/25/17 08:30) Ct Thorax/ Chest Wo Iv Contras (09/25/17 ) Ct Thor Spine W/O Contrast (09/25/17 ) Ceftriaxone Inj (Rocephin Inj) (09/25/17 10:45) Azithromycin Inj (Zithromax Inj) (09/25/17 10:45) Consult Medical Oncology (09/25/17 ) Admit To Inpatient (09/25/17 ) Vital Signs (Adult) ISAIAH.Q4H (09/25/17 10:55) Activity Oob With Assistance (09/25/17 10:55) Inpatient Certification (09/25/17 ) Basic Metabolic Panel (Bmp) (09/26/17 06:00) Admit Order (Ed Use Only) (09/25/17 ) Labs Laboratory Tests Test 09/25/17 08:27 White Blood Count 6.6 TH/MM3 Red Blood Count 3.07 MIL/MM3 Hemoglobin 10.3 GM/DL Hematocrit 30.3 % Mean Corpuscular Volume 98.6 FL Mean Corpuscular Hemoglobin 33.4 PG Mean Corpuscular Hemoglobin Concent 33.9 % Red Cell Distribution Width 16.6 % Platelet Count 239 TH/MM3 Mean Platelet Volume 7.5 FL CBC Comment AUTO DIFF Differential Total Cells Counted 100 Neutrophils % (Manual) 63 % Band Neutrophils % 6 % Lymphocytes % 13 % Monocytes % 14 % Eosinophils % 3 % Basophils % 1 % Neutrophils # (Manual) 4.6 TH/MM3 Differential Comment FINAL DIFF MANUAL Platelet Estimate NORMAL Platelet Morphology Comment NORMAL Ovalocytes 1+ Prothrombin Time 12.9 SEC Prothromb Time International Ratio 1.3 RATIO Activated Partial Thromboplast Time 31.7 SEC Blood Urea Nitrogen 21 MG/DL Creatinine 1.66 MG/DL Random Glucose 91 MG/DL Total Protein 7.1 GM/DL Albumin 2.1 GM/DL Calcium Level 7.6 MG/DL Magnesium Level 2.3 MG/DL Alkaline Phosphatase 66 U/L Aspartate Amino Transf (AST/SGOT) 19 U/L Alanine Aminotransferase (ALT/SGPT) 19 U/L Total Bilirubin 0.9 MG/DL Sodium Level 135 MEQ/L Potassium Level 4.1 MEQ/L Chloride Level 100 MEQ/L Carbon Dioxide Level 25.2 MEQ/L Anion Gap 10 MEQ/L Estimat Glomerular Filtration Rate 53 ML/MIN Troponin I 0.02 NG/ML B-Type Natriuretic Peptide 80 PG/ML MDM Medical Decision Making Medical Screen Exam Complete: Yes Emergency Medical Condition: Yes Interpretation(s) My review of EKG: Normal sinus rhythm at a rate of 64, first-degree AV block with RI interval 237, 2018. LABS: CBC is remarkable for mild anemia. CMP is unremarkable, mild elevated BUN and creatinine. Troponin negative BNP normal INR 1.3 Chest x-ray: Peribronchial thickening, possibly early infiltrate in the right base. Differential Diagnosis Compression fracture, metastatic lesions, pneumonia, fever from chemotherapy, other Narrative Course Medical decision making 56 [place] man presents emerged department with chest and back pain, fever, concern for pneumonia versus possible compression fracture or symptoms for known bony metastatic disease. Patient continues to have fevers up to 102.3. Chest x-ray shows possible new infiltrate on the right side of the chest where his pain is mostly located. He has a known T9 metastatic lesion is more in the left posterior aspect of the vertebrae, possibly related. I spoke with Dr. Alston he relates that he may be responding well to the chemotherapy but as a result have worsening bony instability and risk for compression fracture. Will get CT chest, CT thoracic spine. IV antibiotics. Admission to medicine for further evaluation. Diagnosis Primary Impression: Pneumonia Additional Impression: Multiple myeloma Admitting Information Admitting Physician Requests: Admit Charli Abdi MD September 25, 2017 10:42
[2017-09-25] MEDS ORDERED: cefTRIAXone INJ 1,000 MG in SODIUM CHLORIDE 0.9% INJ 100 ML IV ONE (10:45)
[2017-09-25] MEDS ORDERED: AZITHROMYCIN INJ 500 MG in SODIUM CHLOR 0.9% 250 ML INJ 250 ML IV ONE (10:45)
--- NOTE | 2017-09-25 11:14 | RADRPT ---
EXAM DATE/TIME: 09/25/2017 10:52 CORRECTION Corrected on: September 25, 2017; [facility] COMPARISON: No previous studies available for comparison. INDICATIONS : Chest and upper back pain, diagnosed with pneumonia yesterday RADIATION DOSE: 7.55 CTDIvol (mGy) MEDICAL HISTORY : Hypertension. Congestive heart failure. Carcinoma, bone. SURGICAL HISTORY : None. ENCOUNTER: Initial ACUITY: 3 days PAIN SCALE: 10/10 LOCATION: upper chest TECHNIQUE: Volumetric scanning of the chest was performed. Using automated exposure control and adjustment of t he mA and/or kV according to patient size, radiation dose was kept as low as reasonably achievable to obtain optimal diagnostic quality images. DICOM format image data is available electronically for r eview and comparison. Follow-up recommendations for detected pulmonary nodules are based at a minimum on nodule size and pa tient risk factors according to Fleischner Society Guidelines. FINDINGS: Mild to moderate peribronchial thickening is present without alveolar consolidation. Most prominent right lower lobe. Trace pleural effusion right base Changes typical of myeloma are seen in the upper right ribs anteriorly. 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 No axillary adenopathy. No mediastinal adenopathy. Trace pericardial effusion. Upper abdominal con tents unremarkable. CONCLUSION: Mild to moderate peribronchial thickening without consolidation. Trace right pleural effusion. Azam Feldman MD FACR on September 25, 2017 at 11:09 Board Certified Radiologist. This report was verified electronically. Azam Feldman MD FACR on September 25, 2017 at 11:48 Board Certified Radiologist. This report was verified electronically.
[2017-09-25] MEDS ORDERED: ONDANSETRON ODT 4 MG TAB SL PRN (11:30)
--- NOTE | 2017-09-25 11:32 | HHI.HP ---
HPI Service [facility] Primary Care Physician Kevin Shultz M.D. Admission Diagnosis Pneumonia, chest pain Diagnoses: Chief Complaint: Weakness Travel History International Travel<30 Days: No Contact w/Intl Traveler <30 Da: No Traveled to Known Affected Are: No History of Present Illness 56-year-old black male being admitted for fever in immunocompromised patient. Patient was in his usual state of health until he presented to the emergency department yesterday for fevers. Was discharged home on Levaquin presumptively for possible pneumonia with no definitive source found. However his fevers persisted and began experiencing profound weakness, especially within his lower legs. Says he had a max temp at home of 102.6 last night. he also started having new onset anterior bilateral chest pain and bilateral upper back pain since yesterday. Says at worse his chest pain goes to a 10/10, worsens with exertion, eases with rest. Denies ever having been cardiac catheterized in the past. Denies having any tran shortness of breath. Says he can only take 1-10 steps at most and then felt extremely weak and thus decided come back to the emergency department. Denies any nausea vomiting diarrhea. Reports taking his dose of Levaquin yesterday that was prescribed to him. Denies having any worsening lower extremity edema. Review of Systems Except as stated in HPI: all other systems reviewed are Neg Past Family Social History Past Medical History Multiple myeloma -prior courses of radiation therapy and recent course of chemotherapy Congestive heart failure Allergies: Coded Allergies: No Known Allergies (Unverified Allergy, Unknown, 07/09/17) Family History No knowledge per patient Social History Denies smoking, denies drinking. Currently is employed. Physical Exam Vital Signs Vital Signs Date Time Temp Pulse Resp B/P (MAP) Pulse Ox O2 Delivery O2 Flow Rate FiO2 09/25/17 08:21 96 Nasal Cannula 2.00 09/25/17 08:00 62 22 96/55 (69) 97 Nasal Cannula 2.00 09/25/17 07:56 70 92 09/25/17 07:46 99.3 66 19 102/55 (71) 94 Physical Exam VS: afebrile GENERAL: Middle-aged black male, lying in bed, no acute distress, has his bedcovers soaked in sweat SKIN: Warm and dry. EYES: No scleral icterus. No injection or drainage. ENT: No nasal bleeding or discharge. Mucous membranes pink and moist. Protruding bulge noted on the patient's apical skull which he attributes to his cancer CARDIOVASCULAR: Regular rate and rhythm. no murmurs RESPIRATORY: No accessory muscle use. Clear to auscultation. Breath sounds equal bilaterally. GASTROINTESTINAL: Abdomen soft, non-tender, nondistended. Extremities: No clubbing, cyanosis, or edema. No obvious deformities. MUSCULOSKELETAL: I am unable to reproduce any thoracic tenderness to palpation nor any upper back tenderness to palpation, nor any spinal tenderness to palpation throughout the entire spine nor any CVA tenderness to palpation bilaterally. Has 3 out of 5 bilateral lower extremity strength on straight leg raise. 5 out of 5 proximal upper extremity strength bilaterally. No nuchal rigidity, intact chin to neck flexion. NEUROLOGICAL: Awake and alert. No obvious cranial nerve deficits. No facial droop nor slurred speech noted. PSYCHIATRIC: Appropriate mood and affect; insight and judgment normal. Laboratory Laboratory Tests Test 09/25/17 08:27 White Blood Count 6.6 Red Blood Count 3.07 Hemoglobin 10.3 Hematocrit 30.3 Mean Corpuscular Volume 98.6 Mean Corpuscular Hemoglobin 33.4 Mean Corpuscular Hemoglobin Concent 33.9 Red Cell Distribution Width 16.6 Platelet Count 239 Mean Platelet Volume 7.5 CBC Comment AUTO DIFF Differential Total Cells Counted 100 Neutrophils % (Manual) 63 Band Neutrophils % 6 Lymphocytes % 13 Monocytes % 14 Eosinophils % 3 Basophils % 1 Neutrophils # (Manual) 4.6 Differential Comment FINAL DIFF MANUAL Platelet Estimate NORMAL Platelet Morphology Comment NORMAL Ovalocytes 1+ Prothrombin Time 12.9 Prothromb Time International Ratio 1.3 Activated Partial Thromboplast Time 31.7 Blood Urea Nitrogen 21 Creatinine 1.66 Random Glucose 91 Total Protein 7.1 Albumin 2.1 Calcium Level 7.6 Magnesium Level 2.3 Alkaline Phosphatase 66 Aspartate Amino Transf (AST/SGOT) 19 Alanine Aminotransferase (ALT/SGPT) 19 Total Bilirubin 0.9 Sodium Level 135 Potassium Level 4.1 Chloride Level 100 Carbon Dioxide Level 25.2 Anion Gap 10 Estimat Glomerular Filtration Rate 53 Troponin I 0.02 B-Type Natriuretic Peptide 80 Result Diagram: 09/25/1782609/25/17826 Imaging Last Impressions Chest X-Ray 09/25/17810 Signed Impressions: Service Date/Time: Monday, September 25, 2017 08:37 - CONCLUSION: Peribronchial thickening, possible early infiltrate right base. Azam Feldman MD FACR Capjulianni VTE Risk Assessment Caprini VTE Risk Assessment: Mod/High Risk (score >= 2) Caprini Risk Assessment Model Point Value = 1 Point Value = 2 Point Value = 3 Point Value = 5 Age 41-60 Minor surgery BMI > 25 kg/m2 Swollen legs Varicose veins or History of unexplained or recurrent spontaneous Oral contraceptives or hormone replacement Sepsis (< 1 month) Serious lung disease, including pneumonia (< 1 month) Abnormal pulmonary function Acute myocardial infarction Congestive heart failure (< 1 month) History of inflammatory bowel disease Medical patient at bed rest Age 61-74 Arthroscopic surgery Major open surgery (> 45 min) Laparoscopic surgery (> 45 min) Malignancy Confined to bed (> 72 hours) Immobilizing plaster cast Central venous access Age >= 75 History of VTE Family history of VTE Factor V Leiden Prothrombin [id number] Lupus anticoagulant Anticardiolipin antibodies Elevated serum homocysteine Heparin-induced thrombocytopenia Other congenital or acquired thrombophilia Stroke (< 1 month) Elective arthroplasty Hip, pelvis, or leg fracture Acute spinal cord injury (< 1 month) Prophylaxis Regimen Total Risk Factor Score Risk Level Prophylaxis Regimen 0-1 Low Early ambulation 2 Moderate Order ONE of the following: *Sequential Compression Device (SCD) *Heparin 5000 units SQ BID 3-4 Higher Order ONE of the following medications: *Heparin 5000 units SQ TID *Enoxaparin/Lovenox 40 mg SQ daily (WT < 150 kg, CrCl > 30 mL/min) *Enoxaparin/Lovenox 30 mg SQ daily (WT < 150 kg, CrCl > 10-29 mL/min) *Enoxaparin/Lovenox 30 mg SQ BID (WT < 150 kg, CrCl > 30 mL/min) AND/OR *Sequential Compression Device (SCD) 5 or more Highest Order ONE of the following medications: *Heparin 5000 units SQ TID (Preferred with Epidurals) *Enoxaparin/Lovenox 40 mg SQ daily (WT < 150 kg, CrCl > 30 mL/min) *Enoxaparin/Lovenox 30 mg SQ daily (WT < 150 kg, CrCl > 10-29 mL/min) *Enoxaparin/Lovenox 30 mg SQ BID (WT < 150 kg, CrCl > 30 mL/min) AND *Sequential Compression Device (SCD) Assessment and Plan Assessment and Plan 56-year-old white male admitted for fever and immunocompromised patient with chest pain Fever in immunocompromised patient -Infectious versus chemotherapy-induced and fevers - contacted micro, blood cultures from yesterday are still being processed, anticipated results to come in tomorrow -I independently reviewed the chest x-ray and see no obvious infiltrate whereas radiology reads a possible right-sided infiltrate -Continue Rocephin and azithromycin, if fevers persist, may consider escalating antibiotics to Zosyn and vancomycin -CT thorax pending -ordering lactic acid sepsis protocol Chest pain -I independently reviewed EKG and see no acute ST segment changes concerning for ischemia or infarction -We will trend troponins, lexiscan, telemetry -We will follow-up CT thorax Bradycardia -Chronic per patient, with no definitive source pinpointed in the past. Seems to be in the upper 40s-50s. Is on a beta-anahi, EKG possibly hinting at first -degree AV block. Last TSH and T4 workup was within normal limits about a month ago. Monitor Multiple myeloma -Mild anemia, otherwise platelets are stable -we will hold home Revlimid, consulting medical oncology -will defer home Decadron dosing to oncology Chronic sCHF - continue home coreg - Given low normal blood pressure and mild AK I on CKD, I will hold the patient' s home lisinopril, Lasix, and spironolactone - If RF remains stable by tomorrow morning will resume these home meds tomorrow morning chronic abd pain/reflux - continue home ranitidine Lovenox Addendum: Stress test is positive. Will make patient n.p.o. after midnight. Cardiology consult placed. Patient informed of the updated results. Physician Certification 2 Midnight Certification Type: Admission for Inpatient Services Order for Inpatient Services The services are ordered in accordance with Medicare regulations or non- Medicare payer requirements, as applicable. In the case of services not specified as inpatient-only, they are appropriately provided as inpatient services in accordance with the 2-midnight benchmark. Estimated LOS (days): 3 3 days is the estimated time the patient will need to remain in the hospital, assuming treatment plan goals are met and no additional complications. Post-Hospital Plan: Not yet determined Mohan Anderson MD September 25, 2017 11:32
--- NOTE | 2017-09-25 11:50 | RADRPT ---
EXAM DATE/TIME: 09/25/2017 10:52 [facility] COMPARISON: CT THORAX W/O CONTRAST, September 25, 2017, 10:52. CT THORACIC SPINE W/O CONTRAST, July 11, 2017, 18:24. INDICATIONS : Chest and upper back pain, diagnosed with pneumonia yesterday RADIATION DOSE: CTDIvol (mGy) ; Reconstructed from previous dataset, no dose MEDICAL HISTORY : Carcinoma, bone. Congestive heart failure. Hypertension. Known lytic lesion T9 biopsy proven plasmoc ytoma. SURGICAL HISTORY : None. ENCOUNTER: Initial ACUITY: 3 days PAIN SCALE: 10/10 LOCATION: upper chest TECHNIQUE: Volumetric scanning of the thoracic spine was performed. Multiplanar reconstructions in the sagittal , coronal and oblique axial planes were performed. Using automated exposure control and adjustment o f the mA and/or kV according to patient size, radiation dose was kept as low as reasonably achievable to obtain optimal diagnostic quality images. DICOM format image data is available electronically f or review and comparison. FINDINGS: The vertebral bodies of the thoracic spine are in normal alignment without evidence of subluxation. Vertebral body height is maintained. No fractures are seen. Scattered lytic lesions are seen in the portion of the ribs visualized. Lytic lesion involving the posterior elements on the left in the small portion of the body again pres ent and unchanged. There are no destructive lesion to suggest impending cord compression. CONCLUSION: Myelomatous involvement of the thoracic spine and ribs stable minimal. Azam Feldman MD FACR on September 25, 2017 at 11:42 Board Certified Radiologist. This report was verified electronically.
[2017-09-25] MEDS: DICYCLOMINE HCL 10 MG CAP PO SCH ×3 (13:00→20:08)
[2017-09-25] MEDS: FAMOTIDINE 20 MG TAB PO SCH ×2 (13:00→20:09)
[2017-09-25] MEDS: CARVEDILOL 6.25 MG TAB PO SCH ×2 (13:00→20:08)
--- NOTE | 2017-09-25 13:47 | MB ---
cc: Carlene Alston MD,Charli Thompson MD DATE: 09/25/2017 DATE OF : 1960 REFERRING PHYSICIAN: Dr. Charli Abdi CHIEF COMPLAINT: Dr. Abdi requesting consultation for Mr. Charles with new infiltrate, complaining of fever with diagnosis of IgG kappa multiple myeloma. HISTORY OF PRESENT ILLNESS: Mr. 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 He has completed radiation therapy to his cranium. He is undergoing triple combination with Velcade, Revlimid and Decadron and is showing response. During his first cycle he developed complications of fever and was seen in the emergency room. His Revlimid and Velcade was placed on hold for a week. He resumed treatment. He was seen in the emergency room on 09/24/2017. He was seen by Dr. Jordan Gonzales. He had complained of fever. He had a possibility of chemotherapy-induced fever. He had no localizing symptoms and he went home. He was to followup at Oncology Clinic. The following day he was febrile again complaining of more pain in the neck and upper shoulder area. He was evaluated with Dr. Abdi who coordinated CT scan of the thoracic spine that shows myelomatous involvement of the thoracic spine and ribs, but they are stable and minimal. There is no significant compression fracture. The CT scan of the chest shows mild to moderate peribronchial thickening without consolidation. There is a trace right pleural effusion. He has renal insufficiency and mild anemia. These appear to be stable. He was febrile on presentation to the emergency room. He was started on antibiotic therapy and was subsequently admitted. Hematology/Oncology is consulted. Mr. Charles's concern is being able to work and receive his appropriate treatment for multiple myeloma. He would like to apply for disability. He has been referred to bone marrow transplant in [place]. He is pending that appointment on Saturday. He feels better lying down. It alleviates some of this pain. He has a fever documented on presentation. He does not feel feverish now. He denies any other pain. He has been very fatigued with regards to work. PAST MEDICAL HISTORY: Congestive heart failure, cardiomyopathy, hypercholesterolemia, hypertension, migraine headache, IgG kappa multiple myeloma, plasmacytoma. PAST SURGICAL HISTORY: Colonoscopy, EGD, right knee surgery, bone marrow biopsy, scalp biopsy. ALLERGIES: NO KNOWN DRUG ALLERGIES. FAMILY HISTORY: No significant family history of cancer. SOCIAL HISTORY: He is . 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 He never smoked. No history of alcohol or illicit drug use. He lives alone. ALLERGIES: NO KNOWN DRUG ALLERGIES. CURRENT MEDICATIONS: 1. Aztreonam. 2. Ceftriaxone. 3. Lipitor. 4. Bentyl. 5. Pepcid. 6. Coreg. 7. Low molecular weight heparin. 8. Zofran. 9. Percocet p.r.n. PHYSICAL EXAMINATION: VITAL SIGNS: Temperature 99.3, T max 102, heart rate 66, respiratory rate 19, blood pressure 102/55, saturation 99%. GENERAL: Mr. Charles is a well-developed, well-nourished, slender man in no acute distress. He has a well-demarcated patch on his scalp where he had the radiation treatment to the cranial plasmacytoma. HEENT: Pupils are round, reactive to light and accommodation. Oropharynx is clear. NECK: Supple. LUNGS: Clear. HEART: Exam reveals a normal rate and rhythm. ABDOMEN: Benign. LOWER EXTREMITIES: With no edema. LABORATORY DATA: BUN 21, creatinine 1.66, calcium. Calcium 7.6. Hemoglobin of 10.3. ASSESSMENT AND PLAN: Mr. Charles is a 56-year-old man with IgG kappa multiple myeloma and plasmacytoma of the cranium. He is receiving triple combination therapy with Velcade, Revlimid and dexamethasone. He is admitted for fevers. I had a lengthy discussion with Mr. Charles about the concern for multiple myeloma and increased susceptibility to infection. Blood cultures were obtained. We will start empiric antibiotic therapy. He likely has respiratory symptoms for concerning pulmonary process. He is at increased risk, in light of his treatment, for multiple myeloma. He has hypogammaglobulinemia. We discussed holding his Revlimid at present. We will initiate treatment for his infection. He is encouraged to follow up with the consultation bone marrow transplant at [place]. The cardiomyopathy is a concern. He has scheduled followup for repeating a serum protein electrophoresis and quantitative immunoglobulin to evaluate response to therapy. This will be continued. However, at present the most pressing issue is possible infectious etiology from lung. We will follow the cultures and follow his response to antibiotic therapy. His pain will be relieved with p.r.n. pain medication. The CT scan results were reviewed with Mr. Charles. No transfusion is needed. The Velcade and Revlimid is placed on hold. Decadron may help. He has no headaches and has resolution of those symptoms with completion of his radiation to the cranial mass. Mr. Charles's questions were answered to his satisfaction. MD LESTER Chandler/BENNY , 01:03 PM , 01:46 PM
[2017-09-25] MEDS ORDERED: REGADENOSON INJ 0.4 MG/5 ML SYR ONE (15:12)
--- NOTE | 2017-09-25 16:20 | RADRPT ---
EXAM DATE/TIME: 09/25/2017 14:53 [facility] COMPARISON: No previous studies available for comparison. INDICATIONS : Mid chest pain radiating to the upper back for one day. Angina. Congestive heart failure. DOSE: 26.2 mCi Tc99m Myoview at stress. 8.7 mCi Tc99m Myoview at rest. 0.4 mg Lexiscan STRESS SYMPTOMS: HEadache and nausea. EJECTION FRACTION: 29% MEDICAL HISTORY : Hypertension. Metastatic, bone. Multiple myeloma. SURGICAL HISTORY : Total knee replacement, right. ENCOUNTER: Initial ACUITY: 1 day PAIN SCALE: 10/10 LOCATION: Midsternal chest TECHNIQUE: The patient underwent pharmacologic stress with infusion of prescribed dose. Continuous ECG tracing was monitored during stress. Gated SPECT imaging was performed after stress and conventional SPECT i maging was performed at rest. The examination was performed on a SPECT/CT scanner, both attenuation and non-corrected datasets were reviewed. FINDINGS: DISTRIBUTION: The maximum perfused segment at stress is in the anterior wall. PERFUSION STUDY: Multiple small focal stress-induced perfusion defects in the anterior and septal mccann. GATED STUDY: Global hypokinesia. CONCLUSION: 1. Multiple small foci of ischemia in the mid to basilar anterior and septal mccann. 2. Global hypokinesia with significantly reduced EF of 29%. RISK CATEGORY: High (>3% Annual Mortality Rate) Christo Mcallister MD on September 25, 2017 at 16:14 Board Certified Radiologist. This report was verified electronically.
[2017-09-25] MEDS: ENOXAPARIN SODIUM 30 MG/0.3 ML SYRINGE SQ SCH (17:40)
[2017-09-25] MEDS: ATORVASTATIN 40 MG TAB PO SCH (20:09)
--- NOTE | 2017-09-25 22:15 | EKG ---
Date Performed: 09/25/2017 Time Performed: 07:56:47 PTAGE: 56 years EKG: Sinus rhythm WITH FIRST DEGREE AV BLOCK LEFT ATRIAL ENLARGEMENT NONSPECIFIC T-WAVE ABNORMALITY ABNORMAL ECG PREVIOUS TRACING : 09/06/2017 16.11 Since the previous tracing, no significant change noted DOCTOR: Ashok Rothman Interpretating Date/Time 09/25/2017 22:14:04
[2017-09-26] VITALS (13 sets, daily range): BP systolic 112–159; BP diastolic 69–75; PULSE 53–74; RESP 16–18; TEMP 98.3–100.4; O2SAT 88–97
[2017-09-26] MEDS: CARVEDILOL 6.25 MG TAB PO SCH ×3 (00:24→21:05)
[2017-09-26] MEDS ORDERED: ACETAMINOPHEN 325 MG TAB PO PRN (02:15)
[2017-09-26] MEDS ORDERED: ACETAMINOPHEN 325 MG TAB PO ONE (02:15)
[2017-09-26] MEDS: AZITHROMYCIN INJ 500 MG in SODIUM CHLOR 0.9% 250 ML INJ 250 ML IV SCH (08:18)
[2017-09-26] MEDS: cefTRIAXone INJ 1,000 MG in SODIUM CHLORIDE 0.9% INJ 100 ML IV SCH (08:18)
[2017-09-26] MEDS: FAMOTIDINE 20 MG TAB PO SCH ×2 (08:18→21:03)
[2017-09-26] MEDS: DICYCLOMINE HCL 10 MG CAP PO SCH ×2 (09:00→12:10)
--- NOTE | 2017-09-26 09:22 | PD.ONC.PN ---
Subjective Subjective Remarks Tmax 100.4 overnight. patient resting in bed. had some night sweats overnight. denies pain at present. Objective Data Date Time Temp Pulse Resp B/P (MAP) Pulse Ox O2 Delivery O2 Flow Rate FiO2 09/26/17 08:13 98.3 54 18 128/75 (92) 97 09/26/17 07:00 53 09/26/17 04:44 98.5 68 18 112/73 (86) 97 09/26/17 04:01 58 09/26/17 02:00 100.4 09/26/17 00:28 94 Nasal Cannula 2.00 09/26/17 00:27 100.0 69 16 125/69 (87) 88 09/26/17 00:05 74 09/25/17 20:59 72 09/25/17 20:02 98.2 54 16 126/67 (86) 93 09/25/17 17:59 46 09/25/17 16:40 97.5 54 16 127/77 (94) 94 09/25/17 14:30 47 09/25/17 14:00 97.8 50 16 115/69 (84) 96 09/25/17 13:30 97.8 50 16 115/69 (84) 96 09/25/17 13:21 09/25/17 11:24 47 15 108/58 (75) 99 Nasal Cannula Result Diagram: 09/25/17 0809/25/17 08 Laboratory Results Laboratory Tests Test 09/25/17 12:05 09/25/17 21:17 Lactic Acid Level 0.8 mmol/L Troponin I 0.02 NG/ML LESS THAN 0.02 NG/ML Imaging Studies Last Impressions Chest X-Ray 09/25/17 0811 Signed Impressions: Service Date/Time: Monday, September 25, 2017 08:37 - CONCLUSION: Peribronchial thickening, possible early infiltrate right base. Azam Feldman MD FACR Thoracic Spine CT 09/25/17 0000 Signed Impressions: Service Date/Time: Monday, September 25, 2017 10:52 - CONCLUSION: Myelomatous involvement of the thoracic spine and ribs stable minimal. Azam Feldman MD FACR Myocardial Perfusion Scan Nuc Med 09/25/17 0000 Signed Impressions: Service Date/Time: Monday, September 25, 2017 14:53 - CONCLUSION: 1. Multiple small foci of ischemia in the mid to basilar anterior and septal mccann. 2. Global hypokinesia with significantly reduced EF of 29%%. RISK CATEGORY: High (>3%% Annual Mortality Rate) Christo Mcallister MD Chest CT 09/25/17 0000 Signed Impressions: Service Date/Time: Monday, September 25, 2017 10:52 - CONCLUSION: Mild to moderate peribronchial thickening without consolidation. Trace right pleural effusion. Azam Feldman MD FACR Administered Medications Medications (Trade) Dose Ordered Sig/Padma Route PRN Reason Start Time Stop Time Status Last Admin Dose Admin Atorvastatin Calcium (Lipitor) 40 mg HS PO 09/25/17 21:00 09/25/17 20:09 Dicyclomine HCl (Bentyl) 10 mg QID PO 09/25/17 13:00 09/25/17 17:40 Famotidine (Pepcid) 20 mg BID PO 09/25/17 13:00 09/26/17 08:18 Azithromycin 500 mg/Sodium Chloride 250 ml @ 250 mls/hr Q24H IV 09/26/17 08:00 09/26/17 08:18 Ceftriaxone Sodium 1000 mg/ Sodium Chloride 100 ml @ 200 mls/hr Q24H IV 09/26/17 08:00 09/26/17 08:18 Carvedilol (Coreg) 6.25 mg BID PO 09/25/17 13:00 09/26/17 00:24 Enoxaparin Sodium (Lovenox Inj) 30 mg Q24H SQ 09/25/17 13:00 09/25/17 17:40 Objective Remarks GENERAL: Pleasant middle aged male, sitting up in bed in [facility]. SKIN: Warm and dry. HEAD: Normocephalic. EYES: No injection or drainage. NECK: Supple, trachea midline. CARDIOVASCULAR: Regular rate and rhythm. RESPIRATORY: Breath sounds equal bilaterally. No accessory muscle use. GASTROINTESTINAL: Abdomen soft, non-tender, nondistended. EXTREMITIES: No cyanosis. dry skin, right hand, ?radiation dermatitis NEUROLOGICAL: No obvious focal deficit. Awake, alert, and oriented x3. Assessment/Plan Assessment 56y/o with IgG kappa multiple myeloma and plasmacytoma of the cranium, admitted with fevers. Plan 1. continue antibiotics 2. await labs today. Attending Statement The exam, history, and the medical decision-making described in the above note were completed with the assistance of the mid-level provider. I reviewed and agree with the findings presented. I attest that I had a [id number] encounter with the patient on the same day, and personally performed and documented my assessment and findings in the medical record. Clinically looks well, still low grade temp. Continue current tx abx, follow cultures. Shoulder pain better. Revlimid/Dexamethasone/Velcade on hold, resume when DC. FU in clinic BMT appt Saturday and Oncology clinic next week. Elba Frankel September 26, 2017 09:22 Carlene Alston MD September 26, 2017 17:30
[2017-09-26] MEDS ORDERED: EUCERIN CREAM 120 GM JAR TOPICAL PRN (09:30)
--- NOTE | 2017-09-26 10:17 | MB ---
cc: Kendall Felipe MD DATE: 09/26/2017 REASON FOR CONSULTATION: Abnormal nuclear stress test, chest pain. HISTORY OF PRESENT ILLNESS: The patient is a 56-year-old male with a history of hypertension, severe nonischemic cardiomyopathy diagnosed in 2015, hyperlipidemia, multiple myeloma who presented to the hospital with fever to as high as 102 degrees, fatigue, chest and back pain. For the past 3-4 days he has had intermittent episodes of bilateral upper chest discomfort described as a "wave" going across his chest from right to left, as well as his upper back. With this "wave" he also notices lower back discomfort. These pains never last more than a few seconds and have absolutely no relationship to exertion or stress. He denies shortness of breath, dizziness, syncope, near syncope, palpitations, pedal edema, paroxysmal nocturnal dyspnea, orthopnea. He has not followed up with a government instructor in the last couple years. PAST MEDICAL HISTORY: 1. Hypertension. 2. Severe nonischemic cardiomyopathy, diagnosed 08/2015. His ejection fraction by echo and cardiac catheterization at that time was 15%. Cardiac catheterization showed normal coronary arteries on 09/02/2015. 3. Hyperlipidemia. 4. IgG kappa multiple myeloma, status post chemotherapy. 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 PAST SURGICAL HISTORY: Right knee surgery for prepatellar abscess 2013. MEDICATIONS: 1. Aspirin 162 mg daily. 2. Atorvastatin 40 mg at bedtime. 3. Spironolactone 25 mg daily. 4. Lisinopril 10 mg daily. 5. Carvedilol 6.25 mg b.i.d. 6. Furosemide 40 mg daily. ALLERGIES: NO KNOWN DRUG ALLERGIES. FAMILY HISTORY: There is no significant family history of early myocardial infarction. SOCIAL HISTORY: The patient denies any history of alcohol or tobacco abuse. REVIEW OF SYSTEMS: As in the History Of Present Illness, otherwise negative or noncontributory. He also denies headache, abdominal pain, melena, dyspepsia, bright red blood per rectum. PHYSICAL EXAMINATION: VITAL SIGNS: Blood pressure 128/75 with a pulse of 54, respirations 18. GENERAL: He is a well-developed, well-nourished male in no acute distress. HEENT/NECK: Jugular venous pressure is normal. Carotid pulses are 2+ bilaterally and without bruits. LUNGS: Examination of the chest reveals clear lung crockett. HEART: He has a bradycardic, regular rhythm without S3, S4 or murmur. ABDOMEN: On abdominal examination, he has a soft, nontender abdomen. Bowel sounds are present. There is no definite hepatosplenomegaly. EXTREMITIES: Reveals no clubbing, cyanosis or edema. LABORATORY DATA: EKG shows sinus rhythm, first degree AV block, diffuse nonspecific ST and T-wave abnormalities. Chest x-ray shows peribronchial thickening, possible early infiltrate of the right base. Laboratory data includes WBC 6.6, hemoglobin 10.3, platelets 239. Potassium 4.1, BUN 21, creatinine 1.66. Negative cardiac enzymes. INR 1.3. IMPRESSION: Exceedingly atypical symptoms for myocardial ischemia, abnormal nuclear stress test in this 56-year-old male with a history of severe nonischemic cardiomyopathy diagnosed 2 years ago, hypertension, hyperlipidemia, multiple myeloma. I suspect the abnormal nuclear stress test findings are a false positive. He had normal coronary arteries on cardiac catheterization just 2 years ago. It is overall unlikely that he has developed severe obstructive disease in less than 2 years. EKG shows no acute ST segment or T-wave changes compared to prior EKGs. Cardiac enzymes are negative for myocardial infarction. His chest discomforts in the last few days never last more than a few seconds and have no relationship to exertion. With respect to his cardiomyopathy, he unfortunately has not followed up with a government instructor since diagnosis. He has had no problems with congestive heart failure. He has been on optimal medical therapy for the last 2 years. RECOMMENDATIONS: 1. No cardiac catheterization at this time. Overall, clinical suspicion that his symptoms are due to underlying severe coronary artery disease is very low. Also, with his multiple myeloma and renal insufficiency, his risk of dye-induced renal failure is elevated. 2. Continue his comprehensive cardiac medical regimen. 3. Await 2-D echo to reassess his left ventricular function. I have discussed the possibility of AICD implantation if his ejection fraction is still less than 35%. MD GINA Iraheta/BENNY , 09:38 AM , 10:16 AM CHRISTOPE[facility]
[2017-09-26 12:15] LABS: AUTOMATED NEUTROPHIL # 2.9 TH/MM3 (1.8-7.7); BASOPHIL % 0.4 % (0.0-2.0); EOSINOPHIL # 0.3 TH/MM3 (0-0.4); EOSINOPHIL % 7.3 % (0.0-4.0); HEMATOCRIT 34.6 % (39.0-51.0); HEMOGLOBIN 11.9 GM/DL (13.0-17.0); LYMPH % 12.3 % (9.0-44.0); LYMPHOCYTE # 0.6 TH/MM3 (1.0-4.8); MEAN CELL VOLUME 99.7 FL (80.0-100.0); MEAN CORPUSCULAR HEMOGLOBIN 34.4 PG (27.0-34.0); MEAN CORPUSCULAR HGB CONC 34.5 % (32.0-36.0); MEAN PLATELET VOLUME 8.4 FL (7.0-11.0); MONOCYTE # 0.9 TH/MM3 (0-0.9); PLATELET COUNT 223 TH/MM3 (150-450); RED BLOOD COUNT 3.47 MIL/MM3 (4.50-5.90); RED CELL DISTRIBUTION WIDTH 16.8 % (11.6-17.2); WHITE BLOOD COUNT 4.7 TH/MM3 (4.0-11.0)
[2017-09-26 12:24] LABS: BICARBONATE 27.9 MEQ/L (21.0-32.0); CALCIUM 7.8 MG/DL (8.5-10.1); CREATININE 1.7 MG/DL (0.60-1.30)
[2017-09-26] MEDS: oxyCODONE/ACETAMINOPHEN 5 MG/325 MG TAB PO PRN ×2 (12:25→21:04)
[2017-09-26] MEDS: ENOXAPARIN SODIUM 30 MG/0.3 ML SYRINGE SQ SCH (12:25)
--- NOTE | 2017-09-26 17:40 | HHI.PR ---
Subjective Remarks Resting comfortably in bed No event overnight Denied chest and or short of breath No fever or chills Objective Vitals Vital Signs Date Time Temp Pulse Resp B/P (MAP) Pulse Ox O2 Delivery O2 Flow Rate FiO2 09/26/17 15:20 98.5 65 18 159/74 (102) 96 09/26/17 15:00 68 09/26/17 11:06 98.7 59 18 131/70 (90) 96 09/26/17 11:00 59 09/26/17 08:13 98.3 54 18 128/75 (92) 97 09/26/17 08:13 97 Room Air 09/26/17 07:00 53 09/26/17 04:44 98.5 68 18 112/73 (86) 97 09/26/17 04:01 58 09/26/17 02:00 100.4 09/26/17 00:28 94 Nasal Cannula 2.00 09/26/17 00:27 100.0 69 16 125/69 (87) 88 09/26/17 00:05 74 09/25/17 20:59 72 09/25/17 20:02 98.2 54 16 126/67 (86) 93 09/25/17 17:59 46 I/O 09/25/17 09/25/17 09/25/17 09/26/17 09/26/17 09/26/17 07:00 15:00 23:00 07:00 15:00 23:00 Intake Total 350 ml 690 ml Balance 350 ml 690 ml Intake Oral 690 ml IV Total 350 ml # Voids 3 Result Diagram: 09/26/17 1115 09/26/17 1115 Objective Remarks GENERAL: This is a well-nourished, well-developed patient, in no apparent distress. CARDIOVASCULAR: RRR, no gallops, or rubs. RESPIRATORY: Fair air entry bilaterally. No W, R, or R GASTROINTESTINAL: Abdomen soft, non-tender, nondistended. Positive bowel sounds MUSCULOSKELETAL: Extremities without clubbing, cyanosis, or edema. Pedal pulses appreciated NEUROLOGICAL: Awake and alert. Moves all extremity. 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 Fever in immunocompromised patient -Infectious versus chemotherapy-induced and fevers - contacted micro, blood cultures from yesterday are still being processed, anticipated results to come in tomorrow -Chest x-ray showed right-sided infiltrate per report -Continue Rocephin and azithromycin, if fevers persist, may consider escalating antibiotics to Zosyn and vancomycin -CT thorax reviewed mild to moderate kaitlin-bronchial thickening Chest pain -EKG reviewed -Cardiac enzyme s, lexiscan, telemetry -We will follow-up CT thorax Bradycardia -Chronic per patient, with no definitive source pinpointed in the past. Seems to be in the upper 40s-50s. Is on a beta-anahi, EKG possibly hinting at first -degree AV block. Last TSH and T4 workup was within normal limits about a month ago. Monitor Multiple myeloma -Mild anemia, otherwise platelets are stable -we will hold home Revlimid, consulting medical oncology -will defer home Decadron dosing to oncology Chronic CHF - continue home coreg - Given low normal blood pressure and mild AK I on CKD, I will hold the patient' s home lisinopril, Lasix, and spironolactone - If RF remains stable by tomorrow morning will resume these home meds tomorrow morning GERD - continue home ranitidine Lovenox Antonio Maurer MD September 26, 2017 17:40
[2017-09-26] MEDS: ATORVASTATIN 40 MG TAB PO SCH (21:04)
[2017-09-27] VITALS (11 sets, daily range): BP systolic 110–144; BP diastolic 65–82; PULSE 54–73; RESP 16–18; TEMP 98.2–100.8; O2SAT 94–99
[2017-09-27 07:29] LABS: AUTOMATED NEUTROPHIL # 2.5 TH/MM3 (1.8-7.7); BASOPHIL # 0.1 TH/MM3 (0-0.2); BASOPHIL % 1.3 % (0.0-2.0); EOSINOPHIL # 0.5 TH/MM3 (0-0.4); EOSINOPHIL % 10.2 % (0.0-4.0); HEMATOCRIT 29.1 % (39.0-51.0); HEMOGLOBIN 9.8 GM/DL (13.0-17.0); LYMPH % 15.3 % (9.0-44.0); LYMPHOCYTE # 0.7 TH/MM3 (1.0-4.8); MEAN CORPUSCULAR HEMOGLOBIN 33.3 PG (27.0-34.0); MEAN CORPUSCULAR HGB CONC 33.7 % (32.0-36.0); MEAN PLATELET VOLUME 8.1 FL (7.0-11.0); MONO % 19.6 % (0.0-8.0); MONOCYTE # 0.9 TH/MM3 (0-0.9); NEUT % 53.6 % (16.0-70.0); PLATELET COUNT 241 TH/MM3 (150-450); RED BLOOD COUNT 2.93 MIL/MM3 (4.50-5.90); RED CELL DISTRIBUTION WIDTH 16.4 % (11.6-17.2); WHITE BLOOD COUNT 4.7 TH/MM3 (4.0-11.0)
[2017-09-27 07:51] LABS: BICARBONATE 25.7 MEQ/L (21.0-32.0); CALCIUM 7.9 MG/DL (8.5-10.1)
[2017-09-27 07:52] LABS: CREATININE 1.54 MG/DL (0.60-1.30)
--- NOTE | 2017-09-27 07:54 | PD.CARD.PN ---
Subjective Subjective Remarks No CP, dyspnea. Occasional brief low back pain. No dizziness, palpitations. Objective Medications Item Value Date Time Atorvastatin 40 mg 09/25/172099 Calcium HS/PO 09/26/172103 (Lipitor) Carvedilol 6.25 mg 09/25/17 1300 (Coreg) BID/PO 09/26/172104 Enoxaparin Sodium 30 mg 09/25/17 1300 (Lovenox Inj) Q24H/SQ 09/26/17 1225 Current Medications Medications (Trade) Dose Ordered Sig/Padma Route Start Time Stop Time Status Last Admin (NS Flush) 2 ml UNSCH PRN IVF 09/25/17 08:15 (Lipitor) 40 mg HS PO 09/25/17 21:00 09/26/17 21:04 (Zofran Odt) 4 mg Q6HR PRN SL 09/25/17 11:30 (Percocet 5-325 Mg) 1 tab Q4H PRN PO 09/25/17 11:30 09/26/17 21:04 (Pepcid) 20 mg BID PO 09/25/17 13:00 09/26/17 21:03 Azithromycin 500 mg/Sodium Chloride 250 ml @ 250 mls/hr Q24H IV 09/26/17 08:00 09/26/17 08:18 Ceftriaxone Sodium 1000 mg/ Sodium Chloride 100 ml @ 200 mls/hr Q24H IV 09/26/17 08:00 09/26/17 08:18 (Coreg) 6.25 mg BID PO 09/25/17 13:00 09/26/17 21:05 (Lovenox Inj) 30 mg Q24H SQ 09/25/17 13:00 09/26/17 12:25 (Tylenol) 650 mg Q4H PRN PO 09/26/17 02:15 (Eucerin Cream) 1 applic Q6H PRN TOPICAL 09/26/17 09:30 09/26/17 12:28 Vital Signs / I&O Vital Signs Date Time Temp Pulse Resp B/P (MAP) Pulse Ox O2 Delivery O2 Flow Rate FiO2 09/27/17 05:13 94 Room Air 09/27/17 05:01 98.8 60 18 129/72 (91) 94 09/27/17 04:11 60 09/27/17 00:45 98.2 57 16 110/66 (81) 96 09/27/17 00:11 73 09/26/17 21:08 98.5 62 18 120/69 (86) 96 09/26/17 20:25 59 09/26/17 15:20 98.5 65 18 159/74 (102) 96 09/26/17 15:00 68 09/26/17 11:06 98.7 59 18 131/70 (90) 96 09/26/17 11:00 59 09/26/17 08:13 98.3 54 18 128/75 (92) 97 09/26/17 08:13 97 Room Air I/O 09/26/17 09/26/17 09/26/17 09/27/17 09/27/17 09/27/17 07:00 15:00 23:00 07:00 15:00 23:00 Intake Total 720 ml 240 ml Output Total 650 ml 320 ml Balance 70 ml -80 ml Intake Oral 720 ml 240 ml Output Urine Total 650 ml 320 ml # Bowel Movements 0 1 Physical Exam GENERAL: Well developed, well nourished. No acute distress. HEENT: Jugular venous pressure is normal. CHEST: Lungs clear to auscultation bilaterally. Unlabored respiratory effort. CARDIAC: Regular rate and rhythm without S3, S4. II/ systolic murmur along left sternal border. ABDOMEN: Soft, nontender, no hepatosplenomegaly. Bowel sounds present. EXTREMITIES: No clubbing, cyanosis, or edema. Laboratory Laboratory Tests Test 09/26/17 11:15 09/27/17 06:40 White Blood Count 4.7 TH/MM3 4.7 TH/MM3 Red Blood Count 3.47 MIL/MM3 2.93 MIL/MM3 Hemoglobin 11.9 GM/DL 9.8 GM/DL Hematocrit 34.6 % 29.1 % Mean Corpuscular Volume 99.7 FL 99.0 FL Mean Corpuscular Hemoglobin 34.4 PG 33.3 PG Mean Corpuscular Hemoglobin Concent 34.5 % 33.7 % Red Cell Distribution Width 16.8 % 16.4 % Platelet Count 223 TH/MM3 241 TH/MM3 Mean Platelet Volume 8.4 FL 8.1 FL Neutrophils (%) (Auto) 62.0 % 53.6 % Lymphocytes (%) (Auto) 12.3 % 15.3 % Monocytes (%) (Auto) 18.0 % 19.6 % Eosinophils (%) (Auto) 7.3 % 10.2 % Basophils (%) (Auto) 0.4 % 1.3 % Neutrophils # (Auto) 2.9 TH/MM3 2.5 TH/MM3 Lymphocytes # (Auto) 0.6 TH/MM3 0.7 TH/MM3 Monocytes # (Auto) 0.9 TH/MM3 0.9 TH/MM3 Eosinophils # (Auto) 0.3 TH/MM3 0.5 TH/MM3 Basophils # (Auto) 0.0 TH/MM3 0.1 TH/MM3 CBC Comment DIFF FINAL DIFF FINAL Differential Comment Blood Urea Nitrogen 22 MG/DL Creatinine 1.70 MG/DL Random Glucose 120 MG/DL Calcium Level 7.8 MG/DL Sodium Level 140 MEQ/L Potassium Level 3.9 MEQ/L Chloride Level 105 MEQ/L Carbon Dioxide Level 27.9 MEQ/L Anion Gap 7 MEQ/L Estimat Glomerular Filtration Rate 51 ML/MIN Assessment and Plan Problem List: (1) Chest pain ICD Codes: R07.9 - Chest pain, unspecified Status: Acute Plan: No further atypical CP's. Suspect nuclear stress test findings false positive with respect to myocardial ischemia. Symptoms on presentation exceedingly atypical for myocardial ischemia. Patient with normal coronaries on cath just 2 years ago. Recommend no additional w/u. Will f/u PRN over the weekend. (2) Non-ischemic cardiomyopathy ICD Codes: I42.8 - Other cardiomyopathies Status: Chronic Plan: EF 15% in 2016. Echo pending. Compensated overall. No CHF. NYHA Class II. REC continue beta anahi; no DAMIAN-I with his renal insufficiency await echo; if EF still < 35% I have recommended ICD implant (3) Hypertension ICD Codes: I10 - Essential (primary) hypertension Status: Chronic Plan: Stable. Normotensive. Code Status full code Discussed Condition With patient Problem Qualifiers (1) Chest pain: Qualified Codes: R07.9 - Chest pain, unspecified (2) Hypertension: Qualified Codes: I10 - Essential (primary) hypertension Kendall Felipe MD September 27, 2017 07:54
[2017-09-27] MEDS: FAMOTIDINE 20 MG TAB PO SCH ×2 (10:28→20:29)
[2017-09-27] MEDS: AZITHROMYCIN INJ 500 MG in SODIUM CHLOR 0.9% 250 ML INJ 250 ML IV SCH (10:28)
[2017-09-27] MEDS: CARVEDILOL 6.25 MG TAB PO SCH ×2 (10:29→20:29)
--- NOTE | 2017-09-27 11:48 | HHI.DS ---
Discharge Summary Admission Date September 25, 2017 at 11:00 Admitting Diagnosis Pneumonia, chest pain (1) Febrile illness ICD Code: R50.9 - Fever, unspecified (2) Acute kidney injury ICD Code: N17.9 - Acute kidney failure, unspecified Status: Chronic (3) CHF (congestive heart failure) ICD Code: I50.9 - Heart failure, unspecified Status: Chronic (4) Multiple myeloma ICD Code: C90.00 - Multiple myeloma not having achieved remission Status: Acute Procedures None Brief History - From Admission 56-year-old black male being admitted for fever in immunocompromised patient. Patient was in his usual state of health until he presented to the emergency department yesterday for fevers. Was discharged home on Levaquin presumptively for possible pneumonia with no definitive source found. However his fevers persisted and began experiencing profound weakness, especially within his lower legs. Says he had a max temp at home of 102.6 last night. he also started having new onset anterior bilateral chest pain and bilateral upper back pain since yesterday. Says at worse his chest pain goes to a 10/10, worsens with exertion, eases with rest. Denies ever having been cardiac catheterized in the past. Denies having any tran shortness of breath. Says he can only take 1-10 steps at most and then felt extremely weak and thus decided come back to the emergency department. Denies any nausea vomiting diarrhea. Reports taking his dose of Levaquin yesterday that was prescribed to him. Denies having any worsening lower extremity edema. CBC/BMP: 09/27/17 0640 09/27/17 0640 Significant Findings Laboratory Tests Test 09/25/17 08:27 09/25/17 12:05 09/25/17 21:17 09/26/17 11:15 Red Blood Count 3.07 MIL/MM3 (4.50-5.90) 3.47 MIL/MM3 (4.50-5.90) Hemoglobin 10.3 GM/DL (13.0-17.0) 11.9 GM/DL (13.0-17.0) Hematocrit 30.3 % (39.0-51.0) 34.6 % (39.0-51.0) Monocytes % 14 % (0-8) Ovalocytes 1+ (NORMAL) Prothrombin Time 12.9 SEC (9.8-11.6) Activated Partial Thromboplast Time 31.7 SEC (24.3-30.1) Blood Urea Nitrogen 21 MG/DL (7-18) 22 MG/DL (7-18) Creatinine 1.66 MG/DL (0.60-1.30) 1.70 MG/DL (0.60-1.30) Albumin 2.1 GM/DL (3.4-5.0) Calcium Level 7.6 MG/DL (8.5-10.1) 7.8 MG/DL (8.5-10.1) Sodium Level 135 MEQ/L (136-145) Estimat Glomerular Filtration Rate 53 ML/MIN (>89) 51 ML/MIN (>89) Troponin I LESS THAN 0.02 NG/ML Mean Corpuscular Hemoglobin 34.4 PG (27.0-34.0) Monocytes (%) (Auto) 18.0 % (0.0-8.0) Eosinophils (%) (Auto) 7.3 % (0.0-4.0) Lymphocytes # (Auto) 0.6 TH/MM3 (1.0-4.8) Random Glucose 120 MG/DL (74-106) Test 09/27/17 06:40 Red Blood Count 2.93 MIL/MM3 (4.50-5.90) Hemoglobin 9.8 GM/DL (13.0-17.0) Hematocrit 29.1 % (39.0-51.0) Monocytes (%) (Auto) 19.6 % (0.0-8.0) Eosinophils (%) (Auto) 10.2 % (0.0-4.0) Lymphocytes # (Auto) 0.7 TH/MM3 (1.0-4.8) Eosinophils # (Auto) 0.5 TH/MM3 (0-0.4) Blood Urea Nitrogen 21 MG/DL (7-18) Creatinine 1.54 MG/DL (0.60-1.30) Calcium Level 7.9 MG/DL (8.5-10.1) Estimat Glomerular Filtration Rate 57 ML/MIN (>89) PE at Discharge GENERAL: This is a well-nourished, well-developed patient, in no apparent distress. CARDIOVASCULAR: RRR, no gallops, or rubs. RESPIRATORY: Fair air entry bilaterally. No W, R, or R GASTROINTESTINAL: Abdomen soft, non-tender, nondistended. Positive bowel sounds MUSCULOSKELETAL: Extremities without clubbing, cyanosis, or edema. Pedal pulses appreciated NEUROLOGICAL: Awake and alert. Moves all extremity. Normal speech.no focal neurological deficit Hospital Course 56 years old male with history of multiple myeloma on chemotherapy following with oncology and on Decadron presented with fever and chest pain,, cardiac protocol and cardiology has been consulted, patient placed on prophylactic antibiotic will cultures has been sent and it was negative, oncology consulted, patient had only one temperature 100.4 during his hospitalization, antibiotic stop patient monitor he is stable to be discharged discussed with oncology. During this stay patient found to have acute kidney injury therefore spironolactone Lasix and DAMIAN inhibitor has been held, we will continue holding onto patient see his primary care and have BMP within 2-3 days so he can be resumed when kidney function improved Cardiology recommended 2D echo to assess for previous EF result was 15%, may recommend ICD placement if still below 30 [id number] encounter performed with the patient on discharge day, as well as physical exam, summary of hospitalization course and postdischarge plan has been D/W the patient. D/W nurse D/W caser up. Discharge medications reviewed and printed and signed, post discharge follow up visit with PCP and other specialist as well as Brief hospital course and discharge summary has been placed. Pt Condition on Discharge: Fair Discharge Disposition: Discharge Home Discharge Time: > 30 minutes Discharge Instructions DIET: Follow Instructions for: Heart Healthy Diet Activities you can perform: Weight Bearing as Catherine New Orders: BASIC METABOLIC PROF - 3-5 Days Continued Medications: Aspirin (Aspirin Low Dose) 81 Mg Chew 162 MG CHEW DAILY for Blood Clot Prevention, #30 TAB 0 Refills Atorvastatin (Atorvastatin) 40 Mg Tab 40 MG PO HS for Cholesterol Management, #30 TAB 0 Refills Carvedilol (Carvedilol) 6.25 Mg Tab 6.25 MG PO BID for Blood Pressure Management, #60 TAB 0 Refills Dicyclomine (Bentyl) 10 Mg Cap 10 MG PO QID for Bowel Management, #20 CAP 0 Refills Furosemide (Furosemide) 20 Mg Tab 20 MG PO BID for Blood Pressure Management, #60 TAB 0 Refills Lenalidomide (Revlimid) 2.5 Mg Capsule 15 MG PO DAILY Ondansetron Odt (Zofran Odt) 4 Mg Tab 4 MG SL Q6HR PRN for Nausea/Vomiting, #30 TAB 0 Refills Ranitidine (Ranitidine) 300 Mg Tab 300 MG PO HS for Heartburn Management, #30 TAB 0 Refills Antonio Maurer MD September 27, 2017 11:48
--- NOTE | 2017-09-27 11:50 | HHI.PR ---
Subjective Remarks Complained of fatigue No documented fever Objective Vitals Vital Signs Date Time Temp Pulse Resp B/P (MAP) Pulse Ox O2 Delivery O2 Flow Rate FiO2 09/27/17 05:13 94 Room Air 09/27/17 05:01 98.8 60 18 129/72 (91) 94 09/27/17 04:11 60 09/27/17 00:45 98.2 57 16 110/66 (81) 96 09/27/17 00:11 73 09/26/17 21:08 98.5 62 18 120/69 (86) 96 09/26/17 20:25 59 09/26/17 15:20 98.5 65 18 159/74 (102) 96 09/26/17 15:00 68 I/O 09/26/17 09/26/17 09/26/17 09/27/17 09/27/17 09/27/17 07:00 15:00 23:00 07:00 15:00 23:00 Intake Total 720 ml 240 ml Output Total 650 ml 320 ml Balance 70 ml -80 ml Intake Oral 720 ml 240 ml Output Urine Total 650 ml 320 ml # Bowel Movements 0 1 Result Diagram: 09/27/17 0640 09/27/17 0640 Objective Remarks GENERAL: This is a well-nourished, well-developed patient, in no apparent distress. CARDIOVASCULAR: RRR, no gallops, or rubs. RESPIRATORY: Fair air entry bilaterally. No W, R, or R GASTROINTESTINAL: Abdomen soft, non-tender, nondistended. Positive bowel sounds MUSCULOSKELETAL: Extremities without clubbing, cyanosis, or edema. Pedal pulses appreciated NEUROLOGICAL: Awake and alert. Moves all extremity. Normal speech.no focal neurological deficit Procedures None A/P Problem List: (1) Febrile illness ICD Code: R50.9 - Fever, unspecified (2) Acute kidney injury ICD Code: N17.9 - Acute kidney failure, unspecified Status: Chronic (3) CHF (congestive heart failure) ICD Code: I50.9 - Heart failure, unspecified Status: Chronic (4) Multiple myeloma ICD Code: C90.00 - Multiple myeloma not having achieved remission Status: Acute Assessment and Plan 56-year-old white male admitted for fever and immunocompromised patient with chest pain 09/26: Labs, blood culture, still pending, CT chest peribronchial thickening, discussed with oncology ESTHETICIAN 09/27: All cultures are negative, awaiting 2D echo to decide as per cardiology for ICD placement if 2D echo show improvement in EF patient can be discharged Addendum patient just ran another fever 100.8 we will hold discharge and consult ID A/P: Fever in immunocompromised patient -Infectious versus chemotherapy-induced and fevers - contacted micro, blood cultures from yesterday are still being processed, anticipated results to come in tomorrow -Chest x-ray showed right-sided infiltrate per report -Continue Rocephin and azithromycin, if fevers persist, may consider escalating antibiotics to Zosyn and vancomycin -CT thorax reviewed mild to moderate kaitlin-bronchial thickening Chest pain -EKG reviewed -Cardiac enzyme s, lexiscan, telemetry -We will follow-up CT thorax Bradycardia -Chronic per patient, with no definitive source pinpointed in the past. Seems to be in the upper 40s-50s. Is on a beta-anahi, EKG possibly hinting at first -degree AV block. Last TSH and T4 workup was within normal limits about a month ago. Monitor Multiple myeloma -Mild anemia, otherwise platelets are stable -we will hold home Revlimid, consulting medical oncology -will defer home Decadron dosing to oncology Chronic CHF - continue home coreg - Given low normal blood pressure and mild AK I on CKD, I will hold the patient' s home lisinopril, Lasix, and spironolactone - If RF remains stable by tomorrow morning will resume these home meds tomorrow morning GERD - continue home ranitidine Lovenox Antonio Maurer MD September 27, 2017 11:50
[2017-09-27] MEDS: cefTRIAXone INJ 1,000 MG in SODIUM CHLORIDE 0.9% INJ 100 ML IV SCH (12:02)
--- NOTE | 2017-09-27 13:29 | PD.CONS ---
History of Present Illness Service Infectious Disease Consult Requested By Dr Maurer Reason for Consult Evaluate patient with fever Primary Care Physician Kevin Shultz M.D. Diagnoses: History of Present Illness Patient seen and examined. Records reviewed. Patient is a 56-year-old male, diagnosed to have multiple myeloma IgG kappa myeloma, admitted to the hospital for further evaluation of fever that started September 23. He was diagnosed to have myeloma July of this year, and he also had a mass on his head and biopsy revealed that it was a plasma cell neoplasm. He was started on radiation therapy, and chemotherapy. Patient stated that he completed his radiation about a week ago. He started having fevers on July 24 , and at that time he also started experiencing some fatigue as well as shortness of breath. He denies any coughing or chest congestion. Denies chest pain. No abdominal pain, diarrhea, nausea or vomiting or any urinary complaints. He initially went to the emergency room on September 24, and workup at that time did not reveal any source of infection. He did not look toxic appearing at that time and on the ED visit he was not febrile. At home his symptoms persisted, and he returned to the hospital September 25 and admitted. He had some low-grade temps on his first hospital day. He is not neutropenic. Chest x-ray showed some peribronchial thickening with no consolidation. His creatinine was elevated, LFTs normal, urinalysis unremarkable. Patient also had repeat thoracic CAT scan which showed evidence of metastatic disease but it was stable compared to his prior CAT scan. His EF also showed 29%, and cardiology evaluated the patient and felt that he should be maintained on his CHF medications. His blood cultures have been negative. He was supposed to be discharged, but his temperature went up to 100.8 at noon. Patient at the time of my exam is currently having symptoms of significant weakness, as well as shortness of breath. His sats are okay. He is on room air. He is on Rocephin and Zithromax. Infectious disease consultation has been requested to evaluate the patient. Review of Systems Constitutional: COMPLAINS OF: Fatigue, Fever, Chills Eyes: DENIES: Eye pain Ears, nose, mouth, throat: DENIES: Oral lesions, Throat pain, Ear Pain, Sinus Pain Respiratory: COMPLAINS OF: Shortness of breath, DENIES: Cough, Sputum production Cardiovascular: COMPLAINS OF: Dyspnea on Exertion, Orthopnea, DENIES: Chest pain, Palpitations, Lower Extremity Edema Gastrointestinal: DENIES: Abdominal pain, Diarrhea, Nausea, Vomiting, Difficulty Swallowing Genitourinary: DENIES: Urgency, Dysuria Musculoskeletal: DENIES: Joint pain, Joint Swelling Integumentary: DENIES: Pruritus, Rash Hematologic/lymphatic: DENIES: Bruising Neurologic: COMPLAINS OF: Headache, DENIES: Localized weakness Psychiatric: DENIES: Hallucinations Past Family Social History Allergies: Coded Allergies: No Known Allergies (Unverified Allergy, Unknown, 07/09/17) Past Medical History CHF Hypertension Cardiomyopathy, nonischemic Hyperlipidemia Chronic anemia Chronic kidney disease Past Surgical History CT-guided scalp biopsy CT-guided bone marrow biopsy Right knee surgery Active Ordered Medications Current Medications Medications (Trade) Dose Ordered Sig/Padma Route Start Time Stop Time Status Last Admin (NS Flush) 2 ml UNSCH PRN IVF 09/25/17 08:15 (Lipitor) 40 mg HS PO 09/25/17 21:00 09/26/17 21:04 (Zofran Odt) 4 mg Q6HR PRN SL 09/25/17 11:30 (Percocet 5-325 Mg) 1 tab Q4H PRN PO 09/25/17 11:30 09/26/17 21:04 (Pepcid) 20 mg BID PO 09/25/17 13:00 09/27/17 10:28 Azithromycin 500 mg/Sodium Chloride 250 ml @ 250 mls/hr Q24H IV 09/26/17 08:00 09/27/17 10:28 Ceftriaxone Sodium 1000 mg/ Sodium Chloride 100 ml @ 200 mls/hr Q24H IV 09/26/17 08:00 09/27/17 12:02 (Coreg) 6.25 mg BID PO 09/25/17 13:00 09/27/17 10:29 (Lovenox Inj) 30 mg Q24H SQ 09/25/17 13:00 09/26/17 12:25 (Tylenol) 650 mg Q4H PRN PO 09/26/17 02:15 (Eucerin Cream) 1 applic Q6H PRN TOPICAL 09/26/17 09:30 09/26/17 12:28 Family History Non-contributory Social History Lives 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 NO smoking Denies ETOH abuse No illicit drugs Physical Exam Vital Signs Vital Signs Date Time Temp Pulse Resp B/P (MAP) Pulse Ox O2 Delivery O2 Flow Rate FiO2 09/27/17 12:10 100.8 70 18 111/65 (80) 96 09/27/17 08:00 98.4 69 18 138/74 (95) 99 09/27/17 05:13 94 Room Air 09/27/17 05:01 98.8 60 18 129/72 (91) 94 09/27/17 04:11 60 09/27/17 00:45 98.2 57 16 110/66 (81) 96 09/27/17 00:11 73 09/26/17 21:08 98.5 62 18 120/69 (86) 96 09/26/17 20:25 59 09/26/17 15:20 98.5 65 18 159/74 (102) 96 09/26/17 15:00 68 Physical Exam GENERAL: Patient is a well-nourished, well-developed male, awake and alert, not in respiratory distress. Looks comfortable at rest SKIN: Warm and dry. No generalized rash, no ecchymoses and no evidence of embolic lesions. HEAD: Has brownish pigmentation on the top of his head with a prominent mass, not tender, no open wound EYES: [place] conjunctiva. No petechia or hemorrhage. Pupils equal, round and reactive to light. Extraocular movements full and intact. No scleral icterus. No injection or drainage. EARS, NOSE AND THROAT: Nose without bleeding or purulent nasal discharge. No sinus tenderness. Mucous membranes pink and moist. No oral lesions noted. NECK: Trachea midline. Supple and not tender, no meningeal signs CARDIOVASCULAR: Regular rate and rhythm. No murmurs, rubs or gallops heard RESPIRATORY: Clear to auscultation. Breath sounds equal bilaterally. No rales , wheezing or rhonchi ABDOMEN: Soft, non-tender, nondistended. Bowel sounds present and normoactive. No guarding. No rebound. No organomegaly. EXTREMITIES: No clubbing, cyanosis, or edema. No joint effusion, has good ROM. No calf tenderness. Well perfused and warm. NEUROLOGICAL: Awake and alert. Cranial nerves grossly intact. Motor grossly within normal limits. PSYCHIATRIC: Seems to have depressed affect, calm and cooperative. LINE: No evidence of infection Laboratory Laboratory Tests Test 09/26/17 11:15 09/27/17 06:40 White Blood Count 4.7 TH/MM3 4.7 TH/MM3 Red Blood Count 3.47 MIL/MM3 2.93 MIL/MM3 Hemoglobin 11.9 GM/DL 9.8 GM/DL Hematocrit 34.6 % 29.1 % Mean Corpuscular Volume 99.7 FL 99.0 FL Mean Corpuscular Hemoglobin 34.4 PG 33.3 PG Mean Corpuscular Hemoglobin Concent 34.5 % 33.7 % Red Cell Distribution Width 16.8 % 16.4 % Platelet Count 223 TH/MM3 241 TH/MM3 Mean Platelet Volume 8.4 FL 8.1 FL Neutrophils (%) (Auto) 62.0 % 53.6 % Lymphocytes (%) (Auto) 12.3 % 15.3 % Monocytes (%) (Auto) 18.0 % 19.6 % Eosinophils (%) (Auto) 7.3 % 10.2 % Basophils (%) (Auto) 0.4 % 1.3 % Neutrophils # (Auto) 2.9 TH/MM3 2.5 TH/MM3 Lymphocytes # (Auto) 0.6 TH/MM3 0.7 TH/MM3 Monocytes # (Auto) 0.9 TH/MM3 0.9 TH/MM3 Eosinophils # (Auto) 0.3 TH/MM3 0.5 TH/MM3 Basophils # (Auto) 0.0 TH/MM3 0.1 TH/MM3 CBC Comment DIFF FINAL DIFF FINAL Differential Comment Laboratory Tests Test 09/25/17 21:17 09/26/17 11:15 09/27/17 06:40 Troponin I LESS THAN 0.02 NG/ML Blood Urea Nitrogen 22 MG/DL 21 MG/DL Creatinine 1.70 MG/DL 1.54 MG/DL Random Glucose 120 MG/DL 104 MG/DL Calcium Level 7.8 MG/DL 7.9 MG/DL Sodium Level 140 MEQ/L 138 MEQ/L Potassium Level 3.9 MEQ/L 3.9 MEQ/L Chloride Level 105 MEQ/L 104 MEQ/L Carbon Dioxide Level 27.9 MEQ/L 25.7 MEQ/L Anion Gap 7 MEQ/L 8 MEQ/L Estimat Glomerular Filtration Rate 51 ML/MIN 57 ML/MIN 09/24 Blood cultures x 2 - negative Influenza Ag - negative Result Diagram: 09/27/17 0640 09/27/17 0640 Imaging Last Impressions Chest X-Ray 09/25/17 0811 Signed Impressions: Service Date/Time: Monday, September 25, 2017 08:37 - CONCLUSION: Peribronchial thickening, possible early infiltrate right base. Azam Feldman MD FACR Thoracic Spine CT 09/25/17 0000 Signed Impressions: Service Date/Time: Monday, September 25, 2017 10:52 - CONCLUSION: Myelomatous involvement of the thoracic spine and ribs stable minimal. Azam Feldman MD FACR Myocardial Perfusion Scan Nuc Med 09/25/17 0000 Signed Impressions: Service Date/Time: Monday, September 25, 2017 14:53 - CONCLUSION: 1. Multiple small foci of ischemia in the mid to basilar anterior and septal mccann. 2. Global hypokinesia with significantly reduced EF of 29%%. RISK CATEGORY: High (>3%% Annual Mortality Rate) Christo Mcallister MD Chest CT 09/25/17 0000 Signed Impressions: Service Date/Time: Monday, September 25, 2017 10:52 - CONCLUSION: Mild to moderate peribronchial thickening without consolidation. Trace right pleural effusion. Azam Feldman MD FACR Assessment and Plan Assessment and Plan IMPRESSION Febrile illness, with complaints of weakness and SOB, has peribronchial thickening on CXR, possible early infiltrate - no cough or congestion; no symptoms to suggest PNA - ?due to his multiple myeloma - no GI or complaints Multiple myeloma, on chemo Plasma cell neoplasm, scalp, S/P XRT Chronic Kidney Disease Non-ischemic cardiomyopathy RECOMMENDATION Repeat BC Urine for legio and pneumo Ag Repeat CXR Continue empiric Rocephin and Zithromax If nothing new, stop Abx Follow temps Follow C/S Monitor progress I will follow along with you Thank you for this consultation Discussed Condition With Explained plan to the patient Vijaya Dobbins MD September 27, 2017 13:29
--- NOTE | 2017-09-27 13:36 | PD.ONC.PN ---
Subjective Subjective Remarks Tmax 100.8 at noon today. Patient feeling very fatigued. complaining of sore throat. Objective Data Date Time Temp Pulse Resp B/P (MAP) Pulse Ox O2 Delivery O2 Flow Rate FiO2 09/27/17 12:10 100.8 70 18 111/65 (80) 96 09/27/17 08:00 98.4 69 18 138/74 (95) 99 09/27/17 05:13 94 Room Air 09/27/17 05:01 98.8 60 18 129/72 (91) 94 09/27/17 04:11 60 09/27/17 00:45 98.2 57 16 110/66 (81) 96 09/27/17 00:11 73 09/26/17 21:08 98.5 62 18 120/69 (86) 96 09/26/17 20:25 59 09/26/17 15:20 98.5 65 18 159/74 (102) 96 09/26/17 15:00 68 09/27/17 09/27/17 09/27/17 07:00 15:00 23:00 Intake Total 240 ml Output Total 320 ml Balance -80 ml Result Diagram: 09/27/17 0640 09/27/17 0640 Laboratory Results Laboratory Tests Test 09/27/17 06:40 White Blood Count 4.7 TH/MM3 Red Blood Count 2.93 MIL/MM3 Hemoglobin 9.8 GM/DL Hematocrit 29.1 % Mean Corpuscular Volume 99.0 FL Mean Corpuscular Hemoglobin 33.3 PG Mean Corpuscular Hemoglobin Concent 33.7 % Red Cell Distribution Width 16.4 % Platelet Count 241 TH/MM3 Mean Platelet Volume 8.1 FL Neutrophils (%) (Auto) 53.6 % Lymphocytes (%) (Auto) 15.3 % Monocytes (%) (Auto) 19.6 % Eosinophils (%) (Auto) 10.2 % Basophils (%) (Auto) 1.3 % Neutrophils # (Auto) 2.5 TH/MM3 Lymphocytes # (Auto) 0.7 TH/MM3 Monocytes # (Auto) 0.9 TH/MM3 Eosinophils # (Auto) 0.5 TH/MM3 Basophils # (Auto) 0.1 TH/MM3 CBC Comment DIFF FINAL Differential Comment Blood Urea Nitrogen 21 MG/DL Creatinine 1.54 MG/DL Random Glucose 104 MG/DL Calcium Level 7.9 MG/DL Sodium Level 138 MEQ/L Potassium Level 3.9 MEQ/L Chloride Level 104 MEQ/L Carbon Dioxide Level 25.7 MEQ/L Anion Gap 8 MEQ/L Estimat Glomerular Filtration Rate 57 ML/MIN Administered Medications Medications (Trade) Dose Ordered Sig/Padma Route PRN Reason Start Time Stop Time Status Last Admin Dose Admin Atorvastatin Calcium (Lipitor) 40 mg HS PO 09/25/17 21:00 09/26/17 21:04 Oxycodone/ Acetaminophen (Percocet 5-325 Mg) 1 tab Q4H PRN PO PAIN 3-10 09/25/17 11:30 09/26/17 21:04 Famotidine (Pepcid) 20 mg BID PO 09/25/17 13:00 09/27/17 10:28 Azithromycin 500 mg/Sodium Chloride 250 ml @ 250 mls/hr Q24H IV 09/26/17 08:00 09/27/17 10:28 Ceftriaxone Sodium 1000 mg/ Sodium Chloride 100 ml @ 200 mls/hr Q24H IV 09/26/17 08:00 09/27/17 12:02 Carvedilol (Coreg) 6.25 mg BID PO 09/25/17 13:00 09/27/17 10:29 Enoxaparin Sodium (Lovenox Inj) 30 mg Q24H SQ 09/25/17 13:00 09/26/17 12:25 Multi-Ingredient Ointment (Eucerin Cream) 1 applic Q6H PRN TOPICAL dry skin 09/26/17 09:30 09/26/17 12:28 Objective Remarks GENERAL: Middle aged male, lying in bed resting SKIN: Warm and dry. HEAD: Normocephalic. EYES: No scleral icterus. No injection or drainage. Pharynx: pharynx injected. NECK: Supple, trachea midline. CARDIOVASCULAR: Regular rate and rhythm RESPIRATORY: Breath sounds equal bilaterally. No accessory muscle use. GASTROINTESTINAL: Abdomen soft, non-tender, nondistended. EXTREMITIES: No cyanosis NEUROLOGICAL: awake and alert. normal speech. moving extremities. Assessment/Plan Assessment 56y/o with IgG kappa multiple myeloma and plasmacytoma of the cranium, admitted with fevers. Plan 1. agree with infectious disease consult 2. continue antibiotics. 3. monitor CBC Attending Statement The exam, history, and the medical decision-making described in the above note were completed with the assistance of the mid-level provider. I reviewed and agree with the findings presented. I attest that I had a [id number] encounter with the patient on the same day, and personally performed and documented my assessment and findings in the medical record. Hgb decrease, renal function improve. No complaints but still having fever. Cont Abx. Treatment for MM on hold. Pending DC and FU in oncology clinic. Elba Frankel September 27, 2017 13:36 Carlene Alston MD September 27, 2017 17:48
--- NOTE | 2017-09-27 15:35 | RADRPT ---
EXAM DATE/TIME: 09/27/2017 15:15 [facility] COMPARISON: CHEST PA & LAT, September 25, 2017, 8:37. INDICATIONS : Shortness of breath MEDICAL HISTORY : Hypertension. Congestive heart failure. Carcinoma, bone. SURGICAL HISTORY : None. ENCOUNTER: Subsequent ACUITY: 3 days PAIN SCORE: 0/10 LOCATION: Bilateral chest FINDINGS: PA and lateral views of the chest demonstrate the lungs to be symmetrically aerated without evidence of mass, infiltrate or effusion. The cardiomediastinal contours are unremarkable. Osseous structure s are intact. CONCLUSION: No acute cardiopulmonary process. Husam Mccurdy MD on September 27, 2017 at 15:30 Board Certified Radiologist. This report was verified electronically.
--- NOTE | 2017-09-27 17:03 | ECHRPT ---
Indication: Cardiomyopathy, unspecified CONCLUSIONS Normal left ventricular size . The left ventricular systolic function is normal with an estimated ej ection fraction in the range of 50-60%. Wall thickness is measured at the upper limits of normal. trace mitral valve regurgitation BP: 129 / 72 HR: 60 Rhythm: MEASUREMENTS (Male / Female) Normal Values Technical Quality: 2D ECHO LV Diastolic Diameter PLAX 5.8 cm 4.2 - 5.9 / 3.9 - 5.3 cm LV Systolic Diameter PLAX 4.1 cm IVS Diastolic Thickness 1.2 cm 0.6 - 1.0 / 0.6 - 0.9 cm LVPW Diastolic Thickness 1.4 cm 0.6 - 1.0 / 0.6 - 0.9 cm LV Relative Wall Thickness 0.5 RV Internal Dim ED PLAX 1.7 cm M-MODE Aortic Root Diameter MM 3.3 cm LA Systolic Diameter MM 3.5 cm LA Ao Ratio MM 1.1 AV Cusp Separation MM 2.2 cm DOPPLER Mitral E Point Velocity 115.0 cm/s Mitral A Point Velocity 93.7 cm/s Mitral E to A Ratio 1.2 LV E' Septal Velocity 5.5 cm/s Mitral E to LV E' Septal Ratio 21.1 FINDINGS LEFT VENTRICLE Normal left ventricular size . The left ventricular systolic function is normal with an estimated ej ection fraction in the range of 50-60%. Left ventricular diastolic function parameters are normal. Wall thickness is measured at the upper limits of normal. RIGHT VENTRICLE Normal right ventricular size and systolic function. LEFT ATRIUM The left atrial size is normal. RIGHT ATRIUM The right atrial size is normal. ATRIAL SEPTUM Normal atrial septal thickness without atrial level shunting by limited color doppler interrogation. AORTA The aortic root and proximal ascending aorta are not well visualized. MITRAL VALVE Structurally normal mitral valve. No mitral valve stenosis trace mitral valve regurgitation. AORTIC VALVE Trileaflet aortic valve. No aortic valve stenosis or regurgitation. TRICUSPID VALVE Structurally normal tricuspid valve. No tricuspid valve stenosis or regurgitation PULMONARY VALVE No pulmonary valve regurgitation or stenosis. VESSELS The inferior vena cava is normal in size. PERICARDIUM No pericardial effusion. Charli Knapp MD, FACC (Electronically Signed) Final Date:27 Sep 2017 17:02
--- NOTE | 2017-09-27 17:06 | PD.CARD ---
Cardiology Procedure Note Procedure Name: Echocardiogram Procedure Date: September 27, 2017 Procedure Note: The patient's echo today shows complete resolution of the severe nonischemic cardiomyopathy diagnosed in 2016. Recommend continue beta anahi therapy. Will f/u as needed. Kendall Felipe MD September 27, 2017 17:06
[2017-09-27] MEDS: oxyCODONE/ACETAMINOPHEN 5 MG/325 MG TAB PO PRN (18:03)
[2017-09-27] MEDS: ENOXAPARIN SODIUM 30 MG/0.3 ML SYRINGE SQ SCH (18:03)
[2017-09-27] MEDS: ATORVASTATIN 40 MG TAB PO SCH (20:29)
[2017-09-28] VITALS (9 sets, daily range): BP systolic 125–147; BP diastolic 71–85; PULSE 52–112; RESP 16–22; TEMP 97.6–99.7; O2SAT 94–98
[2017-09-28] MEDS: cefTRIAXone INJ 1,000 MG in SODIUM CHLORIDE 0.9% INJ 100 ML IV SCH (08:46)
[2017-09-28] MEDS: FAMOTIDINE 20 MG TAB PO SCH ×2 (08:46→20:44)
[2017-09-28] MEDS: CARVEDILOL 6.25 MG TAB PO SCH ×2 (08:47→20:44)
[2017-09-28] MEDS: SODIUM CHLORIDE 0.9% FLUSH 10 ML FLUSH IVF PRN (08:47)
[2017-09-28] MEDS: AZITHROMYCIN INJ 500 MG in SODIUM CHLOR 0.9% 250 ML INJ 250 ML IV SCH (09:48)
[2017-09-28] MEDS: ENOXAPARIN SODIUM 30 MG/0.3 ML SYRINGE SQ SCH (12:48)
--- NOTE | 2017-09-28 15:06 | HHI.PR ---
Subjective Remarks Resting in bed No fever overnight Discharge has been delayed due to spiking fever yesterday, appreciate ID recommendation, blood culture, continue IV antibiotic for now, if no further temperature will monitor off antibiotic Objective Vitals Vital Signs Date Time Temp Pulse Resp B/P (MAP) Pulse Ox O2 Delivery O2 Flow Rate FiO2 09/28/17 12:30 97.6 63 18 129/71 (90) 98 09/28/17 09:00 99.0 09/28/17 08:00 Room Air 09/28/17 08:00 64 09/28/17 07:52 61 16 133/78 (96) 96 09/28/17 05:36 99.7 66 16 125/71 (89) 94 09/28/17 00:57 99.0 52 16 147/80 (102) 95 09/28/17 00:05 58 09/27/17 20:26 99.1 61 16 144/82 (102) 97 09/27/17 20:03 61 09/27/17 18:00 97 Room Air 09/27/17 17:51 100.3 63 18 132/69 (90) 96 09/27/17 16:00 63 I/O 09/27/17 09/27/17 09/27/17 09/28/17 09/28/17 09/28/17 07:00 15:00 23:00 07:00 15:00 23:00 Intake Total 240 ml 350 ml 720 ml Output Total 320 ml 650 ml Balance -80 ml 350 ml 70 ml Intake Oral 240 ml 720 ml IV Total 350 ml Output Urine Total 320 ml 650 ml # Bowel Movements 1 Result Diagram: 09/27/1740 09/27/17 0640 Objective Remarks GENERAL: This is a well-nourished, well-developed patient, in no apparent distress. CARDIOVASCULAR: RRR, no gallops, or rubs. RESPIRATORY: Fair air entry bilaterally. No W, R, or R GASTROINTESTINAL: Abdomen soft, non-tender, nondistended. Positive bowel sounds MUSCULOSKELETAL: Extremities without clubbing, cyanosis, or edema. Pedal pulses appreciated NEUROLOGICAL: Awake and alert. Moves all extremity. Normal speech.no focal neurological deficit Procedures None A/P Problem List: (1) Febrile illness ICD Code: R50.9 - Fever, unspecified (2) Acute kidney injury ICD Code: N17.9 - Acute kidney failure, unspecified Status: Chronic (3) CHF (congestive heart failure) ICD Code: I50.9 - Heart failure, unspecified Status: Chronic (4) Multiple myeloma ICD Code: C90.00 - Multiple myeloma not having achieved remission Status: Acute Assessment and Plan 56-year-old white male admitted for fever and immunocompromised patient with chest pain 09/26: Labs, blood culture, still pending, CT chest peribronchial thickening, 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: All cultures are negative, awaiting 2D echo to decide as per cardiology for ICD placement if 2D echo show improvement in EF patient can be discharged Addendum patient just ran another fever 100.8 we will hold discharge and consult ID 09/28: Discharge has been delayed due to spiking fever yesterday, appreciate ID recommendation, blood culture, continue IV antibiotic for now, if no further temperature will monitor off antibiotic A/P: Fever in immunocompromised patient -Infectious versus chemotherapy-induced and fevers - contacted micro, blood cultures from yesterday are still being processed, anticipated results to come in tomorrow -Chest x-ray showed right-sided infiltrate per report -Continue Rocephin and azithromycin, if fevers persist, may consider escalating antibiotics to Zosyn and vancomycin -CT thorax reviewed mild to moderate kaitlin-bronchial thickening Chest pain -EKG reviewed -Cardiac enzyme s, lexiscan, telemetry -We will follow-up CT thorax Bradycardia -Chronic per patient, with no definitive source pinpointed in the past. Seems to be in the upper 40s-50s. Is on a beta-anahi, EKG possibly hinting at first -degree AV block. Last TSH and T4 workup was within normal limits about a month ago. Monitor Multiple myeloma -Mild anemia, otherwise platelets are stable -we will hold home Revlimid, consulting medical oncology -will defer home Decadron dosing to oncology Chronic CHF - continue home coreg - Given low normal blood pressure and mild AK I on CKD, I will hold the patient' s home lisinopril, Lasix, and spironolactone - If RF remains stable by tomorrow morning will resume these home meds tomorrow morning GERD - continue home ranitidine Lovenox Antonio Maurer MD September 28, 2017 15:06
[2017-09-28] MEDS: ATORVASTATIN 40 MG TAB PO SCH (20:44)
[2017-09-29] VITALS (9 sets, daily range): BP systolic 112–141; BP diastolic 67–81; PULSE 56–74; RESP 16–22; TEMP 98.3–98.9; O2SAT 97–99
[2017-09-29 08:13] LABS: AUTOMATED NEUTROPHIL # 2.4 TH/MM3 (1.8-7.7); BASOPHIL # 0.1 TH/MM3 (0-0.2); BASOPHIL % 1.1 % (0.0-2.0); EOSINOPHIL # 0.8 TH/MM3 (0-0.4); EOSINOPHIL % 14.5 % (0.0-4.0); HEMATOCRIT 31.6 % (39.0-51.0); HEMOGLOBIN 10.7 GM/DL (13.0-17.0); LYMPH % 20.1 % (9.0-44.0); LYMPHOCYTE # 1.1 TH/MM3 (1.0-4.8); MEAN CELL VOLUME 97.9 FL (80.0-100.0); MEAN CORPUSCULAR HEMOGLOBIN 33.2 PG (27.0-34.0); MEAN CORPUSCULAR HGB CONC 33.9 % (32.0-36.0); MEAN PLATELET VOLUME 7.3 FL (7.0-11.0); MONO % 20.5 % (0.0-8.0); MONOCYTE # 1.1 TH/MM3 (0-0.9); NEUT % 43.8 % (16.0-70.0); PLATELET COUNT 267 TH/MM3 (150-450); RED BLOOD COUNT 3.22 MIL/MM3 (4.50-5.90); RED CELL DISTRIBUTION WIDTH 15.9 % (11.6-17.2); WHITE BLOOD COUNT 5.5 TH/MM3 (4.0-11.0)
[2017-09-29] MEDS: FAMOTIDINE 20 MG TAB PO SCH ×2 (08:25→19:52)
[2017-09-29] MEDS: CARVEDILOL 6.25 MG TAB PO SCH ×2 (08:25→19:53)
[2017-09-29] MEDS: AZITHROMYCIN INJ 500 MG in SODIUM CHLOR 0.9% 250 ML INJ 250 ML IV SCH (08:26)
[2017-09-29] MEDS: SODIUM CHLORIDE 0.9% FLUSH 10 ML FLUSH IVF PRN (08:31)
[2017-09-29] MEDS: cefTRIAXone INJ 1,000 MG in SODIUM CHLORIDE 0.9% INJ 100 ML IV SCH (10:00)
[2017-09-29] MEDS: ENOXAPARIN SODIUM 30 MG/0.3 ML SYRINGE SQ SCH (13:22)
--- NOTE | 2017-09-29 15:22 | HHI.PR ---
Subjective Remarks No fever overnight, no cough or diarrhea or dysuria I will stop antibiotic and monitor temperature if negative will discharge patient if cleared by ID Objective Vitals Vital Signs Date Time Temp Pulse Resp B/P (MAP) Pulse Ox O2 Delivery O2 Flow Rate FiO2 09/29/17 13:24 74 09/29/17 13:05 58 09/29/17 11:43 98.8 58 18 134/73 (93) 98 09/29/17 08:15 Room Air 09/29/17 08:15 61 09/29/17 07:37 98.8 66 16 112/75 (87) 98 09/29/17 04:00 69 09/29/17 04:00 98.3 56 20 125/67 (86) 99 09/29/17 00:20 63 09/29/17 00:13 98.9 62 22 141/81 (101) 97 09/28/17 20:00 76 09/28/17 20:00 98 Room Air 09/28/17 20:00 98.9 60 22 142/81 (101) 09/28/17 16:16 112 I/O 09/28/17 09/28/17 09/28/17 09/29/17 09/29/17 09/29/17 07:00 15:00 23:00 07:00 15:00 23:00 Output Total 450 ml Balance -450 ml Output Urine Total 450 ml Result Diagram: 09/29/17 0738 09/27/17 0640 Objective Remarks GENERAL: This is a well-nourished, well-developed patient, in no apparent distress. CARDIOVASCULAR: RRR, no gallops, or rubs. RESPIRATORY: Fair air entry bilaterally. No W, R, or R GASTROINTESTINAL: Abdomen soft, non-tender, nondistended. Positive bowel sounds MUSCULOSKELETAL: Extremities without clubbing, cyanosis, or edema. Pedal pulses appreciated NEUROLOGICAL: Awake and alert. Moves all extremity. Normal speech.no focal neurological deficit Procedures None A/P Problem List: (1) Febrile illness ICD Code: R50.9 - Fever, unspecified (2) Acute kidney injury ICD Code: N17.9 - Acute kidney failure, unspecified Status: Chronic (3) CHF (congestive heart failure) ICD Code: I50.9 - Heart failure, unspecified Status: Chronic (4) Multiple myeloma ICD Code: C90.00 - Multiple myeloma not having achieved remission Status: Acute Assessment and Plan 56-year-old white male admitted for fever and immunocompromised patient with chest pain 09/26: Labs, blood culture, still pending, CT chest peribronchial thickening, discussed with oncology [employer] 09/27: All cultures are negative, awaiting 2D echo to decide as per cardiology for ICD placement if 2D echo show improvement in EF patient can be discharged Addendum patient just ran another fever 100.8 we will hold discharge and consult ID 09/28: Discharge has been delayed due to spiking fever yesterday, appreciate ID recommendation, blood culture, continue IV antibiotic for now, if no further temperature will monitor off antibiotic 09/29:No fever overnight, no cough or diarrhea or dysuria I will stop antibiotic and monitor temperature if negative will discharge patient if cleared by ID A/P: Fever in immunocompromised patient -Infectious versus chemotherapy-induced and fevers - contacted micro, blood cultures from yesterday are still being processed, anticipated results to come in tomorrow -Chest x-ray showed right-sided infiltrate per report -Continue Rocephin and azithromycin, if fevers persist, may consider escalating antibiotics to Zosyn and vancomycin -CT thorax reviewed mild to moderate kaitlin-bronchial thickening Chest pain -EKG reviewed -Cardiac enzyme s, lexiscan, telemetry -We will follow-up CT thorax Bradycardia -Chronic per patient, with no definitive source pinpointed in the past. Seems to be in the upper 40s-50s. Is on a beta-anahi, EKG possibly hinting at first -degree AV block. Last TSH and T4 workup was within normal limits about a month ago. Monitor Multiple myeloma -Mild anemia, otherwise platelets are stable -we will hold home Revlimid, consulting medical oncology -will defer home Decadron dosing to oncology Chronic CHF - continue home coreg - Given low normal blood pressure and mild AK I on CKD, I will hold the patient' s home lisinopril, Lasix, and spironolactone - If RF remains stable by tomorrow morning will resume these home meds tomorrow morning GERD - continue home ranitidine Lovenox Antonio Maurer MD September 29, 2017 15:22
--- NOTE | 2017-09-29 18:00 | HHI.IDPN ---
Subjective Subjective Remarks ID X cover for Dr Dobbins chart reviewed 56 M with multiple myeloma on chemo presented with non localising fever since saturday started on CFTX, azithro fever resolved > 24 hrs ago Antibiotics CFTX azithro Allergies: Coded Allergies: No Known Allergies (Unverified Allergy, Unknown, 07/09/17) Objective . Vital Signs Date Time Temp Pulse Resp B/P (MAP) Pulse Ox O2 Delivery O2 Flow Rate FiO2 09/29/17 13:24 74 09/29/17 13:05 58 09/29/17 11:43 98.8 58 18 134/73 (93) 98 09/29/17 08:15 Room Air 09/29/17 08:15 61 09/29/17 07:37 98.8 66 16 112/75 (87) 98 09/29/17 04:00 69 09/29/17 04:00 98.3 56 20 125/67 (86) 99 09/29/17 00:20 63 09/29/17 00:13 98.9 62 22 141/81 (101) 97 09/28/17 20:00 76 09/28/17 20:00 98 Room Air 09/28/17 20:00 98.9 60 22 142/81 (101) . Laboratory Tests Test 09/29/17 07:38 White Blood Count 5.5 TH/MM3 Red Blood Count 3.22 MIL/MM3 Hemoglobin 10.7 GM/DL Hematocrit 31.6 % Mean Corpuscular Volume 97.9 FL Mean Corpuscular Hemoglobin 33.2 PG Mean Corpuscular Hemoglobin Concent 33.9 % Red Cell Distribution Width 15.9 % Platelet Count 267 TH/MM3 Mean Platelet Volume 7.3 FL Neutrophils (%) (Auto) 43.8 % Lymphocytes (%) (Auto) 20.1 % Monocytes (%) (Auto) 20.5 % Eosinophils (%) (Auto) 14.5 % Basophils (%) (Auto) 1.1 % Neutrophils # (Auto) 2.4 TH/MM3 Lymphocytes # (Auto) 1.1 TH/MM3 Monocytes # (Auto) 1.1 TH/MM3 Eosinophils # (Auto) 0.8 TH/MM3 Basophils # (Auto) 0.1 TH/MM3 CBC Comment DIFF FINAL Differential Comment Microbiology Date/Time Source Procedure Growth Status 09/27/17 15:03 Blood Peripheral Aerobic Blood Culture - Preliminary NO GROWTH IN 2 DAYS Resulted 09/27/17 15:03 Blood Peripheral Anaerobic Blood Culture - Preliminary NO GROWTH IN 2 DAYS Resulted 09/27/17 14:55 Blood Peripheral Aerobic Blood Culture - Preliminary NO GROWTH IN 2 DAYS Resulted 09/27/17 14:55 Blood Peripheral Anaerobic Blood Culture - Preliminary NO GROWTH IN 2 DAYS Resulted 09/27/17 17:50 Urine Clean Catch Legionella Antigen - Final PRESUMPTIVE NEGATIVE FOR LEGIONELLA P... Complete 09/27/17 17:50 Urine Clean Catch Streptococcus pneumoniae Antigen (M - Final PRESUMPTIVE NEGATIVE FOR STREPTOCOCCU... Complete Imaging Last Impressions Chest X-Ray 09/27/17 0000 Signed Impressions: Service Date/Time: Wednesday, September 27, 2017 15:15 - CONCLUSION: No acute cardiopulmonary process. Husam Mccurdy MD Thoracic Spine CT 09/25/17 0000 Signed Impressions: Service Date/Time: Monday, September 25, 2017 10:52 - CONCLUSION: Myelomatous involvement of the thoracic spine and ribs stable minimal. Azam Feldman MD FACR Myocardial Perfusion Scan Nuc Med 09/25/17 0000 Signed Impressions: Service Date/Time: Monday, September 25, 2017 14:53 - CONCLUSION: 1. Multiple small foci of ischemia in the mid to basilar anterior and septal mccann. 2. Global hypokinesia with significantly reduced EF of 29%%. RISK CATEGORY: High (>3%% Annual Mortality Rate) Christo Mcallister MD Chest CT 09/25/17 0000 Signed Impressions: Service Date/Time: Monday, September 25, 2017 10:52 - CONCLUSION: Mild to moderate peribronchial thickening without consolidation. Trace right pleural effusion. Azam Feldman MD FACR Physical Exam GENERAL: Patient is a well-nourished, well-developed male, awake and alert, not in respiratory distress. Looks comfortable at rest SKIN: Warm and dry. No generalized rash, no ecchymoses and no evidence of embolic lesions. HEAD: Has hyperpigmentation on the top of his head with a prominent firm mass about 6 cm, not tender, no open wound EYES: [place] conjunctiva. No petechia or hemorrhage. Pupils equal, round and reactive to light. Extraocular movements full and intact. No scleral icterus. No injection or drainage. EARS, NOSE AND THROAT: Nose without bleeding or purulent nasal discharge. No sinus tenderness. Mucous membranes pink and moist. No oral lesions noted. NECK: Trachea midline. Supple and not tender, no meningeal signs CARDIOVASCULAR: Regular rate and rhythm. No murmurs, rubs or gallops heard RESPIRATORY: Clear to auscultation. Breath sounds equal bilaterally. No rales , wheezing or rhonchi ABDOMEN: Soft, non-tender, nondistended. Bowel sounds present and normoactive. No guarding. No rebound. No organomegaly. EXTREMITIES: No clubbing, cyanosis, or edema. No joint effusion, has good ROM. No calf tenderness. Well perfused and warm. NEUROLOGICAL: Awake and alert. Cranial nerves grossly intact. Motor grossly within normal limits. PSYCHIATRIC: Seems to have depressed affect, calm and cooperative. LINE: No evidence of infection Assessment & Plan Remarks Febrile illness, with complaints of weakness and SOB, has peribronchial thickening on CXR, possible early infiltrate - no cough or congestion; no symptoms to suggest PNA - ?due to his multiple myeloma - no GI or complaints - repeat CXR negative Multiple myeloma, on chemo Plasma cell neoplasm, scalp, S/P XRT Chronic Kidney Disease Non-ischemic cardiomyopathy RECOMMENDATION dc abx OK to dc send UA, reflex clx Vera Mora MD September 29, 2017 18:00
[2017-09-29] MEDS: ATORVASTATIN 40 MG TAB PO SCH (19:52)
[2017-09-29 20:22] LABS: BILIRUBIN, URINE NEG (NEG); BLOOD, URINE NEG (NEG); GLUCOSE,URINE NEG (NEG); KETONE, URINE NEG (NEG); NITRITE,URINE NEG (NEG); PH, URINE 6.5 (5.0-8.5); URINE COLOR LIGHT-YELLOW (YELLW/STRAW); URINE LEUKOCYTE ESTERASE NEG (NEG)
== END 2017-09-29 20:30 | disposition home or self-care (01) | DRG 194 ==
LOC: NEPE 07:44 → NEDA 11:00 → HCIN 13:24
PROVIDERS: ADMIT Hospitalist; ATTEND Hospitalist
DX: J18.9 Pneumonia, unspecified organism (principal); C90.00 Multiple myeloma not having achieved remission; N17.9 Acute kidney failure, unspecified; C90.30 Solitary plasmacytoma not having achieved remission; I13.0 Hypertensive heart and chronic kidney disease with heart failure and stage 1 through stage 4 chronic kidney disease, or unspecified chronic kidney disease; I50.22 Chronic systolic (congestive) heart failure; I42.9 Cardiomyopathy, unspecified; K21.9 Gastro-esophageal reflux disease without esophagitis; G89.29 Other chronic pain; R10.9 Unspecified abdominal pain; R00.1 Bradycardia, unspecified; E78.00 Pure hypercholesterolemia, unspecified; D64.9 Anemia, unspecified; G43.909 Migraine, unspecified, not intractable, without status migrainosus; N18.9 Chronic kidney disease, unspecified; E78.5 Hyperlipidemia, unspecified; Z92.21 Personal history of antineoplastic chemotherapy; Z92.3 Personal history of irradiation
CPT/HCPCS: 71046; 71250; 72128; 78452; 80048; 80053; 81001; 83605; 83735; 83880; 84484; 85007; 85025; 85027; 85610; 85730; 87040; 87449; 93005; 93017; 93306; 99285; A9502; J0456; J0696; J1650; J2785; J7050

== ENCOUNTER 2017-10-29 18:46 | Observation (INO) | payer OTHER ==
[~2017-10-29] VITALS: Ht 172.7 cm; Wt 75.0 kg
[~2017-10-29 18:46] MED LIST changes: +RANI300T PO
[2017-10-29 18:49] VITALS: BP 152/72; PULSE 58; RESP 20; TEMP 98.6; O2SAT 98
[2017-10-29] MEDS ORDERED: SODIUM CHLORIDE 0.9% FLUSH 10 ML FLUSH IVF PRN (19:00)
--- NOTE | 2017-10-29 19:14 | RADRPT ---
EXAM DATE: 10/29/2017 7:11 PM EDT AGE/SEX: 56 years / Male INDICATIONS: Chest pain. CLINICAL DATA: This is the patient's initial encounter. Patient reports that signs and symptoms have been present for 1 day and indicates a pain score of 10/10. MEDICAL/SURGICAL HISTORY: . Cardiovascular disease. Congestive heart failure. Hypertension.Mult iple myeloma. None. COMPARISON: [facility] [place], CHEST SINGLE AP, 09/24/2017. . FINDINGS: No new focal pleural or parenchymal opacities. Cardiac silhouette is mildly enlarged. Bony thorax is intact. CONCLUSION: 1. Mild cardiomegaly. 2. No acute cardiopulmonary disease. Electronically signed by: Christo Mcallister MD 10/29/2017 7:12 PM EDT
--- NOTE | 2017-10-29 19:26 | PD ---
HPI Chief Complaint: Chest Pain Time Seen by Provider: 19:21 Travel History International Travel<30 days: No Contact w/Intl Traveler<30days: No Traveled to known affect area: No History of Present Illness HPI The patient is a 56 year old male who presents to the [facility] emergency department with a history of chest pain in the center and right side of the chest that began on Saturday. The character of the pain is like heartburn. He tried Tums without relief. Initially, the pain was coming and going. 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 He has a history of CHF. The pain is worse with eating or drinking. The patient has been in treatment for multiple myeloma since June. He is on chemotherapy as well. His last chemotherapy was . His oncologist is Dr. Oneal. He incidentally also reports that he is being set up for a bone marrow transplant. The patient denies having any recent fevers. He denies having any cough or congestion. He denies having any lower extremity edema or fluid retention. He denies having any prior history of SD, DVT, or PE. He denies having any increased pain with taking a deep breath. Patient denies having any diaphoresis, radiation of pain , shortness of breath, or nausea vomiting associated with this. On review of systems otherwise, the patient denies having any new neck pain, shortness of breath, abdominal pain, diarrhea, urinary symptoms, or neurologic symptoms. The patient's last bowel movement was earlier today. PFSH Past Medical History Narrative Medical The patient's past medical history is significant for multiple myeloma, congestive heart failure, hyperlipidemia, hypertension Hx Anticoagulant Therapy: Yes (ASA) Blood Disorders: No Anxiety: No Depression: No Heart Rhythm Problems: No Cancer: Yes (multiple myeloma ) Cardiovascular Problems: Yes High Cholesterol: Yes Chemotherapy: Yes Chest Pain: Yes (X1 MONTH AGO) Congestive Heart Failure: Yes Cerebrovascular Accident: No Diabetes: No Diminished Hearing: No Endocrine: No Gastrointestinal Disorders: No Genitourinary: No Headaches: No Hypertension: Yes Immune Disorder: No Implanted Vascular Access Dvce: No Musculoskeletal: No Neurologic: No Psychiatric: No Reproductive: No Respiratory: Yes Migraines: Yes Radiation Therapy: Yes (just finished) Seizures: No Past Surgical History Narrative Surgical The patient's past surgical history is significant for right knee surgery, wisdom teeth extraction Abdominal Surgery: No Cardiac Surgery: No Ear Surgery: No Endocrine Surgery: No Eye Surgery: No Genitourinary Surgery: No Gynecologic Surgery: No Joint Replacement: Yes (R KNEE SURGERY ) Neurologic Surgery: No Oral Surgery: Yes (wisdom teeth removed) Thoracic Surgery: No Other Surgery: Yes (right knee surgery) Social History Alcohol Use: No Tobacco Use: No Substance Use: No Allergies-Medications (Allergen,Severity, Reaction): Coded Allergies: No Known Allergies (Unverified Allergy, Unknown, 10/29/17) Reported Meds & Prescriptions Reported Meds & Active Scripts Active Dexamethasone 4 Mg Tab 4 Mg PO Q12HR Zofran Odt (Ondansetron Odt) 4 Mg Tab 4 Mg SL Q6HR PRN Percocet (Oxycodone-Acetaminophen) 5-325 mg Tab 1 Tab PO Q4H PRN Verdrocet 2.5-325 mg (Hydrocodone-Acetaminophen) 2.5 Mg-325 Mg Tab 1 Tab PO Q6HR Aspirin Low Dose (Aspirin) 81 Mg Chew 162 Mg CHEW DAILY Atorvastatin (Atorvastatin Calcium) 40 Mg Tab 40 Mg PO HS Spironolactone 25 Mg Tab 25 Mg PO DAILY Lisinopril 10 Mg Tab 10 Mg PO DAILY Furosemide 20 Mg Tab 20 Mg PO BID Carvedilol 6.25 Mg Tab 6.25 Mg PO BID Reported Revlimid (Lenalidomide) 10 Mg Capsule 15 Mg PO DAILY Ranitidine (Ranitidine HCl) 300 Mg Tab 300 Mg PO HS Review of Systems Except as stated in HPI: all other systems reviewed are Neg General / Constitutional: No: Fever Eyes: No: Visual changes HENT: No: Headaches, Rhinorrhea, Congestion Cardiovascular: Positive: Chest Pain or Discomfort, No: Dyspnea on exertion Respiratory: No: Cough, Shortness of Breath Gastrointestinal: Positive: Indigestion, No: Nausea, Vomiting, Diarrhea, Abdominal Pain Genitourinary: No: Dysuria Musculoskeletal: No: Pain Skin: No Rash Neurologic: No: Weakness, Focal Abnormalities, Change in Mentation, Slurred Speech, Sensory Disturbance Psychiatric: No: Depression Endocrine: No: Polydipsia Hematologic/Lymphatic: No: Easy Bruising Physical Exam Narrative General: The patient is a well-developed well-nourished male in no acute distress. Head and Neck exam: Head is normocephalic atraumatic. Eyes: EOMI, pupils are equal round and reactive to light. Nose: Midline septum with pink mucous membranes Mouth: Dentition unremarkable. Moist mucus membranes. Posterior oropharynx is not erythematous. No tonsillar hypertrophy. Uvula midline. Airway patent. Neck: No palpable lymphadenopathy. No nuchal rigidity. No thyromegaly. Cardiovascular: Regular rate and rhythm without murmurs, gallops, or rubs. No pulse deficit to the extremities on simultaneous auscultation and palpation of his radial artery. No chest wall tenderness on palpation. No step-off or crepitus. No erythema or ecchymosis. Patient has blue radiation marking in the center of his anterior chest. Lungs: Clear to auscultation bilaterally. No wheezes, rhonchi, or rales. Abdomen: Soft, without tenderness to palpation in all 4 quadrants of the abdomen. No guarding, rebound, or rigidity. Normal bowel sounds are audible. No tenderness on palpation of McBurney's point. Negative Jeffery sign. Extremities: No clubbing, cyanosis, or edema. 2+ pulses in all 4 extremities. No calf tenderness on palpation. Back: No costovertebral angle tenderness to palpation. Neurologic Exam: Grossly nonfocal. Skin Exam: No rash noted. Intact skin that is warm and dry. Data Data Last Documented VS Vital Signs Date Time Temp Pulse Resp B/P (MAP) Pulse Ox O2 Delivery O2 Flow Rate FiO2 10/29/17 19:42 52 17 133/70 (91) 100 Room Air 10/29/17 18:49 98.6 Orders Orders Electrocardiogram (10/29/17 18:57) Complete Blood Count With Diff (10/29/17 18:57) Prothrombin Time / Inr (Pt) (10/29/17 18:57) Act Partial Throm Time (Ptt) (10/29/17 18:57) Chest, Single Ap (10/29/17 18:57) Ecg Monitoring (10/29/17 18:57) Bilateral Bp Monitoring (10/29/17 18:57) Iv Access Insert/Monitor (10/29/17 18:57) Oximetry (10/29/17 18:57) Oxygen Administration (10/29/17 18:57) Sodium Chloride 0.9% Flush (Ns Flush) (10/29/17 19:00) D-Dimer (10/29/17 19:29) Thyroid Stimulating Hormone (10/29/17 19:29) Sodium Chlor 0.9% 1000 Ml Inj (Ns 1000 M (10/29/17 19:30) Pantoprazole Inj (Protonix Inj) (10/29/17 19:30) Al-Mag Hy-Si 40-40-4 Mg/Ml Liq (Mag-Al P (10/29/17 20:30) Ct Pulmonary Angiogram (10/29/17 21:02) Ckmb (Isoenzyme) Profile (10/29/17 19:45) Comprehensive Metabolic Panel (10/29/17 19:45) Lipase (10/29/17 19:45) Magnesium (Mg) (10/29/17 19:45) Troponin I (10/29/17 19:45) Iohexol 350 Inj (Omnipaque 350 Inj) (10/29/17 22:34) Aspirin Chew (Aspirin Chew) (10/29/17 23:15) Nitroglycerin 2% Oint (Nitroglycerin 2% (10/29/17 23:15) Admit Order (Ed Use Only) (10/29/17 23:20) Labs Laboratory Tests Test 10/29/17 19:45 10/29/17 21:00 Prothrombin Time 11.4 SEC Prothromb Time International Ratio 1.1 RATIO Activated Partial Thromboplast Time 23.5 SEC D-Dimer Quantitative (PE/DVT) 1.62 MG/L FEU Blood Urea Nitrogen 13 MG/DL Creatinine 1.23 MG/DL Random Glucose 89 MG/DL Total Protein 7.0 GM/DL Albumin 3.0 GM/DL Calcium Level 8.2 MG/DL Magnesium Level 2.1 MG/DL Alkaline Phosphatase 89 U/L Aspartate Amino Transf (AST/SGOT) 15 U/L Alanine Aminotransferase (ALT/SGPT) 17 U/L Total Bilirubin 0.4 MG/DL Sodium Level 144 MEQ/L Potassium Level 3.6 MEQ/L Chloride Level 106 MEQ/L Carbon Dioxide Level 26.8 MEQ/L Anion Gap 11 MEQ/L Estimat Glomerular Filtration Rate 74 ML/MIN Total Creatine Kinase 53 U/L Troponin I LESS THAN 0.02 NG/ML Lipase 129 U/L Thyroid Stimulating Hormone 3rd Gen 2.700 uIU/ML White Blood Count 2.7 TH/MM3 Red Blood Count 3.02 MIL/MM3 Hemoglobin 9.8 GM/DL Hematocrit 29.1 % Mean Corpuscular Volume 96.3 FL Mean Corpuscular Hemoglobin 32.3 PG Mean Corpuscular Hemoglobin Concent 33.6 % Red Cell Distribution Width 17.0 % Platelet Count 152 TH/MM3 Mean Platelet Volume 8.7 FL Neutrophils (%) (Auto) 43.3 % Lymphocytes (%) (Auto) 15.1 % Monocytes (%) (Auto) 22.5 % Eosinophils (%) (Auto) 17.8 % Basophils (%) (Auto) 1.3 % Neutrophils # (Auto) 1.2 TH/MM3 Lymphocytes # (Auto) 0.4 TH/MM3 Monocytes # (Auto) 0.6 TH/MM3 Eosinophils # (Auto) 0.5 TH/MM3 Basophils # (Auto) 0.0 TH/MM3 CBC Comment DIFF FINAL Differential Comment MDM Medical Decision Making Medical Screen Exam Complete: Yes Emergency Medical Condition: Yes Medical Record Reviewed: Yes Differential Diagnosis Radiation-induced esophagitis, versus acid reflux, versus gastritis, versus acute coronary syndrome, versus pulmonary embolism, versus CHF exacerbation, versus pneumonia Narrative Course During the course of the patient's emergency department visit, the patient's history, examination, and differential diagnosis were reviewed with the patient. The patient was placed on a rn cardiac cath with oximetry and frequent blood pressure monitoring. The patient had IV access obtained and blood work sent for analysis. The patient had an EKG done on arrival. The patient's EKG reveals a sinus bradycardia with a first-degree block, heart rate of 50, QRS duration is 109 ms, QTC [address] segment elevation. T waves are inverted in V5, V6. The patient was initially provided normal saline 1 L IV fluid bolus, Protonix 40 mg IV The patient's laboratory studies were reviewed and remarkable for a white count of 2.7, hemoglobin 9.8, platelets 152 at 22.5 monocytes, eosinophils 17.8. CMP is remarkable for a GFR of 74, calcium 8.2, initial set of cardiac enzymes are negative, lipase 129, TSH 2.7, PT PTT within normal limits, d-dimer 1.62. CTA to rule out PE was ordered. Radiology studies were reviewed and remarkable for Last Impressions CT Angiography 10/29/172 Signed Impressions: CONCLUSION: 1. No CT evidence for pulmonary artery embolism. 2. Slight prominence of the main pulmonary artery which may reflect some degre e of pulmonary artery hypertension. 3. Mild four-chamber cardiomegaly. 4. Minimal groundglass opacities at the lung bases with slight bronchiectasis. 5. Improved focal airspace disease in the right upper lobe peripherally. 6. Osseous changes consistent with history of multiple myeloma. Chest X-Ray 10/29/17 9205 Signed Impressions: CONCLUSION: 1. Mild cardiomegaly. 2. No acute cardiopulmonary disease. The patient's electronic medical record was reviewed and the patient was last admitted for chest pain and pneumonia in September 2017. The patient at that time underwent evaluation and had a stress test done that was abnormal. The tire bladder maker saw the patient in consultation. The patient was noted to have a cardiomyopathy. The patient reportedly last had a cardiac catheterization approximately 2 years ago that showed no evidence of coronary artery disease, the tire bladder maker thought it was low probability that the ischemic changes on stress testing related to new coronary artery disease at that time. However, given the patient's chest pain and recent history of abnormal stress test, the patient warrants observation for serial cardiac enzymes. Anticipate that the patient's chest pain is related to a possible esophagitis. The patient's case will be discussed with the admitting physician. I spoke to Dr. Carmona regarding this patient's case. Please see ED physician communication area regarding the conversation. The patient will be admitted to the chest pain center. The patient's results were discussed with the patient, including the plan of care. I explained that further testing and/ or monitoring is indicated based on the patient's history, examination, and/ or laboratory findings. Therefore, I recommended admission for additional evaluation. The patient expressed understanding and was agreeable with this plan. The patient was admitted to the hospital in stable condition and sent to a bed under the care of the chest pain center. Physician Communication Physician Communication The patient's case including history, pertinent physical examination findings, and laboratory studies were discussed with Dr. Carmona. As the patient is primarily being admitted for rule out serial cardiac enzyme protocol as he recently had an abnormal stress test the [facility] pain center. Regarding the patient's possible radiation-induced esophagitis. She explained that this could be worked up as an outpatient. The patient will therefore be admitted to the chest pain center for rule out serial cardiac enzyme protocol. Diagnosis Primary Impression: Chest pain, rule out acute myocardial infarction Admitting Information Admitting Physician Requests: Observation Viviane Cervantes MD Oct 29, 2017 19:26
[2017-10-29] MEDS ORDERED: PANTOPRAZOLE SODIUM 40 MG VIAL IV PUSH ONE (19:30)
[2017-10-29] MEDS ORDERED: SODIUM CHLOR 0.9% 1000 ML INJ 1,000 ML IV ONE (19:30)
[2017-10-29 19:41] VITALS: RESP 15; O2SAT 100
[2017-10-29 19:42] VITALS: BP_SYST 133; BP_SYST 143; BP_DIAS 68; BP_DIAS 70; PULSE 52; PULSE 53; RESP 15; RESP 17; O2SAT 100
[2017-10-29] MEDS ORDERED: ALUMINUM/MAGNESIUM/SIMETH 30 ML CUP PO ONE (20:30)
[2017-10-29] MEDS ORDERED: LENA10CA PO (20:44)
[2017-10-29 21:24] LABS: INTERNATIONAL NORMALIZED RATIO 1.1 RATIO; PROTHROMBIN TIME - PATIENT 11.4 SEC (9.8-11.6)
[2017-10-29 21:25] LABS: ALT (GPT) 17 U/L (12-78); AST (GOT) 15 U/L (15-37); BICARBONATE 26.8 MEQ/L (21.0-32.0); BLOOD UREA NITROGEN 13 MG/DL (7-18); CALCIUM 8.2 MG/DL (8.5-10.1); CREATININE 1.23 MG/DL (0.60-1.30); GLOMERULAR FILTRATION RATE 74 ML/MIN (>89); GLUCOSE,RANDOM 89 MG/DL (74-106)
[2017-10-29 21:27] LABS: ALKALINE PHOSPHATASE 89 U/L (45-117); TOTAL BILIRUBIN ADULT 0.4 MG/DL (0.2-1.0); TROPONIN I LESS THAN 0.02 NG/ML (0.02-0.05)
[2017-10-29 21:30] LABS: AUTOMATED NEUTROPHIL # 1.2 TH/MM3 (1.8-7.7); BASOPHIL % 1.3 % (0.0-2.0); EOSINOPHIL # 0.5 TH/MM3 (0-0.4); EOSINOPHIL % 17.8 % (0.0-4.0); HEMATOCRIT 29.1 % (39.0-51.0); HEMOGLOBIN 9.8 GM/DL (13.0-17.0); LYMPH % 15.1 % (9.0-44.0); LYMPHOCYTE # 0.4 TH/MM3 (1.0-4.8); MEAN CELL VOLUME 96.3 FL (80.0-100.0); MEAN CORPUSCULAR HEMOGLOBIN 32.3 PG (27.0-34.0); MEAN CORPUSCULAR HGB CONC 33.6 % (32.0-36.0); MEAN PLATELET VOLUME 8.7 FL (7.0-11.0); MONO % 22.5 % (0.0-8.0); MONOCYTE # 0.6 TH/MM3 (0-0.9); NEUT % 43.3 % (16.0-70.0); PLATELET COUNT 152 TH/MM3 (150-450); RED BLOOD COUNT 3.02 MIL/MM3 (4.50-5.90); WHITE BLOOD COUNT 2.7 TH/MM3 (4.0-11.0)
[2017-10-29 21:33] LABS: CHLORIDE 106 MEQ/L (98-107); SODIUM (NA) 144 MEQ/L (136-145)
[2017-10-29 21:34] LABS: MAGNESIUM 2.1 MG/DL (1.5-2.5)
[2017-10-29] MEDS ORDERED: IOHEXOL 350 MG/ML 10 ML VIAL (for RAD DIAG) IVCONTRAST ONE (22:34)
--- NOTE | 2017-10-29 22:37 | RADRPT ---
EXAM DATE: 10/29/2017 10:28 PM EDT AGE/SEX: 56 years / Male INDICATIONS: Chest pain, elevated d-dimer. CLINICAL DATA: This is the patient's initial encounter. Patient reports that signs and symptoms have been present for 2 days and indicates a pain score of 8/10. MEDICAL/SURGICAL HISTORY: Congestive heart failure. Cardiovascular disease. Hypertension. Multip le myeloma. Chemotherapy. Radiation therapy. None. RADIATION DOSE: 9.10 CTDI (mGy) [place] [facility] [place]25/2017. . TECHNIQUE: Volumetric scanning was performed using a multi-row detector CT scanner during bolus infu miguelina of 75 ml Omnipaque 350 (iohexol) nonionic water-soluble contrast as a single exam dose. The kenisha a was post processed with a variety of visualization algorithms including full volume maximum intensi ty projection and sliding thin slab reformation. Using automated exposure control and adjustment of the mA and/or kV according to patient size, radiation dose was kept as low as reasonably achievable t o obtain optimal diagnostic quality images. DICOM format image data is available electronically for review and comparison. FINDINGS: Pulmonary Arteries: No filling defects are seen in the pulmonary arteries through the segmental vess els. Main pulmonary artery slightly prominent measuring up to 3.1 cm. Lung: Focal groundglass opacities in the right upper lobe peripherally corresponding to more dense c onsolidation on recent CT exam. Minimal groundglass opacities in the lung bases bilaterally with slig ht bronchiectasis. Pleura: No effusion, significant pleural thickening or pneumothorax. Mediastinum: Mild 4 chamber cardiac enlargement. No significant mediastinal adenopathy. 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 Redemonstration of tolbert es cistern multiple myeloma in the anterior right ribs. Other: Visulaized upper abdomen is unremarkable. CONCLUSION: 1. No CT evidence for pulmonary artery embolism. 2. Slight prominence of the main pulmonary artery which may reflect some degree of pulmonary artery hypertension. 3. Mild four-chamber cardiomegaly. 4. Minimal groundglass opacities at the lung bases with slight bronchiectasis. 5. Improved focal airspace disease in the right upper lobe peripherally. 6. Osseous changes consistent with history of multiple myeloma. Electronically signed by: Christo Mcallister MD 10/29/2017 10:35 PM EDT
[2017-10-29] MEDS ORDERED: NITROGLYCERIN 2% OINT 1 GM PACKET TOPICAL ONE (23:15)
[2017-10-29] MEDS ORDERED: ASPIRIN 81 MG CHEW TAB CHEW ONE (23:15)
[2017-10-30] VITALS (14 sets, daily range): BP systolic 137–166; BP diastolic 71–85; PULSE 42–62; RESP 14–20; TEMP 97.4–98.7; O2SAT 95–100
[2017-10-30] MEDS ORDERED: SODIUM CHLORIDE 0.9% FLUSH 10 ML FLUSH IV FLUSH PRN
[2017-10-30] MEDS ORDERED: ACETAMINOPHEN 500 MG CPLT PO PRN
[2017-10-30 00:35] LABS: TROPONIN I 0.02 NG/ML (0.02-0.05)
[2017-10-30] MEDS: SODIUM CHLOR 0.9% 1000 ML INJ 1,000 ML IV SCH ×3 (02:01→21:20)
[2017-10-30 04:27] LABS: TROPONIN I 0.03 NG/ML (0.02-0.05)
--- NOTE | 2017-10-30 08:38 | HHI.HP ---
HPI Primary Care Physician Kevin Shultz M.D. Chief Complaint Chest pain History of Present Illness 56-year-old male with history of multiple myeloma, currently receiving chemotherapy and radiation for bony metastasis presents emergency room for further evaluation chest pain. Onset Saturday. Location epigastric area. Characterized as heartburn, "like a gas bubble that does not move." Eating and drinking makes discomfort worse. Duration constant. No relieving factors. Took anti-acids without relief. No recent illness, fever, chills, or cough. No associated symptoms of nausea, vomiting, dyspnea, or diaphoresis. Review of Systems General: No fatigue,weakness, fever, chills, or recent illness. Currently receiving radiation and chemotherapy. Patient's oncologist is Dr. Oneal. HEENT: No CRANE, no dysphasia CV: As stated above. No palpitations, intermittent leg pain, or dizziness. RESP: No SOB, cough, or wheeze. GI: As stated above. No nausea, vomiting, or bowel changes. : No dysuria, urgency, frequency MS: No discomfort or change in ROM NEURO: No difficulty with balance, LOC, motor/sensory deficits PSYCH: No anxiety, depression, or suicidal ideation SKIN: No rashes, no concerning lesions Past Family Social History Allergies: Coded Allergies: No Known Allergies (Unverified Allergy, Unknown, 10/29/17) Past Medical History Multiple myeloma, congestive heart failure, nonischemic cardiomyopathy diagnosed 2015, hyperlipidemia Past Surgical History Right knee surgery, wisdom teeth extraction Reported Medications Reported Meds & Active Scripts Active Dexamethasone 4 Mg Tab 4 Mg PO Q12HR Zofran Odt (Ondansetron Odt) 4 Mg Tab 4 Mg SL Q6HR PRN Percocet (Oxycodone-Acetaminophen) 5-325 mg Tab 1 Tab PO Q4H PRN Verdrocet 2.5-325 mg (Hydrocodone-Acetaminophen) 2.5 Mg-325 Mg Tab 1 Tab PO Q6HR Aspirin Low Dose (Aspirin) 81 Mg Chew 162 Mg CHEW DAILY Atorvastatin (Atorvastatin Calcium) 40 Mg Tab 40 Mg PO HS Spironolactone 25 Mg Tab 25 Mg PO DAILY Lisinopril 10 Mg Tab 10 Mg PO DAILY Furosemide 20 Mg Tab 20 Mg PO BID Carvedilol 6.25 Mg Tab 6.25 Mg PO BID Revlimid (Lenalidomide) 10 Mg Capsule 15 Mg PO DAILY Ranitidine (Ranitidine HCl) 300 Mg Tab 300 Mg PO HS Active Ordered Medications Current Medications Medications (Trade) Dose Ordered Sig/Padma Route Start Time Stop Time Status Last Admin (NS Flush) 2 ml UNSCH PRN IVF 10/29/17 19:00 Sodium Chloride 1,000 ml @ 100 mls/hr Q10H IV 10/30/17 00:00 10/30/17 02:01 (NS Flush) 2 ml UNSCH PRN IV FLUSH 10/30/17 00:00 (NS Flush) 2 ml BID IV FLUSH 10/30/17 09:00 (Tylenol) 500 mg Q4H PRN PO 10/30/17 00:00 (Protonix) 40 mg DAILY PO 10/30/17 09:00 Social History Known hyperlipidemia. No known coronary artery disease, diabetes, or hypertension. Lifelong non-smoker. Denies any alcohol or illegal drug use. Past cardiac testing 09/25/17 Lexiscan. Multiple small foci of ischemia in the mid to basilar anterior and septal mccann. EF 29%. Global hypokinesis 09/02/15 cardiac catheterization-normal coronary arteries Physical Exam Vital Signs Vital Signs Date Time Temp Pulse Resp B/P (MAP) Pulse Ox O2 Delivery O2 Flow Rate FiO2 10/30/17 03:55 98.2 51 16 159/79 (105) 96 10/30/17 03:24 48 10/30/17 01:42 42 10/30/17 01:18 98.1 46 17 166/85 (112) 99 10/30/17 00:54 10/30/17 00:36 46 17 165/75 (105) 100 Room Air 10/30/17 00:01 100 10/29/17 19:42 52 17 133/70 (91) 100 Room Air 10/29/17 19:42 53 15 143/68 (93) 100 Room Air 10/29/17 19:41 15 100 Room Air 10/29/17 19:41 100 Room Air 10/29/17 18:49 98.6 58 20 152/72 (98) 98 Physical Exam GENERAL: Alert WN, WD, NAD, pleasant, -[place]orran male HEAD: NC, AT EYES: Sclera clear, conjunctiva without injection, pupils equal and round ENT: Mucous membranes pink and moist CV: RRR, without murmur, rub, or gallop, no JVD, no S3-S4. Chest wall nontender with palpation. RESP: Clear lungs throughout bilateral, no crackles, wheeze, rhonchi, symmetrical chest rise, nonlabored, able to speak in full sentences ABD: Soft, NT, ND, no masses, positive bowel tones, epigastric area nontender with palpation. EXT: Pulses +2x4, no dependent edema MS: Normal tone x4 extremities, no obvious deformities, full range of motion NEURO: CN II through CN XII grossly intact, motor strength 5/5 PSYCH: A+O x3, pleasant affect, appropriate speech, mood, insight and judgment SKIN: Normal turgor, normal texture Laboratory Laboratory Tests Test 10/29/17 19:45 10/29/17 21:00 10/29/17 23:59 10/30/17 03:14 Prothrombin Time 11.4 Prothromb Time International Ratio 1.1 Activated Partial Thromboplast Time 23.5 D-Dimer Quantitative (PE/DVT) 1.62 Blood Urea Nitrogen 13 Creatinine 1.23 Random Glucose 89 Total Protein 7.0 Albumin 3.0 Calcium Level 8.2 Magnesium Level 2.1 Alkaline Phosphatase 89 Aspartate Amino Transf (AST/SGOT) 15 Alanine Aminotransferase (ALT/SGPT) 17 Total Bilirubin 0.4 Sodium Level 144 Potassium Level 3.6 Chloride Level 106 Carbon Dioxide Level 26.8 Anion Gap 11 Estimat Glomerular Filtration Rate 74 Total Creatine Kinase 53 46 69 Troponin I LESS THAN 0.02 0.02 0.03 Lipase 129 Thyroid Stimulating Hormone 3rd Gen 2.700 White Blood Count 2.7 Red Blood Count 3.02 Hemoglobin 9.8 Hematocrit 29.1 Mean Corpuscular Volume 96.3 Mean Corpuscular Hemoglobin 32.3 Mean Corpuscular Hemoglobin Concent 33.6 Red Cell Distribution Width 17.0 Platelet Count 152 Mean Platelet Volume 8.7 Neutrophils (%) (Auto) 43.3 Lymphocytes (%) (Auto) 15.1 Monocytes (%) (Auto) 22.5 Eosinophils (%) (Auto) 17.8 Basophils (%) (Auto) 1.3 Neutrophils # (Auto) 1.2 Lymphocytes # (Auto) 0.4 Monocytes # (Auto) 0.6 Eosinophils # (Auto) 0.5 Basophils # (Auto) 0.0 CBC Comment DIFF FINAL Differential Comment Result Diagram: 10/29/17 2100 10/29/171944 Imaging Last [address] Angiography 10/29/172101 Signed Impressions: CONCLUSION: 1. No CT evidence for pulmonary artery embolism. 2. Slight prominence of the main pulmonary artery which may reflect some degre e of pulmonary artery hypertension. 3. Mild four-chamber cardiomegaly. 4. Minimal groundglass opacities at the lung bases with slight bronchiectasis. 5. Improved focal airspace disease in the right upper lobe peripherally. 6. Osseous changes consistent with history of multiple myeloma. Chest X-Ray 10/29/171856 Signed Impressions: CONCLUSION: 1. Mild cardiomegaly. 2. No acute cardiopulmonary disease. Course EKG Normal sinus rhythm, no ST-T segment changes Caprini VTE Risk Assessment Caprini VTE Risk Assessment: No/Low Risk (score <= 1) Caprini Risk Assessment Model Point Value = 1 Point Value = 2 Point Value = 3 Point Value = 5 Age 41-60 Minor surgery BMI > 25 kg/m2 Swollen legs Varicose veins or History of unexplained or recurrent spontaneous Oral contraceptives or hormone replacement Sepsis (< 1 month) Serious lung disease, including pneumonia (< 1 month) Abnormal pulmonary function Acute myocardial infarction Congestive heart failure (< 1 month) History of inflammatory bowel disease Medical patient at bed rest Age 61-74 Arthroscopic surgery Major open surgery (> 45 min) Laparoscopic surgery (> 45 min) Malignancy Confined to bed (> 72 hours) Immobilizing plaster cast Central venous access Age >= 75 History of VTE Family history of VTE Factor V Leiden Prothrombin [id number] Lupus anticoagulant Anticardiolipin antibodies Elevated serum homocysteine Heparin-induced thrombocytopenia Other congenital or acquired thrombophilia Stroke (< 1 month) Elective arthroplasty Hip, pelvis, or leg fracture Acute spinal cord injury (< 1 month) Prophylaxis Regimen Total Risk Factor Score Risk Level Prophylaxis Regimen 0-1 Low Early ambulation 2 Moderate Order ONE of the following: *Sequential Compression Device (SCD) *Heparin 5000 units SQ BID 3-4 Higher Order ONE of the following medications: *Heparin 5000 units SQ TID *Enoxaparin/Lovenox 40 mg SQ daily (WT < 150 kg, CrCl > 30 mL/min) *Enoxaparin/Lovenox 30 mg SQ daily (WT < 150 kg, CrCl > 10-29 mL/min) *Enoxaparin/Lovenox 30 mg SQ BID (WT < 150 kg, CrCl > 30 mL/min) AND/OR *Sequential Compression Device (SCD) 5 or more Highest Order ONE of the following medications: *Heparin 5000 units SQ TID (Preferred with Epidurals) *Enoxaparin/Lovenox 40 mg SQ daily (WT < 150 kg, CrCl > 30 mL/min) *Enoxaparin/Lovenox 30 mg SQ daily (WT < 150 kg, CrCl > 10-29 mL/min) *Enoxaparin/Lovenox 30 mg SQ BID (WT < 150 kg, CrCl > 30 mL/min) AND *Sequential Compression Device (SCD) Assessment and Plan Assessment and Plan Admitted to chest pain center. ACS ruled out with 3 sets of EKGs and cardiac enzymes. Monitor on telemetry overnight. Seen and evaluated by Dr. Yovany Toro. Patient had cardiac catheterization August 2015 revealed completely normal coronary arteries. Admitted last month with pneumonia and chest pain. Dr. Felipe consulted during last admission. Lexiscan completed on 09/25/17 conclusion multiple small foci of ischemia in the mid to basilar tear and septal mccann. EF 29%. Global hypokinesis. Dr. Felipe felt low probability of chest discomfort related to ischemia, no further testing completed. Presenting symptoms most likely GI related with a low probability to be cardiac related. No further cardiac testing at this time. Possible esophagitis. GI consult ordered. GI cocktail ordered. Awaiting GI's recommendation. Samina Hallman Oct 30, 2017 08:38
[2017-10-30] MEDS ORDERED: ALUMINUM/MAGNESIUM/SIMETH 30 ML CUP PO ONE (08:45)
[2017-10-30] MEDS ORDERED: LIDOCAINE VISCOUS 2% SOLN 15 ML UDC SWISH-SWAL ONE (08:45)
[2017-10-30] MEDS ORDERED: PANTOPRAZOLE SOD 40 MG DELAYED RELEASE TAB PO SCH (09:00)
[2017-10-30] MEDS: SODIUM CHLORIDE 0.9% FLUSH 10 ML FLUSH IV FLUSH SCH ×2 (09:00→21:00)
[2017-10-30] MEDS ORDERED: oxyCODONE/ACETAMINOPHEN 5 MG/325 MG TAB PO PRN (14:00)
--- NOTE | 2017-10-30 14:12 | EKG ---
Date Performed: 10/30/2017 Time Performed: 03:01:31 PTAGE: 56 years EKG: SINUS BRADYCARDIA WITH FIRST DEGREE AV BLOCK MODERATE INTRAVENTRICULAR CONDUCTION DELAY NON SPECIFIC T-WAVE ABNORMALITY ABNORMAL ECG NO PREVIOUS TRACING DOCTOR: Yovany Toro Interpretating Date/Time 10/30/2017 14:11:56
--- NOTE | 2017-10-30 14:13 | EKG ---
Date Performed: 10/30/2017 Time Performed: 00:06:34 PTAGE: 56 years EKG: SINUS BRADYCARDIA WITH FIRST DEGREE AV BLOCK POSSIBLE LEFT ATRIAL ENLARGEMENT MODERATE INTR AVENTRICULAR CONDUCTION DELAY NONSPECIFIC T-WAVE ABNORMALITY ABNORMAL ECG PREVIOUS TRACING : 10/29/2017 19.50 Since previous tracing, no significant change noted DOCTOR: Yovany Toro Interpretating Date/Time 10/30/2017 14:12:22
--- NOTE | 2017-10-30 14:16 | EKG ---
Date Performed: 10/29/2017 Time Performed: 19:50:23 PTAGE: 56 years EKG: SINUS BRADYCARDIA WITH FIRST DEGREE AV BLOCK LEFT ATRIAL ENLARGEMENT MODERATE T-WAVE ABNORM ALITY, CONSIDER LATERAL ISCHEMIA ABNORMAL ECG PREVIOUS TRACING : 09/25/2017 07.56 Since previous tracing, no significant change noted DOCTOR: Yovany Toro Interpretating Date/Time 10/30/2017 14:13:55
--- NOTE | 2017-10-30 15:18 | MB ---
cc: Sky Ramos MD,Kevin Locke,Chanda Bay MD DATE: 10/30/2017 HISTORY OF PRESENT ILLNESS: The patient is a 56-year-old black gentleman I was asked to see for further evaluation and management of noncardiac chest pain. He tells me for the past 4 days, he has had a constant steady burning discomfort in the retrosternal area that hurts more when he swallows solids or liquids. Tums have made no difference. He has no history of chronic reflux disease and uses no nonsteroidal anti-inflammatory medications. He tells me he takes all of his medications with fluid and never takes any pills followed by lying down immediately. He has had no dysphagia. No early satiety. PAST MEDICAL HISTORY: Significant for multiple myeloma with metastatic disease to the bones, congestive heart failure with 4-chamber cardiac enlargement, nonischemic cardiomyopathy diagnosed in 2016, and he also has hyperlipidemia. PAST SURGICAL HISTORY: Right knee surgery and wisdom teeth extractions. ALLERGIES: NONE KNOWN TO MEDICATIONS. MEDICATIONS AT HOME: 1. Include dexamethasone 4 mg every 12 hours. 2. Zofran ODT p.r.n. 3. Percocet. 4. Verdrocet. 5. Low-dose aspirin. 6. Atorvastatin. 7. Spironolactone. 8. Lisinopril. 9. Furosemide. 10. Carvedilol. 11. Revlimid. 12. Ranitidine 300 mg at bedtime. SOCIAL HISTORY: No tobacco use. No alcohol use. FAMILY HISTORY: Unremarkable for any esophageal disorders. REVIEW OF SYSTEMS: He has had no recent headaches. No history of seizures or strokes. No vision difficulties. No respiratory complaints. No cardiovascular complaints with respect to dyspnea on exertion or palpitations. He denies urinary symptomatology. He has had no new joint pains. He has had no rashes. He does not think he has lost any weight. PHYSICAL EXAMINATION: VITAL SIGNS: His weight is 75 kg, temperature 98.2, pulse 42, blood pressure 159/79, saturation 97% on room air. GENERAL: He is alert. He is oriented x 3. He is in no appreciable distress. HEENT: He is anicteric. Extraocular motions are intact. LYMPHATICS: I appreciate no submandibular, cervical, supraclavicular, epitrochlear, or axillary adenopathy. LUNGS: Clear to auscultation. HEART: Regular rate and rhythm with a I/ murmur. ABDOMEN: Good bowel sounds with no appreciable bruit and no tenderness. No hepatosplenomegaly is noted. EXTREMITIES: No pedal edema, dupuytren contractures or palmar erythema. MUSCULOSKELETAL: There is no chest wall tenderness. LABORATORY STUDIES: Yesterday's white count 2.7, hemoglobin 9.8, platelets 152. INR was 1.1. Sodium 144, potassium 3.6, BUN 13, creatinine 1.23. Liver enzymes normal. Troponin I 0.02 and 0.03. Albumin low at 3.0. Lipase normal. TSH 2.7. IMAGING STUDIES: CT angiography of the chest performed yesterday reveals no pulmonary embolism. Slight prominence of the main pulmonary artery, suggesting possible pulmonary artery hypertension. Mild 4-chamber cardiomegaly. Minimal ground glass opacities at the lung bases with slight bronchiectasis. Improved focal airspace disease in the right upper lobe peripherally and osseous changes consistent with his history of multiple myeloma. IMPRESSION AND RECOMMENDATIONS: Chest pain with odynophagia. The patient takes steroids and receives chemotherapy. We discussed infections of the esophagus, including Candidal and viral processes. We discussed pill-induced esophageal ulcer. We discussed reflux esophagitis. Acid suppression has been started. I suggest the reverse Trendelenburg position, beginning sucralfate as a coating agent and scheduling panendoscopy for tomorrow. We discussed the procedure, including potential risks of medication reaction, bleeding, perforation and the small chance of missing a lesion. MD GIN Puckett/RJ , 02:45 PM , 03:16 PM
[2017-10-30] MEDS: SUCRALFATE 1 GM/10 ML CUP PO SCH ×2 (17:36→21:19)
[2017-10-30] MEDS: CARVEDILOL 6.25 MG TAB PO SCH (17:36)
[2017-10-30] MEDS: FUROSEMIDE 20 MG TAB PO SCH (17:36)
[2017-10-30] MEDS: LISINOPRIL 10 MG TAB PO SCH (17:36)
[2017-10-30] MEDS: SPIRONOLACTONE 25 MG TAB PO SCH (17:36)
[2017-10-30] MEDS: DEXAMETHASONE 4 MG TAB PO SCH (17:36)
[2017-10-30] MEDS ORDERED: REVLIMID 15 MG PO SCH (18:00)
[2017-10-30] MEDS ORDERED: ATORVASTATIN 40 MG TAB PO SCH (21:00)
[2017-10-30] MEDS: FAMOTIDINE 20 MG TAB PO SCH (21:18)
[2017-10-31] VITALS (10 sets, daily range): BP systolic 131–184; BP diastolic 68–90; PULSE 47–68; RESP 16–18; TEMP 97.5–97.9; O2SAT 96–98
[2017-10-31] MEDS: SODIUM CHLOR 0.9% 1000 ML INJ 1,000 ML IV SCH ×2 (05:52→16:00)
[2017-10-31] MEDS: FUROSEMIDE 20 MG TAB PO SCH (05:52)
[2017-10-31] MEDS: DEXAMETHASONE 4 MG TAB PO SCH (05:52)
[2017-10-31] MEDS: CARVEDILOL 6.25 MG TAB PO SCH (06:00)
[2017-10-31] MEDS: SODIUM CHLORIDE 0.9% FLUSH 10 ML FLUSH IV FLUSH SCH (08:02)
--- NOTE | 2017-10-31 09:01 | PD.CARD.PN ---
Subjective Subjective Remarks No complaints overnight. Slept well. Scheduled for panendoscopy today. Objective Medications Current Medications Medications (Trade) Dose Ordered Sig/Padam Route Start Time Stop Time Status Last Admin Sodium Chloride 1,000 ml @ 100 mls/hr Q10H IV 10/30/17 00:00 10/31/17 05:52 (NS Flush) 2 ml UNSCH PRN IV FLUSH 10/30/17 00:00 (NS Flush) 2 ml BID IV FLUSH 10/30/17 09:00 (Tylenol) 500 mg Q4H PRN PO 10/30/17 00:00 (Lipitor) 40 mg HS PO 10/30/17 21:00 10/30/17 21:18 (Coreg) 6.25 mg Q12H PO 10/30/17 18:00 10/30/17 17:36 (Decadron) 4 mg Q12H PO 10/30/17 18:00 10/31/17 05:52 (Lasix) 20 mg Q12H PO 10/30/17 18:00 10/31/17 05:52 (Prinivil) 10 mg DAILY PO 10/30/17 16:00 10/30/17 17:36 (Percocet 5-325 Mg) 1 tab Q4H PRN PO 10/30/17 14:00 (Aldactone) 25 mg DAILY PO 10/30/17 16:00 10/30/17 17:36 Patient Own Medication PT OWN MED: REVLIMID (LENALIDOMI... DAILY PO 10/30/17 18:00 Future Hold (Pepcid) 20 mg BID PO 10/30/17 21:00 10/30/17 21:18 (Carafate Liq) 1 gm ACHS PO 10/30/17 17:00 10/30/17 21:19 Vital Signs / I&O Vital Signs Date Time Temp Pulse Resp B/P (MAP) Pulse Ox O2 Delivery O2 Flow Rate FiO2 10/31/17 04:34 97.9 51 16 150/70 (96) 96 10/31/17 00:31 97.8 54 17 131/68 (89) 96 10/30/17 23:57 61 10/30/17 19:57 98.7 62 16 137/71 (93) 96 10/30/17 19:48 97 21 10/30/17 16:58 98.3 61 14 159/81 (107) 95 10/30/17 15:54 49 10/30/17 12:54 97.4 51 18 156/74 (101) 97 10/30/17 11:15 53 I/O 10/30/17 10/30/17 10/30/17 10/31/17 10/31/17 10/31/17 07:00 15:00 23:00 07:00 15:00 23:00 Intake Total 1000 ml 1000 ml Output Total 300 ml 300 ml 800 ml Balance 1000 ml 700 ml -300 ml -800 ml Intake IV Total 1000 ml 1000 ml Output Urine Total 300 ml 300 ml 800 ml Physical Exam GENERAL: Alert WN, WD, NAD, pleasant, -Dominican male HEAD: NC, AT CV: RRR, without murmur, rub, gallop, no JVD, S1-S2 no S3-S4. RESP: Clear lungs throughout bilateral, no crackles, wheeze, rhonchi, symmetrical chest rise, nonlabored, able to speak in full sentences ABD: Soft, NT, ND, no masses, positive bowel tones MS: Normal tone x4 extremities, no obvious deformities, full range of motion NEURO: CN II through CN XII grossly intact, motor strength 5/5, gait WNL PSYCH: A+O x3, pleasant affect, appropriate speech, mood, insight and judgment SKIN: Normal turgor, normal texture Assessment and Plan Assessment and Plan Scheduled for panendoscopy today. Possible discharge later today after panendoscopy and GI recommendations. GI consult appreciated. Samina Hallman Oct 31, 2017 09:01
[2017-10-31] MEDS: LISINOPRIL 10 MG TAB PO SCH (09:05)
[2017-10-31] MEDS: SUCRALFATE 1 GM/10 ML CUP PO SCH ×2 (09:05→12:51)
[2017-10-31] MEDS: FAMOTIDINE 20 MG TAB PO SCH (09:05)
[2017-10-31] MEDS: SPIRONOLACTONE 25 MG TAB PO SCH (09:05)
[2017-10-31] MEDS ORDERED: PROPOFOL 200 MG/20 ML AMP IV ONE (12:00)
--- NOTE | 2017-10-31 14:59 | GIPROC ---
[facility] [address] [facility]. [facility], [address] EGD PROCEDURE REPORT EXAM DATE: 10/31/2017 PATIENT NAME: Pradeep Charles MR #: [id number] BIRTHDATE: 1960 ATTENDING: Sky Ramos MD ORDER #: [id number] [employer] OPERATOR: Kristian Wu and Edie Millan STATUS: inpatient INDICATIONS: The patient is a 57 yr old male here for an EGD due to odynophgia and chest pain PROCEDURE PERFORMED: EGD, diagnostic MEDICATIONS: Per Anesthesia and None. TOPICAL ANESTHETIC: none CONSENT: The patient understands the risks and benefits of the procedure and understands that these risks include, but are not limited to: sedation, allergic reaction, infection, perforation and/or bleeding. Alternative means of evaluation and treatment include, among others: physical exam, x-rays, and/or surgical intervention. The patient elects to proceed with this endoscopic procedure. medical equipment was checked for proper function. Hand hygiene and appropriate measures for infection prevention was taken. After the risks, benefits and alternatives of the procedure were thoroughly explained, Informed consent was verified, confirmed and timeout was successfully executed by the treatment team. The patient was anesthetized with topical anesthesia and the Pentax [id number] endoscope was introduced through the mouth and advanced to the . Retroflexion was performed and was normal The gastroscope was then slowly withdrawn and removed. ESOPHAGUS: Radiation esophagatis was noted from 29cm to 36cm with normal mucosa proximal and distal to the inflammation. STOMACH: The mucosa of the stomach appeared normal. DUODENUM: The duodenal mucosa appeared normal. ADVERSE EVENTS: There were no complications. IMPRESSIONS: 1. Radiation esophagatis was noted from 29cm to 36cm with normal mucosa proximal and distal to the inflammation 2. The mucosa of the stomach appeared normal 3. Normal duodenal mucosa 4. Retroflexion was performed and was normal RECOMMENDATIONS: Carafate 1 gm po qid ac PATIENT CONDITION: stable DISPOSITION: Inpatient REPEAT EXAM: PRN Sky Ramos MD eSigned: Sky Ramos MD 10/31/2017 2:58 PM cc: Richi Shultz PATIENT NAME: Pradeep Charles MR#: [id number]
[2017-10-31] MEDS ORDERED: SUCR1S PO (16:19)
--- NOTE | 2017-10-31 16:20 | HHI.DCPOC ---
Discharge Care Plan Diagnosis: (1) Esophagitis determined by endoscopy Goals to Promote Your Health * To prevent worsening of your condition and complications * To maintain your health at the optimal level Directions to Meet Your Goals Take your medications as prescribed Follow your dietary instruction Follow activity as directed Keep your appointments as scheduled Take your immunizations and boosters as scheduled If your symptoms worsen call your PCP, if no PCP go to Urgent Care Center or Emergency Room Smoking is Dangerous to Your Health. Avoid second hand smoke Call the 24-hour hour crisis hotline for domestic abuse at Samina Hallman Oct 31, 2017 16:20
== END 2017-10-31 17:19 | disposition home or self-care (01) ==
LOC: NEPE 18:46 → NEDA 23:22 → NEPFCDU 10-30 00:54
PROVIDERS: ADMIT Internal Medicine Interventional Cardiology; ATTEND Internal Medicine Interventional Cardiology
DX: K20.9 Esophagitis, unspecified (principal); R13.10 Dysphagia, unspecified; C90.00 Multiple myeloma not having achieved remission; I11.0 Hypertensive heart disease with heart failure; I50.9 Heart failure, unspecified; I42.9 Cardiomyopathy, unspecified; E78.5 Hyperlipidemia, unspecified; I44.0 Atrioventricular block, first degree; R00.1 Bradycardia, unspecified; R91.8 Other nonspecific abnormal finding of lung field; Z79.899 Other long term (current) drug therapy; Z79.82 Long term (current) use of aspirin
CPT/HCPCS: 00731; 43235; 71045; 71275; 80053; 82550; 83690; 83735; 84443; 84484; 85025; 85379; 85610; 85730; 93005; 96361; 96374; 99285; C9113; G0378; J7030; J8540; Q9967